=== PATIENT | female | born 1985 | race Caucasian/White ===

== ENCOUNTER 2020-11-24 23:09 | Emergency (ER) | payer OTHER, MEDICAID, SELFPAY ==
[2020-11-25 00:06] VITALS: BP 132/84; PULSE 118; RESP 17; TEMP 37.1; O2SAT 98; BMI 32.9
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
== END 2020-11-25 01:06 | disposition home or self-care (01) ==
LOC: HO.ED 11-25 00:58
PROVIDERS: Emergency Provider Internal Medicine; PCP Family Medicine
DX: Z04.1 Encounter for examination and observation following transport accident (principal)
CPT/HCPCS: 99283

== ENCOUNTER 2021-12-20 00:01 | Emergency (ER) | payer MEDICAID, SELFPAY ==
--- NOTE | 2021-12-20 | ECG_ITS ---
Test Reason : CHEST PAIN Blood Pressure : / mmHG Vent. Rate : 131 BPM Atrial Rate : 131 BPM P-R Int : 136 ms QRS Dur : 074 ms QT Int : 388 ms P-R-T Axes : 004 018 002 degrees QTc Int : 572 ms Sinus tachycardia Nonspecific ST abnormality Abnormal ECG When compared with ECG of 02-DEC-2019 19:05, No significant change was found Referred By: Generic ED Physician Electronically Signed By:DARIAN MÉNDEZ
[2021-12-20 00:06] VITALS: BP 180/109; PULSE 130; RESP 20; TEMP 37.2; O2SAT 100; BMI 49.6
[2021-12-20 00:22] VITALS: BP 166/114; PULSE 136; RESP 20; TEMP 37; O2SAT 100
[2021-12-20 00:24] LABS: Basophils Absolute Auto 0.1 X10*3/uL (0.0-0.2); Basophils Percent Auto 0.6 % (0-2); Eosinophils Absolute Auto 0.3 X10*3/uL (0.0-0.4); Eosinophils Percent Auto 3.6 % (0-4); Hematocrit 42.9 % (37.0-47.0); Hemoglobin 13.6 g/dl (12.0-16.0); Imm Gran Abs Auto 0.02 X10*3/uL (0.00-0.03); Imm Gran Pct Auto 0.2 % (0.0-0.4); Lymphocytes Absolute Auto 1.7 X10*3/uL (1.2-4.9); Lymphocytes Percent Auto 20.5 % (20-40); MANUAL DIFF FLAG NO; Mean Corpuscular HGB Conc 31.7 g/dl (31.0-35.0); Mean Corpuscular Hemoglobin 26.1 pg (27.0-33.0); Mean Corpuscular Volume 82.3 fL (80.0-98.0); Mean Platelet Volume 10.7 fL (9.4-12.3); Monocytes Absolute Auto 0.8 X10*3/uL (0.1-1.2); Monocytes Percent Auto 9.5 % (2-11); Neutrophils Absolute Auto 5.5 x10*3/uL (2.0-8.3); Neutrophils Percent Auto 65.6 % (45-73); Platelet Count 263 X10*3/uL (160-400); Red Blood Count 5.21 X10*6/uL (4.20-5.50); Red Cell Distribution Width 15.2 % (11.0-16.0); White Blood Count 8.4 X10*3/uL (4.8-10.8)
--- NOTE | 2021-12-20 00:38 | ED.CHESTPAIN ---
HPI - Chest Pain General Chief Complaint: Chest Pain Stated Complaint: Chest pain/Paliptations/?High Blood Pressure Time Seen by Provider: 12/20/21 00:38 Source: patient Mode of arrival: ambulatory Limitations: no limitations History of Present Illness HPI narrative: Chest pain, nausea, anxiety, and palpitations for 2 days. Patient has asthma, hypertension. Patient takes verapamil for her blood pressure. MD complaint: chest pain Onset (ago): day(s) Timing of current episode: constant Onset: during rest Pain location: substernal Severity: mild Quality: dull Treatment prior to arrival: none Related Data On Oral Contraceptives: No Previous Rx's Medication Instructions Recorded ondansetron 4 mg disintegrating 4 mg PO TID PRN 5 Days #10 tab 12/21/21 tablet Allergies Allergy/AdvReac Type Severity Reaction Status Date / Time No Known Allergies Allergy Verified 12/20/21 00:06 [No Known Allergies*] Anesthesia S/I-40 Allergy Unknown rash Uncoded 12/20/21 00:06 outside allergy/ unhouse Allergy Unknown rash Uncoded 12/20/21 00:06 aller Review of Systems Constitutional: Constitutional: Reports no additional constitutional complaints Eyes: Eyes: Reports no additional eye complaints ENT: Denies dizziness Cardiovascular: Cardiovascular: Reports no additional cardiovascular complaints Respiratory: Respiratory: Reports as per HPI Gastrointestinal: Gastrointestinal: Reports no additional gastrointestinal complaints Genitourinary: Genitourinary: Reports no additional female genitourinary complaints Musculoskeletal: Musculoskeletal: Reports no additional musculoskeletal complaints Integumentary/Breasts: Skin/Breast: Denies rash Neurologic: Reports system reviewed and no additional complaints, except as documented, Denies dizziness and Denies Sensory deficit (Neuro) Psychiatric: Psychiatric: Denies anxiety PMFSH Past Medical History Medical History Asthma Back pain HTN (hypertension) Tachycardia Social History Social History Alcohol intake: never Patient Tobacco Use Status: Never used Tobacco Physical Exam Vital Signs: Vital Signs: Last Vital Signs Temp 98.6 F 12/20/21 00:22 Pulse 136 H 12/20/21 00:22 Resp 20 12/20/21 00:22 BP 166/114 H 12/20/21 00:22 Pulse Ox 100 12/20/21 00:22 BMI result Body Mass Index 49.6 Const: Other: very anxious, shaking General: healthy appearing Nutritional Appearance: average body habitus Orientation/consciousness: oriented to person and patient oriented x3 Limitations: no limitations HENMT: Head: Yes normal to inspection Ears: external ears normal General nose exam: Normal external nose present Mouth: Normal oral and palatal mucosa present and oropharynx normal Throat: Yes posterior oropharynx normal Eyes: General: appearance normal, both eyes and all related structures Neck: Other: supple Neck: Yes normal visual inspection Chest: Chest palpation & inspection: normal inspection of the chest Resp: Auscultation: clear to auscultation bilaterally Cardio: Other: tachycardia Jugular venous distension: no JVD Rate: regular rate Rhythm: regular rhythm Heart sounds: S1 normal heart sound present and S2 normal heart sound present GI: Inspection: Yes normal to inspection Palpation (GI): Soft to palpation, nontender and No hepatosplenomegaly present Auscultation: normal bowel sounds : General: Yes no CVA tenderness Back/Spine/Pelvis: Back: no CVA tenderness Skin: General skin exam: no rashes or lesions noted Neuro: General: oriented to person and patient oriented x3 Cranial nerves: Yes CN's II-XII intact bilaterally Motor exam (neuro): 5/5 motor strength present throughout Sensory Exam: No Sensory deficit (Neuro) Extrem: General: Yes normal to inspection Psych: Appearance: grossly normal MDM - Chest Pain Lab Data Result diagrams: 12/20/21 00:18 12/20/21 00:18 Labs: Lab Results 12/20/21 12/20/21 12/20/21 Range/Units 00:18 00:18 00:18 WBC 8.4 (4.8-10.8) X10*3/uL RBC 5.21 (4.20-5.50) X10*6/uL Hgb 13.6 (12.0-16.0) g/dl Hct 42.9 (37.0-47.0) % MCV 82.3 (80.0-98.0) fL MCH 26.1 L (27.0-33.0) pg MCHC 31.7 (31.0-35.0) g/dl RDW 15.2 (11.0-16.0) % Plt Count 263 (160-400) X10*3/uL MPV 10.7 (9.4-12.3) fL Immature Gran % (Auto) 0.2 (0.0-0.4) % Neut % (Auto) 65.6 (45-73) % Lymph % (Auto) 20.5 (20-40) % [place] % (Auto) 9.5 (2-11) % Eos % (Auto) 3.6 (0-4) % Baso % (Auto) 0.6 (0-2) % Lymph # (Auto) 1.7 (1.2-4.9) X10*3/uL [place] # (Auto) 0.8 (0.1-1.2) X10*3/uL Eos # (Auto) 0.3 (0.0-0.4) X10*3/uL Baso # (Auto) 0.1 (0.0-0.2) X10*3/uL Abs Immat Gran (auto) 0.02 (0.00-0.03) X10*3/uL Absolute Neuts (auto) 5.5 (2.0-8.3) x10*3/uL Absolute Nucleated RBC 0.000 (0.0-0.012) X10*3/uL Nucleated RBC % (auto) 0.0 (0.0-0.2) /100WBC D-Dimer High Sensitivty NG/ML Sodium 140 (135-145) mmol/L Potassium 3.6 (3.3-5.1) mmol/L Chloride 105 (96-108) mmol/L Carbon Dioxide 24 (22-29) mmol/L Anion Gap 15 (12-20) BUN 7 L (9-16) mg/dL Creatinine 0.83 (0.5-1.4) mg/dL Estim Creat Clear Calc 123.9 Estimated GFR > 60 Random Glucose 145 H (60-115) mg/dL Calcium 9.7 (8.4-10.2) mg/dL Troponin I High Sens < 3.5 (<3.5-17.0) ng/L TSH 0.90 (0.32-4.0) uIU/mL 12/20/21 Range/Units 01:10 WBC (4.8-10.8) X10*3/uL RBC (4.20-5.50) X10*6/uL Hgb (12.0-16.0) g/dl Hct (37.0-47.0) % MCV (80.0-98.0) fL MCH (27.0-33.0) pg MCHC (31.0-35.0) g/dl RDW (11.0-16.0) % Plt Count (160-400) X10*3/uL MPV (9.4-12.3) fL Immature Gran % (Auto) (0.0-0.4) % Neut % (Auto) (45-73) % Lymph % (Auto) (20-40) % [place] % (Auto) (2-11) % Eos % (Auto) (0-4) % Baso % (Auto) (0-2) % Lymph # (Auto) (1.2-4.9) X10*3/uL [place] # (Auto) (0.1-1.2) X10*3/uL Eos # (Auto) (0.0-0.4) X10*3/uL Baso # (Auto) (0.0-0.2) X10*3/uL Abs Immat Gran (auto) (0.00-0.03) X10*3/uL Absolute Neuts (auto) (2.0-8.3) x10*3/uL Absolute Nucleated RBC (0.0-0.012) X10*3/uL Nucleated RBC % (auto) (0.0-0.2) /100WBC D-Dimer High Sensitivty 169 NG/ML Sodium (135-145) mmol/L Potassium (3.3-5.1) mmol/L Chloride (96-108) mmol/L Carbon Dioxide (22-29) mmol/L Anion Gap (12-20) BUN (9-16) mg/dL Creatinine (0.5-1.4) mg/dL Estim Creat Clear Calc Estimated GFR Random Glucose (60-115) mg/dL Calcium (8.4-10.2) mg/dL Troponin I High Sens (<3.5-17.0) ng/L TSH (0.32-4.0) uIU/mL Discharge Plan Discharge Clinical Impression: Atypical chest pain Patient Disposition: Home, Self-Care Prescriptions: No Action ondansetron 4 mg tablet,disintegrating 4 mg PO TID PRN (Reason: nausea and vomiting) 5 Days Qty: 10 0RF Interventions: ED Discharge Assessment Last Done: 12/20/21 05:44 Discharge Date/Time: 12/20/21 05:47
[2021-12-20 00:39] LABS: Anion Gap 15 (12-20); Blood Urea Nitrogen 7 mg/dL (9-16); Calcium 9.7 mg/dL (8.4-10.2); Carbon Dioxide 24 mmol/L (22-29); Chloride 105 mmol/L (96-108); Creatinine Clr Calc Pharmacy 123.9; Estimated Glomerular Filt Rate > 60; Glucose Random 145 mg/dL (60-115); Potassium 3.6 mmol/L (3.3-5.1); Sodium 140 mmol/L (135-145)
[2021-12-20 00:44] LABS: Troponin-I High Sensitivity < 3.5 ng/L (<3.5-17.0)
[2021-12-20 05:22] LABS: D Dimer High Sensitivity 169 NG/ML
--- NOTE | 2021-12-20 05:22 | PC.NURSE ---
see downtime chart for the majority of this patients ER visit - VS, meds and times.
== END 2021-12-20 05:47 | disposition home or self-care (01) ==
PROVIDERS: Emergency Provider Emergency Medicine; PCP Family Medicine
DX: R07.89 Other chest pain (principal); F41.9 Anxiety disorder, unspecified; I10 Essential (primary) hypertension; R00.0 Tachycardia, unspecified
CPT/HCPCS: 36415; 80048; 84443; 84484; 85025; 85379; 93005; 96361; 96374; 96375; 99284

== ENCOUNTER 2021-12-21 02:44 | Emergency (ER) | payer MEDICAID, SELFPAY ==
[2021-12-21 02:49] VITALS: BP 128/89; PULSE 90; RESP 20; TEMP 37; O2SAT 97; BMI 31.8
--- NOTE | 2021-12-21 05:26 | ED_ITS ---
HPI - Nausea/Vomiting/Diarrhea General Chief complaint: Nausea/Vomiting/Diarrhea Stated complaint: vomiting & chest pain Time Seen by Provider: 12/21/21 05:24 History of Present Illness HPI Narrative: Patient is a 36-year-old female presents today with having abdominal pain nausea vomiting diarrhea. Positive generalized malaise. Diarrhea is brown in color. Vomiting mostly food. No blood in the stool. No fever no chills. Minimal coughing noted. Patient not immunized for COVID. Positive abdominal pain diffuse over the entire abdomen. Related Data Allergies Allergy/AdvReac Type Severity Reaction Status Date / Time No Known Allergies Allergy Verified 12/20/21 00:06 [No Known Allergies*] Anesthesia S/I-40 Allergy Unknown rash Uncoded 12/20/21 00:06 outside allergy/ unhouse Allergy Unknown rash Uncoded 12/20/21 00:06 aller Review of Systems Review of Systems: No fever no chills minimal coughing positive abdominal pain nausea vomiting diarrhea Yes all other systems are reviewed and are negative PMFSH Past Medical History Medical History Asthma Back pain HTN (hypertension) Tachycardia Social History Social History Advance Directives: No Patient : No Physical Exam Vital Signs: Vital Signs: Last Vital Signs Temp 98.6 F 12/21/21 02:49 Pulse 90 12/21/21 02:49 Resp 20 12/21/21 02:49 BP 128/89 12/21/21 02:49 Pulse Ox 97 12/21/21 02:49 BMI result Body Mass Index 31.8 Appearance: Alert. Oriented X3. No acute distress. Eyes: Pupils equal, round and reactive to light. ENT: Pharynx normal. Neck: Normal inspection. Neck supple. No lymph nodes noted. No crepitus CVS: Normal heart rate and rhythm. Pulses normal. Normal S1 and S2 Respiratory: No respiratory distress. Breath sounds normal. No Wheezing. No rales Abdomen: Soft and nontender. No rigidity. No distention. good BS x4 Skin: Skin warm and dry. Normal skin color. Normal skin turgor. Extremities: No lower extremity edema. Neurovascular intact to all extremities. No Lacerations. No Rash Neuro: Oriented X 3. No motor deficit. No sensory deficit. Moving all extermities. No slurred speech MDM - Nausea/Vomiting/Diarrhea MDM Narrative Medical decision making narrative: Not vaccinated positive generalized malaise weakness coughing abdominal pain prashanth sea vomiting diarrhea. Patient's COVID test was positive. CT scan is negative will discharge patient home. Lab Data Result diagrams: 12/21/21 05:53 12/21/21 05:53 Labs: Lab Results 12/21/21 12/21/21 Range/Units 05:53 05:53 WBC 9.0 (4.8-10.8) X10*3/uL RBC 4.70 (4.20-5.50) X10*6/uL Hgb 12.3 (12.0-16.0) g/dl Hct 38.5 (37.0-47.0) % MCV 81.9 (80.0-98.0) fL MCH 26.2 L (27.0-33.0) pg MCHC 31.9 (31.0-35.0) g/dl RDW 15.2 (11.0-16.0) % Plt Count 232 (160-400) X10*3/uL MPV 10.6 (9.4-12.3) fL Immature Gran % (Auto) 0.2 (0.0-0.4) % Neut % (Auto) 63.3 (45-73) % Lymph % (Auto) 26.7 (20-40) % [place] % (Auto) 6.6 (2-11) % Eos % (Auto) 2.8 (0-4) % Baso % (Auto) 0.4 (0-2) % Lymph # (Auto) 2.4 (1.2-4.9) X10*3/uL [place] # (Auto) 0.6 (0.1-1.2) X10*3/uL Eos # (Auto) 0.3 (0.0-0.4) X10*3/uL Baso # (Auto) 0.0 (0.0-0.2) X10*3/uL Abs Immat Gran (auto) 0.02 (0.00-0.03) X10*3/uL Absolute Neuts (auto) 5.7 (2.0-8.3) x10*3/uL Absolute Nucleated RBC 0.000 (0.0-0.012) X10*3/uL Nucleated RBC % (auto) 0.0 (0.0-0.2) /100WBC COVID-19 ([facility]) Positive A (Negative) COVID-19 Clin Com See Note Discharge Plan Discharge Clinical Impression: Vomiting, COVID-19 Patient Disposition: Home, Self-Care Instructions: COVID-19 (Coronavirus Disease 2019) (ED), Acute Nausea and Vomiting (ED) Additional Instructions: Home isolation until all symptom has resolved. Onset of symptoms for at least 1 week. No fever for least 24 hours. Referrals: Gisele Kulkarni MD [Primary Care Provider] - 2 days
[2021-12-21 05:58] LABS: MANUAL DIFF FLAG NO
[2021-12-21 05:59] LABS: Basophils Percent Auto 0.4 % (0-2); Eosinophils Absolute Auto 0.3 X10*3/uL (0.0-0.4); Eosinophils Percent Auto 2.8 % (0-4); Hematocrit 38.5 % (37.0-47.0); Hemoglobin 12.3 g/dl (12.0-16.0); Imm Gran Abs Auto 0.02 X10*3/uL (0.00-0.03); Imm Gran Pct Auto 0.2 % (0.0-0.4); Lymphocytes Absolute Auto 2.4 X10*3/uL (1.2-4.9); Lymphocytes Percent Auto 26.7 % (20-40); Mean Corpuscular HGB Conc 31.9 g/dl (31.0-35.0); Mean Corpuscular Hemoglobin 26.2 pg (27.0-33.0); Mean Corpuscular Volume 81.9 fL (80.0-98.0); Mean Platelet Volume 10.6 fL (9.4-12.3); Monocytes Absolute Auto 0.6 X10*3/uL (0.1-1.2); Monocytes Percent Auto 6.6 % (2-11); Neutrophils Absolute Auto 5.7 x10*3/uL (2.0-8.3); Neutrophils Percent Auto 63.3 % (45-73); Platelet Count 232 X10*3/uL (160-400); Red Cell Distribution Width 15.2 % (11.0-16.0)
[2021-12-21] MEDS: ondansetron HCL 4 MG/2 ML VIAL IVPUSH (06:03)
[2021-12-21] MEDS: 0.9 % Sodium Chloride 1,000 ML 999 ML IV ×2 (06:03)
[2021-12-21] MEDS: Ketorolac Tromethamine 30 MG/ML VIAL IVPUSH (06:03)
[2021-12-21 06:05] LABS: COVID-19 Test Positive (Negative)
[2021-12-21 07:03] LABS: Alanine Aminotransferase 18 U/L (0-31); Albumin Level 3.8 g/dL (3.5-5.0); Alkaline Phosphatase 85 U/L (39-117); Anion Gap 15 (12-20); Aspartate Amino Transferase 24 U/L (5-31); Bilirubin Direct < 0.2 mg/dL (0.0-0.5); Bilirubin Total 0.3 mg/dL (0.0-1.0); Blood Urea Nitrogen 9 mg/dL (9-16); Calcium 9.1 mg/dL (8.4-10.2); Carbon Dioxide 22 mmol/L (22-29); Chloride 107 mmol/L (96-108); Creatinine Clr Calc Pharmacy 116.2; Estimated Glomerular Filt Rate > 60; Glucose Random 102 mg/dL (60-115); Lipase 62 U/L (8-78); Potassium 3.8 mmol/L (3.3-5.1); Sodium 140 mmol/L (135-145); Total Protein 7.1 g/dL (6.5-8.0)
[2021-12-21 07:08] LABS: HCG Quantitative < 2 mIU/mL
[2021-12-21 07:26] VITALS: BP 127/93; PULSE 109; RESP 16; TEMP 36.5; O2SAT 98
[2021-12-21 08:30] LABS: Appearance Urine CLEAR; Color Urine STRAW; Glucose Urine UA NEG (NEG); Leukocyte Esterase Urine NEG (NEG); Nitrite Urine NEG (NEG); Specific Gravity - Urine <= 1.005 (1.005-1.025); UACC Culture Trigger NO; Urine Blood 3+ (NEG); Urine Ketones NEG (NEG); Urine Protein NEG (NEG-TRACE)
[2021-12-21 08:43] LABS: Renal Epithelial Cells Urine TRACE /LPF; Squamous Epithelial Cell Urine 1+ /LPF; WBC Urine 0 /HPF (0-4)
== END 2021-12-21 08:55 | disposition home or self-care (01) ==
PROVIDERS: Emergency Provider Emergency Medicine Emergency Medical Services; PCP Family Medicine
DX: U07.1 COVID-19 (principal); R11.2 Nausea with vomiting, unspecified; R07.89 Other chest pain; Z79.899 Other long term (current) drug therapy
CPT/HCPCS: 36415; 80048; 80076; 81001; 83690; 84702; 85025; 87635; 96361; 96374; 96375; 99284; J1885; J2405

== ENCOUNTER 2022-05-15 01:29 | Emergency (ER) | payer MEDICAID, SELFPAY ==
--- NOTE | 2022-05-15 | ECG_ITS ---
Test Reason : high bp chest pain Blood Pressure : / mmHG Vent. Rate : 139 BPM Atrial Rate : 000 BPM P-R Int : 000 ms QRS Dur : 076 ms QT Int : 370 ms P-R-T Axes : 000 016 -04 degrees QTc Int : 563 ms Sinus tachycardia Nonspecific ST abnormality Abnormal ECG When compared with ECG of 20-DEC-2021 00:11, No significant change was found Referred By: Generic ED Physician Electronically Signed By:Zeke Bailey
--- NOTE | ~2022-05-15 | XR_ITS ---
EXAMINATION: XR CHEST CLINICAL INFORMATION: Chest pain COMPARISON: 10/24/2008 TECHNIQUE: 2 views of the chest were obtained. FINDINGS: The lungs are clear with no focal consolidation. No evidence of pneumothorax, pulmonary edema, or pleural effusions. The cardiomediastinal silhouette is unremarkable. No acute osseous findings. XR/XR chest 2V IMPRESSION: No acute cardiopulmonary findings.
[2022-05-15 01:31] VITALS: BP 156/106; PULSE 147; RESP 20; TEMP 37.3; O2SAT 100; BMI 31.3
[2022-05-15 01:53] LABS: MANUAL DIFF FLAG NO
[2022-05-15 01:55] LABS: Basophils Percent Auto 0.3 % (0-2); Eosinophils Absolute Auto 0.1 X10*3/uL (0.0-0.4); Eosinophils Percent Auto 0.9 % (0-4); Hematocrit 39.9 % (37.0-47.0); Hemoglobin 12.8 g/dl (12.0-16.0); Imm Gran Abs Auto 0.03 X10*3/uL (0.00-0.03); Imm Gran Pct Auto 0.3 % (0.0-0.4); Lymphocytes Percent Auto 26.2 % (20-40); Mean Corpuscular HGB Conc 32.1 g/dl (31.0-35.0); Mean Corpuscular Volume 77.9 fL (80.0-98.0); Mean Platelet Volume 10.2 fL (9.4-12.3); Monocytes Absolute Auto 0.7 X10*3/uL (0.1-1.2); Monocytes Percent Auto 6.5 % (2-11); Neutrophils Absolute Auto 7.6 x10*3/uL (2.0-8.3); Neutrophils Percent Auto 65.8 % (45-73); Platelet Count 338 X10*3/uL (160-400); Red Blood Count 5.12 X10*6/uL (4.20-5.50); Red Cell Distribution Width 16.4 % (11.0-16.0); White Blood Count 11.5 X10*3/uL (4.8-10.8)
[2022-05-15 02:09] LABS: COVID-19 Test Negative (Negative)
--- NOTE | 2022-05-15 02:15 | ED.CHESTPAIN ---
HPI - Chest Pain General Chief Complaint: Chest Pain Stated Complaint: high bp Time Seen by Provider: 05/15/22 02:09 Source: patient Mode of arrival: ambulatory Limitations: no limitations History of Present Illness HPI narrative: Patient comes to the emergency room of 6 hours of palpitations, chest pressure, lightheadedness. Patient states that she takes blood pressure medications, does not know the name, is compliant with her medications. Patient denies nausea vomiting, URI or UTI symptoms, no abdominal pain. Shortness of breath Related Data Previous Rx's Medication Instructions Recorded ondansetron 4 mg disintegrating 4 mg PO TID PRN nausea and 12/21/21 tablet vomiting 5 days #10 tabs diltiazem HCl 240 mg capsule,24 240 mg PO DAILY #30 caps 05/15/22 hr,extended release (Tiadylt ER) Allergies Allergy/AdvReac Type Severity Reaction Status Date / Time No Known Allergies Allergy Verified 12/20/21 00:06 [No Known Allergies*] Anesthesia S/I-40 Allergy Unknown rash Uncoded 12/20/21 00:06 outside allergy/ unhouse Allergy Unknown rash Uncoded 12/20/21 00:06 aller Review of Systems Review of Systems: Constitutional : No Weight loss, No Fever, No Chills, No Night Sweats, No Fatigue, No Malaise ENT/Mouth : No Hearing loss, No Ear Pain, No Nasal Congestion, No Sinus Pain, No Hoarseness, No sore throat, No Rhinorrhea, No Swallowing Difficulty Eyes: No Eye Pain, No Swelling, No Redness, No Foreign Body, No Discharge, No Vision Changes Cardiovascular : Complaining of chest pain, mild shortness of breath, palpitations Respiratory : No Cough, No Sputum, No Wheezing, No Smoke Exposure, complaining of Dyspnea Gastrointestinal : No Nausea, No Vomiting, No Diarrhea, No Constipation, No abdominal Pain, No Hematochezia, No Melena Genitourinary : no irregular bleeding, No Dysuria, No Urinary Frequency, No Hematuria, No Urinary Incontinence, No Urgency, No Flank Pain, No Urinary Flow Changes, No Hesitancy Musculoskeletal : No joint pain, No Myalgias, No Joint Swelling Skin : No Skin Lesions, No rash Neuro : No Weakness, No Numbness, No Paresthesias, No Loss of Consciousness, No Dizziness, No Headache Psych : No Anxiety/Panic, No Depression, No SI/HI/AH/VH, No Social Issues, Heme/Lymph: No Bruising, No Bleeding,No Lymphadenopathy Endocrine : No Polyuria, No Polydipsia, No Temperature Intolerance [facility] Past Medical History Medical History Asthma Back pain HTN (hypertension) Tachycardia Social History Social History Alcohol intake: never Patient Tobacco Use Status: Never used Tobacco Use of substances other than those prescribed or required for medical reasons: No Advance Directives: No Physical Exam Vital Signs: Vital Signs: Last Vital Signs Temp 97.4 F 05/15/22 04:35 Pulse 98 05/15/22 06:29 Resp 17 05/15/22 06:29 BP 126/90 H 05/15/22 06:29 Pulse Ox 100 05/15/22 06:29 O2 Del Method 05/15/22 06:29 BMI result Body Mass Index 31.3 Const: Other: Appearance: Alert. Oriented X3. No acute distress. Eyes: Pupils equal, round and reactive to light. ENT: Pharynx normal. Neck: Normal inspection. Neck supple. No lymph nodes noted. No crepitus CVS: Regular rhythm, tachycardic, heart rate in the 140s to 150s Pulses normal. Normal S1 and S2 Respiratory: No respiratory distress. Breath sounds normal. No Wheezing. No rales Abdomen: Soft and nontender. No rigidity. No distention. Skin: Skin warm and dry. Normal skin color. Normal skin turgor. Extremities: No lower extremity edema. No Lacerations. No Rash Neuro: Oriented X 3. No motor deficit. No sensory deficit. Moving all extremities. No slurred speech. CN 2 through 12 grossly intact Psych: calm, cooperative, seems anxious, teary Course Course Course Narrative: Hypoxia and slightly elevated 11.5, D-dimer pending, chemistry within normal limits, troponin negative, EKG shows sinus rhythm, heart rate 139, QTC 463 D-dimer pending Patient was amount of 60 mg Cardizem, patient's heart rate improved to the low 100s, high 90s. However, when patient stands up, her heart rate increased to 120. Patient received 5 additional mg of IV metoprolol, heart rate 93, sinus rhythm, normal EKG. I discussed with the patient that we will increase the home Cardizem dose from 180-240 mg MDM - Chest Pain Lab Data Result diagrams: 05/15/22 01:49 05/15/22 01:49 Labs: Lab Results 05/15/22 05/15/22 05/15/22 Range/Units 01:49 01:49 01:49 WBC 11.5 H (4.8-10.8) X10*3/uL RBC 5.12 (4.20-5.50) X10*6/uL Hgb 12.8 (12.0-16.0) g/dl Hct 39.9 (37.0-47.0) % MCV 77.9 L (80.0-98.0) fL MCH 25.0 L (27.0-33.0) pg MCHC 32.1 (31.0-35.0) g/dl RDW 16.4 H (11.0-16.0) % Plt Count 338 D (160-400) X10*3/uL MPV 10.2 (9.4-12.3) fL Immature Gran % (Auto) 0.3 (0.0-0.4) % Neut % (Auto) 65.8 (45-73) % Lymph % (Auto) 26.2 (20-40) % [place] % (Auto) 6.5 (2-11) % Eos % (Auto) 0.9 (0-4) % Baso % (Auto) 0.3 (0-2) % Lymph # (Auto) 3.0 (1.2-4.9) X10*3/uL [place] # (Auto) 0.7 (0.1-1.2) X10*3/uL Eos # (Auto) 0.1 (0.0-0.4) X10*3/uL Baso # (Auto) 0.0 (0.0-0.2) X10*3/uL Abs Immat Gran (auto) 0.03 (0.00-0.03) X10*3/uL Absolute Neuts (auto) 7.6 (2.0-8.3) x10*3/uL Absolute Nucleated RBC 0.000 (0.0-0.012) X10*3/uL Nucleated RBC % (auto) 0.0 (0.0-0.2) /100WBC D-Dimer High Sensitivty NG/ML Sodium 137 (135-145) mmol/L Potassium 3.7 (3.3-5.1) mmol/L Chloride 107 (96-108) mmol/L Carbon Dioxide 21 L (22-29) mmol/L Anion Gap 13 (12-20) BUN 9 (9-16) mg/dL Creatinine 0.80 (0.5-1.4) mg/dL Estim Creat Clear Calc 99.4 Estimated GFR > 60 Random Glucose 143 H (60-115) mg/dL Calcium 9.3 (8.4-10.2) mg/dL Total Bilirubin 0.2 (0.0-1.0) mg/dL AST 14 D (5-31) U/L ALT 11 (0-31) U/L Alkaline Phosphatase 101 (39-117) U/L Troponin I High Sens < 3.5 (<3.5-17.0) ng/L Total Protein 8.3 H (6.5-8.0) g/dL Albumin 4.4 (3.5-5.0) g/dL COVID-19 ([facility]) (Negative) COVID-19 Clin Com 05/15/22 05/15/22 Range/Units 01:49 03:53 WBC (4.8-10.8) X10*3/uL RBC (4.20-5.50) X10*6/uL Hgb (12.0-16.0) g/dl Hct (37.0-47.0) % MCV (80.0-98.0) fL MCH (27.0-33.0) pg MCHC (31.0-35.0) g/dl RDW (11.0-16.0) % Plt Count (160-400) X10*3/uL MPV (9.4-12.3) fL Immature Gran % (Auto) (0.0-0.4) % Neut % (Auto) (45-73) % Lymph % (Auto) (20-40) % [place] % (Auto) (2-11) % Eos % (Auto) (0-4) % Baso % (Auto) (0-2) % Lymph # (Auto) (1.2-4.9) X10*3/uL [place] # (Auto) (0.1-1.2) X10*3/uL Eos # (Auto) (0.0-0.4) X10*3/uL Baso # (Auto) (0.0-0.2) X10*3/uL Abs Immat Gran (auto) (0.00-0.03) X10*3/uL Absolute Neuts (auto) (2.0-8.3) x10*3/uL Absolute Nucleated RBC (0.0-0.012) X10*3/uL Nucleated RBC % (auto) (0.0-0.2) /100WBC D-Dimer High Sensitivty < 150 NG/ML Sodium (135-145) mmol/L Potassium (3.3-5.1) mmol/L Chloride (96-108) mmol/L Carbon Dioxide (22-29) mmol/L Anion Gap (12-20) BUN (9-16) mg/dL Creatinine (0.5-1.4) mg/dL Estim Creat Clear Calc Estimated GFR Random Glucose (60-115) mg/dL Calcium (8.4-10.2) mg/dL Total Bilirubin (0.0-1.0) mg/dL AST (5-31) U/L ALT (0-31) U/L Alkaline Phosphatase (39-117) U/L Troponin I High Sens (<3.5-17.0) ng/L Total Protein (6.5-8.0) g/dL Albumin (3.5-5.0) g/dL COVID-19 ([facility]) Negative (Negative) COVID-19 Clin Com See Note Discharge Plan Discharge Clinical Impression: Sinus tachycardia Patient Disposition: Home, Self-Care Instructions: Tachycardia (ED) Additional Instructions: Please follow-up with your primary care physician tomorrow. If you have any worsening or new symptoms, please return to the emergency room or call 911 Prescriptions: New diltiazem HCl [Tiadylt ER] 240 mg capsule,extended release 24 hr 240 mg PO DAILY Qty: 30 0RF No Action ondansetron 4 mg tablet,disintegrating 4 mg PO TID PRN (Reason: nausea and vomiting) 5 Days Qty: 10 0RF
[2022-05-15 02:18] LABS: Alanine Aminotransferase 11 U/L (0-31); Albumin Level 4.4 g/dL (3.5-5.0); Alkaline Phosphatase 101 U/L (39-117); Anion Gap 13 (12-20); Aspartate Amino Transferase 14 U/L (5-31); Bilirubin Total 0.2 mg/dL (0.0-1.0); Blood Urea Nitrogen 9 mg/dL (9-16); Calcium 9.3 mg/dL (8.4-10.2); Carbon Dioxide 21 mmol/L (22-29); Chloride 107 mmol/L (96-108); Creatinine Clr Calc Pharmacy 99.4; Estimated Glomerular Filt Rate > 60; Glucose Random 143 mg/dL (60-115); Potassium 3.7 mmol/L (3.3-5.1); Sodium 137 mmol/L (135-145); Total Protein 8.3 g/dL (6.5-8.0)
[2022-05-15 02:20] LABS: Troponin-I High Sensitivity < 3.5 ng/L (<3.5-17.0)
[2022-05-15] MEDS: LORazepam 1 MG TABLET 2 MG PO (03:16)
[2022-05-15] MEDS: Magnesium Sulfate/H2O 2 GM/50 ML PIGGYBACK IV (03:17)
[2022-05-15] MEDS: 0.9 % Sodium Chloride 1,000 ML 999 ML IVCONT (03:17)
[2022-05-15 04:11] LABS: D Dimer High Sensitivity < 150 NG/ML
[2022-05-15 04:35] VITALS: BP 123/71; PULSE 126; RESP 21; TEMP 36.3; O2SAT 98
[2022-05-15 05:44] VITALS: BP 153/99; PULSE 124; RESP 16; O2SAT 100
[2022-05-15] MEDS: dilTIAZem HCL 60 MG TABLET PO (05:46)
[2022-05-15 06:29] VITALS: BP 126/90; PULSE 98; RESP 17; O2SAT 100
[2022-05-15] MEDS: Metoprolol Tartrate 5 MG/5 ML VIAL IVPUSH (07:25)
--- NOTE | 2022-05-15 07:29 | ECG_ITS ---
Test Reason : chest pain Blood Pressure : / mmHG Vent. Rate : 093 BPM Atrial Rate : 093 BPM P-R Int : 188 ms QRS Dur : 086 ms QT Int : 376 ms P-R-T Axes : 032 005 010 degrees QTc Int : 467 ms Normal sinus rhythm Normal ECG When compared with ECG of 15-MAY-2022 01:30, Vent. rate has decreased BY 46 BPM Referred By: Rhiannon Squires Electronically Signed By:Zeke Bailey
== END 2022-05-15 07:59 | disposition home or self-care (01) ==
PROVIDERS: Emergency Provider Emergency Medicine; PCP Family Medicine
DX: R00.0 Tachycardia, unspecified (principal); R07.89 Other chest pain; I10 Essential (primary) hypertension; R00.2 Palpitations; Z20.822 Contact with and (suspected) exposure to COVID-19; Z79.899 Other long term (current) drug therapy
CPT/HCPCS: 36415; 71046; 80053; 84484; 85025; 85379; 87635; 93005; 96361; 96365; 96375; 99284; 99285; J3475

== ENCOUNTER 2022-08-18 11:46 | Emergency (ER) | payer MEDICAID, SELFPAY ==
--- NOTE | ~2022-08-18 | XR_ITS ---
EXAMINATION: XR CHEST CLINICAL INFORMATION: INDICATION COMPARISON: 05/15/2022 TECHNIQUE: 2 views of the chest were obtained. FINDINGS: No significant abnormality is noted involving the heart, lungs, mediastinum, bony thorax or soft tissues. XR/XR chest 2V IMPRESSION: Unremarkable examination, without interval change.
[2022-08-18 11:50] VITALS: BP 198/111; PULSE 135; RESP 20; TEMP 36.1; O2SAT 96; BMI 31.8
--- NOTE | 2022-08-18 11:52 | ECG_ITS ---
Test Reason : PALPITATIONS Blood Pressure : / mmHG Vent. Rate : 123 BPM Atrial Rate : 123 BPM P-R Int : 146 ms QRS Dur : 074 ms QT Int : 324 ms P-R-T Axes : 019 028 -16 degrees QTc Int : [address] & T wave abnormality, consider inferior ischemia Abnormal ECG When compared with ECG of 15-MAY-2022 07:29, Heart rate has increased T wave inversion more evident in Inferior leads Referred By: Generic ED Physician Electronically Signed By:LOPEZ MAN MD
[2022-08-18 12:10] LABS: MANUAL DIFF FLAG NO
[2022-08-18 12:12] LABS: Basophils Absolute Auto 0.1 X10*3/uL (0.0-0.2); Basophils Percent Auto 0.4 % (0-2); Eosinophils Absolute Auto 0.1 X10*3/uL (0.0-0.4); Eosinophils Percent Auto 0.8 % (0-4); Hematocrit 40.3 % (37.0-47.0); Hemoglobin 12.3 g/dl (12.0-16.0); Imm Gran Abs Auto 0.03 X10*3/uL (0.00-0.03); Imm Gran Pct Auto 0.3 % (0.0-0.4); Lymphocytes Absolute Auto 2.1 X10*3/uL (1.2-4.9); Lymphocytes Percent Auto 18.2 % (20-40); Mean Corpuscular HGB Conc 30.5 g/dl (31.0-35.0); Mean Corpuscular Hemoglobin 23.9 pg (27.0-33.0); Mean Corpuscular Volume 78.4 fL (80.0-98.0); Mean Platelet Volume 10.5 fL (9.4-12.3); Monocytes Absolute Auto 0.7 X10*3/uL (0.1-1.2); Monocytes Percent Auto 6.4 % (2-11); Neutrophils Absolute Auto 8.6 x10*3/uL (2.0-8.3); Neutrophils Percent Auto 73.9 % (45-73); Platelet Count 321 X10*3/uL (160-400); Red Blood Count 5.14 X10*6/uL (4.20-5.50); Red Cell Distribution Width 15.8 % (11.0-16.0); White Blood Count 11.6 X10*3/uL (4.8-10.8)
[2022-08-18 12:30] LABS: COVID-19 Test Negative (Negative); IDNOW Serial# 16C4AD1C
[2022-08-18 12:36] LABS: Anion Gap 18 (12-20); Blood Urea Nitrogen 11 mg/dL (9-16); Calcium 9.4 mg/dL (8.4-10.2); Carbon Dioxide 20 mmol/L (22-29); Chloride 104 mmol/L (96-108); Creatinine Clr Calc Pharmacy 101.8; Estimated Glomerular Filt Rate > 60; Glucose Random 165 mg/dL (60-115); Potassium 3.8 mmol/L (3.3-5.1); Sodium 138 mmol/L (135-145)
[2022-08-18 14:15] LABS: Troponin-I High Sensitivity < 3.5 ng/L (<3.5-17.0)
== END 2022-08-18 16:34 | disposition left against medical advice (07) ==
PROVIDERS: Emergency Provider Emergency Medicine; PCP Family Medicine
DX: R00.2 Palpitations (principal); R51.9 Headache, unspecified; I10 Essential (primary) hypertension; Z20.822 Contact with and (suspected) exposure to COVID-19; Z79.899 Other long term (current) drug therapy
CPT/HCPCS: 36415; 71046; 80048; 83735; 84484; 85025; 87635; 93005; 99283

== ENCOUNTER 2022-08-20 12:06 | Emergency (ER) | payer MEDICAID, SELFPAY ==
[2022-08-20 12:23] VITALS: BP 149/102; PULSE 127; RESP 20; TEMP 36.6; O2SAT 100; BMI 31.8
--- NOTE | 2022-08-20 12:26 | ECG_ITS ---
Test Reason : PALPITATIONS Blood Pressure : / mmHG Vent. Rate : 107 BPM Atrial Rate : 107 BPM P-R Int : 160 ms QRS Dur : 076 ms QT Int : 354 ms P-R-T Axes : 021 014 -12 degrees QTc Int : 472 ms Sinus tachycardia T-wave inversion in Inferior leads Abnormal ECG When compared with ECG of 18-AUG-2022 11:53, No significant change was found Referred By: Generic ED Physician Electronically Signed By:LOPEZ MAN MD
[2022-08-20 12:44] LABS: MANUAL DIFF FLAG NO
[2022-08-20 12:47] LABS: Basophils Absolute Auto 0.1 X10*3/uL (0.0-0.2); Basophils Percent Auto 0.6 % (0-2); Eosinophils Absolute Auto 0.1 X10*3/uL (0.0-0.4); Eosinophils Percent Auto 1.1 % (0-4); Hematocrit 39.3 % (37.0-47.0); Hemoglobin 12.2 g/dl (12.0-16.0); Imm Gran Abs Auto 0.02 X10*3/uL (0.00-0.03); Imm Gran Pct Auto 0.2 % (0.0-0.4); Lymphocytes Absolute Auto 2.2 X10*3/uL (1.2-4.9); Lymphocytes Percent Auto 24.9 % (20-40); Mean Corpuscular Hemoglobin 24.4 pg (27.0-33.0); Mean Corpuscular Volume 78.4 fL (80.0-98.0); Mean Platelet Volume 10.3 fL (9.4-12.3); Monocytes Absolute Auto 0.7 X10*3/uL (0.1-1.2); Monocytes Percent Auto 7.6 % (2-11); Neutrophils Absolute Auto 5.8 x10*3/uL (2.0-8.3); Neutrophils Percent Auto 65.6 % (45-73); Platelet Count 291 X10*3/uL (160-400); Red Blood Count 5.01 X10*6/uL (4.20-5.50); Red Cell Distribution Width 16.1 % (11.0-16.0); White Blood Count 8.9 X10*3/uL (4.8-10.8)
[2022-08-20 13:05] LABS: Alanine Aminotransferase 16 U/L (0-31); Albumin Level 4.1 g/dL (3.5-5.0); Alkaline Phosphatase 88 U/L (39-117); Anion Gap 16 (12-20); Aspartate Amino Transferase 23 U/L (5-31); Bilirubin Direct < 0.2 mg/dL (0.0-0.5); Bilirubin Total 0.2 mg/dL (0.0-1.0); Blood Urea Nitrogen 10 mg/dL (9-16); Calcium 9.3 mg/dL (8.4-10.2); Carbon Dioxide 23 mmol/L (22-29); Chloride 106 mmol/L (96-108); Creatinine Clr Calc Pharmacy 100.6; Estimated Glomerular Filt Rate > 60; Glucose Random 111 mg/dL (60-115); Lipase 49 U/L (8-78); Potassium 3.9 mmol/L (3.3-5.1); Sodium 141 mmol/L (135-145); Total Protein 7.7 g/dL (6.5-8.0)
[2022-08-20 13:11] LABS: Troponin-I High Sensitivity < 3.5 ng/L (<3.5-17.0)
--- NOTE | 2022-08-20 13:35 | PC.NURSE ---
this rn was called to the waiting room, pt was down on the ground by registration, security reports pt coming up to the window and easing herself on the ground, never hit head, when this rn evaluating the pt started having seizure like activity/twitching for about 10 seconds, pt was able to follow commands, not postictal, not incontinent, pt was able to stand with very mini assistance and lay down on the stretcher, hr 136, sating at 99% did not bp because still scyling , pt moved to bed 6h
--- NOTE | 2022-08-20 13:36 | ED_ITS ---
HPI - Chest Pain General Chief Complaint: Chest Pain Stated Complaint: Nausea Dizzy High Blood Pressure Time Seen by Provider: 08/20/22 13:35 Source: patient Mode of arrival: ambulatory Limitations: language barrier (Patient does speak and understand Luxembourgish, 1st language is Malaysian, network professional used) History of Present Illness HPI narrative: 37-year-old female who presents emergency department complaining of a rapid heart rate, dizziness, chest pain, nausea, vomiting and elevated blood pressures. Patient states she has been sick since Friday (08/17/2022-4 days prior to evaluation) she states that she has been having rapid heart rates with chest pain in the right side of her chest. She states that the symptoms are intermittent can sometimes last for hours. She gets multiple episodes per day. She describes the chest pain is a burning sensation and she points to her right chest. She states the pain radiates down her right arm. She states that this is usually associated with her rapid heart rate. The patient states she has had associated nausea and vomiting. She states she has been vomiting 2 to 3 times a day. She denied fever, chills, rhinorrhea, sore throat or cough. She denied diarrhea. She states she is having abdominal pain but this is because she started her menses and the pain is consistent with her menstrual pain. Patient states that she has been evaluated by convertible top installer, Dr. Mc for her tech arrhythmia and recently her blood pressure medications were changed and she was started on verapamil 240 mg daily. She states that since starting this medication she has noted elevated blood pressures and no improvement of her tachycardia/palpitations. The patient came to the emergency department on 08/18/2022 for evaluation of her symptoms but due to the long which she left the emergency department. She did see your doctor today was [facility] go to the emergency department for evaluation of her symptoms. From that visit she had a normal CBC with a slight elevation in her WBC 90423, she was not anemic but she does have a low MCV of 78, BMP was normal, high sensitive troponin I was below detectable limits, COVID-19 test was negative. Related Data Previous Rx's Medication Instructions Recorded ondansetron 4 mg disintegrating 4 mg PO TID PRN nausea and 12/21/21 tablet vomiting 5 days #10 tabs diltiazem HCl 240 mg capsule,24 240 mg PO DAILY #30 caps 05/15/22 hr,extended release (Tiadylt ER) lorazepam 1 mg tablet 1 mg PO TID PRN anxiety #10 tabs 08/20/22 ondansetron 4 mg disintegrating 4 mg PO Q6-8H PRN nausea and 08/20/22 tablet vomiting #14 tabs Allergies Allergy/AdvReac Type Severity Reaction Status Date / Time No Known Allergies Allergy Verified 12/20/21 00:06 [No Known Allergies*] Anesthesia S/I-40 Allergy Unknown rash Uncoded 12/20/21 00:06 outside allergy/ unhouse Allergy Unknown rash Uncoded 12/20/21 00:06 aller Review of Systems Review of Systems: Yes all other systems are reviewed and are negative [facility] Past Medical History [facility] Narrative: Social history: She denies tobacco, alcohol and drug use. Medical History Asthma Back pain HTN (hypertension) Tachycardia Social History Social History Alcohol intake: never Patient Tobacco Use Status: Never used Tobacco Advance Directives: No Advance Directives Information Provided: Yes Physical Exam Vital Signs: Vital Signs: Last Vital Signs Temp 97.8 F 08/20/22 12:23 Pulse 136 H 08/20/22 13:40 Resp 20 08/20/22 13:40 BP 149/102 H 08/20/22 12:23 Pulse Ox 99 08/20/22 13:40 O2 Del Method 08/20/22 13:40 BMI result Body Mass Index 31.8 Const: Other: Awake, alert, female patient, she does appear to be anxious, she answers all questions appropriately. HEENT: Head: Yes normal to inspection, Yes normocephalic and Yes atraumatic Ears: external ears normal General nose exam: Normal external nose present Face and sinus: Yes normal facial exam Mouth: Normal oral and palatal mucosa present Throat: Yes posterior oropharynx normal Eyes: General: appearance normal, both eyes and all related structures Pupils: Equal, round and reactive pupils present Neck: Neck: Yes normal visual inspection, Yes no lymphadenopathy, Yes trachea midline and Yes supple Chest: Chest palpation & inspection: normal inspection of the chest and tenderness (Right anterior chest) Resp: Effort & Inspection: normal respiratory effort and able to speak in co mplete sentences Auscultation: clear to auscultation bilaterally Cardio: Rate: tachycardic Rhythm: regular rhythm Heart sounds: S1 normal heart sound present, S2 normal heart sound present and no murmurs GI: Inspection: Yes normal to inspection Palpation (GI): Soft to palpation, nontender and no guarding Auscultation: normal bowel sounds : General: Yes no CVA tenderness Back/Spine/Pelvis: Back: no CVA tenderness Skin: General skin exam: no rashes or lesions noted Neuro: Cranial nerves: Yes CN's II-XII intact bilaterally and Yes Equal, round and reactive pupils present Cognition (Neuro): normal cognition Motor exam (neuro): 5/5 motor strength present throughout Extrem: General: Yes normal to inspection Psych: Appearance: grossly normal Speech and movement: Normal speech and movement present Affect: Anxious affect present Attitude: cooperative Thought process: Normal thought process present Thought content: Normal thought content present Course Course Course Narrative: 37-year-old female who presents emergency department for evaluation of tachycardia, dizziness, chest pain nausea, vomiting and elevated blood pressures x4 days. Patient's vital signs did reveal tachycardia with a heart rate of 127 and elevated blood pressure of 149/102. Patient did appear to be very anxious. She does have right-sided chest wall tenderness otherwise exam is unremarkable. Patient's 12 EKG revealed a sinus tachycardia with no other abnormalities. The patient's laboratory evaluation revealed a normal CBC , CMP and lipase. Patient's high sensitivity troponin I was below detectable limits. Patient had a COVID-19 test and a chest x-ray on 08/18/2022 which were negative. At this time, I believe that the patient's tachycardia is causing her symptoms do not think that she has had a myocardial infarction. The patient states she has been vomiting and not been able to hold anything down for 24 hours therefore I did order normal saline IV x1 L, Zofran 4 mg IV. She was also given Ativan 1 mg orally. The patient had a recent change in her blood pressure medications and I advised her to check your blood pressures in the mornings on Wednesdays and Fridays in the right these readings down the next 2 weeks and discuss these readings with her PCP to determine if she needs a change in her blood pressure medications. 1657: The patient is feeling better after the above treatment. The patient was discharged home with a prescription for Ativan and for Zofran. MDM - Chest Pain Lab Data Result diagrams: 08/20/22 12:33 08/20/22 12:33 Labs: Lab Results 08/20/22 08/20/22 08/20/22 Range/Units 12:33 12:33 12:33 WBC 8.9 (4.8-10.8) X10*3/uL RBC 5.01 (4.20-5.50) X10*6/uL Hgb 12.2 (12.0-16.0) g/dl Hct 39.3 (37.0-47.0) % MCV 78.4 L (80.0-98.0) fL MCH 24.4 L (27.0-33.0) pg MCHC 31.0 (31.0-35.0) g/dl RDW 16.1 H (11.0-16.0) % Plt Count 291 (160-400) X10*3/uL MPV 10.3 (9.4-12.3) fL Immature Gran % (Auto) 0.2 (0.0-0.4) % Neut % (Auto) 65.6 (45-73) % Lymph % (Auto) 24.9 (20-40) % [place] % (Auto) 7.6 (2-11) % Eos % (Auto) 1.1 (0-4) % Baso % (Auto) 0.6 (0-2) % Lymph # (Auto) 2.2 (1.2-4.9) X10*3/uL [place] # (Auto) 0.7 (0.1-1.2) X10*3/uL Eos # (Auto) 0.1 (0.0-0.4) X10*3/uL Baso # (Auto) 0.1 (0.0-0.2) X10*3/uL Abs Immat Gran (auto) 0.02 (0.00-0.03) X10*3/uL Absolute Neuts (auto) 5.8 (2.0-8.3) x10*3/uL Absolute Nucleated RBC 0.000 (0.0-0.012) X10*3/uL Nucleated RBC % (auto) 0.0 (0.0-0.2) /100WBC D-Dimer High Sensitivty NG/ML Sodium 141 (135-145) mmol/L Potassium 3.9 (3.3-5.1) mmol/L Chloride 106 (96-108) mmol/L Carbon Dioxide 23 (22-29) mmol/L Anion Gap 16 (12-20) BUN 10 (9-16) mg/dL Creatinine 0.79 (0.5-1.4) mg/dL Estim Creat Clear Calc 100.6 Estimated GFR > 60 Random Glucose 111 (60-115) mg/dL Calcium 9.3 (8.4-10.2) mg/dL Total Bilirubin 0.2 (0.0-1.0) mg/dL Direct Bilirubin < 0.2 (0.0-0.5) mg/dL AST 23 D (5-31) U/L ALT 16 (0-31) U/L Alkaline Phosphatase 88 (39-117) U/L Troponin I High Sens < 3.5 (<3.5-17.0) ng/L Total Protein 7.7 (6.5-8.0) g/dL Albumin 4.1 (3.5-5.0) g/dL Lipase 49 (8-78) U/L 08/20/ Range/Units 14:12 WBC (4.8-10.8) X10*3/uL RBC (4.20-5.50) X10*6/uL Hgb (12.0-16.0) g/dl Hct (37.0-47.0) % MCV (80.0-98.0) fL MCH (27.0-33.0) pg MCHC (31.0-35.0) g/dl RDW (11.0-16.0) % Plt Count (160-400) X10*3/uL MPV (9.4-12.3) fL Immature Gran % (Auto) (0.0-0.4) % Neut % (Auto) (45-73) % Lymph % (Auto) (20-40) % [place] % (Auto) (2-11) % Eos % (Auto) (0-4) % Baso % (Auto) (0-2) % Lymph # (Auto) (1.2-4.9) X10*3/uL [place] # (Auto) (0.1-1.2) X10*3/uL Eos # (Auto) (0.0-0.4) X10*3/uL Baso # (Auto) (0.0-0.2) X10*3/uL Abs Immat Gran (auto) (0.00-0.03) X10*3/uL Absolute Neuts (auto) (2.0-8.3) x10*3/uL Absolute Nucleated RBC (0.0-0.012) X10*3/uL Nucleated RBC % (auto) (0.0-0.2) /100WBC D-Dimer High Sensitivty 422 NG/ML Sodium (135-145) mmol/L Potassium (3.3-5.1) mmol/L Chloride (96-108) mmol/L Carbon Dioxide (22-29) mmol/L Anion Gap (12-20) BUN (9-16) mg/dL Creatinine (0.5-1.4) mg/dL Estim Creat Clear Calc Estimated GFR Random Glucose (60-115) mg/dL Calcium (8.4-10.2) mg/dL Total Bilirubin (0.0-1.0) mg/dL Direct Bilirubin (0.0-0.5) mg/dL AST (5-31) U/L ALT (0-31) U/L Alkaline Phosphatase (39-117) U/L Troponin I High Sens (<3.5-17.0) ng/L Total Protein (6.5-8.0) g/dL Albumin (3.5-5.0) g/dL Lipase (8-78) U/L Discharge Plan Discharge Clinical Impression: Tachycardia Chest pain Qualifiers: Chest pain type: unspecified Qualified Code(s): R07.9 - Chest pain, unspecified Nausea & vomiting Qualifiers: Vomiting type: unspecified Qualified Code(s): R11.2 - Nausea with vomiting, unspecified Patient Disposition: Home, Self-Care Additional Instructions: Your laboratory evaluation today was unremarkable. You had a high sensitivity troponin I (a marker of heart damage/heart attack) done today and on 08/18/2022. You had no detectable troponin in your blood which means that she have not had a heart attack, this is reassuring. I believe that your fast heart rate is causing you to release adrenaline which then triggers her symptoms of lightheadedness, dizziness, nausea, vomiting and an elevated blood pressure. Continue taking your verapamil as prescribed by your doctor. Check your blood pressures and your pulse/heart rate on Friday morning, Friday morning and Friday morning for the next 2 weeks, write these blood pressures down and discuss them with your doctor that is managing her blood pressure. Take Zofran (ondansetron) ODT 4 mg pills, 1 pill dissolved in your mouth every 8 hours as needed for nausea and vomiting. Take Ativan (lorazepam) 1 mg pills, 1 pill every 8 hours as needed for anxiety and palpitations. This medication will make you sleepy. This medication can be addicting if your concerned about addiction do not get this medication filled or you can ask the pharmacist for less pills than prescribed. Follow-up with your doctor in 2 days. Please return to the emergency department if your symptoms get worse or if you develop any symptoms that are concerning to you. Prescriptions: New lorazepam 1 mg tablet 1 mg PO TID PRN (Reason: anxiety) Qty: 10 0RF Rx Instructions: Patient may ask for partial fill ondansetron 4 mg tablet,disintegrating 4 mg PO Q6-8H PRN (Reason: nausea and vomiting) Qty: 14 0RF No Action ondansetron 4 mg tablet,disintegrating 4 mg PO TID PRN (Reason: nausea and vomiting) 5 Days Qty: 10 0RF diltiazem HCl [Tiadylt ER] 240 mg capsule,extended release 24 hr 240 mg PO DAILY Qty: 30 0RF
[2022-08-20 13:40] VITALS: PULSE 136; RESP 20; O2SAT 99
[2022-08-20 14:27] LABS: D Dimer High Sensitivity 422 NG/ML
[2022-08-20] MEDS: ondansetron HCL 4 MG/2 ML VIAL IVPUSH (15:00)
[2022-08-20] MEDS: LORazepam 1 MG TABLET PO (15:00)
[2022-08-20] MEDS: 0.9 % Sodium Chloride 1,000 ML 999 ML IV (15:01)
--- NOTE | 2022-08-20 17:03 | ED_ITS ---
HPI - Chest Pain General Chief Complaint: Chest Pain Stated Complaint: Nausea Dizzy High Blood Pressure Time Seen by Provider: 08/20/22 13:35 Source: patient Mode of arrival: ambulatory Limitations: language barrier (Patient does speak and understand Setswana, 1st language is Nigerien, rn gastroenterology used) Related Data Previous Rx's Medication Instructions Recorded ondansetron 4 mg disintegrating 4 mg PO TID PRN nausea and 12/21/21 tablet vomiting 5 days #10 tabs diltiazem HCl 240 mg capsule,24 240 mg PO DAILY #30 caps 05/15/22 hr,extended release (Tiadylt ER) lorazepam 1 mg tablet 1 mg PO TID PRN anxiety #10 tabs 08/20/22 ondansetron 4 mg disintegrating 4 mg PO Q6-8H PRN nausea and 08/20/22 tablet vomiting #14 tabs Allergies Allergy/AdvReac Type Severity Reaction Status Date / Time No Known Allergies Allergy Verified 12/20/21 00:06 [No Known Allergies*] Anesthesia S/I-40 Allergy Unknown rash Uncoded 12/20/21 00:06 outside allergy/ unhouse Allergy Unknown rash Uncoded 12/20/21 00:06 aller PMFSH Past Medical History Medical History Asthma Back pain HTN (hypertension) Tachycardia Social History Social History Alcohol intake: never Patient Tobacco Use Status: Never used Tobacco Advance Directives: No Advance Directives Information Provided: Yes Physical Exam Vital Signs: Vital Signs: Last Vital Signs Temp 97.8 F 08/20/22 12:23 Pulse 136 H 08/20/22 13:40 Resp 20 08/20/22 13:40 BP 149/102 H 08/20/22 12:23 Pulse Ox 99 08/20/22 13:40 O2 Del Method 08/20/22 13:40 BMI result Body Mass Index 31.8 MDM - Chest Pain Lab Data Result diagrams: 08/20/22 12:33 08/20/22 12:33 Labs: Lab Results 08/20/22 08/20/22 08/20/22 Range/Units 12:33 12:33 12:33 WBC 8.9 (4.8-10.8) X10*3/uL RBC 5.01 (4.20-5.50) X10*6/uL Hgb 12.2 (12.0-16.0) g/dl Hct 39.3 (37.0-47.0) % MCV 78.4 L (80.0-98.0) fL MCH 24.4 L (27.0-33.0) pg MCHC 31.0 (31.0-35.0) g/dl RDW 16.1 H (11.0-16.0) % Plt Count 291 (160-400) X10*3/uL MPV 10.3 (9.4-12.3) fL Immature Gran % (Auto) 0.2 (0.0-0.4) % Neut % (Auto) 65.6 (45-73) % Lymph % (Auto) 24.9 (20-40) % Arthur % (Auto) 7.6 (2-11) % Eos % (Auto) 1.1 (0-4) % Baso % (Auto) 0.6 (0-2) % Lymph # (Auto) 2.2 (1.2-4.9) X10*3/uL Arthur # (Auto) 0.7 (0.1-1.2) X10*3/uL Eos # (Auto) 0.1 (0.0-0.4) X10*3/uL Baso # (Auto) 0.1 (0.0-0.2) X10*3/uL Abs Immat Gran (auto) 0.02 (0.00-0.03) X10*3/uL Absolute Neuts (auto) 5.8 (2.0-8.3) x10*3/uL Absolute Nucleated RBC 0.000 (0.0-0.012) X10*3/uL Nucleated RBC % (auto) 0.0 (0.0-0.2) /100WBC D-Dimer High Sensitivty NG/ML Sodium 141 (135-145) mmol/L Potassium 3.9 (3.3-5.1) mmol/L Chloride 106 (96-108) mmol/L Carbon Dioxide 23 (22-29) mmol/L Anion Gap 16 (12-20) BUN 10 (9-16) mg/dL Creatinine 0.79 (0.5-1.4) mg/dL Estim Creat Clear Calc 100.6 Estimated GFR > 60 Random Glucose 111 (60-115) mg/dL Calcium 9.3 (8.4-10.2) mg/dL Total Bilirubin 0.2 (0.0-1.0) mg/dL Direct Bilirubin < 0.2 (0.0-0.5) mg/dL AST 23 D (5-31) U/L ALT 16 (0-31) U/L Alkaline Phosphatase 88 (39-117) U/L Troponin I High Sens < 3.5 (<3.5-17.0) ng/L Total Protein 7.7 (6.5-8.0) g/dL Albumin 4.1 (3.5-5.0) g/dL Lipase 49 (8-78) U/L 08/20/22 Range/Units 14:12 WBC (4.8-10.8) X10*3/uL RBC (4.20-5.50) X10*6/uL Hgb (12.0-16.0) g/dl Hct (37.0-47.0) % MCV (80.0-98.0) fL MCH (27.0-33.0) pg MCHC (31.0-35.0) g/dl RDW (11.0-16.0) % Plt Count (160-400) X10*3/uL MPV (9.4-12.3) fL Immature Gran % (Auto) (0.0-0.4) % Neut % (Auto) (45-73) % Lymph % (Auto) (20-40) % Arthur % (Auto) (2-11) % Eos % (Auto) (0-4) % Baso % (Auto) (0-2) % Lymph # (Auto) (1.2-4.9) X10*3/uL Arthur # (Auto) (0.1-1.2) X10*3/uL Eos # (Auto) (0.0-0.4) X10*3/uL Baso # (Auto) (0.0-0.2) X10*3/uL Abs Immat Gran (auto) (0.00-0.03) X10*3/uL Absolute Neuts (auto) (2.0-8.3) x10*3/uL Absolute Nucleated RBC (0.0-0.012) X10*3/uL Nucleated RBC % (auto) (0.0-0.2) /100WBC D-Dimer High Sensitivty 422 NG/ML Sodium (135-145) mmol/L Potassium (3.3-5.1) mmol/L Chloride (96-108) mmol/L Carbon Dioxide (22-29) mmol/L Anion Gap (12-20) BUN (9-16) mg/dL Creatinine (0.5-1.4) mg/dL Estim Creat Clear Calc Estimated GFR Random Glucose (60-115) mg/dL Calcium (8.4-10.2) mg/dL Total Bilirubin (0.0-1.0) mg/dL Direct Bilirubin (0.0-0.5) mg/dL AST (5-31) U/L ALT (0-31) U/L Alkaline Phosphatase (39-117) U/L Troponin I High Sens (<3.5-17.0) ng/L Total Protein (6.5-8.0) g/dL Albumin (3.5-5.0) g/dL Lipase (8-78) U/L Discharge Plan Discharge Clinical Impression: Tachycardia Chest pain Qualifiers: Chest pain type: unspecified Qualified Code(s): R07.9 - Chest pain, unspecified Nausea & vomiting Qualifiers: Vomiting type: unspecified Qualified Code(s): R11.2 - Nausea with vomiting, unspecified Patient Disposition: Home, Self-Care Additional Instructions: Your laboratory evaluation today was unremarkable. You had a high sensitivity troponin I (a marker of heart damage/heart attack) done today and on 08/18/2022. You had no detectable troponin in your blood which means that she have not had a heart attack, this is reassuring. I believe that your fast heart rate is causing you to release adrenaline which then triggers her symptoms of lightheadedness, dizziness, nausea, vomiting and an elevated blood pressure. Continue taking your verapamil as prescribed by your doctor. Check your blood pressures and your pulse/heart rate on Friday morning, Friday morning and Friday morning for the next 2 weeks, write these blood pressures down and discuss them with your doctor that is managing her blood pressure. Take Zofran (ondansetron) ODT 4 mg pills, 1 pill dissolved in your mouth every 8 hours as needed for nausea and vomiting. Take Ativan (lorazepam) 1 mg pills, 1 pill every 8 hours as needed for anxiety and palpitations. This medication will make you sleepy. This medication can be addicting if your concerned about addiction do not get this medication filled or you can ask the pharmacist for less pills than prescribed. Follow-up with your doctor in 2 days. Please return to the emergency department if your symptoms get worse or if you develop any symptoms that are concerning to you. Prescriptions: New lorazepam 1 mg tablet 1 mg PO TID PRN (Reason: anxiety) Qty: 10 0RF Rx Instructions: Patient may ask for partial fill ondansetron 4 mg tablet,disintegrating 4 mg PO Q6-8H PRN (Reason: nausea and vomiting) Qty: 14 0RF No Action ondansetron 4 mg tablet,disintegrating 4 mg PO TID PRN (Reason: nausea and vomiting) 5 Days Qty: 10 0RF diltiazem HCl [Tiadylt ER] 240 mg capsule,extended release 24 hr 240 mg PO DAILY Qty: 30 0RF
== END 2022-08-20 17:25 | disposition home or self-care (01) ==
PROVIDERS: Emergency Medicine; Emergency Provider Emergency Medicine Emergency Medical Services; PCP Family Medicine
DX: R00.0 Tachycardia, unspecified (principal); R00.2 Palpitations; R42 Dizziness and giddiness; R11.2 Nausea with vomiting, unspecified; Z79.899 Other long term (current) drug therapy
CPT/HCPCS: 36415; 80048; 80076; 83690; 84484; 85025; 85379; 93005; 96361; 96374; 99284; 99285; J2405

== ENCOUNTER 2023-02-11 18:09 | Emergency (ER) | payer MEDICAID, SELFPAY ==
--- NOTE | ~2023-02-11 | XR_ITS ---
EXAMINATION: XR CHEST CLINICAL INFORMATION: Chest pain COMPARISON: Previous chest x-ray most recent July 2022 TECHNIQUE: Frontal view of the chest was obtained. FINDINGS: No significant abnormality is noted involving the heart, lungs, mediastinum, bony thorax or soft tissues. XR/XR chest 1V IMPRESSION: Unremarkable examination.
--- NOTE | 2023-02-11 18:11 | ECG_ITS ---
Test Reason : DIZZY SOB Blood Pressure : / mmHG Vent. Rate : 108 BPM Atrial Rate : 108 BPM P-R Int : 152 ms QRS Dur : 074 ms QT Int : 336 ms P-R-T Axes : 034 031 -23 degrees QTc Int : 450 ms Sinus tachycardia T wave abnormality, consider inferior ischemia Abnormal ECG When compared with ECG of 20-AUG-2022 12:27, Nonspecific T wave abnormality now evident in Anterior leads Referred By: Amy Vail Electronically Signed By:DARIAN MÉNDEZ
--- NOTE | 2023-02-11 18:14 | ED_ITS ---
HPI - General Adult General Stated complaint: fast heart rate, headache, dizziness Time Seen by Provider: 02/11/23 18:41 Related Data Previous Rx's ?Medication ?Instructions ?Recorded ondansetron 4 mg disintegrating 4 mg PO TID PRN nausea and 12/21/21 tablet vomiting 5 days #10 tabs diltiazem HCl 240 mg capsule,24 240 mg PO DAILY #30 caps 05/15/22 hr,extended release (Tiadylt ER) lorazepam 1 mg tablet 1 mg PO TID PRN anxiety #10 tabs 08/20/22 ondansetron 4 mg disintegrating 4 mg PO Q6-8H PRN nausea and 08/20/22 tablet vomiting #14 tabs ibuprofen 600 mg tablet 600 mg PO TID PRN fever or pain 11/22/23 #20 tabs Allergies Allergy/AdvReac Type Severity Reaction Status Date / Time No Known Allergies Allergy Verified 11/22/23 22:05 [No Known Allergies*] Anesthesia S/I-40 Allergy Unknown rash Uncoded 03/14/23 13:07 outside allergy/ unhouse Allergy Unknown rash Uncoded 03/14/23 13:07 aller PMFSH Past Medical History Medical History HTN (hypertension) Back pain Asthma Tachycardia Surgical History Hx of removal of cyst Family History Family History (Updated 03/14/23 @ 13:11 by MARCELO Wadsworth) Mother Diabetes Arthritis Heart disease Sister Heart disease Seizure Sister Arthritis Gastritis Brother Diabetes HTN (hypertension) Social History Social History (Updated 03/14/23 @ 13:11 by MARCELO Wadsworth) Alcohol intake: never Patient Tobacco Use Status: Never used Tobacco Physical Exam ED Vital Signs: BMI result Body Mass Index 34.0 Course Course Course Narrative: This is an RME: Additional HPI, ROS, PE not included below will be deferred to primary provider. 37-year-old female presents for evaluation of chest pain, shortness of breath, dizziness and multiple near syncopal episodes x2 days. Patient walked into the department stated she was dizzy and had a near syncopal episode had to help her into the chair. She reports that she feels like her heart is racing. This has never happened to her before. No history of anxiety. Physical exam patient diaphoretic and clammy. Plan bring her straight back to the emergency department, EKG, troponin, D- dimer. Medications Administered Discontinued Medications Generic Name Dose Route Start Last Admin Trade Name Andersonq PRN Reason Stop Dose Admin Diphenhydramine HCl 25 mg 02/11/23 19:07 02/11/23 19:27 Diphenhydramine Hcl 50 Mg/Ml Vial IVPUSH 02/11/23 19:08 25 mg ONCE ONE Administration Sodium Chloride 500 mls @ 999 mls/hr 02/11/23 19:15 02/11/23 20:40 Ns IV 02/11/23 19:45 Infused .Q31M AMELIE Infusion Sodium Chloride 1,000 mls @ 999 mls/hr 02/11/23 20:45 02/11/23 22:10 Ns IV 02/11/23 21:45 Infused .Q1H1M AMELIE Infusion Ketorolac Tromethamine 15 mg 02/11/23 19:07 02/11/23 19:27 Ketorolac Tromethamine 15 Mg/Ml Vial IVPUSH 02/11/23 19:08 15 mg ONCE ONE Administration Prochlorperazine Edisylate 10 mg 02/11/23 19:07 02/11/23 19:27 Prochlorperazine Edisylate 10 Mg/2 Ml Vial IVPUSH 02/11/23 19:08 10 mg ONCE ONE Administration Medical Decision Making Lab Data 02/11/23 18:40 02/11/23 18:54 Labs: Lab Results 02/11/23 02/11/23 02/11/23 Range/Units 18:32 18:40 18:54 WBC 10.1 (4.8-10.8) X10*3/uL RBC 4.84 (4.20-5.50) X10*6/uL Hgb 12.0 (12.0-16.0) g/dl Hct 38.0 (37.0-47.0) % MCV 78.5 L (80.0-98.0) fL MCH 24.8 L (27.0-33.0) pg MCHC 31.6 (31.0-35.0) g/dl RDW 16.0 (11.0-16.0) % Plt Count 278 (160-400) X10*3/uL MPV 10.3 (9.4-12.3) fL Immature Gran % (Auto) 0.2 (0.0-0.4) % Neut % (Auto) 77.6 H (45-73) % Lymph % (Auto) 15.4 L (20-40) % [facility] % (Auto) 5.7 (2-11) % Eos % (Auto) 0.8 (0-4) % Baso % (Auto) 0.3 (0-2) % Lymph # (Auto) 1.6 (1.2-4.9) X10*3/uL [facility] # (Auto) 0.6 (0.1-1.2) X10*3/uL Eos # (Auto) 0.1 (0.0-0.4) X10*3/uL Baso # (Auto) 0.0 (0.0-0.2) X10*3/uL Abs Immat Gran (auto) 0.02 (0.00-0.03) X10*3/uL Absolute Neuts (auto) 7.9 (2.0-8.3) x10*3/uL Absolute Nucleated RBC 0.000 (0.0-0.012) X10*3/uL Nucleated RBC % (auto) 0.0 (0.0-0.2) /100WBC D-Dimer High Sensitivty 182 NG/ML Sodium 139 (135-145) mmol/L Potassium 4.1 (3.3-5.1) mmol/L Chloride 106 (96-108) mmol/L Carbon Dioxide 24 (22-29) mmol/L Anion Gap 13 (12-20) BUN 11 (9-16) mg/dL Creatinine 0.82 (0.5-1.4) mg/dL Estim Creat Clear Calc 100.1 Estimated GFR > 60 POC Glucose 175 H (60-115) mg/dL Random Glucose 148 H (60-115) mg/dL Calcium 9.0 (8.4-10.2) mg/dL Magnesium 1.9 (1.6-2.6) mg/dL Total Bilirubin 0.3 (0.0-1.0) mg/dL AST 13 (5-31) U/L ALT 11 (0-31) U/L Alkaline Phosphatase 84 (39-117) U/L Troponin I High Sens < 2.7 (<3.5-17.0) ng/L Total Protein 6.9 (6.5-8.0) g/dL Albumin 3.8 (3.5-5.0) g/dL COVID-19 ([facility]) Negative (Negative) COVID-19 Clin Com See Note 02/11/23 Range/Units 21:03 WBC (4.8-10.8) X10*3/uL RBC (4.20-5.50) X10*6/uL Hgb (12.0-16.0) g/dl Hct (37.0-47.0) % MCV (80.0-98.0) fL MCH (27.0-33.0) pg MCHC (31.0-35.0) g/dl RDW (11.0-16.0) % Plt Count (160-400) X10*3/uL MPV (9.4-12.3) fL Immature Gran % (Auto) (0.0-0.4) % Neut % (Auto) (45-73) % Lymph % (Auto) (20-40) % [facility] % (Auto) (2-11) % Eos % (Auto) (0-4) % Baso % (Auto) (0-2) % Lymph # (Auto) (1.2-4.9) X10*3/uL [facility] # (Auto) (0.1-1.2) X10*3/uL Eos # (Auto) (0.0-0.4) X10*3/uL Baso # (Auto) (0.0-0.2) X10*3/uL Abs Immat Gran (auto) (0.00-0.03) X10*3/uL Absolute Neuts (auto) (2.0-8.3) x10*3/uL Absolute Nucleated RBC (0.0-0.012) X10*3/uL Nucleated RBC % (auto) (0.0-0.2) /100WBC D-Dimer High Sensitivty NG/ML Sodium (135-145) mmol/L Potassium (3.3-5.1) mmol/L Chloride (96-108) mmol/L Carbon Dioxide (22-29) mmol/L Anion Gap (12-20) BUN (9-16) mg/dL Creatinine (0.5-1.4) mg/dL Estim Creat Clear Calc Estimated GFR POC Glucose (60-115) mg/dL Random Glucose (60-115) mg/dL Calcium (8.4-10.2) mg/dL Magnesium (1.6-2.6) mg/dL Total Bilirubin (0.0-1.0) mg/dL AST (5-31) U/L ALT (0-31) U/L Alkaline Phosphatase (39-117) U/L Troponin I High Sens < 2.7 (<3.5-17.0) ng/L Total Protein (6.5-8.0) g/dL Albumin (3.5-5.0) g/dL COVID-19 ([facility]) (Negative) COVID-19 Clin Com Discharge Plan Discharge Clinical Impression: Migraine, Near syncope Patient Disposition: Home, Self-Care Instructions: Migraine Headache (ED), Near Syncope (ED) Prescriptions: No Action lorazepam 1 mg tablet 1 mg PO TID PRN (Reason: anxiety) Qty: 10 0RF Rx Instructions: Patient may ask for partial fill ondansetron 4 mg tablet,disintegrating 4 mg PO Q6-8H PRN (Reason: nausea and vomiting) Qty: 14 0RF ondansetron 4 mg tablet,disintegrating 4 mg PO TID PRN (Reason: nausea and vomiting) 5 Days Qty: 10 0RF diltiazem HCl [Tiadylt ER] 240 mg capsule,extended release 24 hr 240 mg PO DAILY Qty: 30 0RF ibuprofen 600 mg tablet 600 mg PO TID PRN (Reason: fever or pain) Qty: 20 0RF Referrals: Gisele Kulkarni MD [Primary Care Provider] - Interventions: ED Discharge Assessment Last Done: 02/11/23 22:50 Discharge Date/Time: 02/11/23 22:50 Print Language: Lebanese
[2023-02-11 18:23] VITALS: BP 117/66; PULSE 97; RESP 18; TEMP 36.9; O2SAT 99; BMI 34.0
[2023-02-11 18:37] LABS: Glucose, Whole Blood 175 mg/dL (60-115)
[2023-02-11 18:48] LABS: MANUAL DIFF FLAG NO
[2023-02-11 18:57] LABS: Basophils Percent Auto 0.3 % (0-2); Eosinophils Absolute Auto 0.1 X10*3/uL (0.0-0.4); Eosinophils Percent Auto 0.8 % (0-4); Imm Gran Abs Auto 0.02 X10*3/uL (0.00-0.03); Imm Gran Pct Auto 0.2 % (0.0-0.4); Lymphocytes Absolute Auto 1.6 X10*3/uL (1.2-4.9); Lymphocytes Percent Auto 15.4 % (20-40); Mean Corpuscular HGB Conc 31.6 g/dl (31.0-35.0); Mean Corpuscular Hemoglobin 24.8 pg (27.0-33.0); Mean Corpuscular Volume 78.5 fL (80.0-98.0); Mean Platelet Volume 10.3 fL (9.4-12.3); Monocytes Absolute Auto 0.6 X10*3/uL (0.1-1.2); Monocytes Percent Auto 5.7 % (2-11); Neutrophils Absolute Auto 7.9 x10*3/uL (2.0-8.3); Neutrophils Percent Auto 77.6 % (45-73); Platelet Count 278 X10*3/uL (160-400); Red Blood Count 4.84 X10*6/uL (4.20-5.50); White Blood Count 10.1 X10*3/uL (4.8-10.8)
[2023-02-11 19:06] LABS: COVID-19 Test Negative (Negative); IDNOW Serial# 08D9AD1C
[2023-02-11 19:08] LABS: D Dimer High Sensitivity 182 NG/ML
--- NOTE | 2023-02-11 19:11 | ED.CHESTPAIN ---
HPI - Chest Pain General Chief Complaint: Chest Pain Stated Complaint: fast heart rate, headache, dizziness Time Seen by Provider: 02/11/23 18:41 History of Present Illness HPI narrative: Patient is a 37-year-old female with a history of diabetes, hypertension. Planing of chest pain earlier. Patient was outside in the waiting room getting an EKG patient felt very dizzy lightheaded. Patient also complaining of headache is mainly over the left side it is worse with light worse behind the eye associated with nausea. Patient felt very weak. Recovered after sitting. There is no history of leg swelling. No history of blood clots. No history of cancer. Patient from home. Positive history of hypertension and diabetes. No history of NM. No history of smoking. No high cholesterol. No history of travel. Related Data Previous Rx's Medication Instructions Recorded ondansetron 4 mg disintegrating 4 mg PO TID PRN nausea and 12/21/21 tablet vomiting 5 days #10 tabs diltiazem HCl 240 mg capsule,24 240 mg PO DAILY #30 caps 05/15/22 hr,extended release (Tiadylt ER) lorazepam 1 mg tablet 1 mg PO TID PRN anxiety #10 tabs 08/20/22 ondansetron 4 mg disintegrating 4 mg PO Q6-8H PRN nausea and 08/20/22 tablet vomiting #14 tabs Allergies Allergy/AdvReac Type Severity Reaction Status Date / Time No Known Allergies Allergy Verified 02/11/23 18:23 [No Known Allergies*] Anesthesia S/I-40 Allergy Unknown rash Uncoded 12/20/21 00:06 outside allergy/ unhouse Allergy Unknown rash Uncoded 12/20/21 00:06 aller Review of Systems Review of Systems: Positive headache Positive chest pain Positive generalized malaise Yes all other systems are reviewed and are negative [facility] Past Medical History Attestation statement: The following information was validated with the patient. Medical History Asthma Back pain HTN (hypertension) Tachycardia Social History Social History Alcohol intake: never Patient Tobacco Use Status: Never used Tobacco Advance Directives: No Advance Directives Information Provided: No Physical Exam Vital Signs: Vital Signs: Last Vital Signs Temp 97.9 F 02/11/23 19:44 Pulse 99 02/11/23 19:44 Resp 17 02/11/23 19:44 BP 126/76 02/11/23 19:44 Pulse Ox 99 02/11/23 19:44 O2 Del Method Room Air 02/11/23 19:44 BMI result Body Mass Index 34.0 Appearance: Alert. Oriented X3. No acute distress. Eyes: Pupils equal, round and reactive to light. ENT: Pharynx normal. Neck: Normal inspection. Neck supple. No lymph nodes noted. No crepitus CVS: Normal heart rate and rhythm. Pulses normal. Normal S1 and S2 Respiratory: No respiratory distress. Breath sounds normal. No Wheezing. No rales Abdomen: Soft and nontender. No rigidity. No distention. good BS x4 Skin: Skin warm and dry. Normal skin color. Normal skin turgor. Extremities: No lower extremity edema. Neurovascular intact to all extremities. No Lacerations. No Rash Neuro: Oriented X 3. No motor deficit. No sensory deficit. Moving all extermities. No slurred speech Medications Administered Generic Name Dose Route Start Last Admin Trade Name Freq PRN Reason Stop Dose Admin Sodium Chloride 1,000 mls @ 999 mls/hr 02/11/23 20:45 02/11/23 21:07 Ns IV 02/11/23 21:45 999 mls/hr .Q1H1M AMELIE Administration Discontinued Medications Generic Name Dose Route Start Last Admin Trade Name Freq PRN Reason Stop Dose Admin Diphenhydramine HCl 25 mg 02/11/23 19:07 02/11/23 19:27 Diphenhydramine Hcl 50 Mg/Ml Vial IVPUSH 02/11/23 19:08 25 mg ONCE ONE Administration Sodium Chloride 500 mls @ 999 mls/hr 02/11/23 19:15 02/11/23 20:40 Ns IV 02/11/23 19:45 Infused .Q31M AMELIE Infusion Ketorolac Tromethamine 15 mg 02/11/23 19:07 02/11/23 19:27 Ketorolac Tromethamine 15 Mg/Ml Vial IVPUSH 02/11/23 19:08 15 mg ONCE ONE Administration Prochlorperazine Edisylate 10 mg 02/11/23 19:07 02/11/23 19:27 Prochlorperazine Edisylate 10 Mg/2 Ml Vial IVPUSH 02/11/23 19:08 10 mg ONCE ONE Administration Medical Decision Making Medical Decision Making [facility] Narrative: Patient presents today with having headache over the left side behind the eyes associated with nausea dizziness weakness given migraine department with good results. Patient also had a lightheadedness episode had some tachycardia. No other risk for PE. Patient's D-dimer is negative with a history not consistent with pulmonary emboli unlikely to have a PE. Patient's EKG by my interpretation showed a sinus pattern heart rate is approximately 110. ID QRS QTC within normal limits there is no acute ST segment elevation. Second set of cardiac enzyme also negative. Patient well-appearing. Will discharge patient home. Differential Diagnosis Differential Diagnoses: The differential diagnosis associated with the presentation includes Migraine headache, near syncope, ACS, PE, dehydration, anemia Lab Data [facility] Lab Attestation statement: I reviewed the patient's lab results. 02/11/23 18:40 02/11/23 18:54 Labs: Lab Results 02/11/23 02/11/23 02/11/23 Range/Units 18:32 18:40 18:40 WBC 10.1 (4.8-10.8) X10*3/uL RBC 4.84 (4.20-5.50) X10*6/uL Hgb 12.0 (12.0-16.0) g/dl Hct 38.0 (37.0-47.0) % MCV 78.5 L (80.0-98.0) fL MCH 24.8 L (27.0-33.0) pg MCHC 31.6 (31.0-35.0) g/dl RDW 16.0 (11.0-16.0) % Plt Count 278 (160-400) X10*3/uL MPV 10.3 (9.4-12.3) fL Immature Gran % (Auto) 0.2 (0.0-0.4) % Neut % (Auto) 77.6 H (45-73) % Lymph % (Auto) 15.4 L (20-40) % Hall % (Auto) 5.7 (2-11) % Eos % (Auto) 0.8 (0-4) % Baso % (Auto) 0.3 (0-2) % Lymph # (Auto) 1.6 (1.2-4.9) X10*3/uL [facility] # (Auto) 0.6 (0.1-1.2) X10*3/uL Eos # (Auto) 0.1 (0.0-0.4) X10*3/uL Baso # (Auto) 0.0 (0.0-0.2) X10*3/uL Abs Immat Gran (auto) 0.02 (0.00-0.03) X10*3/uL Absolute Neuts (auto) 7.9 (2.0-8.3) x10*3/uL Absolute Nucleated RBC 0.000 (0.0-0.012) X10*3/uL Nucleated RBC % (auto) 0.0 (0.0-0.2) /100WBC D-Dimer High Sensitivty NG/ML Sodium (135-145) mmol/L Potassium (3.3-5.1) mmol/L Chloride (96-108) mmol/L Carbon Dioxide (22-29) mmol/L Anion Gap (12-20) BUN (9-16) mg/dL Creatinine (0.5-1.4) mg/dL Estim Creat Clear Calc Estimated GFR POC Glucose 175 H (60-115) mg/dL Random Glucose (60-115) mg/dL Calcium (8.4-10.2) mg/dL Magnesium (1.6-2.6) mg/dL Total Bilirubin (0.0-1.0) mg/dL AST (5-31) U/L ALT (0-31) U/L Alkaline Phosphatase (39-117) U/L Troponin I High Sens (<3.5-17.0) ng/L Total Protein (6.5-8.0) g/dL Albumin (3.5-5.0) g/dL COVID-19 ([facility]) Negative (Negative) COVID-19 Clin Com See Note 02/11/23 02/11/23 02/11/23 Range/Units 18:40 18:54 18:54 WBC (4.8-10.8) X10*3/uL RBC (4.20-5.50) X10*6/uL Hgb (12.0-16.0) g/dl Hct (37.0-47.0) % MCV (80.0-98.0) fL MCH (27.0-33.0) pg MCHC (31.0-35.0) g/dl RDW (11.0-16.0) % Plt Count (160-400) X10*3/uL MPV (9.4-12.3) fL Immature Gran % (Auto) (0.0-0.4) % Neut % (Auto) (45-73) % Lymph % (Auto) (20-40) % Hall % (Auto) (2-11) % Eos % (Auto) (0-4) % Baso % (Auto) (0-2) % Lymph # (Auto) (1.2-4.9) X10*3/uL Hall # (Auto) (0.1-1.2) X10*3/uL Eos # (Auto) (0.0-0.4) X10*3/uL Baso # (Auto) (0.0-0.2) X10*3/uL Abs Immat Gran (auto) (0.00-0.03) X10*3/uL Absolute Neuts (auto) (2.0-8.3) x10*3/uL Absolute Nucleated RBC (0.0-0.012) X10*3/uL Nucleated RBC % (auto) (0.0-0.2) /100WBC D-Dimer High Sensitivty 182 NG/ML Sodium 139 (135-145) mmol/L Potassium 4.1 (3.3-5.1) mmol/L Chloride 106 (96-108) mmol/L Carbon Dioxide 24 (22-29) mmol/L Anion Gap 13 (12-20) BUN 11 (9-16) mg/dL Creatinine 0.82 (0.5-1.4) mg/dL Estim Creat Clear Calc 100.1 Estimated GFR > 60 POC Glucose (60-115) mg/dL Random Glucose 148 H (60-115) mg/dL Calcium 9.0 (8.4-10.2) mg/dL Magnesium 1.9 (1.6-2.6) mg/dL Total Bilirubin 0.3 (0.0-1.0) mg/dL AST 13 (5-31) U/L ALT 11 (0-31) U/L Alkaline Phosphatase 84 (39-117) U/L Troponin I High Sens < 2.7 (<3.5-17.0) ng/L Total Protein 6.9 (6.5-8.0) g/dL Albumin 3.8 (3.5-5.0) g/dL COVID-19 ([facility]) (Negative) COVID-19 Clin Com 02/11/23 Range/Units 21:03 WBC (4.8-10.8) X10*3/uL RBC (4.20-5.50) X10*6/uL Hgb (12.0-16.0) g/dl Hct (37.0-47.0) % MCV (80.0-98.0) fL MCH (27.0-33.0) pg MCHC (31.0-35.0) g/dl RDW (11.0-16.0) % Plt Count (160-400) X10*3/uL MPV (9.4-12.3) fL Immature Gran % (Auto) (0.0-0.4) % Neut % (Auto) (45-73) % Lymph % (Auto) (20-40) % Hall % (Auto) (2-11) % Eos % (Auto) (0-4) % Baso % (Auto) (0-2) % Lymph # (Auto) (1.2-4.9) X10*3/uL Hall # (Auto) (0.1-1.2) X10*3/uL Eos # (Auto) (0.0-0.4) X10*3/uL Baso # (Auto) (0.0-0.2) X10*3/uL Abs Immat Gran (auto) (0.00-0.03) X10*3/uL Absolute Neuts (auto) (2.0-8.3) x10*3/uL Absolute Nucleated RBC (0.0-0.012) X10*3/uL Nucleated RBC % (auto) (0.0-0.2) /100WBC D-Dimer High Sensitivty NG/ML Sodium (135-145) mmol/L Potassium (3.3-5.1) mmol/L Chloride (96-108) mmol/L Carbon Dioxide (22-29) mmol/L Anion Gap (12-20) BUN (9-16) mg/dL Creatinine (0.5-1.4) mg/dL Estim Creat Clear Calc Estimated GFR POC Glucose (60-115) mg/dL Random Glucose (60-115) mg/dL Calcium (8.4-10.2) mg/dL Magnesium (1.6-2.6) mg/dL Total Bilirubin (0.0-1.0) mg/dL AST (5-31) U/L ALT (0-31) U/L Alkaline Phosphatase (39-117) U/L Troponin I High Sens < 2.7 (<3.5-17.0) ng/L Total Protein (6.5-8.0) g/dL Albumin (3.5-5.0) g/dL COVID-19 ([facility]) (Negative) COVID-19 Clin Com Independent Interpretation I performed an independent interpretation of an: EKG Interpretation: Geoff heart rate is [address] segment elevation noted. Discharge Plan Discharge Clinical Impression: Migraine, Near syncope Patient Disposition: Home, Self-Care Instructions: Near Syncope (ED), Migraine Headache (ED) Prescriptions: No Action lorazepam 1 mg tablet 1 mg PO TID PRN (Reason: anxiety) Qty: 10 0RF Rx Instructions: Patient may ask for partial fill ondansetron 4 mg tablet,disintegrating 4 mg PO Q6-8H PRN (Reason: nausea and vomiting) Qty: 14 0RF ondansetron 4 mg tablet,disintegrating 4 mg PO TID PRN (Reason: nausea and vomiting) 5 Days Qty: 10 0RF diltiazem HCl [Tiadylt ER] 240 mg capsule,extended release 24 hr 240 mg PO DAILY Qty: 30 0RF Referrals: Gisele Kulkarni MD [Primary Care Provider] -
[2023-02-11 19:16] LABS: Alanine Aminotransferase 11 U/L (0-31); Albumin Level 3.8 g/dL (3.5-5.0); Alkaline Phosphatase 84 U/L (39-117); Anion Gap 13 (12-20); Aspartate Amino Transferase 13 U/L (5-31); Bilirubin Total 0.3 mg/dL (0.0-1.0); Blood Urea Nitrogen 11 mg/dL (9-16); Carbon Dioxide 24 mmol/L (22-29); Chloride 106 mmol/L (96-108); Creatinine Clr Calc Pharmacy 100.1; Estimated Glomerular Filt Rate > 60; Glucose Random 148 mg/dL (60-115); Magnesium 1.9 mg/dL (1.6-2.6); Potassium 4.1 mmol/L (3.3-5.1); Sodium 139 mmol/L (135-145); Total Protein 6.9 g/dL (6.5-8.0)
[2023-02-11 19:23] LABS: Troponin-I High Sensitivity < 2.7 ng/L (<3.5-17.0)
[2023-02-11] MEDS: diphenhydrAMINE HCL 50 MG/ML VIAL 25 MG IVPUSH (19:27)
[2023-02-11] MEDS: Ketorolac Tromethamine 15 MG/ML VIAL IVPUSH (19:27)
[2023-02-11] MEDS: Prochlorperazine Edisylate 10 MG/2 ML VIAL IVPUSH (19:27)
[2023-02-11] MEDS: 0.9 % Sodium Chloride 500 ML 999 ML IV (19:27)
--- NOTE | 2023-02-11 19:33 | PC.NURSE ---
this rn assumed care of pt @ 1900. pt medicated according to mar. pt and daughter at bedside. lights dimmed. pt states no new needs at this time
[2023-02-11 19:44] VITALS: BP 126/76; PULSE 99; RESP 17; TEMP 36.6; O2SAT 99
[2023-02-11] MEDS: 0.9 % Sodium Chloride 1,000 ML 999 ML IV (21:07)
[2023-02-11 21:41] LABS: Troponin-I High Sensitivity < 2.7 ng/L (<3.5-17.0)
[2023-02-11 22:45] VITALS: BP 114/64; PULSE 89; RESP 19; TEMP 36.8; O2SAT 97
--- NOTE | 2023-02-11 22:50 | PC.NURSE ---
Addendum entered by Moraima Mart 02/12/23 00:51: iv removed at discharge Original Note: late entry-vss. skin pwd. pt reports decreased pain 5/10 at time of discharge. pt provided with discharge packet. pt and family verbalize understanding of discharge plan. pt discharged with . ambulatory at discharge
== END 2023-02-11 22:50 | disposition home or self-care (01) ==
PROVIDERS: Physician Assistant; Emergency Provider Emergency Medicine Emergency Medical Services; PCP Family Medicine
DX: G43.909 Migraine, unspecified, not intractable, without status migrainosus (principal); R55 Syncope and collapse; Z20.822 Contact with and (suspected) exposure to COVID-19; E11.9 Type 2 diabetes mellitus without complications; I10 Essential (primary) hypertension; Z79.899 Other long term (current) drug therapy
CPT/HCPCS: 36415; 71045; 80053; 82947; 83735; 84484; 85025; 85379; 87635; 93005; 96361; 96374; 96375; 99285; J1200; J1885

== ENCOUNTER 2023-02-14 05:47 | Emergency (ER) | payer MEDICAID, SELFPAY ==
--- NOTE | 2023-02-14 | ECG_ITS ---
Test Reason : DIZZINESS Blood Pressure : / mmHG Vent. Rate : 106 BPM Atrial Rate : 106 BPM P-R Int : 164 ms QRS Dur : 076 ms QT Int : 362 ms P-R-T Axes : 026 013 -25 degrees QTc Int : [address] & T wave abnormality, consider inferior ischemia Abnormal ECG When compared with ECG of 11-FEB-2023 18:14, No significant change was found Referred By: Generic ED Physician Electronically Signed By:DARIAN MÉNDEZ
--- NOTE | ~2023-02-14 | XR_ITS ---
EXAMINATION: XR CHEST CLINICAL INFORMATION: Question pneumonia COMPARISON: 02/11/2023 TECHNIQUE: Frontal view of the chest was obtained. FINDINGS: Cardiac leads overlie the chest. The lungs are well expanded. There is no focal consolidation, edema, or effusion. No pneumothorax. The cardiomediastinal silhouette is within normal limits. No acute osseous abnormality. XR/XR chest 1V IMPRESSION: Clear lungs.
[2023-02-14 05:53] VITALS: BP 164/101; PULSE 121; RESP 18; TEMP 36.8; O2SAT 100; BMI 34.4
[2023-02-14 06:12] LABS: MANUAL DIFF FLAG NO
[2023-02-14 06:14] LABS: Glucose, Whole Blood 160 mg/dL (60-115)
[2023-02-14] MEDS: 0.9 % Sodium Chloride 1,000 ML 999 ML IV ×2 (06:17→08:28)
[2023-02-14 06:24] LABS: Basophils Absolute Auto 0.1 X10*3/uL (0.0-0.2); Basophils Percent Auto 0.5 % (0-2); Eosinophils Absolute Auto 0.2 X10*3/uL (0.0-0.4); Eosinophils Percent Auto 1.6 % (0-4); Hematocrit 38.3 % (37.0-47.0); Hemoglobin 12.2 g/dl (12.0-16.0); Imm Gran Abs Auto 0.04 X10*3/uL (0.00-0.03); Imm Gran Pct Auto 0.3 % (0.0-0.4); Lymphocytes Absolute Auto 2.5 X10*3/uL (1.2-4.9); Lymphocytes Percent Auto 21.5 % (20-40); Mean Corpuscular HGB Conc 31.9 g/dl (31.0-35.0); Mean Corpuscular Hemoglobin 24.9 pg (27.0-33.0); Mean Corpuscular Volume 78.3 fL (80.0-98.0); Mean Platelet Volume 10.8 fL (9.4-12.3); Monocytes Absolute Auto 0.8 X10*3/uL (0.1-1.2); Neutrophils Absolute Auto 7.9 x10*3/uL (2.0-8.3); Neutrophils Percent Auto 69.1 % (45-73); Platelet Count 349 X10*3/uL (160-400); Red Blood Count 4.89 X10*6/uL (4.20-5.50); Red Cell Distribution Width 16.4 % (11.0-16.0); White Blood Count 11.5 X10*3/uL (4.8-10.8)
[2023-02-14 06:29] LABS: Anion Gap 15 (12-20); Blood Urea Nitrogen 14 mg/dL (9-16); Calcium 9.2 mg/dL (8.4-10.2); Carbon Dioxide 21 mmol/L (22-29); Chloride 107 mmol/L (96-108); Creatinine Clr Calc Pharmacy 90.4; Estimated Glomerular Filt Rate > 60; Glucose Random 177 mg/dL (60-115); Potassium 4.1 mmol/L (3.3-5.1); Sodium 139 mmol/L (135-145)
[2023-02-14 06:39] LABS: Troponin-I High Sensitivity < 2.7 ng/L (<3.5-17.0)
[2023-02-14 06:54] LABS: Appearance Urine Hazy; Color Urine Yellow; Glucose Urine UA Negative (Negative); Leukocyte Esterase Urine Negative (Negative); Nitrite Urine Negative (Negative); Specific Gravity - Urine >= 1.030 (1.005-1.025); UMIC TRIGGER UACC YES; Urine Blood Trace (Negative); Urine Ketones Negative (Negative); Urine Protein Negative (Neg-Trace)
[2023-02-14 06:59] VITALS: BP 149/98; PULSE 128; RESP 22; TEMP 37; O2SAT 99
[2023-02-14 07:02] LABS: Bacteria Urine None Seen (None Seen); Hyaline Casts Urine 0-2 /LPF (0-2); RBC Urine 0-2 /HPF (0-2); WBC Urine 0-5 /HPF (0-5)
--- NOTE | 2023-02-14 07:21 | ED_ITS ---
HPI - General Adult General Chief complaint: General Medical Stated complaint: Sugar low/ Vomiting Time Seen by Provider: 02/14/23 06:42 Source: patient Mode of arrival: ambulatory Limitations: no limitations History of Present Illness HPI narrative: 37-year-old female with history of tachycardia, diabetes, and high blood pressure presents to ED for heart palpitation, dizziness, chest pain, shakiness, nausea, vomiting, and abdominal pain 3 days. Patient was seen 2 days ago same event. Patient has be seen in the ED multiple times for this presentation. Patient is compliant with her heart exam and diabetes medication. Patient states her glucose was 60 home which she had been vomiting the past couple days and not able keep anything down. Patient states having bowel movements. Patient denies passing out. Related Data Previous Rx's Medication Instructions Recorded ondansetron 4 mg disintegrating 4 mg PO TID PRN nausea and 12/21/21 tablet vomiting 5 days #10 tabs diltiazem HCl 240 mg capsule,24 240 mg PO DAILY #30 caps 05/15/22 hr,extended release (Tiadylt ER) lorazepam 1 mg tablet 1 mg PO TID PRN anxiety #10 tabs 08/20/22 ondansetron 4 mg disintegrating 4 mg PO Q6-8H PRN nausea and 08/20/22 tablet vomiting #14 tabs Allergies Allergy/AdvReac Type Severity Reaction Status Date / Time No Known Allergies Allergy Verified 02/11/23 18:23 [No Known Allergies*] Anesthesia S/I-40 Allergy Unknown rash Uncoded 12/20/21 00:06 outside allergy/ unhouse Allergy Unknown rash Uncoded 12/20/21 00:06 aller Review of Systems Review of Systems: dizziness, heart palpitations, nausea, vomtiting, abdominal pain, chest pain Yes all other systems are reviewed and are negative PMFSH Past Medical History Medical History Asthma Back pain HTN (hypertension) Tachycardia Social History Social History Alcohol intake: never Patient Tobacco Use Status: Never used Tobacco Smoked in Last 30 Days: No Use of substances other than those prescribed or required for medical reasons: No Substance Use Type: Painkillers Advance Directives: No Advance Directives Information Provided: Yes Physical Exam ED Vital Signs: Vital Signs - 24 hr 02/14/23 05:53 02/14/23 06:59 02/14/23 12:19 Temperature 98.3 F 98.6 F 98.5 F Pulse Rate 121 H 128 H 109 H Respiratory Rate 18 22 H 16 Blood Pressure 164/101 H 149/98 H 143/92 H Pulse Oximetry 100 99 98 Oxygen Delivery Method Room Air Room Air Room Air BMI result Body Mass Index 34.4 Const General: cooperative, healthy appearing, comfortable, no acute distress, well developed, alert, awake and Physically active Orientation/consciousness: oriented to person, oriented to place, oriented to time and patient oriented x3 HENPR Head: Yes normal to inspection, Yes No palpable skull fracture present, Yes normocephalic, Yes atraumatic and No abrasion Eyes General: appearance normal, both eyes and all related structures Neck Neck: Yes normal visual inspection, Yes full ROM, Yes no lymphadenopathy, Yes no meningeal signs, Yes trachea midline, Yes supple, No anterior neck swelling and No tender Chest Chest palpation & inspection: normal inspection of the chest and normal palpation of entire chest wall Resp Effort & Inspection: normal respiratory effort and able to speak in complete sentences Auscultation: clear to auscultation bilaterally Cardio Jugular venous distension: no JVD Heart sounds: S1 normal heart sound present and S2 normal heart sound present GI Inspection: Yes normal to inspection and No abdominal wall ecchymosis Palpation (GI): Soft to palpation, not firm, nontender, no guarding and not rigid General: No CVA tenderness and Yes no CVA tenderness Back/Spine/Pelvis Back: no CVA tenderness, No CVA tenderness and No back tenderness Skin General skin exam: no rashes or lesions noted and elasticity normal Neuro Other: NEgative for any neuro deficits. negative for any facial droop, slurred speech, pronator drift, or paralysis of extremities. Finger to nose rapid hand movement intact. Equal strength in all extremities. Patient is very shaky and tearful. General: oriented to person, oriented to place, oriented to time, patient oriented x3, gait normal, tone normal, moves all extremities, Normal light touch and pain sensation, no meningeal signs, no focal motor deficits, CN's II-XI intact bilaterally and normal sensation to monofilament Extrem Other: Lower extremities negative for swelling, pain edema, or calf tenderness. General: Yes normal to inspection and Yes full ROM Psych Appearance: grossly normal, well kempt and not disheveled Course Course Course Narrative: 37-year-old female with known tachycardia with multiple visits for same issue. EKG labs ordered by nurse. Will add dimer and thyroid level. Will give patient a dose of Cardizem. Heart rate highest on monitor up to 140. Rate maintaining in the 120s. Patient shaking ( tremolous) and tearful this presentation most likely will have a anxiety component also. If no improvement heart rate will give Ativan. More fluids ordered. Glucose above 100. Patient does not have any abdominal tenderness on palpation. Reevaluation(s) Reevaluation #1: Cardizem given and heart rate improved to 107 to 108. Patient is sleeping comfortably in bed an asymptomatic.. D-dimer negative. PERC Score 1. Chest x- ray pending. Thyroid level normal Time: 08:20 Reevaluation #2: PATIENT IS SMILING AND COMFORTABLE IN BED. WAITING FOR 2ND TROPONIN. HEART RATE ON THE MONITOR 102. ABDOMEN BENIGN Time: 09:50 Reevaluation #3: No need for any imaging. Heart rate 105 on monitor. Physical exam is benign. Not suspecting PE, any abdominal etiology, myocardial infarction, or stroke. Negative for any neuro deficits. Patient informed to follow-up with her brine room laborer. Patient passed p.o. challenge. Time: 23:53 Medications Administered Discontinued Medications Generic Name Dose Route Start Last Admin Trade Name Freq PRN Reason Stop Dose Admin Diltiazem HCl 10 mg 02/14/23 07:11 02/14/23 07:35 Diltiazem Hcl 50 Mg/10 Ml Vial IVPUSH 02/14/23 07:12 10 mg STAT STA Administration Sodium Chloride 1,000 mls @ 999 mls/hr 02/14/23 06:15 02/14/23 08:28 Ns IV 02/14/23 07:15 Infused .Q1H1M AMELIE Infusion Sodium Chloride 1,000 mls @ 999 mls/hr 02/14/23 06:49 02/14/23 10:15 Ns IV 02/14/23 07:49 Infused .Q1H1M STA Infusion Medical Decision Making Medical Decision Making [facility] Narrative: 37-year-old female history of anxiety, sinus tachycardia presents to ED for similar presentation of chest tightness, dizziness, nausea, vomiting, abdominal pain, nervousness and tremulous. Differential Diagnosis Differential Diagnoses: The differential diagnosis associated with the presentation includes (Anxiety, sinus tachycardia, thyroid storm, PE, UTI,) Admission/Observation Consideration of admission/observation: Escalation of care including admission/observation considered Lab Data MDM Lab Attestation statement: I reviewed the patient's lab results. 02/14/23 06:06 02/14/23 06:06 Labs: Lab Results 02/14/23 02/14/23 02/14/23 Range/Units 06:06 06:06 06:06 WBC 11.5 H (4.8-10.8) X10*3/uL RBC 4.89 (4.20-5.50) X10*6/uL Hgb 12.2 (12.0-16.0) g/dl Hct 38.3 (37.0-47.0) % MCV 78.3 L (80.0-98.0) fL MCH 24.9 L (27.0-33.0) pg MCHC 31.9 (31.0-35.0) g/dl RDW 16.4 H (11.0-16.0) % Plt Count 349 D (160-400) X10*3/uL MPV 10.8 (9.4-12.3) fL Immature Gran % (Auto) 0.3 (0.0-0.4) % Neut % (Auto) 69.1 (45-73) % Lymph % (Auto) 21.5 (20-40) % [place] % (Auto) 7.0 (2-11) % Eos % (Auto) 1.6 (0-4) % Baso % (Auto) 0.5 (0-2) % Lymph # (Auto) 2.5 (1.2-4.9) X10*3/uL [place] # (Auto) 0.8 (0.1-1.2) X10*3/uL Eos # (Auto) 0.2 (0.0-0.4) X10*3/uL Baso # (Auto) 0.1 (0.0-0.2) X10*3/uL Abs Immat Gran (auto) 0.04 H (0.00-0.03) X10*3/uL Absolute Neuts (auto) 7.9 (2.0-8.3) x10*3/uL Absolute Nucleated RBC 0.000 (0.0-0.012) X10*3/uL Nucleated RBC % (auto) 0.0 (0.0-0.2) /100WBC PT (10.0-13.1) SEC INR (0.9-1.1) APTT (26.0-36.4) SEC D-Dimer High Sensitivty NG/ML Sodium 139 (135-145) mmol/L Potassium 4.1 (3.3-5.1) mmol/L Chloride 107 (96-108) mmol/L Carbon Dioxide 21 L (22-29) mmol/L Anion Gap 15 (12-20) BUN 14 (9-16) mg/dL Creatinine 0.88 (0.5-1.4) mg/dL Estim Creat Clear Calc 90.4 Estimated GFR > 60 POC Glucose (60-115) mg/dL Random Glucose 177 H (60-115) mg/dL Calcium 9.2 (8.4-10.2) mg/dL Magnesium 1.9 (1.6-2.6) mg/dL Total Bilirubin 0.2 (0.0-1.0) mg/dL Direct Bilirubin < 0.2 (0.0-0.5) mg/dL AST 22 (5-31) U/L ALT 15 (0-31) U/L Alkaline Phosphatase 91 (39-117) U/L Total Creatine Kinase 137 (26-140) U/L Troponin I High Sens < 2.7 (<3.5-17.0) ng/L Total Protein 7.6 (6.5-8.0) g/dL Albumin 4.1 (3.5-5.0) g/dL Lipase 35 (8-78) U/L TSH 1.88 (0.32-4.0) uIU/mL Thyroxine (T4) 8.2 (4.5-12.0) ug/dL Urine Color Urine Appearance Urine pH (5.0-9.0) Ur Specific [place] (1.005-1.025) Urine Protein (Neg-Trace) mg/dL Urine Glucose (UA) (Negative) mg/dL Urine Ketones (Negative) mg/dL Urine Blood (Negative) Urine Nitrite (Negative) Ur Leukocyte Esterase (Negative) Urine RBC (0-2) /HPF Urine WBC (0-5) /HPF Ur Squamous Epith Cells (0-2) /HPF Urine Bacteria (None Seen) Hyaline Casts (0-2) /LPF Urine Test (NEGATIVE) Urine Opiates Screen (Not Detect) Urine Fentanyl Screen (Not Detect) Ur Barbiturates Screen (Not Detect) Ur Phencyclidine Scrn (Not Detect) Ur Amphetamines Screen (Not Detect) U Benzodiazepines Scrn (Not Detect) Urine Cocaine Screen (Not Detect) U Marijuana (THC) Screen (Not Detect) 02/14/23 02/14/23 02/14/23 Range/Units 06:06 06:06 06:10 WBC (4.8-10.8) X10*3/uL RBC (4.20-5.50) X10*6/uL Hgb (12.0-16.0) g/dl Hct (37.0-47.0) % MCV (80.0-98.0) fL MCH (27.0-33.0) pg MCHC (31.0-35.0) g/dl RDW (11.0-16.0) % Plt Count (160-400) X10*3/uL MPV (9.4-12.3) fL Immature Gran % (Auto) (0.0-0.4) % Neut % (Auto) (45-73) % Lymph % (Auto) (20-40) % [place] % (Auto) (2-11) % Eos % (Auto) (0-4) % Baso % (Auto) (0-2) % Lymph # (Auto) (1.2-4.9) X10*3/uL [place] # (Auto) (0.1-1.2) X10*3/uL Eos # (Auto) (0.0-0.4) X10*3/uL Baso # (Auto) (0.0-0.2) X10*3/uL Abs Immat Gran (auto) (0.00-0.03) X10*3/uL Absolute Neuts (auto) (2.0-8.3) x10*3/uL Absolute Nucleated RBC (0.0-0.012) X10*3/uL Nucleated RBC % (auto) (0.0-0.2) /100WBC PT (10.0-13.1) SEC INR (0.9-1.1) APTT (26.0-36.4) SEC D-Dimer High Sensitivty NG/ML Sodium (135-145) mmol/L Potassium (3.3-5.1) mmol/L Chloride (96-108) mmol/L Carbon Dioxide (22-29) mmol/L Anion Gap (12-20) BUN (9-16) mg/dL Creatinine (0.5-1.4) mg/dL Estim Creat Clear Calc Estimated GFR POC Glucose 160 H (60-115) mg/dL Random Glucose (60-115) mg/dL Calcium (8.4-10.2) mg/dL Magnesium (1.6-2.6) mg/dL Total Bilirubin (0.0-1.0) mg/dL Direct Bilirubin (0.0-0.5) mg/dL AST (5-31) U/L ALT (0-31) U/L Alkaline Phosphatase (39-117) U/L Total Creatine Kinase (26-140) U/L Troponin I High Sens (<3.5-17.0) ng/L Total Protein (6.5-8.0) g/dL Albumin (3.5-5.0) g/dL Lipase (8-78) U/L TSH (0.32-4.0) uIU/mL Thyroxine (T4) (4.5-12.0) ug/dL Urine Color Urine Appearance Urine pH (5.0-9.0) Ur Specific [place] (1.005-1.025) Urine Protein (Neg-Trace) mg/dL Urine Glucose (UA) (Negative) mg/dL Urine Ketones (Negative) mg/dL Urine Blood (Negative) Urine Nitrite (Negative) Ur Leukocyte Esterase (Negative) Urine RBC (0-2) /HPF Urine WBC (0-5) /HPF Ur Squamous Epith Cells (0-2) /HPF Urine Bacteria (None Seen) Hyaline Casts (0-2) /LPF Urine Test NEGATIVE (NEGATIVE) Urine Opiates Screen Not Detected (Not Detect) Urine Fentanyl Screen Not Detected (Not Detect) Ur Barbiturates Screen Not Detected (Not Detect) Ur Phencyclidine Scrn Not Detected (Not Detect) Ur Amphetamines Screen Not Detected (Not Detect) U Benzodiazepines Scrn Not Detected (Not Detect) Urine Cocaine Screen Not Detected (Not Detect) U Marijuana (THC) Screen POSITIVE H (Not Detect) 02/14/23 02/14/23 02/14/23 Range/Units 06:49 07:32 09:45 WBC (4.8-10.8) X10*3/uL RBC (4.20-5.50) X10*6/uL Hgb (12.0-16.0) g/dl Hct (37.0-47.0) % MCV (80.0-98.0) fL MCH (27.0-33.0) pg MCHC (31.0-35.0) g/dl RDW (11.0-16.0) % Plt Count (160-400) X10*3/uL MPV (9.4-12.3) fL Immature Gran % (Auto) (0.0-0.4) % Neut % (Auto) (45-73) % Lymph % (Auto) (20-40) % [place] % (Auto) (2-11) % Eos % (Auto) (0-4) % Baso % (Auto) (0-2) % Lymph # (Auto) (1.2-4.9) X10*3/uL [place] # (Auto) (0.1-1.2) X10*3/uL Eos # (Auto) (0.0-0.4) X10*3/uL Baso # (Auto) (0.0-0.2) X10*3/uL Abs Immat Gran (auto) (0.00-0.03) X10*3/uL Absolute Neuts (auto) (2.0-8.3) x10*3/uL Absolute Nucleated RBC (0.0-0.012) X10*3/uL Nucleated RBC % (auto) (0.0-0.2) /100WBC PT 12.1 (10.0-13.1) SEC INR 1.1 (0.9-1.1) APTT 29.8 (26.0-36.4) SEC D-Dimer High Sensitivty < 150 NG/ML Sodium (135-145) mmol/L Potassium (3.3-5.1) mmol/L Chloride (96-108) mmol/L Carbon Dioxide (22-29) mmol/L Anion Gap (12-20) BUN (9-16) mg/dL Creatinine (0.5-1.4) mg/dL Estim Creat Clear Calc Estimated GFR POC Glucose (60-115) mg/dL Random Glucose (60-115) mg/dL Calcium (8.4-10.2) mg/dL Magnesium (1.6-2.6) mg/dL Total Bilirubin (0.0-1.0) mg/dL Direct Bilirubin (0.0-0.5) mg/dL AST (5-31) U/L ALT (0-31) U/L Alkaline Phosphatase (39-117) U/L Total Creatine Kinase (26-140) U/L Troponin I High Sens < 2.7 (<3.5-17.0) ng/L Total Protein (6.5-8.0) g/dL Albumin (3.5-5.0) g/dL Lipase (8-78) U/L TSH (0.32-4.0) uIU/mL Thyroxine (T4) (4.5-12.0) ug/dL Urine Color Yellow Urine Appearance Hazy Urine pH 6.0 (5.0-9.0) Ur Specific [place] >= 1.030 H (1.005-1.025) Urine Protein Negative (Neg-Trace) mg/dL Urine Glucose (UA) Negative (Negative) mg/dL Urine Ketones Negative (Negative) mg/dL Urine Blood Trace (Negative) Urine Nitrite Negative (Negative) Ur Leukocyte Esterase Negative (Negative) Urine RBC 0-2 (0-2) /HPF Urine WBC 0-5 (0-5) /HPF Ur Squamous Epith Cells 3-5 (0-2) /HPF Urine Bacteria None Seen (None Seen) Hyaline Casts 0-2 (0-2) /LPF Urine Test (NEGATIVE) Urine Opiates Screen (Not Detect) Urine Fentanyl Screen (Not Detect) Ur Barbiturates Screen (Not Detect) Ur Phencyclidine Scrn (Not Detect) Ur Amphetamines Screen (Not Detect) U Benzodiazepines Scrn (Not Detect) Urine Cocaine Screen (Not Detect) U Marijuana (THC) Screen (Not Detect) Independent Interpretation I performed an independent interpretation of an: EKG (Sinus tachycardia. Trickle rate 106. Pr interval 164. QRS 76. Due to C for 80. Negative STEMI) Radiology Impression Discussion of test interpretation with radiology: I have reviewed the radiologist's reading. External Record Review External record reviewed: Prior outpatient labs and Prior outpatient radiology Discharge Plan Discharge Clinical Impression: Sinus tachycardia, Palpitations Patient Disposition: Home, Self-Care Instructions: Heart Palpitations (ED), Hypoglycemia in a Person with Diabetes (ED), Tachycardia (ED) Additional Instructions: Presents to the ED immediately for chest pain, shortness of breath, chest pain on inspiration, leg swelling, calf pain, coughing up blood, passing out, fever, chills, chest pain on exertion, shortness of breath on exertion, abdominal pain, dysuria, hematuria, flank pain, fever, chills, diarrhea, bloody stool, slurred speech, facial droop, paralysis of extremities, dizziness, sugar below 60, loss of vision, or any other concerning symptoms. Please follow-up with the brine room laborer and crm functional analyst. Continue to take your medications as prescribed. Prescriptions: No Action lorazepam 1 mg tablet 1 mg PO TID PRN (Reason: anxiety) Qty: 10 0RF Rx Instructions: Patient may ask for partial fill ondansetron 4 mg tablet,disintegrating 4 mg PO Q6-8H PRN (Reason: nausea and vomiting) Qty: 14 0RF ondansetron 4 mg tablet,disintegrating 4 mg PO TID PRN (Reason: nausea and vomiting) 5 Days Qty: 10 0RF diltiazem HCl [Tiadylt ER] 240 mg capsule,extended release 24 hr 240 mg PO DAILY Qty: 30 0RF Stand Alone Forms: Work/School Release Interventions: ED Discharge Assessment Last Done: 02/14/23 12:26 Discharge Date/Time: 02/14/23 12:27 Print Language: Serbian
[2023-02-14] MEDS: dilTIAZem HCL 50 MG/10 ML VIAL 10 MG IVPUSH (07:35)
[2023-02-14 07:43] LABS: INTERNATIONAL NORM RATIO 1.1 (0.9-1.1); Prothrombin Time 12.1 SEC (10.0-13.1)
[2023-02-14 07:43] LABS: UPreg QC Valid YES; Urine Pregnancy NEGATIVE (NEGATIVE)
[2023-02-14 07:46] LABS: Partial Thromboplastin Time 29.8 SEC (26.0-36.4)
[2023-02-14 07:52] LABS: Amphetamine Screen Urine Not Detected (Not Detect); Barbiturates, Urine Not Detected (Not Detect); Benzodiazepines Screen Urine Not Detected (Not Detect); Cannabinoid Screen Urine POSITIVE (Not Detect); Cocaine Screen Urine Not Detected (Not Detect); Fentanyl, urine Not Detected (Not Detect); Opiate Screen Urine Not Detected (Not Detect); Phencyclidine Screen Urine Not Detected (Not Detect)
[2023-02-14 07:54] LABS: Magnesium 1.9 mg/dL (1.6-2.6)
[2023-02-14 07:54] LABS: D Dimer High Sensitivity < 150 NG/ML
[2023-02-14 08:14] LABS: T4 Thyroxine 8.2 ug/dL (4.5-12.0); Thyroid Stimulating Hormone 1.88 uIU/mL (0.32-4.0)
[2023-02-14 10:13] LABS: Alanine Aminotransferase 15 U/L (0-31); Albumin Level 4.1 g/dL (3.5-5.0); Alkaline Phosphatase 91 U/L (39-117); Aspartate Amino Transferase 22 U/L (5-31); Bilirubin Direct < 0.2 mg/dL (0.0-0.5); Bilirubin Total 0.2 mg/dL (0.0-1.0); Lipase 35 U/L (8-78); Total Protein 7.6 g/dL (6.5-8.0)
[2023-02-14 10:13] LABS: Troponin-I High Sensitivity < 2.7 ng/L (<3.5-17.0)
[2023-02-14 12:19] VITALS: BP 143/92; PULSE 109; RESP 16; TEMP 36.9; O2SAT 98
== END 2023-02-14 12:27 | disposition home or self-care (01) ==
PROVIDERS: Physician Assistant; Emergency Provider Emergency Medicine Emergency Medical Services
DX: R00.0 Tachycardia, unspecified (principal); R00.2 Palpitations; R42 Dizziness and giddiness; R07.89 Other chest pain; Z79.899 Other long term (current) drug therapy
CPT/HCPCS: 36415; 71045; 80048; 80076; 80307; 81001; 81025; 82550; 82947; 83690; 83735; 84436; 84443; 84484; 85025; 85379; 85610; 85730; 93005; 96361; 96374; 99285

== ENCOUNTER → 2023-03-14 12:52 | Outpatient (BNVA) | payer MEDICAID, SELFPAY | PROVIDERS: Visit Provider Nurse Practitioner Family | DX: G47.9 Sleep disorder, unspecified (principal); G47.00 Insomnia, unspecified; R06.83 Snoring; R40.0 Somnolence | CPT/HCPCS: 99202 ==

== ENCOUNTER → 2023-04-28 14:55 | Outpatient (REF) | payer MEDICAID, SELFPAY | LOC: HO.SL 14:55 | PROVIDERS: Visit Provider Nurse Practitioner Family | DX: G47.00 Insomnia, unspecified (principal); R40.0 Somnolence; R06.83 Snoring | CPT/HCPCS: 95806 ==

== ENCOUNTER → 2023-04-28 15:04 | Outpatient (BNV) | payer MEDICAID, SELFPAY | PROVIDERS: Visit Provider Psychiatry & Neurology Neurology | DX: R06.83 Snoring (principal) | CPT/HCPCS: 95806 ==

== ENCOUNTER 2023-05-28 17:00 | Emergency (ER) | payer MEDICAID, SELFPAY ==
--- NOTE | ~2023-05-28 | CT_ITS ---
EXAMINATION: CT ANGIOGRAM OF THE CHEST WITH AND WITHOUT CONTRAST (CT PULMONARY ANGIOGRAM FOR PE) CLINICAL INFORMATION: Reason for Exam Chest pain, shortness of breath rule out PE COMPARISON: None available. TECHNIQUE: Prior to contrast administration, noncontrast localization images were obtained. Subsequently, multidetector volumetric imaging was performed from the thoracic inlet to below the diaphragms following the administration of 80 mL Omnipaque 350 intravenous contrast. No contrast reaction reported Sagittal, coronal, and MIP oblique sagittal reformatted images were obtained on the CT workstation, uploaded to PACS, and reviewed. This CT examination was performed using dose optimization techniques as appropriate, variously including the following: *Automated exposure control *Adjustment of mA and/or kV according to patient size (this includes techniques or standardized protocols for targeted exams where dose is matched to indication/reason for exam; i.e. extremities or head) *Use of iterative reconstruction technique Total exam dose-length product 845 mGy-cm FINDINGS: QUALITY OF STUDY/CONTRAST BOLUS: Satisfactory. PULMONARY ARTERIES: No pulmonary emboli. THORACIC AORTA: No aneurysm. LUNG: No focal consolidation, nodules or masses. PLEURA: No pleural effusion or pneumothorax. MEDIASTINUM: Normal heart size. No pericardial effusion. No hilar or mediastinal lymphadenopathy. No evidence of septal bowing or right heart strain. CORONARY ARTERY CALCIFICATION: None visualized on this study. CHEST WALL/AXILLA: No axillary or internal mammary lymphadenopathy. OSSEOUS STRUCTURES: No acute or suspicious osseous abnormality. There are bridging related artifact along the sternum simulating fracture. UPPER ABDOMEN: Visualized liver, spleen, pancreas and bilateral adrenal glands are unremarkable. No reflux of contrast into the hepatic veins to suggest elevated right heart pressures. CT/CT angio chest PE protocol IMPRESSION: No evidence of PE. No evidence of aortic aneurysm or dissection. The lungs are clear. VTE: negative
--- NOTE | ~2023-05-28 | CT_ITS ---
EXAMINATION: CT ABDOMEN AND PELVIS WITH CONTRAST CLINICAL INFORMATION: Right upper quadrant pain. COMPARISON: None available. TECHNIQUE: Multidetector volumetric images were obtained from the superior aspect of the liver through the pubic symphysis following administration 85 mL of Omnipaque 350 intravenous contrast. Sagittal and coronal reformatted images were obtained on the technologist's workstation. Oral contrast: No This CT examination was performed using dose optimization techniques as appropriate, variously including the following: *Automated exposure control *Adjustment of mA and/or kV according to patient size (this includes techniques or standardized protocols for targeted exams where dose is matched to indication/reason for exam; i.e. extremities or head) *Use of iterative reconstruction technique DLP: 845 mGy-cm FINDINGS: LUNG BASES: The lung bases are clear. The heart size is normal. LIVER, GALLBLADDER, AND BILIARY TREE: The liver is normal in size, shape, and attenuation. No focal hepatic lesion or biliary ductal dilatation is present. The gallbladder is unremarkable with no evidence of radiopaque gallstones, gallbladder wall thickening, or obvious pericholecystic inflammatory changes. PANCREAS: Unremarkable. SPLEEN: Unremarkable. ADRENAL GLANDS: Unremarkable. KIDNEYS AND URETERS: The kidneys are normal in size, shape, and attenuation. No hydronephrosis, hydroureter, or calculi seen. No perinephric stranding. BLADDER: Unremarkable. GASTROINTESTINAL TRACT: The small and large bowel are unremarkable. The appendix is unremarkable. The stomach is distended with recently ingested food. There is scattered radiopaque densities throughout the colon likely related to calcium tablet ingestion or recent barium study.. ABDOMINAL WALL: No significant hernia is appreciated. LYMPH NODES: Normal. VASCULAR: Unremarkable. PELVIC VISCERA: The uterus is retroverted. No free fluid seen. OSSEOUS STRUCTURES: Unremarkable. CT/CT abdomen pelvis w IV con IMPRESSION: No acute intra-abdominal process seen. Fleischner guidelines were followed.
--- NOTE | 2023-05-28 17:08 | ECG_ITS ---
Test Reason : CHEST PAIN Blood Pressure : / mmHG Vent. Rate : 117 BPM Atrial Rate : 117 BPM P-R Int : 158 ms QRS Dur : 074 ms QT Int : 324 ms P-R-T Axes : 022 021 -13 degrees QTc Int : 451 ms Sinus tachycardia Possible Anterior infarct , age undetermined Abnormal ECG When compared with ECG of 27-MAY-2023 09:30, No significant change was found Referred By: Nicki Angulo Electronically Signed By:DARIAN MÉNDEZ
--- NOTE | 2023-05-28 17:15 | MHC.EDTECH ---
Called 3x for EKG, no response.
[2023-05-28 17:29] VITALS: BP 134/72; BP 136/103; PULSE 126; PULSE 130; RESP 19; TEMP 37; O2SAT 100; BMI 32.7
--- NOTE | 2023-05-28 17:31 | ED_ITS ---
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 She reports onset of substernal chest pain 2 days ago. Today she was using the bathroom when she felt the pain become increa singly worse and radiate to her right arm. The pain has been constant. It is made worse with deep breathing. She is unable to determine whether it is made worse with food/ eating She is also endorsing right upper quadrant pain with nausea and vomiting; 2 episodes yesterday and 3 episodes of biliary emesis today. She reports a history of tachycardia, is unable to tell me her baseline, but states ?not this fast?. Related Data Previous Rx's Medication Instructions Recorded ondansetron 4 mg disintegrating 4 mg PO TID PRN nausea and 12/21/21 tablet vomiting 5 days #10 tabs diltiazem HCl 240 mg capsule,24 240 mg PO DAILY #30 caps 05/15/22 hr,extended release (Tiadylt ER) lorazepam 1 mg tablet 1 mg PO TID PRN anxiety #10 tabs 08/20/22 ondansetron 4 mg disintegrating 4 mg PO Q6-8H PRN nausea and 08/20/22 tablet vomiting #14 tabs Allergies Allergy/AdvReac Type Severity Reaction Status Date / Time No Known Allergies Allergy Verified 03/14/23 13:07 [No Known Allergies*] Anesthesia S/I-40 Allergy Unknown rash Uncoded 03/14/23 13:07 outside allergy/ unhouse Allergy Unknown rash Uncoded 03/14/23 13:07 aller Review of Systems Review of Systems: Constitutional : No Weight loss, No Fever, No Chills ENT/Mouth :? No sore throat, No Rhinorrhea Eyes: No Eye Pain, No Swelling Cardiovascular : pos Chest Pain, pos SOB, no Dyspnea on Exertion, No Orthopnea, No Edema, No Palpitations Respiratory : No Cough, No Sputum Gastrointestinal : pos Nausea, positive Vomiting, No Diarrhea, positive abdominal Pain, No Hematochezia, No Melena Genitourinary : No Dysuria, No Urinary Frequency Musculoskeletal : No joint pain, No Myalgias, No Joint Swelling Skin : No Skin Lesions, No rash Neuro : No Weakness, No Numbness, No Dizziness, No Headache Psych : No Anxiety/Panic, No Depression Heme/Lymph: No Bruising, No Lymphadenopathy Endocrine : No Polyuria, No Polydipsia Yes all other systems are reviewed and are negative [facility] Past Medical History Attestation statement: The following information was validated with the patient. Source: old records reviewed Medical History Asthma Back pain HTN (hypertension) Tachycardia Surgical History Hx of removal of cyst Family History Family History (Updated 03/14/23 @ 13:11 by MARCELO Wadsworth) Mother Diabetes Arthritis Heart disease Sister Heart disease Seizure Sister Arthritis Gastritis Brother Diabetes HTN (hypertension) Social History Social History (Updated 03/14/23 @ 13:11 by MARCELO Wadsworth) Alcohol intake: never Patient Tobacco Use Status: Never used Tobacco Advance Directives: No Advance Directives Information Provided: No Physical Exam Vital Signs: Vital Signs: Last Vital Signs Temp 98.5 F 05/28/23 20:54 Pulse 105 H 05/28/23 20:54 Resp 17 05/28/23 20:54 BP 125/77 05/28/23 20:54 Pulse Ox 100 05/28/23 20:54 O2 Del Method Room Air 05/28/23 20:54 BMI result Body Mass Index 32.7 Appearance: Alert.?Oriented to person, place and time. No acute distress.?Normal affect. Eyes: Pupils equal, round and reactive to light.? ENT: Pharynx normal.?? Neck: Normal inspection.? Neck supple.?? CVS: Heart sounds normal. Normal heart rate and rhythm.? Pulses normal.?? Respiratory: No respiratory distress.? Lung sounds clear to auscultation bilaterally?? Abdomen: Soft with right upper quadrant and epigastric tenderness upon palpation. Negative Woodson sign. No rigidity. No guarding. Normoactive bowel sounds. No pulsatile mass.?? Skin: Skin warm and dry.? Normal skin color.? Extremities: No lower extremity edema.? No calf ttp? Neuro: Moves all extremities spontaneously. Sensation intact bilaterally. CN II- XII intact. No focal neuro deficits. Ambulates with normal steady gait. Course Reevaluation(s) Reevaluation #1: CBC reveals no leukocytosis or anemia. CMP without any significant abnormality, normal LFT, lipase within normal limits. CT of the abdomen and pelvis revealing no acute intra-abdominal process. Troponin <2.7, EKG revealing a sinus tachycardia with ventricular rate of 117, QTC 451, normal ARNALDO, no ST elevation, no ST depression, when compared to prior EKG obtained January 2023 no acute changes. Low suspicion for ACS. CT of the chest reveals no evidence of PE, no acute cardiopulmonary findings. Tachycardia has improved, pulse 105. Symptoms with significant improvement after receiving ketorolac. Reports mild discomfort to the right arm present at this time. Suspect pain to be likely musculoskeletal in nature. Advised use of acetaminophen/ibuprofen. Outpatient follow-up with primary care provider within 2 days. Reviewed worrisome signs and symptoms that would warrant re-evaluation in the emergency department. All questions answered. Stable for discharge. Time: 22:03 Medications Administered Discontinued Medications Generic Name Dose Route Start Last Admin Trade Name Freq PRN Reason Stop Dose Admin Sodium Chloride 1,000 mls @ 999 mls/hr 05/28/23 17:30 05/28/23 17:46 Ns IV 05/28/23 18:30 999 mls/hr .Q1H1M AMELIE Administration Iohexol 85 ml 05/28/23 19:26 05/28/23 19:27 Iohexol 350 Mg/Ml 100 Ml Infus..Btl IV 05/28/23 19:27 85 ml ONCE ONE Administration Ketorolac Tromethamine 30 mg 05/28/23 17:28 05/28/23 17:46 Ketorolac Tromethamine 30 Mg/Ml Vial IVPUSH 05/28/23 17:29 30 mg ONCE ONE Administration Ondansetron HCl 4 mg 05/28/23 17:28 05/28/23 17:46 Ondansetron Hcl 4 Mg/2 Ml Vial IVPUSH 05/28/23 17:29 4 mg ONCE ONE Administration Medical Decision Making Medical Decision Making MDM Narrative: Patient is a 37-year-old female with past medical history of asthma, hypertension, diabetes, arthritis, tachycardia presenting to emergency department for evaluation of chest pain radiating to the right arm, and right upper quadrant/epigastric pain with nausea and vomiting as per HPI. At the time of my examination she appears uncomfortable. She is tachycardic with heart rate ranging from 120-140s. She is able to speak clear full sentences. There is no apparent respiratory distress. She received aspirin 324 mg via EMS prior to arr ival. Will obtain CBC to evaluate for leukocytosis/ anemia, CMP and lipase to evaluate for abnormal electrolytes /abnormal renal function/ abnormal hepatic/biliary function, EKG and troponin to evaluate for ischemia/ACS. CT angio of the chest, CT of the abdomen and pelvis, and Urinalysis. Differential Diagnosis Differential Diagnoses: The differential diagnosis associated with the presentation includes (ACS, pulmonary embolism, pneumonia, pneumothorax, costochondritis, cholecystitis, cholelithiasis, obstructive biliary stone, panc reatitis, GERD, gastritis) Admission/Observation Consideration of admission/observation: Escalation of care including admission/observation considered (I considered admission for chest pain and abdominal pain, see course narrative for further detail) Lab Data MDM Lab Attestation statement: I reviewed the patient's lab results. (She course narrative for further details) 05/28/23 17:42 05/28/23 17:42 Labs: Lab Results 05/28/23 05/28/23 05/28/23 Range/Units 17:42 17:42 17:42 WBC 6.6 (4.8-10.8) X10*3/uL RBC 5.29 (4.20-5.50) X10*6/uL Hgb 12.7 (12.0-16.0) g/dl Hct 41.2 (37.0-47.0) % MCV 77.9 L (80.0-98.0) fL MCH 24.0 L (27.0-33.0) pg MCHC 30.8 L (31.0-35.0) g/dl RDW 16.7 H (11.0-16.0) % Plt Count 305 (160-400) X10*3/uL MPV 11.0 (9.4-12.3) fL Immature Gran % (Auto) 0.9 H (0.0-0.4) % Neut % (Auto) 70.3 (45-73) % Lymph % (Auto) 21.1 (20-40) % [place] % (Auto) 6.6 (2-11) % Eos % (Auto) 0.6 (0-4) % Baso % (Auto) 0.5 (0-2) % Lymph # (Auto) 1.4 (1.2-4.9) X10*3/uL [place] # (Auto) 0.4 (0.1-1.2) X10*3/uL Eos # (Auto) 0.0 (0.0-0.4) X10*3/uL Baso # (Auto) 0.0 (0.0-0.2) X10*3/uL Abs Immat Gran (auto) 0.06 H (0.00-0.03) X10*3/uL Absolute Neuts (auto) 4.6 (2.0-8.3) x10*3/uL Absolute Nucleated RBC 0.000 (0.0-0.012) X10*3/uL Nucleated RBC % (auto) 0.0 (0.0-0.2) /100WBC PT (11.1-13.3) SEC INR (0.9-1.1) Sodium 142 (135-145) mmol/L Potassium 4.0 (3.3-5.1) mmol/L Chloride 108 (96-108) mmol/L Carbon Dioxide 22 (22-29) mmol/L Anion Gap 16 (12-20) BUN 8 L (9-16) mg/dL Creatinine 0.80 (0.5-1.4) mg/dL Estim Creat Clear Calc 100.6 Estimated GFR > 60 Random Glucose 151 H (60-115) mg/dL Calcium 9.8 D (8.4-10.2) mg/dL Magnesium 2.1 (1.6-2.6) mg/dL Total Bilirubin 0.1 (0.0-1.0) mg/dL AST 19 (5-31) U/L ALT 12 (0-31) U/L Alkaline Phosphatase 102 (39-117) U/L Troponin I High Sens < 2.7 (<3.5-17.0) ng/L Total Protein 8.5 H (6.5-8.0) g/dL Albumin 4.1 (3.5-5.0) g/dL Lipase 45 (8-78) U/L Urine Color Urine Appearance Urine pH (5.0-9.0) Ur Specific [employer] (1.005-1.025) Urine Protein (Neg-Trace) mg/dL Urine Glucose (UA) (Negative) mg/dL Urine Ketones (Negative) mg/dL Urine Blood (Negative) Urine Nitrite (Negative) Ur Leukocyte Esterase (Negative) Urine Test (NEGATIVE) COVID-19 ([facility]) (Negative) COVID-19 Clin Com 05/28/23 05/28/23 05/28/23 Range/Units 17:42 17:42 18:20 WBC (4.8-10.8) X10*3/uL RBC (4.20-5.50) X10*6/uL Hgb (12.0-16.0) g/dl Hct (37.0-47.0) % MCV (80.0-98.0) fL MCH (27.0-33.0) pg MCHC (31.0-35.0) g/dl RDW (11.0-16.0) % Plt Count (160-400) X10*3/uL MPV (9.4-12.3) fL Immature Gran % (Auto) (0.0-0.4) % Neut % (Auto) (45-73) % Lymph % (Auto) (20-40) % [place] % (Auto) (2-11) % Eos % (Auto) (0-4) % Baso % (Auto) (0-2) % Lymph # (Auto) (1.2-4.9) X10*3/uL [place] # (Auto) (0.1-1.2) X10*3/uL Eos # (Auto) (0.0-0.4) X10*3/uL Baso # (Auto) (0.0-0.2) X10*3/uL Abs Immat Gran (auto) (0.00-0.03) X10*3/uL Absolute Neuts (auto) (2.0-8.3) x10*3/uL Absolute Nucleated RBC (0.0-0.012) X10*3/uL Nucleated RBC % (auto) (0.0-0.2) /100WBC PT 11.6 (11.1-13.3) SEC INR 1.0 (0.9-1.1) Sodium (135-145) mmol/L Potassium (3.3-5.1) mmol/L Chloride (96-108) mmol/L Carbon Dioxide (22-29) mmol/L Anion Gap (12-20) BUN (9-16) mg/dL Creatinine (0.5-1.4) mg/dL Estim Creat Clear Calc Estimated GFR Random Glucose (60-115) mg/dL Calcium (8.4-10.2) mg/dL Magnesium (1.6-2.6) mg/dL Total Bilirubin (0.0-1.0) mg/dL AST (5-31) U/L ALT (0-31) U/L Alkaline Phosphatase (39-117) U/L Troponin I High Sens (<3.5-17.0) ng/L Total Protein (6.5-8.0) g/dL Albumin (3.5-5.0) g/dL Lipase (8-78) U/L Urine Color Yellow Urine Appearance Clear Urine pH 7.5 (5.0-9.0) Ur Specific [employer] <= 1.005 (1.005-1.025) Urine Protein Negative (Neg-Trace) mg/dL Urine Glucose (UA) Negative (Negative) mg/dL Urine Ketones Negative (Negative) mg/dL Urine Blood Negative (Negative) Urine Nitrite Negative (Negative) Ur Leukocyte Esterase Negative (Negative) Urine Test (NEGATIVE) COVID-19 ([facility]) Negative (Negative) COVID-19 Clin Com See Note 05/28/23 Range/Units 18:20 WBC (4.8-10.8) X10*3/uL RBC (4.20-5.50) X10*6/uL Hgb (12.0-16.0) g/dl Hct (37.0-47.0) % MCV (80.0-98.0) fL MCH (27.0-33.0) pg MCHC (31.0-35.0) g/dl RDW (11.0-16.0) % Plt Count (160-400) X10*3/uL MPV (9.4-12.3) fL Immature Gran % (Auto) (0.0-0.4) % Neut % (Auto) (45-73) % Lymph % (Auto) (20-40) % [place] % (Auto) (2-11) % Eos % (Auto) (0-4) % Baso % (Auto) (0-2) % Lymph # (Auto) (1.2-4.9) X10*3/uL [place] # (Auto) (0.1-1.2) X10*3/uL Eos # (Auto) (0.0-0.4) X10*3/uL Baso # (Auto) (0.0-0.2) X10*3/uL Abs Immat Gran (auto) (0.00-0.03) X10*3/uL Absolute Neuts (auto) (2.0-8.3) x10*3/uL Absolute Nucleated RBC (0.0-0.012) X10*3/uL Nucleated RBC % (auto) (0.0-0.2) /100WBC PT (11.1-13.3) SEC INR (0.9-1.1) Sodium (135-145) mmol/L Potassium (3.3-5.1) mmol/L Chloride (96-108) mmol/L Carbon Dioxide (22-29) mmol/L Anion Gap (12-20) BUN (9-16) mg/dL Creatinine (0.5-1.4) mg/dL Estim Creat Clear Calc Estimated GFR Random Glucose (60-115) mg/dL Calcium (8.4-10.2) mg/dL Magnesium (1.6-2.6) mg/dL Total Bilirubin (0.0-1.0) mg/dL AST (5-31) U/L ALT (0-31) U/L Alkaline Phosphatase (39-117) U/L Troponin I High Sens (<3.5-17.0) ng/L Total Protein (6.5-8.0) g/dL Albumin (3.5-5.0) g/dL Lipase (8-78) U/L Urine Color Urine Appearance Urine pH (5.0-9.0) Ur Specific [employer] (1.005-1.025) Urine Protein (Neg-Trace) mg/dL Urine Glucose (UA) (Negative) mg/dL Urine Ketones (Negative) mg/dL Urine Blood (Negative) Urine Nitrite (Negative) Ur Leukocyte Esterase (Negative) Urine Test NEGATIVE (NEGATIVE) COVID-19 ([facility]) (Negative) COVID-19 Clin Com Independent Interpretation I performed an independent interpretation of an: EKG Interpretation: Rate: Rhythm:? Union:? Normal P waves.? Normal ARNALDO.?? Normal QRS complex.?? ST T wave :?? qTC: prior studies:? The study has been interpreted contemporaneously by me. Radiology Impression Discussion of test interpretation with radiology: I have reviewed the radiologist's reading. Radiologist Impression: CT/CT abdomen pelvis w IV con IMPRESSION: No acute intra-abdominal process seen CT/CT angio chest PE protocol IMPRESSION: No evidence of PE. ? No evidence of aortic aneurysm or dissection. ? The lungs are clear. Discharge Plan Discharge Clinical Impression: Chest pain Patient Disposition: Home, Self-Care Instructions: Chest Pain (ED) Additional Instructions: You can take ibuprofen 200 mg, 3 tablets (600mg) every 6-8 hours as needed for pain, in addition to Tylenol 500 mg, 2 tablets (1,000mg) every 4-6 hours as needed for pain, but not to exceed 3 doses daily (3,000mg).? Please contact your primary care provider and arrange for a follow-up visit within 2 days. Return back to emergency department any new or worsening symptoms or concerns. Prescriptions: No Action lorazepam 1 mg tablet 1 mg PO TID PRN (Reason: anxiety) Qty: 10 0RF Rx Instructions: Patient may ask for partial fill ondansetron 4 mg tablet,disintegrating 4 mg PO Q6-8H PRN (Reason: nausea and vomiting) Qty: 14 0RF ondansetron 4 mg tablet,disintegrating 4 mg PO TID PRN (Reason: nausea and vomiting) 5 Days Qty: 10 0RF diltiazem HCl [Tiadylt ER] 240 mg capsule,extended release 24 hr 240 mg PO DAILY Qty: 30 0RF Referrals: Gisele Kulkarni MD [Primary Care Provider] -
[2023-05-28] MEDS: ondansetron HCL 4 MG/2 ML VIAL IVPUSH (17:46)
[2023-05-28] MEDS: 0.9 % Sodium Chloride 1,000 ML 999 ML IV (17:46)
[2023-05-28] MEDS: Ketorolac Tromethamine 30 MG/ML VIAL IVPUSH (17:46)
[2023-05-28 17:59] LABS: MANUAL DIFF FLAG NO
[2023-05-28 18:13] LABS: COVID-19 Test Negative (Negative); IDNOW Serial# 6674DD1D
[2023-05-28 18:15] LABS: Prothrombin Time 11.6 SEC (11.1-13.3)
[2023-05-28 18:17] LABS: Alanine Aminotransferase 12 U/L (0-31); Albumin Level 4.1 g/dL (3.5-5.0); Alkaline Phosphatase 102 U/L (39-117); Anion Gap 16 (12-20); Aspartate Amino Transferase 19 U/L (5-31); Bilirubin Total 0.1 mg/dL (0.0-1.0); Blood Urea Nitrogen 8 mg/dL (9-16); Calcium 9.8 mg/dL (8.4-10.2); Carbon Dioxide 22 mmol/L (22-29); Chloride 108 mmol/L (96-108); Creatinine Clr Calc Pharmacy 100.6; Estimated Glomerular Filt Rate > 60; Glucose Random 151 mg/dL (60-115); Lipase 45 U/L (8-78); Magnesium 2.1 mg/dL (1.6-2.6); Sodium 142 mmol/L (135-145); Total Protein 8.5 g/dL (6.5-8.0)
[2023-05-28 18:19] VITALS: BP 139/85; PULSE 114; RESP 20; O2SAT 100
[2023-05-28 18:25] LABS: Basophils Percent Auto 0.5 % (0-2); Eosinophils Percent Auto 0.6 % (0-4); Hematocrit 41.2 % (37.0-47.0); Hemoglobin 12.7 g/dl (12.0-16.0); Imm Gran Abs Auto 0.06 X10*3/uL (0.00-0.03); Imm Gran Pct Auto 0.9 % (0.0-0.4); Lymphocytes Absolute Auto 1.4 X10*3/uL (1.2-4.9); Lymphocytes Percent Auto 21.1 % (20-40); Mean Corpuscular HGB Conc 30.8 g/dl (31.0-35.0); Mean Corpuscular Volume 77.9 fL (80.0-98.0); Monocytes Absolute Auto 0.4 X10*3/uL (0.1-1.2); Monocytes Percent Auto 6.6 % (2-11); Neutrophils Absolute Auto 4.6 x10*3/uL (2.0-8.3); Neutrophils Percent Auto 70.3 % (45-73); Platelet Count 305 X10*3/uL (160-400); Red Blood Count 5.29 X10*6/uL (4.20-5.50); Red Cell Distribution Width 16.7 % (11.0-16.0); White Blood Count 6.6 X10*3/uL (4.8-10.8)
[2023-05-28 18:30] LABS: Appearance Urine Clear; Color Urine Yellow; Glucose Urine UA Negative (Negative); Leukocyte Esterase Urine Negative (Negative); Nitrite Urine Negative (Negative); PH 7.5 (5.0-9.0); Specific Gravity - Urine <= 1.005 (1.005-1.025); UPreg QC Valid YES; Urine Blood Negative (Negative); Urine Ketones Negative (Negative); Urine Pregnancy NEGATIVE (NEGATIVE); Urine Protein Negative (Neg-Trace)
[2023-05-28 18:44] LABS: Troponin-I High Sensitivity < 2.7 ng/L (<3.5-17.0)
[2023-05-28] MEDS: iohexoL 350 MG/ML 100 ML INFUS..BTL 85 ML IV (19:27)
[2023-05-28 20:54] VITALS: BP 125/77; PULSE 105; RESP 17; TEMP 36.9; O2SAT 100
[2023-05-28 23:01] VITALS: BP 129/69; PULSE 83; RESP 16; TEMP 37; O2SAT 100
--- NOTE | 2023-05-28 23:06 | PC.NURSE ---
Reviewed discharge instruction with pt, pt verbalized understanding, no sob or chest pain upon discharge, Notified JHONNY Villareal.
== END 2023-05-28 23:15 | disposition home or self-care (01) ==
PROVIDERS: Nurse Practitioner Family; Emergency Provider Emergency Medicine Emergency Medical Services; PCP Family Medicine
DX: R07.89 Other chest pain (principal); R00.0 Tachycardia, unspecified; R10.11 Right upper quadrant pain; R11.2 Nausea with vomiting, unspecified; I10 Essential (primary) hypertension; Z20.822 Contact with and (suspected) exposure to COVID-19; Z20.828 Contact with and (suspected) exposure to other viral communicable diseases; Z79.899 Other long term (current) drug therapy
CPT/HCPCS: 36415; 71275; 74177; 80053; 81003; 81025; 83690; 83735; 84484; 85025; 85610; 87635; 93005; 96374; 96375; 99284; J1885; J2405; Q9967

== ENCOUNTER → 2023-05-28 17:08 | Outpatient (BNV) | payer MEDICAID, SELFPAY | PROVIDERS: Emergency Provider Emergency Medicine Emergency Medical Services; PCP Family Medicine; Visit Provider Internal Medicine | DX: R00.0 Tachycardia, unspecified (principal); R94.31 Abnormal electrocardiogram [ECG] [EKG]; R07.9 Chest pain, unspecified | CPT/HCPCS: 93010 ==

== ENCOUNTER 2023-09-22 23:59 | Emergency (ER) | payer MEDICAID, SELFPAY ==
[2023-09-23 00:01] VITALS: BP 153/97; PULSE 146; RESP 22; TEMP 36.7; O2SAT 98; BMI 30.7
[2023-09-23 00:17] VITALS: BP 150/101; PULSE 130; RESP 16; TEMP 36.4; O2SAT 99
--- NOTE | 2023-09-23 00:22 | PC.NURSE ---
Pt alert and oriented X4, reports she was wrapping presents and accidentally hit herself in the face with scissors causing laceration in L-nare with bleeding. Bleeding not saturating gauze but continuous and feels like she is swallowing blood as well. Pt reports burning pain at the site. Tachy 130's at this time, reports this is not new and she has been on medications but they have changed and she is not aware of the names.
[2023-09-23 00:32] VITALS: BP 133/83; PULSE 116; RESP 16; O2SAT 99
--- NOTE | 2023-09-23 00:33 | MHC.EDTECH ---
Hourly rounds and vitals completed.call dunlap within reach
--- NOTE | 2023-09-23 01:03 | ED_ITS ---
HPI - Wound/Laceration General Chief Complaint: Epistaxis Stated Complaint: nose bleed Time Seen by Provider: 09/23/23 01:00 Source: patient Mode of arrival: ambulatory Limitations: no limitations History of Present Illness HPI narrative: Patient While cutting tape with seizures patient somehow polar drip and seizure tip cut her inner part of left nostril and patient started bleeding Related Data Previous Rx's Medication Instructions Recorded ondansetron 4 mg disintegrating 4 mg PO TID PRN nausea and 12/21/21 tablet vomiting 5 days #10 tabs diltiazem HCl 240 mg capsule,24 240 mg PO DAILY #30 caps 05/15/22 hr,extended release (Tiadylt ER) lorazepam 1 mg tablet 1 mg PO TID PRN anxiety #10 tabs 08/20/22 ondansetron 4 mg disintegrating 4 mg PO Q6-8H PRN nausea and 08/20/22 tablet vomiting #14 tabs Allergies Allergy/AdvReac Type Severity Reaction Status Date / Time No Known Allergies Allergy Verified 03/14/23 13:07 [No Known Allergies*] Anesthesia S/I-40 Allergy Unknown rash Uncoded 03/14/23 13:07 outside allergy/ unhouse Allergy Unknown rash Uncoded 03/14/23 13:07 aller Review of Systems Review of Systems: Yes all other systems are reviewed and are negative PMFSH Past Medical History Attestation statement: The following information was validated with the patient. Medical History Asthma Back pain HTN (hypertension) Tachycardia Surgical History Hx of removal of cyst Family History Family History (Updated 03/14/23 @ 13:11 by MARCELO Wadsworth) Mother Diabetes Arthritis Heart disease Sister Heart disease Seizure Sister Arthritis Gastritis Brother Diabetes HTN (hypertension) Social History (Updated 03/14/23 @ 13:11 by MARCELO Wadsworth) Alcohol intake: never Patient Tobacco Use Status: Never used Tobacco Smoked in Last 30 Days: No Use of substances other than those prescribed or required for medical reasons: No Advance Directives: No Advance Directives Information Provided: Yes Physical Exam Vital Signs: Vital Signs: Last Vital Signs Temp 97.6 F 09/23/23 00:17 Pulse 116 H 09/23/23 00:32 Resp 16 09/23/23 00:32 BP 133/83 09/23/23 00:32 Pulse Ox 99 09/23/23 00:32 O2 Del Method Room Air 09/23/23 00:32 BMI result Body Mass Index 30.7 Appearance: Alert. Oriented X3. No acute distress. Eyes: PERRLA, No Nystagmus ENT: Pharynx normal. Oral Mucosa moist ,no active bleeding Neck: Normal inspection. Neck supple. CVS: Normal heart rate and rhythm. Pulses normal. Respiratory: No respiratory distress. Equal air entry bilateral, Medical Decision Making Medical Decision Making MDM Narrative: Patient had minor bleed from the left nose superficial laceration which is already stopped Discharge patient home advised local care Discharge Plan Discharge Clinical Impression: Laceration of nose Patient Disposition: Home, Self-Care Instructions: Facial Laceration (ED) Additional Instructions: Local care as advised Apply local pressure if bleeding starts again Atenci?n local seg?n lo recomendado Aplique presi?n local si el sangrado comienza nuevamente. Prescriptions: No Action lorazepam 1 mg tablet 1 mg PO TID PRN (Reason: anxiety) Qty: 10 0RF Rx Instructions: Patient may ask for partial fill ondansetron 4 mg tablet,disintegrating 4 mg PO Q6-8H PRN (Reason: nausea and vomiting) Qty: 14 0RF ondansetron 4 mg tablet,disintegrating 4 mg PO TID PRN (Reason: nausea and vomiting) 5 Days Qty: 10 0RF diltiazem HCl [Tiadylt ER] 240 mg capsule,extended release 24 hr 240 mg PO DAILY Qty: 30 0RF Print Language: [place]
== END 2023-09-23 01:35 | disposition home or self-care (01) ==
PROVIDERS: Emergency Provider Internal Medicine
DX: S01.21XA Laceration without foreign body of nose, initial encounter (principal); W27.2XXA Contact with scissors, initial encounter; Y93.89 Activity, other specified; Y92.9 Unspecified place or not applicable; Y99.9 Unspecified external cause status
CPT/HCPCS: 99283; 99284

== ENCOUNTER 2023-10-06 12:13 | Outpatient (REF) | payer MEDICAID, SELFPAY ==
[2023-10-06 13:25] LABS: MANUAL DIFF FLAG NO
[2023-10-06 13:40] LABS: Basophils Percent Auto 0.5 % (0-2); Eosinophils Absolute Auto 0.1 X10*3/uL (0.0-0.4); Eosinophils Percent Auto 1.6 % (0-4); Hemoglobin 8.6 g/dl (12.0-16.0); Imm Gran Abs Auto 0.04 X10*3/uL (0.00-0.03); Imm Gran Pct Auto 0.5 % (0.0-0.4); Lymphocytes Absolute Auto 2.6 X10*3/uL (1.2-4.9); Lymphocytes Percent Auto 30.1 % (20-40); Mean Corpuscular HGB Conc 29.7 g/dl (31.0-35.0); Mean Corpuscular Hemoglobin 23.3 pg (27.0-33.0); Mean Corpuscular Volume 78.6 fL (80.0-98.0); Mean Platelet Volume 10.2 fL (9.4-12.3); Monocytes Absolute Auto 0.7 X10*3/uL (0.1-1.2); NRBC Pct Auto 0.2 /100WBC (0.0-0.2); Neutrophils Absolute Auto 5.2 x10*3/uL (2.0-8.3); Neutrophils Percent Auto 59.3 % (45-73); Platelet Count 442 X10*3/uL (160-400); Red Blood Count 3.69 X10*6/uL (4.20-5.50); Red Cell Distribution Width 15.9 % (11.0-16.0); White Blood Count 8.8 X10*3/uL (4.8-10.8)
[2023-10-06 14:13] LABS: Creatinine Urine 342.99 mg/dL
[2023-10-06 14:13] LABS: Alanine Aminotransferase 11 U/L (0-31); Albumin Level 3.9 g/dL (3.5-5.0); Alkaline Phosphatase 86 U/L (39-117); Anion Gap 13 (12-20); Aspartate Amino Transferase 13 U/L (5-31); Bilirubin Direct < 0.2 mg/dL (0.0-0.5); Bilirubin Total 0.2 mg/dL (0.0-1.0); Blood Urea Nitrogen 11 mg/dL (9-16); Calcium 9.1 mg/dL (8.4-10.2); Carbon Dioxide 22 mmol/L (22-29); Chloride 108 mmol/L (96-108); Cholesterol 143 mg/dL (<200); Estimated Glomerular Filt Rate > 60; Glucose Random 134 mg/dL (60-115); HDL Cholesterol 31 mg/dL (>40); Iron 14 mcg/dL (30-160); LDL Cholesterol Calculated 93 mg/dL (<100); Percent Iron Saturation 4 % (15-50); Potassium 3.8 mmol/L (3.3-5.1); Sodium 139 mmol/L (135-145); Total Iron Binding Capacity 327 mcg/dL (228-428); Total Protein 7.5 g/dL (6.5-8.0); Triglycerides 95 mg/dL (<150); Unsaturated Iron Binding 313 ug/dL
[2023-10-06 14:26] LABS: Vitamin B12 456 pg/mL (200-900)
[2023-10-06 14:29] LABS: Ferritin 6 ng/mL (10-122); TSH reflex Free T4 1.96 uIU/mL (0.32-4.0)
[2023-10-07 08:04] LABS: HIV AB/AG Nonreactive (Nonreactive); HIV Num 1 0.05 S/CO (0.00-0.99); ~HepC Num1 0.15 S/CO (0.00-0.79); ~Hepatitis C Antibody Nonreactive (Nonreactive)
== END 2023-10-06 12:14 | disposition home or self-care (01) ==
LOC: HO.HHCL 12:13
PROVIDERS: Visit Provider Family Medicine
DX: Z11.4 Encounter for screening for human immunodeficiency virus [HIV] (principal); Z11.3 Encounter for screening for infections with a predominantly sexual mode of transmission; E11.9 Type 2 diabetes mellitus without complications; D64.9 Anemia, unspecified
CPT/HCPCS: 36415; 80048; 80061; 80076; 82043; 82570; 82607; 82728; 83540; 84443; 85025; 86803; 87389

== ENCOUNTER 2023-11-22 22:01 | Emergency (ER) | payer OTHER, MEDICAID, SELFPAY ==
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
[2023-11-22 22:06] VITALS: BP 120/82; PULSE 102; RESP 16; TEMP 37.3; O2SAT 98; BMI 30.6
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
[2023-11-22] MEDS: Ibuprofen 600 MG TABLET PO (23:27)
== END 2023-11-22 23:30 | disposition home or self-care (01) ==
LOC: HO.ED 23:22
PROVIDERS: Emergency Provider Emergency Medicine; PCP Family Medicine
DX: S50.01XA Contusion of right elbow, initial encounter (principal); V43.62XA Car passenger injured in collision with other type car in traffic accident, initial encounter; Y93.89 Activity, other specified; Y92.414 Local residential or business street as the place of occurrence of the external cause; Y99.9 Unspecified external cause status
CPT/HCPCS: 73080; 99283

== ENCOUNTER 2024-07-10 03:28 | Emergency (ER) | payer MEDICARE, MEDICAID, SELFPAY ==
[2024-07-10] VITALS (11 sets, daily range): BP systolic 114–151; BP diastolic 75–104; PULSE 89–135; RESP 17–20; TEMP 36.9–37.1; O2SAT 96–99; BMI 33.5
--- NOTE | 2024-07-10 | ECG_ITS ---
Test Reason : cp Blood Pressure : / mmHG Vent. Rate : 145 BPM Atrial Rate : 145 BPM P-R Int : 056 ms QRS Dur : 072 ms QT Int : 352 ms P-R-T Axes : 000 027 -01 degrees QTc Int : 546 ms Sinus tachycardia with short NC Possible Anterior infarct (cited on or before 28-MAY-2023) Abnormal ECG When compared with ECG of 28-MAY-2023 17:39, Nonspecific T wave abnormality no longer evident in Anterolateral leads Referred By: Generic ED Physician Electronically Signed By:OREN CHONG
--- NOTE | ~2024-07-10 | XR_ITS ---
EXAMINATION: XR CHEST CLINICAL INFORMATION: Shortness of breath, chest tightness COMPARISON: 05/28/2023 TECHNIQUE: Frontal view of the chest was obtained. FINDINGS: Lung volumes are symmetric. No focal consolidation is seen. No evidence of pneumothorax, significant pleural effusion, or overt edema. The cardiomediastinal contour is unremarkable. No acute osseous findings are seen. XR/XR chest 1V IMPRESSION: No acute cardiopulmonary findings. Electronically signed by: Jac Rico MD 07/10/2024 05:27 AM EDT
[2024-07-10 03:48] LABS: Basophils Absolute Auto 0.1 X10*3/uL (0.0-0.2); Basophils Percent Auto 0.7 % (0-2); Eosinophils Absolute Auto 0.1 X10*3/uL (0.0-0.4); Eosinophils Percent Auto 0.7 % (0-4); Hematocrit 37.1 % (37.0-47.0); Hemoglobin 11.6 g/dl (12.0-16.0); Imm Gran Abs Auto 0.04 X10*3/uL (0.00-0.03); Imm Gran Pct Auto 0.3 % (0.0-0.4); Lymphocytes Absolute Auto 2.9 X10*3/uL (1.2-4.9); Lymphocytes Percent Auto 23.9 % (20-40); MANUAL DIFF FLAG NO; Mean Corpuscular HGB Conc 31.3 g/dl (31.0-35.0); Mean Corpuscular Volume 73.5 fL (80.0-98.0); Mean Platelet Volume 9.7 fL (9.4-12.3); Monocytes Percent Auto 8.1 % (2-11); Neutrophils Absolute Auto 7.9 x10*3/uL (2.0-8.3); Neutrophils Percent Auto 66.3 % (45-73); Platelet Count 371 X10*3/uL (160-400); Red Blood Count 5.05 X10*6/uL (4.20-5.50); Red Cell Distribution Width 18.1 % (11.0-16.0)
[2024-07-10 04:13] LABS: Alanine Aminotransferase 13 U/L (0-31); Albumin Level 4.2 g/dL (3.5-5.0); Alkaline Phosphatase 96 U/L (39-117); Anion Gap 14 (12-20); Aspartate Amino Transferase 14 U/L (5-31); Bilirubin Total 0.1 mg/dL (0.0-1.0); Blood Urea Nitrogen 11 mg/dL (9-16); Calcium 9.9 mg/dL (8.4-10.2); Carbon Dioxide 25 mmol/L (22-29); Chloride 103 mmol/L (96-108); Creatinine Clr Calc Pharmacy 98.6; Estimated Glomerular Filt Rate > 60; Glucose Random 154 mg/dL (60-115); Potassium 3.4 mmol/L (3.3-5.1); Sodium 139 mmol/L (135-145); Total Protein 8.2 g/dL (6.5-8.0)
[2024-07-10 04:20] LABS: Troponin-I High Sensitivity < 2.7 ng/L (<3.5-17.0)
--- NOTE | 2024-07-10 04:30 | PC.NURSE ---
Pt a&ox4, no signs of distress Pt reports 8/10 substernal cp. Pts family at bedside Plan of care ongoing.
[2024-07-10 06:06] LABS: Influenza A PCR NEGATIVE (Negative); Influenza B PCR NEGATIVE (Negative); Resp Syncy Virus RNA Qual PCR NEGATIVE (Negative); SARS COV2 PCR INHOUSE NEGATIVE (Negative)
--- NOTE | 2024-07-10 07:21 | ED_ITS ---
HPI - Chest Pain General Chief Complaint: Chest Pain Stated Complaint: chest pain Time Seen by Provider: 07/10/24 07:20 Source: patient Mode of arrival: ambulatory Limitations: no limitations History of Present Illness ED Provider: Carolin Elizabeth PA-C HPI narrative: 39-year-old female with a history of tachycardia, DM, HTN, asthma, migraines who presents to the ER from home for evaluation of epigastric abdominal pain that started last night. She reports getting very hot sensations and had 2 episodes of vomiting overnight. She reports the pain is burning and hot in the center of her upper abdomen, does not radiate. It comes and goes. She also reports for the last couple of days she has had increased heart rates on and off, she has been compliant with her 2 heart rate medications. 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 She denies any current chest pain, she endorses nausea, headaches and dizziness. No diarrhea. No known sick contacts. MD complaint: chest pain and other (abdominal pain, N/V) Timing of current episode: episodic Onset: during rest Pain location: substernal Pain radiation: none Severity: moderate Quality: tightness Relieving factors: nothing Exacerbating factors: nothing Associated symptoms: nausea and vomiting Risk Factors Coronary artery disease risk factors: diabetes and hypertension Related Data Previous Rx's ?Medication ?Instructions ?Recorded ondansetron 4 mg disintegrating 4 mg PO TID PRN nausea and 12/21/21 tablet vomiting 5 days #10 tabs diltiazem HCl 240 mg capsule,24 240 mg PO DAILY #30 caps 05/15/22 hr,extended release (Tiadylt ER) lorazepam 1 mg tablet 1 mg PO TID PRN anxiety #10 tabs 08/20/22 ondansetron 4 mg disintegrating 4 mg PO Q6-8H PRN nausea and 08/20/22 tablet vomiting #14 tabs ibuprofen 600 mg tablet 600 mg PO TID PRN fever or pain 11/22/23 #20 tabs ondansetron 4 mg disintegrating 4 mg PO Q8H PRN nausea and 07/10/24 tablet vomiting #7 tabs Allergies Allergy/AdvReac Type Severity Reaction Status Date / Time Anesthesia S/I-40 Allergy Unknown rash Uncoded 03/14/23 13:07 outside allergy/ unhouse Allergy Unknown rash Uncoded 03/14/23 13:07 aller Review of Systems 2 Review of Systems: Yes all other systems are reviewed and are negative [facility] Past Medical History Medical History HTN (hypertension) Back pain Asthma Tachycardia Surgical History Hx of removal of cyst Family History Family History (Updated 03/14/23 @ 13:11 by MARCELO Wadsworth) Mother Diabetes Arthritis Heart disease Sister Heart disease Seizure Sister Arthritis Gastritis Brother Diabetes HTN (hypertension) Social History Social History (Updated 03/14/23 @ 13:11 by MARCELO Wadsworth) Alcohol intake: never Patient Tobacco Use Status: Never used Tobacco Smoked in Last 30 Days: No Use of substances other than those prescribed or required for medical reasons: No Advance Directives: No Advance Directives Information Provided: Yes Physical Exam 2 Vital Signs: Vital Signs: Last Vital Signs Temp 98.8 F 07/10/24 12:53 Pulse 89 07/10/24 12:53 Resp 17 07/10/24 12:53 BP 125/75 07/10/24 12:53 Pulse Ox 96 07/10/24 12:53 O2 Del Method Room Air 07/10/24 12:53 BMI result Body Mass Index 33.5 Appearance: Alert. Oriented X3. No acute distress. Head: normocephalic, atraumatic. Eyes: Pupils equal, round and reactive to light. ENT: Pharynx normal. No tonsillar swelling or exudate. Neck: Normal inspection. Neck supple. CVS: Tachycardic with heart rates in the low 100s, no appreciated murmur. Pulses normal. Respiratory: No respiratory distress. Breath sounds normal. Abdomen: Obese, Soft gastric tenderness to deep palpation, no rebound or guarding. No right upper quadrant tenderness. Normal active +BS x4 Skin: Skin warm and dry. Normal skin color. Normal skin turgor. No rashes. Extremities: No lower extremity edema. No joint swelling. Neuro/psych: Oriented X 3. No motor deficit. No sensory deficit. CN II-XII intact. Normal speech and cognition. Medications Administered Discontinued Medications Generic Name Dose Route Start Last Admin Trade Name Freq PRN Reason Stop Dose Admin Al Hydroxide/Mg Hydroxide 30 ml 07/10/24 07:41 07/10/24 08:11 Magnesium Hydrox/Alum Hydrox 30 Ml Oral.Susp PO 07/10/24 07:42 30 ml ONCE ONE Administration Belladonna Alkaloids/Phenobarbital 10 ml 07/10/24 07:41 07/10/24 08:11 Phenobarb/Hyoscy/Atropine/Scop 10 Ml Elixir PO 07/10/24 07:42 10 ml ONCE ONE Administration Carvedilol 6.25 mg 07/10/24 07:29 07/10/24 07:59 Carvedilol 6.25 Mg Tablet PO 07/10/24 07:30 6.25 mg ONCE ONE Administration Protocol Sodium Chloride 1,000 mls @ 999 mls/hr 07/10/24 07:45 07/10/24 09:07 Ns IVCONT 07/10/24 08:45 Infused .Q1H1M AMELIE Infusion Lidocaine HCl 15 ml 07/10/24 07:41 07/10/24 08:11 Lidocaine Hcl Viscous 2 % 15 Ml Solution MUCOUS MEM 07/10/24 07:42 15 ml ONCE ONE Administration Ondansetron HCl 4 mg 07/10/24 07:40 07/10/24 07:57 Ondansetron Hcl 4 Mg/2 Ml Vial IVPUSH 07/10/24 07:41 4 mg ONCE ONE Administration Verapamil HCl 40 mg 07/10/24 07:29 07/10/24 08:10 Verapamil Hcl 40 Mg Tablet PO 07/10/24 07:30 40 mg ONCE ONE Administration Protocol Medical Decision Making Medical Decision Making [facility] Narrative: 39-year-old female with history of diabetes, HTN, sinus tachycardia on verapamil who presents to the ER for evaluation of epigastric abdominal pain, chest tightness, nausea and vomiting that started last night. She endorses headache and dizziness. On arrival to ER her heart rates were in the 130s. She was afebrile. On examination her abdomen was soft but had epigastric tenderness. Her lung sounds were clear to auscultation. Lab workup today shows a mild leukocytosis of 12,000. She has normal lipase and LFTs. Her physical exam is reassuring. She was treated with IV fluids, antiemetics and a GI cocktail. Her GI symptoms improved but she was reporting some dizziness with ambulation and headache. Orthostatic vital signs were negative. She was given her oral verapamil and Coreg which are home medications with improvement in her heart rates. After several hours of observation in the ER she was able to tolerate p.o. and would like to be discharged home. Her workup was unremarkable and I am comfortable discharge home. She will follow up with her primary care doctors. Return precautions were discussed. Stable for DC Differential Diagnosis Differential Diagnoses: The differential diagnosis associated with the presentation includes Pancreatitis, gastritis, gastroparesis, GERD, SBO, pericarditis, PE or ACS less likely Admission/Observation Consideration of admission/observation: Escalation of care including admission/observation considered Lab Data MDM Lab Attestation statement: I reviewed the patient's lab results. Leukocytosis, hyperglycemia 07/10/24 03:43 07/10/24 03:43 Labs: Lab Results 07/10/24 07/10/24 Range/Units 03:43 05:19 WBC 12.0 H (4.8-10.8) X10*3/uL RBC 5.05 D (4.20-5.50) X10*6/uL Hgb 11.6 L D (12.0-16.0) g/dl Hct 37.1 D (37.0-47.0) % MCV 73.5 L (80.0-98.0) fL MCH 23.0 L (27.0-33.0) pg MCHC 31.3 (31.0-35.0) g/dl RDW 18.1 H (11.0-16.0) % Plt Count 371 (160-400) X10*3/uL MPV 9.7 (9.4-12.3) fL Immature Gran % (Auto) 0.3 (0.0-0.4) % Neut % (Auto) 66.3 (45-73) % Lymph % (Auto) 23.9 (20-40) % [place] % (Auto) 8.1 (2-11) % Eos % (Auto) 0.7 (0-4) % Baso % (Auto) 0.7 (0-2) % Lymph # (Auto) 2.9 (1.2-4.9) X10*3/uL [place] # (Auto) 1.0 (0.1-1.2) X10*3/uL Eos # (Auto) 0.1 (0.0-0.4) X10*3/uL Baso # (Auto) 0.1 (0.0-0.2) X10*3/uL Abs Immat Gran (auto) 0.04 H (0.00-0.03) X10*3/uL Absolute Neuts (auto) 7.9 (2.0-8.3) x10*3/uL Absolute Nucleated RBC 0.000 (0.0-0.012) X10*3/uL Nucleated RBC % (auto) 0.0 (0.0-0.2) /100WBC Sodium 139 (135-145) mmol/L Potassium 3.4 (3.3-5.1) mmol/L Chloride 103 (96-108) mmol/L Carbon Dioxide 25 (22-29) mmol/L Anion Gap 14 (12-20) BUN 11 (9-16) mg/dL Creatinine 0.81 (0.5-1.4) mg/dL Estim Creat Clear Calc 98.6 Estimated GFR > 60 Random Glucose 154 H (60-115) mg/dL Calcium 9.9 D (8.4-10.2) mg/dL Total Bilirubin 0.1 (0.0-1.0) mg/dL AST 14 (5-31) U/L ALT 13 (0-31) U/L Alkaline Phosphatase 96 (39-117) U/L Troponin I High Sens < 2.7 (<3.5-17.0) ng/L Total Protein 8.2 H (6.5-8.0) g/dL Albumin 4.2 (3.5-5.0) g/dL Lipase 50 (8-78) U/L Influenza Type A (PCR) NEGATIVE (Negative) Influenza Type B (PCR) NEGATIVE (Negative) RSV RNA Qual (PCR) NEGATIVE (Negative) SARS-CoV-2 RNA (RT-PCR) NEGATIVE (Negative) Independent Interpretation I performed an independent interpretation of an: EKG Interpretation: Sinus tachycardia with short [place] interval, ventricular rate 145 beats per minute, prolonged QTC Independent Historian Clinical information obtained from an independent historian. History obtained from or confirmed by: Spouse External Record Review External record reviewed: Outpatient record, Prior outpatient labs and Prior outpatient radiology Prescription Management I considered prescription management with: Pain Medication and Other (Antiemetics) Chronic Conditions Patient?s care impacted by: Diabetes Critical Care Time Critical Care Time Critical Care Time: No Discharge Plan Discharge Clinical Impression: Nausea & vomiting, Headache Patient Disposition: Home, Self-Care Instructions: Acute Headache (DC), Acute Nausea and Vomiting (ED) Additional Instructions: your lab workup today was reassuring. rest and drink plenty of fluids continue all of your prescribed medications stick to a bland diet while you are not feeling well take the prescribed nausea medication as needed follow up with your doctor next week If you develop new or worsening symptoms call 911 or come back to the ER for further evaluation. Prescriptions: New ondansetron 4 mg tablet,disintegrating 4 mg PO Q8H PRN (Reason: nausea and vomiting) Qty: 7 0RF No Action lorazepam 1 mg tablet 1 mg PO TID PRN (Reason: anxiety) Qty: 10 0RF Rx Instructions: Patient may ask for partial fill ondansetron 4 mg tablet,disintegrating 4 mg PO Q6-8H PRN (Reason: nausea and vomiting) Qty: 14 0RF ondansetron 4 mg tablet,disintegrating 4 mg PO TID PRN (Reason: nausea and vomiting) 5 Days Qty: 10 0RF diltiazem HCl [Tiadylt ER] 240 mg capsule,extended release 24 hr 240 mg PO DAILY Qty: 30 0RF ibuprofen 600 mg tablet 600 mg PO TID PRN (Reason: fever or pain) Qty: 20 0RF Referrals: Gisele Kulkarni MD [Primary Care Provider] - Interventions: ED Discharge Assessment Last Done: 07/10/24 12:53 Discharge Date/Time: 07/10/24 12:54 Print Language: [place]ayan
[2024-07-10] MEDS: ondansetron HCL 4 MG/2 ML VIAL IVPUSH (07:57)
[2024-07-10] MEDS: 0.9 % Sodium Chloride 1,000 ML 999 ML IVCONT (07:58)
[2024-07-10] MEDS: carvediloL 6.25 MG TABLET PO (07:59)
[2024-07-10] MEDS: VerapamiL HCL 40 MG TABLET PO (08:10)
[2024-07-10] MEDS: Lidocaine HCl Viscous 2 % 15 ML SOLUTION MUCOUS MEM (08:11)
[2024-07-10] MEDS: Magnesium Hydrox/Alum Hydrox 30 ML ORAL.SUSP PO (08:11)
[2024-07-10] MEDS: PHENobarb/Hyoscy/Atropine/Scop 10 ML ELIXIR PO (08:11)
--- NOTE | 2024-07-10 08:34 | PC.NURSE ---
patient reports dizziness and nausea upon returing from bathroom with tech. Pt denies CP or SOB. Vitals taken and documnted. made aware.
[2024-07-10 09:25] LABS: Lipase 50 U/L (8-78)
== END 2024-07-10 12:54 | disposition home or self-care (01) ==
PROVIDERS: Physician Assistant; Emergency Provider Emergency Medicine; PCP Family Medicine
DX: R51.9 Headache, unspecified (principal); R11.2 Nausea with vomiting, unspecified; R10.13 Epigastric pain; R06.02 Shortness of breath; R07.89 Other chest pain; Z03.818 Encounter for observation for suspected exposure to other biological agents ruled out; J45.909 Unspecified asthma, uncomplicated; E11.9 Type 2 diabetes mellitus without complications; I10 Essential (primary) hypertension; R00.0 Tachycardia, unspecified
CPT/HCPCS: 0241U; 36415; 71045; 80053; 83690; 84484; 85025; 93005; 96361; 96374; 99284; 99285; J2405

== ENCOUNTER 2024-07-22 10:54 | Emergency (ER) | payer MEDICARE, MEDICAID, SELFPAY ==
[2024-07-22 11:15] VITALS: BP 166/104; PULSE 137; RESP 20; TEMP 36.3; O2SAT 100; BMI 33.5
--- NOTE | 2024-07-22 11:18 | ECG_ITS ---
Test Reason : CP Blood Pressure : / mmHG Vent. Rate : 123 BPM Atrial Rate : 123 BPM P-R Int : 162 ms QRS Dur : 074 ms QT Int : 306 ms P-R-T Axes : 038 006 -20 degrees QTc Int : [address] & T wave abnormality, consider inferior ischemia Abnormal ECG When compared with ECG of 10-JUL-2024 03:28, [place] interval has increased Referred By: Jerzy Kelley Electronically Signed By:OREN CHONG
--- NOTE | 2024-07-22 11:22 | ED_ITS ---
HPI - General Adult General Chief complaint: Arrhythmia/Palpitations Stated complaint: Dizziness, vomiting Time Seen by Provider: 07/22/24 11:32 Source: patient and colon therapist Mode of arrival: ambulatory Limitations: language barrier History of Present Illness ED Provider: oliva HPI narrative: Patient is a 39-year-old Chinese speaking female with history of HTN, asthma, tachycardia on diltiazem presenting to the emergency department with complaint of chest pain and palpitations yesterday as well as nausea and vomiting which began last night. States pain has been constant. Took her diltiazem this morning but vomited afterwards. Emesis non-bloody, non-bilious. Denies any diarrhea. Denies abdominal pain. Denies urinary symptoms. Reports chills but denies fever. Denies any calf pain or swelling. She is not on OCPs. Denies recent travel or immobilization. MD complaint: chest pain, tachycardic Onset (ago): day(s) Location: chest Radiation: non-radiation Associated symptoms: fever/chills and nausea/vomiting Treatments prior to arrival: none Related Data Previous Rx's ?Medication ?Instructions ?Recorded ondansetron 4 mg disintegrating 4 mg PO TID PRN nausea and 12/21/21 tablet vomiting 5 days #10 tabs diltiazem HCl 240 mg capsule,24 240 mg PO DAILY #30 caps 05/15/22 hr,extended release (Tiadylt ER) lorazepam 1 mg tablet 1 mg PO TID PRN anxiety #10 tabs 08/20/22 ondansetron 4 mg disintegrating 4 mg PO Q6-8H PRN nausea and 08/20/22 tablet vomiting #14 tabs ibuprofen 600 mg tablet 600 mg PO TID PRN fever or pain 11/22/23 #20 tabs ondansetron 4 mg disintegrating 4 mg PO Q8H PRN nausea and 07/10/24 tablet vomiting #7 tabs ondansetron 4 mg disintegrating 4 mg PO Q8H PRN nausea and 07/22/24 tablet vomiting #9 tabs Allergies Allergy/AdvReac Type Severity Reaction Status Date / Time Anesthesia S/I-40 Allergy Unknown rash Uncoded 07/22/24 11:20 outside allergy/ unhouse Allergy Unknown rash Uncoded 07/22/24 11:20 aller Review of Systems 2 Review of Systems: As per HPI. Yes all other systems are reviewed and are negative Constitutional: Constitutional: Reports as per HPI [facility] Past Medical History Medical History HTN (hypertension) Back pain Asthma Tachycardia Surgical History Hx of removal of cyst Family History Family History (Updated 03/14/23 @ 13:11 by MARCELO Wadsworth) Mother Diabetes Arthritis Heart disease Sister Heart disease Seizure Sister Arthritis Gastritis Brother Diabetes HTN (hypertension) Social History Social History (Updated 03/14/23 @ 13:11 by MARCELO Wadsworth) Alcohol intake: never Patient Tobacco Use Status: Never used Tobacco Smoked in Last 30 Days: No Advance Directives: No Advance Directives Information Provided: Yes Physical Exam ED Vital Signs: Vital Signs - 24 hr 07/22/24 11:15 07/22/24 11:38 07/22/24 14:52 Temperature 97.4 F Pulse Rate 137 H 111 H 120 H Respiratory Rate 20 18 Blood Pressure 166/104 H 138/85 Pulse Oximetry 100 99 Oxygen Delivery Method Room Air Room Air 07/22/24 16:00 07/22/24 16:43 Temperature 98.1 F 98.1 F Pulse Rate 98 98 Respiratory Rate 18 18 Blood Pressure 131/70 Pulse Oximetry 98 98 Oxygen Delivery Method Room Air BMI result Body Mass Index 33.5 Vital signs have been reviewed and appear to be correct. Blood pressure initially elevated, improved without intervention. Heart rate tachycardic. Respiratory rate normal. Temperature normal. Oxygen saturation normal. Const General: cooperative, healthy appearing and no acute distress Orientation/consciousness: oriented to person, oriented to place, oriented to time and patient oriented x3 Limitations: no limitations HENMT Head: Yes normocephalic and Yes atraumatic Ears: external ears normal General nose exam: Normal external nose present Face and sinus: Yes face symmetric Mouth: oropharynx normal and moist mucous membranes Throat: Yes uvula midline Eyes Pupils: Equal, round and reactive pupils present Neck Neck: Yes normal visual inspection and Yes supple Resp Effort & Inspection: normal respiratory effort and able to speak in complete sentences Auscultation: clear to auscultation bilaterally Cardio Rate: tachycardic Rhythm: regular rhythm Heart sounds: S1 normal heart sound present and S2 normal heart sound present GI Palpation (GI): Soft to palpation and nontender Auscultation: normoactive bowel sounds General: Yes no CVA tenderness Back/Spine/Pelvis Back: no CVA tenderness Skin General skin exam: elasticity normal and turgor normal Neuro General: oriented to person, oriented to place, oriented to time, patient oriented x3, moves all extremities, no focal motor deficits and CN's II-XI intact bilaterally Cranial nerves: Yes Equal, round and reactive pupils present Cognition (Neuro): normal cognition Extrem General: Yes full ROM, Yes no pedal edema and Yes no calf tenderness Psych Mental Status: mental status grossly normal Affect: normal affect Thought process: Normal thought process present Course Course Course Narrative: RME: Done by Jarrett Kelley. 39-year-old female history of sinus tach presents to ED for chest pain and heart beating fast with headache since yesterday. Patient states heart medication but does not believe it working. Patient denies any leg swelling, calf pain, coughing up blood. Patient brought to the ED immediately for EKG labs. Reevaluation(s) Reevaluation #1: Notified by JHONNY Rodriguez that patient unresponsive to sternal rub. Patient evaluated by myself and Dr. Pettit, did not wake to sternal rub, corneal reflexes intact, patient woke after several seconds. SO reports patient has been experiencing these episodes, has seen neuro and had EEG which was normal, was told to next follow up with cardiology for tilt table test, but patient has not had this testing done yet. Case discussed with Dr. Pettit who feels patient can be discharged home once HR improves. Time: 15:02 Reevaluation #2: HR now in the 90's. Patient medicated with daily PO dose of diltiazem. Will discharge with prescription for zofran. Instructed patient to follow up with PCP and first leveler. Return precautions discussed. Patient verbalized understanding of and agreement with plan. Time: 16:06 Medications Administered Discontinued Medications Generic Name Dose Route Start Last Admin Trade Name Freq PRN Reason Stop Dose Admin Diltiazem HCl 10 mg 07/22/24 14:00 07/22/24 14:52 Diltiazem Hcl 50 Mg/10 Ml Vial IVPUSH 07/22/24 14:01 10 mg STAT STA Administration Diltiazem HCl 240 mg 07/22/24 16:04 07/22/24 16:37 Diltiazem Hcl Cd 240 Mg Cap.Er.Deg PO 07/22/24 16:05 240 mg ONCE ONE Administration Protocol Sodium Chloride 1,000 mls @ 999 mls/hr 07/22/24 12:30 07/22/24 14:52 Ns IV 07/22/24 13:30 Infused .Q1H1M AMELIE Infusion Ondansetron HCl 4 mg 07/22/24 12:19 07/22/24 12:26 Ondansetron Hcl 4 Mg/2 Ml Vial IVPUSH 07/22/24 12:20 4 mg ONCE ONE Administration Medical Decision Making Medical Decision Making [facility] Narrative: Patient is a 39-year-old Chinese speaking female with history of HTN, asthma, tachycardia on diltiazem presenting to the emergency department with complaint of chest pain and palpitations yesterday as well as nausea and vomiting which began last night. On exam patient is awake, A+Ox3, tachycardic, BP initially elevated but improved without intervention, afebrile, normal neurological exam without focal deficits, physical exam findings as above. Given reported symptoms and physical exam findings, initial differential includes cardiac arrhythmia, dehydration, electrolyte abnormality, anemia, viral illness, gastroeneritis. Labs notable for slight leukocytosis, slight anemia not at transfusable level, negative d-dimer, no significant electrolyte abnormalities, normal TSH, negative HCG, negative troponin. I suspect tachycardia is likely due to patient vomiting after taking her diltiazem this morning as well as mild dehydration. See course for remaining clinical decision making. Differential Diagnosis Differential Diagnoses: The differential diagnosis associated with the presentation includes As per [facility]. Admission/Observation Consideration of admission/observation: Escalation of care including admission/observation considered Patient would have been admitted to the hospital had their work up had any findings where hospital admission was appropriate and their clinical presentation warranted hospital admission. Lab Data [facility] Lab Attestation statement: I reviewed the patient's lab results. as per [facility] 07/22/24 11:31 07/22/24 11:32 Labs: Lab Results 07/22/24 07/22/24 Range/Units 11:31 11:32 WBC 11.6 H (4.8-10.8) X10*3/uL RBC 4.93 (4.20-5.50) X10*6/uL Hgb 11.5 L (12.0-16.0) g/dl Hct 36.4 L (37.0-47.0) % MCV 73.8 L (80.0-98.0) fL MCH 23.3 L (27.0-33.0) pg MCHC 31.6 (31.0-35.0) g/dl RDW 17.9 H (11.0-16.0) % Plt Count 357 (160-400) X10*3/uL MPV 9.7 (9.4-12.3) fL Immature Gran % (Auto) 0.2 (0.0-0.4) % Neut % (Auto) 72.9 (45-73) % Lymph % (Auto) 20.0 (20-40) % [place] % (Auto) 5.9 (2-11) % Eos % (Auto) 0.5 (0-4) % Baso % (Auto) 0.5 (0-2) % Lymph # (Auto) 2.3 (1.2-4.9) X10*3/uL [place] # (Auto) 0.7 (0.1-1.2) X10*3/uL Eos # (Auto) 0.1 (0.0-0.4) X10*3/uL Baso # (Auto) 0.1 (0.0-0.2) X10*3/uL Abs Immat Gran (auto) 0.02 (0.00-0.03) X10*3/uL Absolute Neuts (auto) 8.5 H (2.0-8.3) x10*3/uL Absolute Nucleated RBC 0.000 (0.0-0.012) X10*3/uL Nucleated RBC % (auto) 0.0 (0.0-0.2) /100WBC PT 11.1 (10.9-12.4) SEC INR 1.0 (0.9-1.1) APTT 27.2 (26.0-36.8) SEC D-Dimer High Sensitivty 162 NG/ML Sodium 138 (135-145) mmol/L Potassium 3.7 (3.3-5.1) mmol/L Chloride 107 (96-108) mmol/L Carbon Dioxide 22 (22-29) mmol/L Anion Gap 13 (12-20) BUN 11 (9-16) mg/dL Creatinine 0.86 (0.5-1.4) mg/dL Estim Creat Clear Calc 92.9 Estimated GFR > 60 Random Glucose 164 H (60-115) mg/dL Calcium 9.7 (8.4-10.2) mg/dL Total Bilirubin 0.2 (0.0-1.0) mg/dL AST 13 (5-31) U/L ALT 12 (0-31) U/L Alkaline Phosphatase 93 (39-117) U/L Troponin I High Sens < 2.7 (<3.5-17.0) ng/L Total Protein 8.2 H (6.5-8.0) g/dL Albumin 4.1 (3.5-5.0) g/dL TSH 2.15 (0.32-4.0) uIU/mL Beta HCG, Quant < 2 mIU/mL Influenza Type A (PCR) NEGATIVE (Negative) Influenza Type B (PCR) NEGATIVE (Negative) RSV RNA Qual (PCR) NEGATIVE (Negative) SARS-CoV-2 RNA (RT-PCR) NEGATIVE (Negative) Independent Interpretation I performed an independent interpretation of an: EKG (sinus tachycardia, rate 123bpm, normal pr interval and qtc) External Record Review External record reviewed: Inpatient record, Office record and Outpatient record Prescription Management I considered prescription management with: Other Discharge Plan Discharge Clinical Impression: Palpitations, Sinus tachycardia, Nausea & vomiting Patient Disposition: Home, Self-Care Instructions: Heart Palpitations (DC), Acute Nausea and Vomiting (ED), Tachycardia (ED) Additional Instructions: You were evaluated in the emergency department today for fast heart rate/palpitations, nausea and vomiting. It is likely that your nausea and vomiting or due to a viral illness which will resolve on its own. Your rapid heart rate is likely due to the fact that you were unable to take your diltiazem today. You were medicated with IV diltiazem in the emergency department and your heart rate improved. You are being prescribed ondansetron for nausea which you can take every 8 hours as needed at home. Please follow-up with your primary care provider as well as first leveler in the next 2 days. Return to the emergency department if you develop chest pain, shortness of breath, dizziness or lightheadedness, fainting, persistent vomiting or any other concerning symptoms. Prescriptions: New ondansetron 4 mg tablet,disintegrating 4 mg PO Q8H PRN (Reason: nausea and vomiting) Qty: 9 0RF No Action lorazepam 1 mg tablet 1 mg PO TID PRN (Reason: anxiety) Qty: 10 0RF Rx Instructions: Patient may ask for partial fill ondansetron 4 mg tablet,disintegrating 4 mg PO Q6-8H PRN (Reason: nausea and vomiting) Qty: 14 0RF ondansetron 4 mg tablet,disintegrating 4 mg PO TID PRN (Reason: nausea and vomiting) 5 Days Qty: 10 0RF diltiazem HCl [Tiadylt ER] 240 mg capsule,extended release 24 hr 240 mg PO DAILY Qty: 30 0RF ibuprofen 600 mg tablet 600 mg PO TID PRN (Reason: fever or pain) Qty: 20 0RF ondansetron 4 mg tablet,disintegrating 4 mg PO Q8H PRN (Reason: nausea and vomiting) Qty: 7 0RF Interventions: ED Discharge Assessment Last Done: 07/22/24 16:43 Discharge Date/Time: 07/22/24 17:05 Print Language: Chinese
[2024-07-22 11:38] VITALS: BP 138/85; PULSE 111; RESP 18; O2SAT 99
[2024-07-22 11:38] LABS: MANUAL DIFF FLAG NO
[2024-07-22 11:39] LABS: Basophils Absolute Auto 0.1 X10*3/uL (0.0-0.2); Basophils Percent Auto 0.5 % (0-2); Eosinophils Absolute Auto 0.1 X10*3/uL (0.0-0.4); Eosinophils Percent Auto 0.5 % (0-4); Hematocrit 36.4 % (37.0-47.0); Hemoglobin 11.5 g/dl (12.0-16.0); Imm Gran Abs Auto 0.02 X10*3/uL (0.00-0.03); Imm Gran Pct Auto 0.2 % (0.0-0.4); Lymphocytes Absolute Auto 2.3 X10*3/uL (1.2-4.9); Mean Corpuscular HGB Conc 31.6 g/dl (31.0-35.0); Mean Corpuscular Hemoglobin 23.3 pg (27.0-33.0); Mean Corpuscular Volume 73.8 fL (80.0-98.0); Mean Platelet Volume 9.7 fL (9.4-12.3); Monocytes Absolute Auto 0.7 X10*3/uL (0.1-1.2); Monocytes Percent Auto 5.9 % (2-11); Neutrophils Absolute Auto 8.5 x10*3/uL (2.0-8.3); Neutrophils Percent Auto 72.9 % (45-73); Platelet Count 357 X10*3/uL (160-400); Red Blood Count 4.93 X10*6/uL (4.20-5.50); Red Cell Distribution Width 17.9 % (11.0-16.0); White Blood Count 11.6 X10*3/uL (4.8-10.8)
[2024-07-22 11:44] LABS: Prothrombin Time 11.1 SEC (10.9-12.4)
[2024-07-22 11:47] LABS: Partial Thromboplastin Time 27.2 SEC (26.0-36.8)
[2024-07-22 12:01] LABS: Alanine Aminotransferase 12 U/L (0-31); Albumin Level 4.1 g/dL (3.5-5.0); Alkaline Phosphatase 93 U/L (39-117); Anion Gap 13 (12-20); Aspartate Amino Transferase 13 U/L (5-31); Bilirubin Total 0.2 mg/dL (0.0-1.0); Blood Urea Nitrogen 11 mg/dL (9-16); Calcium 9.7 mg/dL (8.4-10.2); Carbon Dioxide 22 mmol/L (22-29); Chloride 107 mmol/L (96-108); Creatinine Clr Calc Pharmacy 92.9; Estimated Glomerular Filt Rate > 60; Glucose Random 164 mg/dL (60-115); Potassium 3.7 mmol/L (3.3-5.1); Sodium 138 mmol/L (135-145); Total Protein 8.2 g/dL (6.5-8.0)
[2024-07-22 12:02] LABS: Troponin-I High Sensitivity < 2.7 ng/L (<3.5-17.0)
[2024-07-22 12:03] LABS: HCG Quantitative < 2 mIU/mL
[2024-07-22 12:15] LABS: TSH reflex Free T4 2.15 uIU/mL (0.32-4.0)
[2024-07-22 12:20] LABS: D Dimer High Sensitivity 162 NG/ML
[2024-07-22 12:21] LABS: Influenza A PCR NEGATIVE (Negative); Influenza B PCR NEGATIVE (Negative); Resp Syncy Virus RNA Qual PCR NEGATIVE (Negative); SARS COV2 PCR INHOUSE NEGATIVE (Negative)
[2024-07-22] MEDS: ondansetron HCL 4 MG/2 ML VIAL IVPUSH (12:26)
[2024-07-22] MEDS: 0.9 % Sodium Chloride 1,000 ML 999 ML IV (12:26)
[2024-07-22 14:52] VITALS: PULSE 120
[2024-07-22] MEDS: dilTIAZem HCL 50 MG/10 ML VIAL 10 MG IVPUSH (14:52)
[2024-07-22 16:00] VITALS: PULSE 98; RESP 18; TEMP 36.7; O2SAT 98
[2024-07-22] MEDS: dilTIAZem HCL CD 240 MG CAP.ER.DEG PO (16:37)
[2024-07-22 16:43] VITALS: BP 131/70; PULSE 98; RESP 18; TEMP 36.7; O2SAT 98
== END 2024-07-22 17:05 | disposition home or self-care (01) ==
PROVIDERS: Physician Assistant; Registered Nurse Emergency; Emergency Provider Student in an Organized Health Care Education/Training Program; PCP Family Medicine
DX: R00.0 Tachycardia, unspecified (principal); I49.9 Cardiac arrhythmia, unspecified; R00.2 Palpitations; R11.2 Nausea with vomiting, unspecified; R10.2 Pelvic and perineal pain; Z03.818 Encounter for observation for suspected exposure to other biological agents ruled out; Z79.899 Other long term (current) drug therapy
CPT/HCPCS: 0241U; 36415; 80053; 84443; 84484; 84702; 85025; 85379; 85610; 85730; 93005; 96361; 96374; 96375; 99284; 99285; J2405

== ENCOUNTER 2024-10-27 08:32 | Emergency (ER) | payer MEDICARE, MEDICAID, SELFPAY ==
[2024-10-27 08:37] VITALS: BP 160/94; PULSE 140; RESP 20; TEMP 36.9; O2SAT 100; BMI 34.0
--- NOTE | 2024-10-27 08:42 | ECG_ITS ---
Test Reason : TACHY Blood Pressure : / mmHG Vent. Rate : 128 BPM Atrial Rate : 000 BPM P-R Int : 000 ms QRS Dur : 096 ms QT Int : 432 ms P-R-T Axes : 000 022 014 degrees QTc Int : 630 ms Accelerated Junctional rhythm Nonspecific ST and T wave abnormality Abnormal ECG When compared with ECG of 22-JUL-2024 11:18, Junctional rhythm has replaced Sinus rhythm Nonspecific T wave abnormality now evident in Anterolateral leads Referred By: Generic ED Physician Electronically Signed By:EL ADKINS MD
[2024-10-27 09:04] LABS: MANUAL DIFF FLAG NO
[2024-10-27 09:06] LABS: Basophils Absolute Auto 0.1 X10*3/uL (0.0-0.2); Basophils Percent Auto 0.5 % (0-2); Eosinophils Absolute Auto 0.1 X10*3/uL (0.0-0.4); Eosinophils Percent Auto 0.5 % (0-4); Hematocrit 39.5 % (37.0-47.0); Hemoglobin 12.7 g/dl (12.0-16.0); Imm Gran Abs Auto 0.03 X10*3/uL (0.00-0.03); Imm Gran Pct Auto 0.3 % (0.0-0.4); Lymphocytes Absolute Auto 1.8 X10*3/uL (1.2-4.9); Lymphocytes Percent Auto 19.2 % (20-40); Mean Corpuscular HGB Conc 32.2 g/dl (31.0-35.0); Mean Corpuscular Hemoglobin 24.6 pg (27.0-33.0); Mean Corpuscular Volume 76.6 fL (80.0-98.0); Mean Platelet Volume 10.1 fL (9.4-12.3); Monocytes Absolute Auto 0.7 X10*3/uL (0.1-1.2); Monocytes Percent Auto 7.3 % (2-11); Neutrophils Absolute Auto 6.6 x10*3/uL (2.0-8.3); Neutrophils Percent Auto 72.2 % (45-73); Platelet Count 253 X10*3/uL (160-400); Red Blood Count 5.16 X10*6/uL (4.20-5.50); Red Cell Distribution Width 17.9 % (11.0-16.0); White Blood Count 9.2 X10*3/uL (4.8-10.8)
--- NOTE | 2024-10-27 09:15 | ED.GENADULT ---
HPI - General Adult General Chief complaint: General Medical Stated complaint: vomiting passing out Time Seen by Provider: 10/27/24 09:15 History of Present Illness ED Provider: Violette WILKERSON narrative: The patient is a 39-year-old female who has a history of issues related to tachycardia. She is prescribed diltiazem. She says that yesterday evening she started to feel somewhat dizzy and mildly unwell. This morning at around 4 or 05:00 her symptoms worsened and she developed nausea and vomiting. She ultimately came to the emergency department because of the dizziness. She also has some discomfort in her chest that she says is not made worse by taking a deep breath. She does not feel short of breath. The patient believes that she was able to keep her diltiazem down this morning. No femur, sweats, chills. No cough or sputum. No abdominal pain. Related Data Previous Rx's ?Medication ?Instructions ?Recorded ondansetron 4 mg disintegrating 4 mg PO TID PRN nausea and 12/21/21 tablet vomiting 5 days #10 tabs diltiazem HCl 240 mg capsule,24 240 mg PO DAILY #30 caps 05/15/22 hr,extended release (Tiadylt ER) lorazepam 1 mg tablet 1 mg PO TID PRN anxiety #10 tabs 08/20/22 ondansetron 4 mg disintegrating 4 mg PO Q6-8H PRN nausea and 08/20/22 tablet vomiting #14 tabs ibuprofen 600 mg tablet 600 mg PO TID PRN fever or pain 11/22/23 #20 tabs ondansetron 4 mg disintegrating 4 mg PO Q8H PRN nausea and 07/10/24 tablet vomiting #7 tabs ondansetron 4 mg disintegrating 4 mg PO Q8H PRN nausea and 07/22/24 tablet vomiting #9 tabs Allergies Allergy/AdvReac Type Severity Reaction Status Date / Time Anesthesia S/I-40 Allergy Unknown rash Uncoded 10/27/24 08:41 outside allergy/ unhouse Allergy Unknown rash Uncoded 10/27/24 08:41 aller Review of Systems Review of Systems: Yes all other systems are reviewed and are negative PMFSH Past Medical History Medical History HTN (hypertension) Back pain Asthma Tachycardia Surgical History Hx of removal of cyst Family History Family History (Updated 03/14/23 @ 13:11 by MARCELO Wadsworth) Mother Diabetes Arthritis Heart disease Sister Heart disease Seizure Sister Arthritis Gastritis Brother Diabetes HTN (hypertension) Social History Social History (Updated 03/14/23 @ 13:11 by MARCELO Wadsworth) Alcohol intake: never Patient Tobacco Use Status: Never used Tobacco Smoked in Last 30 Days: No Use of substances other than those prescribed or required for medical reasons: No Advance Directives: No Advance Directives Information Provided: No Do you have a plan to hurt others: No Plan Patient : No Physical Exam ED Vital Signs: Vital Signs - 24 hr 10/27/24 08:37 10/27/24 10:19 10/27/24 13:42 Temperature 98.5 F 97.9 F Pulse Rate 140 H 126 H 121 H Respiratory Rate 20 14 20 Blood Pressure 160/94 H 145/98 H Pulse Oximetry 100 98 Oxygen Delivery Method Room Air Room Air 10/27/24 14:47 Temperature 97.9 F Pulse Rate 118 H Respiratory Rate 18 Blood Pressure 150/87 H Pulse Oximetry 95 Oxygen Delivery Method Room Air BMI result Body Mass Index 34.0 Const Other: The patient is awake and alert. She seems anxious. She does not seem in any respiratory difficulty. HENMT Other: Face is symmetrical. Mucous membranes moist. Eyes Other: Pupils are round equal, extraocular movements intact General: appearance normal, both eyes and all related structures Neck Other: Moving her neck easily Resp Effort & Inspection: normal respiratory effort Auscultation: clear to auscultation bilaterally Cardio Rate: tachycardic Rhythm: regular rhythm Heart sounds: S1 normal heart sound present and S2 normal heart sound present GI Other: Abdomen is soft and nontender Skin Other: Skin is dry and unremarkable Neuro Other: The patient is awake and alert. Eye movements are intact. Face is symmetrical. Speech is clear. She moves her extremities symmetrically and appropriately. She seems neurologically intact. Extrem Other: No peripheral edema. No calf swelling or tenderness. Medications Administered Discontinued Medications Generic Name Dose Route Start Last Admin Trade Name Freq PRN Reason Stop Dose Admin Diphenhydramine HCl 25 mg 10/27/24 09:30 10/27/24 10:28 Diphenhydramine Hcl 50 Mg/Ml Vial IVPUSH 10/27/24 09:31 25 mg ONCE ONE Administration Sodium Chloride 1,000 mls @ 999 mls/hr 10/27/24 09:30 10/27/24 11:54 Ns IV 10/27/24 10:30 Infused .Q1H1M AMELIE Infusion Lactated Ringer's 1,000 mls @ 999 mls/hr 10/27/24 12:00 10/27/24 14:12 Lr IV 10/27/24 13:00 999 mls/hr .Q1H1M AMELIE Administration Lorazepam 1 mg 10/27/24 12:00 10/27/24 12:22 Lorazepam 2 Mg/Ml Vial IVPUSH 10/27/24 12:01 1 mg ONCE ONE Administration Metoclopramide HCl 10 mg 10/27/24 11:56 10/27/24 12:22 Metoclopramide Hcl 10 Mg/2 Ml Vial IVPUSH 10/27/24 11:57 10 mg ONCE ONE Administration Medical Decision Making Medical Decision Making [facility] [place] Narrative: The patient is a 39-year-old female who seems to have a history of chronic tachycardia for which he is prescribed diltiazem. She comes today with several hours of feeling nausea and dizziness. She has vomited a few times. She feels somewhat unwell. She has some chest discomfort that is not pleuritic. The patient had an EKG that showed sinus tachycardia at 122 beats per minute. I reviewed many of the patient's old EKGs. Virtually all of her EKGs show sinus tachycardia, some faster than today's EKG. Given the patient's history of sinus tachycardia I think it is unlikely that the sinus tachycardia would be suggestive of a pulmonary embolism today. She is complaining of some chest discomfort that is nonpleuritic. She is not complaining of shortness of breath. The patient was treated symptomatically with IV fluids and also with metoclopramide, diphenhydramine, and ultimately lorazepam. She felt better. Her heart rate came down to the 90s while resting. We obtained a 2nd EKG because the 1st EKGs suggested she had a significantly prolonged QTC. On her 2nd EKG her QTC was 453 although she was still tachycardic on the EKG with a rate of 122. Since the patient was feeling considerably better with the symptomatic treatment she will be discharged to continue her regular medications at home. Lab Data 10/27/24 09:00 10/27/24 09:00 Labs: Lab Results 10/27/24 10/27/24 Range/Units 09:00 10:21 WBC 9.2 (4.8-10.8) X10*3/uL RBC 5.16 (4.20-5.50) X10*6/uL Hgb 12.7 (12.0-16.0) g/dl Hct 39.5 (37.0-47.0) % MCV 76.6 L (80.0-98.0) fL MCH 24.6 L (27.0-33.0) pg MCHC 32.2 (31.0-35.0) g/dl RDW 17.9 H (11.0-16.0) % Plt Count 253 D (160-400) X10*3/uL MPV 10.1 (9.4-12.3) fL Immature Gran % (Auto) 0.3 (0.0-0.4) % Neut % (Auto) 72.2 (45-73) % Lymph % (Auto) 19.2 L (20-40) % [place] % (Auto) 7.3 (2-11) % Eos % (Auto) 0.5 (0-4) % Baso % (Auto) 0.5 (0-2) % Lymph # (Auto) 1.8 (1.2-4.9) X10*3/uL [place] # (Auto) 0.7 (0.1-1.2) X10*3/uL Eos # (Auto) 0.1 (0.0-0.4) X10*3/uL Baso # (Auto) 0.1 (0.0-0.2) X10*3/uL Abs Immat Gran (auto) 0.03 (0.00-0.03) X10*3/uL Absolute Neuts (auto) 6.6 (2.0-8.3) x10*3/uL Absolute Nucleated RBC 0.000 (0.0-0.012) X10*3/uL Nucleated RBC % (auto) 0.0 (0.0-0.2) /100WBC Sodium 138 (135-145) mmol/L Potassium 3.6 (3.3-5.1) mmol/L Chloride 107 (96-108) mmol/L Carbon Dioxide 21 L (22-29) mmol/L Anion Gap 14 (12-20) BUN 10 (9-16) mg/dL Creatinine 0.77 (0.5-1.4) mg/dL Estim Creat Clear Calc 104.6 Estimated GFR > 60 Random Glucose 213 H (60-115) mg/dL Calcium 9.4 (8.4-10.2) mg/dL Magnesium 1.8 (1.6-2.6) mg/dL Total Bilirubin 0.1 (0.0-1.0) mg/dL AST 27 (5-31) U/L ALT 21 (0-31) U/L Alkaline Phosphatase 98 (39-117) U/L Troponin I High Sens < 2.7 (<3.5-17.0) ng/L Total Protein 8.0 (6.5-8.0) g/dL Albumin 3.9 (3.5-5.0) g/dL Beta HCG, Quant < 2 mIU/mL Urine Color Yellow Urine Appearance Clear Urine pH 5.5 (5.0-9.0) Ur Specific [place] 1.010 (1.005-1.025) Urine Protein Negative (Neg-Trace) mg/dL Urine Glucose (UA) Negative (Negative) mg/dL Urine Ketones Negative (Negative) mg/dL Urine Blood Small (1+) H (Negative) Urine Nitrite Negative (Negative) Ur Leukocyte Esterase Negative (Negative) Urine RBC 0-2 (0-2) /HPF Urine WBC 0-5 (0-5) /HPF Ur Squamous Epith Cells 0-2 (0-2) /HPF Urine Bacteria None Seen (None Seen) Hyaline Casts 0-2 (0-2) /LPF Urine Test NEGATIVE (NEGATIVE) Influenza Type A (PCR) NEGATIVE (Negative) Influenza Type B (PCR) NEGATIVE (Negative) RSV RNA Qual (PCR) NEGATIVE (Negative) SARS-CoV-2 RNA (RT-PCR) NEGATIVE (Negative) Independent Interpretation I performed an independent interpretation of an: EKG Interpretation: The patient had an EKG at 08:49 that showed sinus tachycardia at 122 bpm. The machine calculated a QTC of 630. A 2nd EKG at 13:40 shows sinus tachycardia at 122 beats per minute. The QTC is 453. Discharge Plan Discharge Clinical Impression: Dizziness, Nausea & vomiting, Tachycardia Patient Disposition: Home, Self-Care Additional Instructions: Please continue your regular medications at home. Rest and take it easy today. Drink lot of fluids. Follow up with your regular doctor soon to discuss this episode further. If you feel significantly worse please return to the emergency room for additional evaluation and treatment. Prescriptions: No Action lorazepam 1 mg tablet 1 mg PO TID PRN (Reason: anxiety) Qty: 10 0RF Rx Instructions: Patient may ask for partial fill ondansetron 4 mg tablet,disintegrating 4 mg PO Q6-8H PRN (Reason: nausea and vomiting) Qty: 14 0RF ondansetron 4 mg tablet,disintegrating 4 mg PO TID PRN (Reason: nausea and vomiting) 5 Days Qty: 10 0RF diltiazem HCl [Tiadylt ER] 240 mg capsule,extended release 24 hr 240 mg PO DAILY Qty: 30 0RF ondansetron 4 mg tablet,disintegrating 4 mg PO Q8H PRN (Reason: nausea and vomiting) Qty: 9 0RF ibuprofen 600 mg tablet 600 mg PO TID PRN (Reason: fever or pain) Qty: 20 0RF ondansetron 4 mg tablet,disintegrating 4 mg PO Q8H PRN (Reason: nausea and vomiting) Qty: 7 0RF Referrals: Gisele Kulkarni MD [Primary Care Provider] - (Dizziness, nausea, vomiting, tachycardia) Interventions: ED Discharge Assessment Last Done: 10/27/24 14:47 Discharge Date/Time: 10/27/24 14:48 Print Language: [place]raltarian
[2024-10-27 09:22] LABS: Alanine Aminotransferase 21 U/L (0-31); Albumin Level 3.9 g/dL (3.5-5.0); Alkaline Phosphatase 98 U/L (39-117); Anion Gap 14 (12-20); Aspartate Amino Transferase 27 U/L (5-31); Bilirubin Total 0.1 mg/dL (0.0-1.0); Blood Urea Nitrogen 10 mg/dL (9-16); Calcium 9.4 mg/dL (8.4-10.2); Carbon Dioxide 21 mmol/L (22-29); Chloride 107 mmol/L (96-108); Creatinine Clr Calc Pharmacy 104.6; Estimated Glomerular Filt Rate > 60; Glucose Random 213 mg/dL (60-115); Magnesium 1.8 mg/dL (1.6-2.6); Potassium 3.6 mmol/L (3.3-5.1); Sodium 138 mmol/L (135-145)
[2024-10-27 10:17] LABS: HCG Quantitative < 2 mIU/mL
[2024-10-27 10:19] VITALS: PULSE 126; RESP 14
[2024-10-27 10:27] LABS: Appearance Urine Clear; Color Urine Yellow; Glucose Urine UA Negative (Negative); Leukocyte Esterase Urine Negative (Negative); Nitrite Urine Negative (Negative); PH 5.5 (5.0-9.0); UMIC TRIGGER UACC YES; Urine Blood Small (1+) (Negative); Urine Ketones Negative (Negative); Urine Protein Negative (Neg-Trace)
[2024-10-27] MEDS: diphenhydrAMINE HCL 50 MG/ML VIAL 25 MG IVPUSH (10:28)
[2024-10-27 10:29] LABS: UPreg QC Valid YES; Urine Pregnancy NEGATIVE (NEGATIVE)
[2024-10-27] MEDS: 0.9 % Sodium Chloride 1,000 ML 999 ML IV (10:29)
[2024-10-27 10:39] LABS: Influenza A PCR NEGATIVE (Negative); Influenza B PCR NEGATIVE (Negative); Resp Syncy Virus RNA Qual PCR NEGATIVE (Negative); SARS COV2 PCR INHOUSE NEGATIVE (Negative)
[2024-10-27 10:40] LABS: Bacteria Urine None Seen (None Seen); Hyaline Casts Urine 0-2 /LPF (0-2); RBC Urine 0-2 /HPF (0-2); Squamous Epithelial Cell Urine 0-2 /HPF (0-2); WBC Urine 0-5 /HPF (0-5)
[2024-10-27 12:17] LABS: Troponin-I High Sensitivity < 2.7 ng/L (<3.5-17.0)
[2024-10-27] MEDS: Metoclopramide HCl 10 MG/2 ML VIAL IVPUSH (12:22)
[2024-10-27] MEDS: LORazepam 2 MG/ML VIAL 1 MG IVPUSH (12:22)
--- NOTE | 2024-10-27 12:22 | PC.NURSE ---
ambulated to BR with assistance from partner at bedside.
--- NOTE | 2024-10-27 13:27 | ECG_ITS ---
Test Reason : TACHY Blood Pressure : / mmHG Vent. Rate : 122 BPM Atrial Rate : 122 BPM P-R Int : 156 ms QRS Dur : 078 ms QT Int : 318 ms P-R-T Axes : 031 010 -07 degrees QTc Int : 453 ms Sinus tachycardia Otherwise normal ECG When compared with ECG of 27-OCT-2024 08:49, Sinus rhythm has replaced Junctional rhythm Nonspecific T wave abnormality no longer evident in Anterolateral leads Referred By: Justin Oakes Electronically Signed By:EL ADKINS MD
[2024-10-27 13:42] VITALS: BP 145/98; PULSE 121; RESP 20; TEMP 36.6; O2SAT 98
[2024-10-27] MEDS: Lactated Ringers 1,000 ML 999 ML IV (14:12)
[2024-10-27 14:47] VITALS: BP 150/87; PULSE 118; RESP 18; TEMP 36.6; O2SAT 95
== END 2024-10-27 14:48 | disposition home or self-care (01) ==
PROVIDERS: Emergency Provider Emergency Medicine; PCP Family Medicine
DX: R42 Dizziness and giddiness (principal); R11.2 Nausea with vomiting, unspecified; R00.0 Tachycardia, unspecified; Z03.818 Encounter for observation for suspected exposure to other biological agents ruled out; I10 Essential (primary) hypertension; J45.909 Unspecified asthma, uncomplicated; Z79.899 Other long term (current) drug therapy
CPT/HCPCS: 0241U; 80053; 81001; 81025; 83735; 84484; 84702; 85025; 93005; 96361; 96374; 96375; 99284; J1200; J2060; J2765; J7120

== ENCOUNTER → 2024-10-27 08:42 | Outpatient (BNV) | payer MEDICARE, MEDICAID, SELFPAY | PROVIDERS: Emergency Provider Emergency Medicine; PCP Family Medicine; Visit Provider Internal Medicine Cardiovascular Disease | DX: R00.0 Tachycardia, unspecified (principal); R94.31 Abnormal electrocardiogram [ECG] [EKG] | CPT/HCPCS: 93010 ==

== ENCOUNTER 2025-02-25 12:46 | Outpatient (REF) | payer MEDICARE, MEDICAID, SELFPAY ==
--- NOTE | ~2025-02-25 | XR_ITS ---
EXAMINATION: XR LUMBOSACRAL SPINE CLINICAL INFORMATION: LBP COMPARISON: None available. TECHNIQUE: Three views of the lumbosacral spine. FINDINGS: Trace right convex scoliosis. Normal lordosis. Normal bone mineralization. No fracture, compression deformity, or suspicious bone lesion. No subluxations or malalignment. Normal facet alignment and appearance. Disc spaces are preserved. The sacrum is intact. SI joints have a normal appearance. No soft tissue abnormalities. XR/XR lumbar spine 4V min IMPRESSION: Essentially normal lumbar spine. Electronically signed by: Andreas Dickson MD 02/25/2025 01:34 PM EDT
--- OUTSIDE RECORDS SUMMARY | 2025-02-25 13:12 | XMS_ITS | Encounter Summary ---
Author Organization [facility] Address [address] [place] [address] 7t [place] [address] Care Team Providers Care Mechanical Development Engineer Name Role Phone Gisele Kulkarni MD Primary Care Provider [phone] Yessica Morales PharmD Unavailable Josemanuel Mc MD Unavailable [phone] Ant Wilkes MD Unavailable Encounter Details Date Type Department Care Team (Late st Contact Info) Description 11/10/2022 Abstract [facility] [address] [place] [address] Gisele Kulkarni MD [address] [place] [address] [phone] Social History Tobacco Use Types Packs/Day Years Used Date Smoking Tobacco: Never Assessed Comments Unknown Sex and Gender Information Value Date Recorded Sex Assigned at Female 08/26/2022 10:16 AM EDT Legal Sex Female 10:16 AM EDT Gender Identity Female 08/26/2022 10:16 AM EDT Sexual Orientation Straight 08/26/2022 10 :16 AM EDT documented as of this encounter Plan of Treatment Upcoming Encounters Date Type Department Care Team (Late st Contact Info) Description 05/20/2025 11:15 AM EDT Office Visit [facility] [address] [place] [address] [phone] Gisele Kulkarni MD [address] [place] [address] [phone] documented as of this encounter Procedures Procedure Name Priority Date/Time Associated Diagnosis Comments HPV HIGH RISK PCR Routine 07/11/2022 12:00 AM EDT PAP SMEAR Routine 07/11/2022 12:00 AM EDT documented in this encounter Results * HPV High Risk PCR (07/11/2022 12:00 AM EDT) Swab Cervical swab / Unknown Gisele Kulkarni MD LAB MICROBIOLOGY - GENERAL ORDERABLES Final Result Performing Organization Address [facility] Co de Phone Number [facility] [address] [place] [phone] * Pap Smear (07/11/2022 12:00 AM EDT) Swab Gisele Kulkarni MD LAB CYTOLOGY ORDERABLES Fi nal Result Performing Organization Address [facility] Co de Phone Number [facility] [address] [place] [phone] documented in this encounter Visit Diagnoses Not on filedocumented in this encounter Care Teams Mechanical Development Engineer Relationship Specialty Start Date End Date Gisele Kulkarni MD [address] [place] [address] PCP - General Family Medicine 06/15/13 Yessica Morales PharmD [address] [place] [address] Pharmacist Internal Medicine 03/18/23 08/24/23 Josemanuel Mc MD [address] [place] [address] Cardiology 12/01/24 Ant Wilkes MD [address] [place] [address] [address] [place] [address] Allergy 12/01/24 documented as of this encounter
--- OUTSIDE RECORDS SUMMARY | 2025-02-25 13:12 | XMS_ITS | Encounter Summary ---
Author Organization [employer] Address [address] [facility] 7t [place] [address] Care Team Providers Care Travel Director Name Role Phone Gisele Kulkarni MD Primary Care Provider [phone] Josemanuel Mc MD Unavailable [phone] Ant Wilkes MD Unavailable Reason for Visit * Reason Comments Med Change Request Encounter Details Date Type Department Care Team (Late st Contact Info) Description 01/24/[address] [facility] [address] [place] [address] Gisele Kulkarni MD [address] [place] [address] Social History Tobacco Use Types Packs/Day Years Used Date Smoking Tobacco: Never Smokeless Tobacco: Never Alcohol Use Standard Drinks/Week Comments Never 0 (1 standard drink = 0.6 oz pur e alcohol) Housing Stability Answer Date Recorded What is your housing situation today? I have arpita martinez 10/01/[address] you li ve. Do you have problems with any of the following? None of the above 10/01/2023 Food Insecurity Answer Date Recorded Within the past 12 months, y ou worried that your food would run out before you got money to buy more: Never True 10/01/2023 Within the past 12 months,th e food you bought just didn't last and you didn't have enough money to get more: Never True 03/2023 Transportation Answer Date Recorded In the past 12 months, has l ack of transportation kept you from medical appts, meetings, work or from getting things needed for daily living? No 10/01/2023 Utilities Answer Date Recorded In the past 12 months, has t he electric, gas, oil or water company threatened to shut off services in your home? No 10/01/2023 Comments Unknown Sex and Gender Information Value [...] Description 05/20/2025 11:15 AM EDT Office Visit [facility] [address] [place] [address] Gisele Kulkarni MD [address] [place] [address] documented as of this encounter Goals Goal Patient Goal Type Associated Problems Recent Progress Patient-Stated? Author Patient will adhere to medication regimen General Corin Melendez Hemoglobin A1c < 7 Result Component 6.1( 4 2:10 PM EST) No Yessica Morales, UmaD documented as of this encounter Visit Diagnoses Not on filedocumented in this encounter Care Teams Travel Director Relationship Specialty Start Date End Date Gisele Kulkarni MD [address] [place] [address] PCP - General Family Medicine 06/15/13 Josemanuel Mc MD [address] [place] [address] Cardiology 12/01/24 Ant Wilkes MD [address] [place] [address] [address] [place] [address] Allergy 12/01/24 documented as of this encounter
--- OUTSIDE RECORDS SUMMARY | 2025-02-25 13:12 | XMS_ITS | Encounter Summary ---
Author Organization [employer] Address [address] [place] [address] 7t [place] [address] Care Team Providers Care Assistant Associate Professor Name Role Phone Gisele Kulkarni MD Primary Care Provider [phone] Yessica Morales PharmD Unavailable Josemanuel Mc MD Unavailable [phone] Ant Wilkes MD Unavailable Reason for Visit * Reason Onset Date Comments Nurse Triage 05/28/2023 Encounter Details Date Type Department Care Team (Late st Contact Info) Description 05/28/2023 Telephone [facility] [address] [place], [place] [phone] Gisele Kulkarni MD [address] [place], [place] [phone] Nurse Triage Social History Tobacco Use Types Packs/Day Years Used Date Smoking Tobacco: Never Smokeless Tobacco: Never Comments Unknown Sex and Gender Information Value Date Recorded Sex Assigned at Female 08/26/2022 10:16 AM EDT Legal Sex Female 10:16 AM EDT Gender Identity Female 08/26/2022 10:16 AM EDT Sexual Orientation Straight 08/26/2022 10 :16 AM EDT documented as of this encounter Miscellaneous Notes * Telephone Encounter - Lucretia Kam RN - 05/28/2023 4:29 PM EDT Triage [place] [place] [id number] Pt reports headache which hurts on the front and back of head. Pt reports vomiting 5x since last night. Pt reports dizziness for last 2 days. Pt reports chest pain in the middle of the chest which radiates to right hand. Pt was just seen by masticator 05/02/23 for tachycardia with increase in dilitiazem at that time.. Pt is not drinking adequate liquids. Pt reports BP today is 139/149. Pt sounds tired, weak. Advised Pt to call 911 and Pt agrees. Protocol Used: Chest Pain (Adult) Protocol-Based Disposition: Go to ED/C Now (or to Office with PCP Approval) Positive Triage Questions: * Dizziness or lightheadedness * Patient sounds very sick or weak to the triager * All higher-acuity triage questions were negative * Telephone Encounter - Amaris Ferro - 05/28/2023 3:53 PM EDT Symptoms: Headache, Dizziness, Chest Pain - Adult, Vomiting Outcome: Talk to a nurse or provider within 15 minutes Reason: Started within the past 3 days The caller accepted this outcome Please contact pt at [phone] (Telugu) documented in this encounter Plan of Treatment Upcoming Encounters Date Type Department Care Team (Late st Contact Info) Description 05/20/2025 11:15 AM EDT Office Visit [facility] [address] [place] [address] Gisele Kulkarni MD [address] [place] [address] documented as of this encounter Goals Goal Patient Goal Type Associated Problems Recent Progress Patient-Stated? Author Hemoglobin A1c < 7 Result Component 6.1(11/24/2023 2:10 PM EST) No Yessica Morales, Tal documented as of this encounter Visit Diagnoses Not on filedocumented in this encounter Care Teams Assistant Associate Professor Relationship Specialty Start Date End Date Gisele Kulkarni MD [address] [place] [address] PCP - General Family Medicine 06/15/13 Yessica Morales, PharmD [address] [place] [address] Pharmacist Internal Medicine 03/18/23 08/24/23 Josemanuel Mc MD [address] [place] [address] Cardiology 12/01/24 Ant Wilkes MD [address] [place] [address] [address] [place] [address] Allergy 12/01/24 documented as of this encounter
--- OUTSIDE RECORDS SUMMARY | 2025-02-25 13:12 | XMS_ITS | Encounter Summary ---
Author Organization [employer] Address [address] [facility] 7t [place] [address] Care Team Providers Care Sfdc Architect Name Role Phone Gisele Kulkarni MD Primary Care Provider [phone] Josemanuel Mc MD Unavailable [phone] Ant Wilkes MD Unavailable Encounter Details Date Type Department Care Team (Late st Contact Info) Description 02/23/2025 Telephone [facility] [address] [place] [address] Gisele Kulkarni MD [address] [place] [address] Social History Tobacco Use Types Packs/Day Years Used Date Smoking Tobacco: Never Passive Smoke Exposure: Never Smokeless Tobacco: Never Alcohol Use Standard [...] encounter Miscellaneous Notes * Telephone Encounter - Gisele Kulkarni MD - 02/23/2025 4:44 PM EDT Please schedule physical next available or any 30 min, careful for sister with similar name and same birthday. documented in this encounter Plan of Treatment Upcoming Encounters Date Type Department Care Team (Late st Contact Info) Description 05/20/2025 11:15 AM EDT Office Visit [facility] [address] [place] [address] Gisele Kulkarni MD [address] [place] [address] documented as of this encounter Goals Goal Patient Goal Type Associated Problems Recent Progress Patient-Stated? Author Patient will adhere to medication regimen General No Corin Chaudhry Hemoglobin A1c < 7 Result Component 6.1( 4 2:10 PM EST) No Yessica Morales, PharmD documented as of this encounter Visit Diagnoses Not on filedocumented in this encounter Care Teams Sfdc Architect Relationship Specialty Start Date End Date Gisele Kulkarni MD [address] [place] [address] PCP - General Family Medicine 06/15/13 Josemanuel Mc MD [address] [place] [address] Cardiology 12/01/24 Ant Wilkes MD [address] [place] [address] [address] [place] [address] Allergy 12/01/24 documented as of this encounter
--- OUTSIDE RECORDS SUMMARY | 2025-02-25 13:12 | XMS_ITS | Clinical Summary ---
Author Organization [facility] it Address [address] [place] [address] Care Team Providers Care Swat Team Member Name Role Phone Unavailable Primary Care Provider Unavailabl e Surgical History Surgery Date Site/Laterality Comments OTHER SURGICAL HISTORY PROCEDURE: DENIES PREVIOUS SURGERY Medical History Medical History Date Comments Lumbago 05/04/2013 DX:Lumbago Asthma 05/04/2013 DX:Asthma Developmental delay 05/04/2013 DX:Developme ntal delay Anxiety state, unspecified 05/04/2013 DX:An xiety state, unspecified History of vitamin D deficiency 09/20/2015 DX:History of vitamin D deficiency History of anemia 02/27/2012 DX:History of anemia; COMMENT: H & H 9.9/33.7 History of depression 10/06/2013 DX:History of depression Herpes genitalia 07/30/2019 DX:Herpes genit jass; COMMENT: HSV I & II Headache, migraine 05/04/2013 DX:Headache, migraine; COMMENT: fiorcet in the past Gastritis DX:Gastritis Carpal tunnel syndrome DX:Carpal tunnel syndrome Blood type B+ 09/2019 DX:Blood type B+ Family History Medical History Relation Name Comments Diabetes Aunt IDDM ADD / ADHD Daughter Other: autism Daughter Arthritis Father Asthma Father Diabetes Maternal Grandfather IDDM Diabetes Maternal Grandmother IDDM Other: heart attack Maternal Grandmother ADD / ADHD Son Other: autism Son Relation Name Status Comments Aunt Daughter Alive Father Maternal Grandfather Maternal Grandmother Son Alive Social History Tobacco Use Types Packs/Day Years Used Date Smoking Tobacco: Never Smokeless Tobacco: Never Alcohol Use Standard Drinks/Week Comments No 0 (1 standard drink = 0.6 oz pur e alcohol) Comments Unknown Sex and Gender Information Value Date Recorded Sex Assigned at Not on file Legal Sex Female 1:00 PM EST Gender Identity Not on file Sexual Orientation Not on file Obstetrics History Plan of Treatment Health Maintenance Due Date Last Done Comments Hepatitis B Vaccines (1 of 3 - 19+ 3-dose series) 2006 Depression Screening 10/05/2022 HIV Screening 10/05/2022 Hepatitis C Screening 10/05/2022 Social Influencers of Health Screening 10/05/2022 Cervical Cancer Screening: P ap Smear 12/03/2022 12/03/2019 COVID-19 Vaccine ( - 2023-2 5 season) 2024 Influenza Vaccine (Season Ended) 2025 DTaP,Tdap,and Td Vaccines (3 - Td or Tdap) 01/16/2030 01/17/2020, 03/29/2014 HIB Vaccines Aged Out No longer eligi ble based on patient's age to complete this topic HPV Vaccines Aged Out No longer eligi ble based on patient's age to complete this topic Hepatitis A Vaccines Aged Out No long er eligible based on patient's age to complete this topic IPV Vaccines Aged Out No longer eligi ble based on patient's age to complete this topic MMR Vaccines Aged Out No longer eligi ble based on patient's age to complete this topic Meningococcal ACWY Vaccine Aged Out N o longer eligible based on patient's age to complete this topic Meningococcal B Vaccine Aged Out No l onger eligible based on patient's age to complete this topic Pneumococcal Vaccine: Pediatrics (0 to 5 Years) and At-Risk Patients (6 to 64 Years) Aged Out No longer eligible b ased on patient's age to complete this topic RSV Immunization Patients Under 20 months Aged Out No longer eligible b ased on patient's age to complete this topic Varicella Vaccines Aged Out No longer eligible based on patient's age to complete this topic Procedures Procedure Name Priority Date/Time Associated Diagnosis Comments PAP SMEAR Routine 12/03/2019 from Last 3 Months or Most Recently Relevant to Health Maintenance Results * Pap smear (12/03/2019) 12/03/2019 Narrative HISTORICAL TESTING LAB RESULTING AGENCY - 12/10/2019 12:06 PM EST [id number] THINPREP PAP AND CELL BLOCK: NEGATIVE FOR SQUAMOUS INTRAEPITHELIAL LESION AND MALIGNANCY . REACTIVE CELLULAR CHANGES. ABUNDANT PARTIALLY OBSCURING ACUTE INFLAMMATORY CELLS ARE PRESENT. CHIP SEBASTIAN DEMETRI(ASCP) (CASE SCREENED 12 08 2019) OREN GRAF M.D. , PATHOLOGIST (CASE ELECTRONICALLY SIGNED 12 09 2019) RESULT OF APTIMA HIGH RISK HPV ASSAY: HIGH RISK HPV: ??NEGATIVE (SEROTYPES 16,18,31,33,35,39,45,51,52,56,58,59,66,68) COMPLETED ON 2019-12-07 ADEQUACY: SATISFACTORY ENDOCERVICAL/TRANSFORMATION ZONE COMPONENT PRESENT. SOURCE: THINPREP PAP HPV ANY DX: ??REFLEX 16 AND 18, CERVICAL, IMAGED CLINICAL INFORMATION: HPV ANY DIAGNOSIS. , LMP 06/27/19, Z12.4 ??CB ??12/07/19 Dora Carson CNM LAB CYTOLOGY ORDERABLES Final Result HISTORICAL TESTING LAB RESULTING AGENCY from Last 3 Months or Most Recently Relevant to Health Maintenance
--- OUTSIDE RECORDS SUMMARY | 2025-02-25 13:12 | XMS_ITS | Encounter Summary ---
Author Organization [employer] Address [address] [place] [address] 7t [place] [address] Care Team Providers Care Home Care Consultant Name Role Phone Gisele Kulkarni MD Primary Care Provider [phone] Yessica Morales PharmD Unavailable [phone] Josemanuel Mc MD Unavailable [phone] Ant Wilkes MD Unavailable Reason for Visit * Reason Onset Date Comments Nurse Triage 04/02/2023 Encounter Details Date Type Department Care Team (Late st Contact Info) Description 04/02/2023 Telephone [facility] [address] [place], [place] [phone] Gisele Kulkarni MD [address] [place], [place] [phone] Nurse Triage Social History Tobacco Use Types Packs/Day Years Used Date Smoking Tobacco: Never Smokeless Tobacco: Never Comments Unknown Sex and Gender Information Value Date Recorded Sex Assigned at Female 08/26/2022 10:16 AM EDT Legal Sex Female 10:16 AM EDT Gender Identity Female 08/26/2022 10:16 AM EDT Sexual Orientation Straight 08/26/2022 10 :16 AM EDT COVID-19 Exposure Response Date Recorded In the last 10 days, have yo u been in contact with someone who was confirmed or suspected to have Coronavirus/COVID-19? No / Unsure 04/02/2023 2:31 PM EDT documented as of this encounter Miscellaneous Notes * Telephone Encounter - Dami Victor - 04/10/2023 11:17 AM EDT Pharmacy CHW attempted outreach call on 04/10/23 for CDTM - Diabetes appointment; however, unable to reach patient. LVM for patient to contact CHW Dami Victor at [phone] * Telephone Encounter - Lucretia Kam RN - 04/02/2023 1:35 PM EDT Triage call with [facility] [employer] [place] [id number] Pt reports wheezing and mild asthma attack since yesterday. Pt has vomited x5 this morning due to coughing. Pt reports difficulty breathing and I feel like I'm asphyxiated . Pt is talking without sob on this call. Pt reports using [id number] yesterday, neg for fever. Pt also reports sore throat. Advised Pt to come to [facility] today to be seen and Pt agrees with disposition. Home care reviewed. Protocol Used: Asthma Attack (Adult) Protocol-Based Disposition: See in Office or Video Visit Today or Tomorrow Video visit not offered Positive Triage Question: * Mild asthma attack (e.g., no SOB at rest, mild SOB with walking, speaks normally in sentences, mild wheezing) and lasting > 24 hours on prescribed treatment * All higher-acuity triage questions were negative Care Advice Discussed: * Reassurance and Education - Mild Asthma Attack * Asthma Attack * Asthma Attack - Symptoms * Asthma Attack - Treatment - Quick-Relief Medicine * Drink Plenty of Liquids and Use a Humidifier * Reasons To Call Back - An asthma attack is not better after 2 or 3 quick-relief treatments (such as albuterol by inhaleror nebulizer) 20 minutes apart. - Quick-relief asthma medicine (such as albuterol by inhaler or nebulizer) is needed more often than every 4 hours - Mild asthma symptoms not better after 24 hours - Mild wheezing or other asthma symptoms come and go for more than 3 days - You become worse * Telephone Encounter - Ernestina Qureshi - 04/02/2023 1:06 PM EDT Symptoms: Wheezing, Sore Throat Outcome: Schedule a same-day appointment or talk to a nurse or provider today Reason: Caller denied all higher acuity questions The caller accepted this outcome documented in this encounter Plan of Treatment Upcoming Encounters Date Type Department Care Team (Late st Contact Info) Description 05/20/2025 11:15 AM EDT Office Visit [facility] [address] [place] [address] Gisele Kulkarni MD [address] [place] [address] documented as of this encounter Goals Goal Patient Goal Type Associated Problems Recent Progress Patient-Stated? Author Hemoglobin A1c < 7 Result Component 6.1(11/24/2023 2:10 PM EST) No Yessica Morales PharmD documented as of this encounter Visit Diagnoses Not on filedocumented in this encounter Care Teams Home Care Consultant Relationship Specialty Start Date End Date Gisele Kulkarni MD [address] [place] [address] PCP - General Family Medicine 06/15/13 Yessica Morales, PharmD [address] [place] [address] Pharmacist Internal Medicine 03/18/23 08/24/23 Josemanuel Mc MD [address] [place] [address] Cardiology 12/01/24 Ant Wilkes MD [address] [place] [address] [address] [place] [address] Allergy 12/01/24 documented as of this encounter
--- OUTSIDE RECORDS SUMMARY | 2025-02-25 13:12 | XMS_ITS | Encounter Summary ---
Author Organization [employer] Address [address] [facility] 7t [place] [address] Care Team Providers Care Business Technology Analyst Name Role Phone Gisele Kulkarni MD Primary Care Provider [phone] Josemanuel Mc MD Unavailable [phone] Ant Wilkes MD Unavailable Encounter Details Date Type Department Care Team (Latest Contact Info) Description 02/23/2025 Travel Social History Tobacco Use Types Packs/Day Years [...] Description 05/20/2025 11:15 AM EDT Office Visit [facility] [address] [place] [address] Gisele Kulkarni MD [address] [place] [address] documented as of this encounter Goals Goal Patient Goal Type Associated Problems Recent Progress Patient-Stated? Author Patient will adhere to medication regimen General No Corin Chaudhry Hemoglobin A1c < 7 Result Component 6.1( 4 2:10 PM EST) No Yessica Morales, UmaD documented as of this encounter Visit Diagnoses Not on filedocumented in this encounter Care Teams Business Technology Analyst Relationship Specialty Start Date End Date Gisele Kulkarni MD [address] [place] [address] PCP - General Family Medicine 06/15/13 Josemanuel Mc MD [address] [place] [address] Cardiology 12/01/24 Ant Wilkes MD [address] [place] [address] [address] [place] [address] Allergy 12/01/24 documented as of this encounter
--- OUTSIDE RECORDS SUMMARY | 2025-02-25 13:12 | XMS_ITS | Encounter Summary ---
Author Organization [employer] Address [address] [facility] 7t [place] [address] Care Team Providers Care Procedure Writer Name Role Phone Gisele Kulkarni MD Primary Care Provider [phone] Josemanuel Mc MD Unavailable Ant Wilkes MD Unavailable Encounter Details Date Type Department Care Team (Late st Contact Info) Description 02/24/2025 Telephone [facility] [address] [place] [address] Gisele Kulkarni MD [address] [place] [address] Social History Tobacco Use Types Packs/Day Years [...] Telephone Encounter - Gisele Kulkarni MD - 02/24/2025 8:56 AM EDT Please schedule physical with me but 45 min if possible or 30 min at end of the morning. documented in this encounter Plan of Treatment Upcoming Encounters Date Type Department Care Team (Late st Contact Info) Description 05/20/2025 11:15 AM EDT Office Visit [facility] [address] [place] [address] Gisele Kulkarni MD [address] [place] [address] documented as of this encounter Goals Goal Patient Goal Type Associated Problems Recent Progress Patient-Stated? Author Patient will adhere to medication regimen General Corin Melendez Hemoglobin A1c < 7 Result Component 6.1( 4 2:10 PM EST) No Yessica Morales, PharmD documented as of this encounter Visit Diagnoses Not on filedocumented in this encounter Care Teams Procedure Writer Relationship Specialty Start Date End Date Gisele Kulkarni MD [address] [place] [address] PCP - General Family Medicine 06/15/13 Josemanuel Mc MD [address] [place] [address] Cardiology 12/01/24 Ant Wilkes MD [address] [place] [address] [address] [place] [address] Allergy 12/01/24 documented as of this encounter
--- OUTSIDE RECORDS SUMMARY | 2025-02-25 13:12 | XMS_ITS | Encounter Summary ---
Author Organization [employer] Address [address] [facility] 7t [place] [address] Care Team Providers Care Crystal Grinder Name Role Phone Gisele Kulkarni MD Primary Care Provider [phone] Josemanuel Mc MD Unavailable [phone] Ant Wilkes MD Unavailable Reason for Visit * Reason Onset Date Comments Appointment Confirmation 02/24/2025 I book the appt on 05/20/2025 at 11:15 am for Physical. Encounter Details Date Type Department Care Team ([facility] st Contact Info) Description 02/24/2025 Telephone [facility] MED[facility] [address] [place] [address] [phone] Gisele Kulkarni MD [address] [place], [place] [phone] Appointment Confirmation (I book the appt on 05/20/2025 at 11:15 am for Physical. ) Social History Tobacco Use Types Packs/Day Years Used Date Smoking Tobacco: Never Passive Smoke Exposure: Never Smokeless Tobacco: Never Alcohol Use Standard Drinks/Week Comments Never 0 (1 standard drink = 0.6 oz pur e alcohol) Housing Stability Answer Date Recorded What is your housing situation today? I have arpita michelle 10/01/[address] you li [...] encounter Miscellaneous Notes * Telephone Encounter - Cristal Miller MA - 02/24/2025 2:36 PM EDT I book the appt on 05/20/2025 at 11:15 am for Physical. documented in this encounter Plan of Treatment Upcoming Encounters Date Type Department Care Team (Late st Contact Info) Description 05/20/2025 11:15 AM EDT Office Visit [facility] [address] [place] [id number] Gisele Kulkarni MD [address] [place] [address] documented as of this encounter Goals Goal Patient Goal Type Associated Problems Recent Progress Patient-Stated? Author Patient will adhere to medication regimen General Corin Melendez Hemoglobin A1c < 7 Result Component 6.1( 4 2:10 PM EST) No Yessica Morales, UmaD documented as of this encounter Visit Diagnoses Not on filedocumented in this encounter Care Teams Crystal Grinder Relationship Specialty Start Date End Date Gisele Kulkarni MD [address] [place] [phone] PCP - General Family Medicine 06/15/13 Josemanuel Mc MD [address] [place] [address] Cardiology 12/01/24 Ant Wilkes MD [address] [place] [address] [address] [place] [address] Allergy 12/01/24 documented as of this encounter
--- OUTSIDE RECORDS SUMMARY | 2025-02-25 13:12 | XMS_ITS | Encounter Summary ---
Author Organization [employer] Address [address] [facility] [address] 7[address] [place] [address] Care Team Providers Care Car Head Liner Installer Name Role Phone Gisele Kulkarni MD Primary Care Provider [phone] Josemanuel Mc MD Unavailable [phone] Ant Wilkes MD Unavailable Encounter Details Date Type Department Care Team (Late st Contact Info) Description 02/23/2025 Orders Only [facility] [address] [place] [address] Gisele Kulkarni MD [address] [place] [address] Type 2 diabetes mellitus without complication, without long-term current use of insulin ([facility]) (Primary Dx); Preventative health care Social History Tobacco Use Types Packs/Day Years [...] Description 05/20/2025 11:15 AM EDT Office Visit [facility] [address] [place] [address] Gisele Kulkarni MD [address] [place] [address] Scheduled Orders Name Type Priority Associated Diagnoses Orde r Schedule Albumin, Random Urine W/Creatinine Lab Routine Type 2 diabetes mellitus without complication, without long-term current use of insulin ([facility]) Expected: 02/23/2025 (Approximate), Expires: 02/23/2026 Hepatic Function Panel Lab Routine Type 2 diabetes mellitus without complication, without long-term current use of insulin ([facility]) Expected: 02/23/2025 (Approximate), Expires: 02/23/2026 Lipid Panel, Standard Lab Routine Type 2 diabetes mellitus without complication, without long-term current use of insulin ([facility]) Expected: 02/23/2025 (Approximate), Expires: 02/23/2026 Hemoglobin A1c Lab Routine Type 2 diabetes mellitus without complication, without long-term current use of insulin ([facility]) Expected: 02/23/2025 (Approximate), Expires: 02/23/2026 Basic Metabolic Panel Lab Routine Type 2 diabetes mellitus without complication, without long-term current use of insulin (CMS/HCC) Expected: 02/23/2025 (Approximate), Expires: 02/23/2026 documented as of this encounter Goals Goal Patient Goal Type Associated Problems Recent Progress Patient-Stated? Author Patient will adhere to medication regimen General No [place], [place] Hemoglobin A1c < 7 Result Component 6.1( 4 2:10 PM EST) Yessica Koenig, UmaD documented as of this encounter Visit Diagnoses Diagnosis Type 2 diabetes mellitus without complication, without long-term current use of insulin ([facility])- Primary Preventative health care Routine general medical examination at a health care facility documented in this encounter Care Teams Car Head Liner Installer Relationship Specialty Start Date End Date Gisele Kulkarni MD [address] [place] [address] PCP - General Family Medicine 06/15/13 Josemanuel cM MD [address] [place] [address] Cardiology 12/01/24 Ant Wilkes MD [address] [place] [address] [address] [place] [address] Allergy 12/01/24 documented as of this encounter
--- OUTSIDE RECORDS SUMMARY | 2025-02-25 13:12 | XMS_ITS | Encounter Summary ---
Author Organization [email or web address] Address [address] [facility] 7t [place] [address] Care Team Providers Care Geriatric Nurse Practitioner Name Role Phone Gisele Kulkarni MD Primary Care Provider [phone] Josemanuel Mc MD Unavailable [phone] Ant Wilkes MD Unavailable Reason for Visit * Reason Onset Date Comments Returning call 01/05/2024 Encounter Details Date Type Department Care Team (Late st Contact Info) Description 01/05/2024 Telephone [facility] [address] [place] [address] Gisele Kulkarni MD [address] [place], [place] [phone] Returning call Social History Tobacco Use Types Packs/Day Years Used Date Smoking Tobacco: Never Smokeless Tobacco: Never Housing Stability Answer Date Recorded What is [...] encounter Miscellaneous Notes * Telephone Encounter - Joe Victor - 01/05/2024 2:50 PM EDT Tc from pt returning call regarding message below. CHW Reta Victor, placed outbound call to patient in regards to offer [facility] Program[facility] SDOH services. CHW introducing herself from [facility] CM Department with CHW's name, department and direct contact number requesting call back. Will re-attempt to contact within 5 days. and address not confirmed. documented in this encounter Plan of Treatment Upcoming Encounters Date Type Department Care Team (Late st Contact Info) Description 05/20/2025 11:15 AM EDT Office Visit [facility] MED[facility]INE [address] [place] [phone] Gisele Kulkarni MD [address] [place] [phone] documented as of this encounter Goals Goal Patient Goal Type Associated Problems Recent Progress Patient-Stated? Author Patient will adhere to medication regimen General Corin Melendez Hemoglobin A1c < 7 Result Component 6.1( 4 2:10 PM EST) No Yessica Morales, UmaD documented as of this encounter Visit Diagnoses Not on filedocumented in this encounter Care Teams Geriatric Nurse Practitioner Relationship Specialty Start Date End Date Gisele Kulkarni MD [address] [place] [address] PCP - General Family Medicine 06/15/13 Josemanuel Mc MD [address] [place] [address] Cardiology 12/01/24 Ant Wilkes MD [address] [place] [address] [address] [place] [address] Allergy 12/01/24 documented as of this encounter
--- OUTSIDE RECORDS SUMMARY | 2025-02-25 13:12 | XMS_ITS | Encounter Summary ---
Author Organization [employer] Address [address] [place] [address] 7[address] [place] [address] Care Team Providers [facility] Consultant Name Role Phone Gisele Kulkarni MD Primary Care Provider [phone] Josemanuel Mc MD Unavailable [phone] Ant Wilkes MD Unavailable Reason for Referral * Consultation (Routine) - Closed Specialty Diagnoses / Procedures Referred By Contmain t Referred To Contact Physical Therapy Diagnoses Acute exacerbation of chronic low back pain Sue Pierce MD [address] [place] [address] Phone: tel: fax: [facility] [place] Physical Therapy [address] [place] [address] Phone: tel: fax: Referral ID Status Reason Start Date Expiration Date V isits Requested Visits Authorized [id number] Closed Specialty Services Required 02/23/2025 02/23/2026 1 0 Reason for Visit * Reason Comments Walk-In Chronic pain. Sciati ca Pain. NOT MVA OR WC PER PT. Encounter Details Date Type Department Care Team (Late st Contact Info) Description 02/23/2025 6:00 PM EDT Office Visit [facility] [address] [place] [address] Sue Pierce MD [address] [place] [address] [phone] Acute exacerbation of chronic low back pain (Primary Dx) Social History Tobacco Use Types Packs/Day Years Used Date Smoking Tobacco: Never Passive Smoke Exposure: Never Smokeless Tobacco: Never Tobacco Cessation:Counseling Given: Not Answered Alcohol Use Standard Drinks/Week Comments Never 0 [...] AM EDT documented as of this encounter Last Filed Vital Signs Vital Sign Reading Time Taken Comments Blood Pressure 150/90 02/23/2025 6:18 PM EDT Pulse 98 02/23/2025 6:18 PM EDT Temperature 36.1 ??C (97 ??F) 02/23/2025 5:50 PM EDT Respiratory Rate 20 02/23/2025 5:50 PM EDT Oxygen Saturation 99% 02/23/2025 5:50 PM EDT Inhaled Oxygen Concentration - - Weight 88.5 kg (195 lb 3.2 oz) 02/23/2025 5:50 P M EDT Height 160 cm (5' 3 ) 02/23/2025 5:50 PM EDT Body Mass Index 34.58 02/23/2025 5:50 PM EDT documented in this encounter Progress Notes * Sue Pierce MD - 02/23/2025 6:00 PM EDT SUBJECTIVE: Indigo Thompson is a 39 y.o. year old female who presents for Walk In Center/Chronic pain . Denies recent illness, injury, or hospitalization. Patient here with her sister Kat. Patient's last 4 of SSN verified Acute Concerns: Patient has progressive low back pain and hip pain for the past 3 days that has not improved with Tylenol and muscle relaxers. She has chronic intermittent low back pain for many years, last time shedid PT was 1 to 2 years ago and symptoms partially improved for few months. She has not had any recent falls, accidents, denies dysuria, nausea, abdominal pain, fever, diarrhea or constipation. LMP Social History Social History Narrative Lives with partner and son Ishmael 03/04/05 and daughter Daisy 05/29/16. Patient Active Problem List Diagnosis Apnea Developmental academic disorder Moderate recurrent major depression (CMS/HCC) Supraventricular tachycardia Type 2 diabetes mellitus without complication (CMS/HCC) Well controlled intermittent asthma Migraine Preventative health care Asthma Benign ovarian cyst Chest pain Chronic back pain Class 1 obesity Syncope and collapse Heartburn Metrorrhagia Acute exacerbation of chronic low back pain No family history on file. Review of Systems Constitutional: Negative for chills, fatigue and fever. HENT: Negative for congestion, ear pain, nosebleeds, rhinorrhea, sinus pressure, sore throat and trouble swallowing. Eyes: Negative for pain and discharge. Respiratory: Negative for cough, chest tightness and shortness of breath. Cardiovascular: Negative for chest pain, palpitations and leg swelling. Gastrointestinal: Negative for abdominal pain, blood in stool, constipation, diarrhea and nausea. Endocrine: Negative for polydipsia and polyuria. Genitourinary: Negative for dysuria, frequency, genital sores, pelvic pain and vaginal discharge. Musculoskeletal: Positive for back pain and gait problem. Negative for neck pain. Skin: Negative for rash. Allergic/Immunologic: Negative for environmental allergies. Neurological: Negative for dizziness, seizures, weakness, light-headedness and headaches. Hematological: Negative for adenopathy. Psychiatric/Behavioral: Negative for agitation, behavioral problems, self-injury and suicidal ideas. OBJECTIVE: Vitals: 02/23/25 1750 02/23/25 1818 BP: (!) 153/93 (!) 150/90 BP Location: Left arm Right arm Patient Position: Sitting Sitting BP Cuff Size: Adult Adult long Pulse: (!) 117 98 Resp: 20 Temp: 97 ??F (36.1 ??C) TempSrc: Temporal SpO2: 99% Weight: 195 lb 3.2 oz (88.5 kg) Height: 5' 3 (1.6 m) Physical Exam HENT: Right Ear: Tympanic membrane and ear canal normal. Left Ear: Tympanic membrane and ear canal normal. Mouth/Throat: Mouth: Mucous membranes are moist. Pharynx: No oropharyngeal exudate or posterior oropharyngeal erythema. Eyes: Pupils: Pupils are equal, round, and reactive to light. Cardiovascular: Rate and Rhythm: Regular rhythm. Pulses: Normal pulses. Heart sounds: Normal heart sounds. No murmur heard. Pulmonary: Breath sounds: Normal breath sounds. Abdominal: General: Bowel sounds are normal. Palpations: Abdomen is soft. Tenderness: There is no abdominal tenderness. Musculoskeletal: Cervical back: Neck supple. Thoracic back: Spasms and tenderness present. Lumbar back: Spasms and tenderness present. Positive right straight leg raise test. Negative left straight leg raise test. Right hip: Tenderness and bony tenderness present. Decreased range of motion. Skin: General: Skin is warm. Neurological: General: No focal deficit present. Mental Status: She is alert and oriented to person, place, and time. Psychiatric: Mood and Affect: Mood normal. Behavior: Behavior normal. Problem List Items Addressed This Visit Acute exacerbation of chronic low back pain - Primary She will take meloxicam daily x 1 to 2 weeks + Tylenol twice daily as needed breakthrough pain Advised to apply heat to affected area and do stretching exercises for her back, information given to patient. Referred to PT Use diclofenac gel twice daily as needed Order x-rays and follow-up with PCP Relevant Orders XR Lumbar Spine Complete 4+ Views Referral to Physical Therapy Follow Up: Current Outpatient Medications on File Prior to Visit Medication Sig Dispense Refill carvedilol (Coreg) 6.25 MG tablet TAKE 1 TABLET BY MOUTH TWICE A DAY WITH FOOD FOR 30 DAYS cholecalciferol (Vitamin D-3) 25 MCG (1000 UT) capsule take 1 by Oral route every day famotidine (Pepcid) 20 MG tablet TAKE 1 TABLET BY MOUTH TWICE A DAY 180 tablet 1 Fluticasone-Salmeterol (Wixela Inhub) 500-50 MCG/ACT aerosol powder Inhale 1 puff Once per day. 1 each 11 glucose blood (FREESTYLE LITE) test strip USE TO TEST BLOOD SUGAR ONCE A DAY 100 strip 1 ketotifen (Zaditor) 0.025 % ophthalmic solution INSTILL 1 DROP INTO AFFECTED EYE OPHTHALMIC TWICE ADAY 30 DAYS loratadine (Claritin) 10 MG tablet TAKE 1 TABLET BY MOUTH TWICE A DAY LORazepam (Ativan) 1 MG tablet TAKE 1 TABLET BY MOUTH 3 TIMES A DAY NEEDED FOR ANXIETY metFORMIN XR (Glucophage-XR) 750 MG 24 hr tablet TAKE 1 TABLET BY MOUTH EVERY DAY WITH EVENING MEAL90 tablet 3 montelukast (Singulair) 10 MG tablet TAKE 1 TABLET (10 MG) BY MOUTH IN THE EVENING 90 tablet 3 norethindrone (Micronor) 0.35 MG tablet TAKE 1 TABLET BY MOUTH EVERY DAY ondansetron ODT (Zofran-ODT) 4 MG disintegrating tablet TAKE 1 TABLET BY MOUTH EVERY 6 TO 8 HOURS NEEDED FOR NAUSEA AND VOMITING 15 tablet 0 sennosides (Senokot) 8.6 MG tablet 1-2 tabs po nightly prn constipation 60 tablet 11 Spiriva Respimat 2.5 MCG/ACT inhaler INHALE 2 PUFFS INTO THE LUNGS EVERY DAY FOR 30 DAYS Symbicort 160-4.5 MCG/ACT inhaler INHALE 2 PUFFS IN THE MORNING AND AT BEDTIME 10.2 each 11 Ventolin HFA 108 (90 Base) MCG/ACT inhaler INHALE 2 PUFFS INTO THE LUNGS EVERY 4 HOURS NEEDED 18g 2 verapamil (Calan) 40 MG tablet Take 1 tablet by mouth 3 times daily. No current facility-administered medications on file prior to visit. documented in this encounter Miscellaneous Notes * Patient Education Note - Sue Pierce MD - 02/23/2025 10:27 PM EDT Images from the original note were not included. Patient Education Table of Contents Ejercicios para la espalda (Back Exercises) To view videos and all your education online visit, [email or web address] or scan this QR code with your smartphone. Access to this content will in one year. Ejercicios para la espalda Back Exercises Los siguientes ejercicios fortalecen los m?sculos que srinivas soporte al tronco (torso) y a la espalda.Adem?s, ayudan a mantener la flexibilidad de la iron lumbar. Hacer estos ejercicios puede ser de ayuda para evitar o aliviar el dolor lumbar. Si tiene dolor o molestias en la espalda, intente hacer estos ejercicios 2 o 3?veces por d?a, o efren se lo haya indicado el m?dico. A medida que el dolor desaparece, h?galos liz vez por d?a, elin aumente la cantidad de veces que repite los pasos para cada ejercicio (yu m?s repeticiones). Para prevenir la recurrencia del dolor de espalda, contin?e haciendo estos ejercicios liz vez al d?a o efren se lo haya indicado el m?dico. Yu los ejercicios exactamente efren se lo haya indicado el m?dico y grad?elos efren se lo hayan indicado. Es normal sentir un leve estiramiento, tir?n, rigidez o molestia cuando yu estos ejercicios, elin debe detenerse de inmediato si siente un dolor repentino o si el dolor empeora. Ejercicios Rodilla al pecho Repita estos pasos 3 a 5?veces con cada pierna: 1. Acu?stese boca arriba sobre liz cama dura o sobre el suelo con las piernas extendidas. Lleve liz rodilla al pecho. La otra pierna debe quedar extendida y en contacto con el suelo. Mantenga la rodilla contra el pecho al tomarse la rodilla o el muslo con ambas blanca y sostenga. Tire de la rodilla hasta sentir liz elongaci?n suave en la parte baja de la espalda o las nalgas. Mantenga la elongaci?n thania 10 a 30?segundos. Suelte y extienda la pierna lentamente. Inclinaci?n de la pelvis Repita estos pasos 5 a 10?veces: 1. Acu?stese boca arriba sobre liz cama dura o sobre el suelo con las piernas extendidas. Flexione las rodillas de modo que apunten al techo y los pies queden apoyados en el suelo. Contraiga los m?sculos de la parte baja del abdomen para empujar la iron lumbar contra el suelo. Con angeline movimiento se inclinar?? la pelvis de modo que el coxis apunte hacia el techo, en lugar de apuntar a los pies o al suelo. Contraiga suavemente y respire con normalidad mientras mantiene esta posici?n thania 5 a 10?segundos. El minna y paulo Repita estos pasos hasta que la iron lumbar se vuelva m?s flexible: 1. Apoye las dexter de las blanca y las rodillas sobre liz cama firme o el suelo. Las blanca deben estar alineadas con los hombros y las rodillas con las caderas. Puede colocarse almohadillas debajo delas rodillas para estar c?modo. Deje que la rashaun cuelgue hacia el pecho. Contraiga los m?sculos abdominales y baje el coxis en direcci?n al suelo de modo que la iron lumbar se arquee efren el lomo de un mar asustado. Mantenga esta posici?n thania 5?segundos. Lentamente, levante la rashaun, relaje los m?sculos abdominales y eleve el coxis de modo que apunte en direcci?n al techo para que la espalda forme un arco hundido efren el lomo de un minna contento. Mantenga esta posici?n thania 5?segundos. Flexiones de brazos Repita estos pasos 5 a 10?veces: 1. Acu?stese sobre el abdomen (boca abajo) en liz cama firme o en el suelo. Coloque las dexter de las blanca cerca de la rashaun, separadas aproximadamente al ancho de los hombros. Con la espalda lo m?s relajada posible y las caderas apoyadas en el suelo, extienda lentamente los brazos para levantar la mitad superior del cuerpo y elevar los hombros. No use los m?sculos de la espalda para elevar la parte superior del torso. Puede cambiar las blanca de lugar para estar m?s c?modo. Mantenga esta posici?n thania 5?segundos mientras mantiene la espalda relajada. Lentamente vuelva a la posici?n horizontal. Parker Repita estos pasos 10?veces: 1. Acu?stese boca arriba sobre liz cama firme o sobre el suelo. Flexione las rodillas de modo que apunten al techo y los pies queden apoyados en el suelo. Los brazos deben estar paralelos a los costados del cuerpo, junto al cuerpo. Contraiga los gl?teos y despegue las nalgas del suelo hasta que la cintura est?? hema a la misma altura que las rodillas. Debe sentir el trabajo muscular en las nalgas y la parte de atr?s de los muslos. Si no siente el esfuerzo de estos m?sculos, aleje los pies 1 a 2?pulgadas (2.5 a 5?cm) de las nalgas. Mantenga esta posici?n thania 3 a 5?segundos. Baje lentamente las caderas a la posici?n inicial y relaje las nalgas por completo. Si angeline ejercicio le resulta muy f?cil, intente realizarlo con los brazos cruzados sobre el pecho. Abdominales Repita estos pasos 5 a 10?veces: 1. Acu?stese boca arriba sobre liz cama dura o sobre el suelo con las piernas extendidas. Flexione las rodillas de modo que apunten al techo y los pies queden apoyados en el suelo. Cruce los brazos sobre el pecho. Baje levemente el ment?n en direcci?n al pecho sin doblar el leah. Contraiga los m?sculos abdominales y con lentitud eleve el torso lo suficiente efren para despegar levemente los om?platos del suelo. No eleve el torso m?s que eso, porque esto puede sobreexigir a la iron lumbar y no ayuda a fortalecer los m?sculos abdominales. Regrese lentamente a la posici?n inicial. Elevaciones de espalda Repita estos pasos 5 a 10?veces: 1. Acu?stese sobre el abdomen (boca abajo) con los brazos a los costados del cuerpo y apoye la frente en el suelo. Contraiga los m?sculos de las piernas y las nalgas. Lentamente despegue el pecho del suelo mientras mantiene las caderas tana apoyadas en el suelo. Mantenga la nuca alineada con la curvatura de la espalda. Los ojos deben mirar al suelo. Mantenga esta posici?n thania 3 a 5?segundos. Regrese lentamente a la posici?n inicial. Comun?quese con un m?dico si: El dolor o las molestias en la espalda se vuelven mucho m?s intensos cuando hace un ejercicio. El dolor o las molestias en la espalda que empeoran, no se alivian en el t?rmino de las 2?horas posteriores a hacer los ejercicios. Si tiene alguno de estos problemas, deje de hacer los ejercicios de inmediato. No vuelva a hacer los ejercicios a menos que el m?dico lo autorice. Solicite ayuda de inmediato si: Siente un dolor s?bito e intenso en la espalda. Si esto ocurre, deje de hacer los ejercicios de inmediato. No vuelva a hacer los ejercicios a menos que el m?dico lo autorice. Esta informaci?n no tiene efren fin reemplazar el consejo del m?dico. Aseg?rese de hacerle al m?dicocualquier pregunta que tenga. Document Released: 2006-10-13 Document Updated: 2022-05-03 Document Reviewed: 2022-05-03 [employer] Patient Education ? 2024 [employer]. * Assessment & Plan Note - Sue Pierce MD - 02/23/2025 8:17 PM EDT Associated Problem(s): Acute exacerbation of chronic low back pain She will take meloxicam daily x 1 to 2 weeks + Tylenol twice daily as needed breakthrough pain Advised to apply heat to affected area and do stretching exercises for her back, information given to patient. Referred to PT Use diclofenac gel twice daily as needed Order x-rays and follow-up with PCP documented in this encounter Plan of Treatment Upcoming Encounters Date Type Department Care Team (Late st Contact Info) Description 05/20/2025 11:15 AM EDT Office Visit [facility] [address] [place] [address] Gsiele Kulkarni MD [address] [place] [address] Scheduled Orders Name Type Priority Associated Diagnoses Orde r Schedule XR Lumbar Spine Complete 4+ Views Imaging Routine Acute exacerbation of chronic low back pain Ordered: 02/23/2025 Scheduled Referrals Name Type Priority Associated Diagnoses Orde r Schedule Referral to Physical Therapy Outpatient Referral Routine Acute exacerbation of chronic low back pain Expected: 02/23/2025 (Approximate), Expires: 02/23/2026 documented as of this encounter Goals Goal Patient Goal Type Associated Problems Recent Progress Patient-Stated? Author Patient will adhere to medication regimen General No Corin Chaudhry Hemoglobin A1c < 7 Result Component 6.1( 2:10 PM EST) No Yessica Morales, PharmD documented as of this encounter Visit Diagnoses Diagnosis Acute exacerbation of chronic low back pain- Primary documented in this encounter Care Teams Healthcare Network Consultant Relationship Specialty Start Date End Date Gisele Kulkarni MD [address] [place] [address] PCP - General Family Medicine 06/15/13 Josemanuel Mc MD [address] [place] [address] Cardiology 12/01/24 Ant Wilkes MD [address] [place] [address] [address] [place] [address] Allergy 12/01/24 documented as of this encounter
--- OUTSIDE RECORDS SUMMARY | 2025-02-25 13:12 | XMS_ITS | Encounter Summary ---
Author Organization [employer] Address [address] [facility] [address]t h Floor [place] [id number] Care Team Providers Care Last Ironer Name Role Phone Gisele Kulkarni MD Primary Care Provider [phone] Josemanuel Mc MD Unavailable Ant Wilkes MD Unavailable Reason for Visit * Reason Comments Med Change Request Encounter Details Date Type Department Care Team (Late st Contact Info) Description 01/21/2025 Refill [facility] [address] [place] [address] Gisele Kulkarni MD [address] [place], [place] [phone] Moderate persistent asthma without complication Social History Tobacco Use Types Packs/Day Years [...] Telephone Encounter - Gisele Kulkarni MD - 01/21/2025 4:37 PM EDT Medicaion changed due to insurance. Thank you documented in this encounter Plan of Treatment Upcoming Encounters Date Type Department Care Team (Late st Contact Info) Description 05/20/2025 11:15 AM EDT Office Visit [facility] [address] [place] [address] Gisele Kulkarni MD [address] [place] [address] documented as of this encounter Goals Goal Patient Goal Type Associated Problems Recent Progress Patient-Stated? Author Patient will adhere to medication regimen General Corin Melendez Hemoglobin A1c < 7 Result Component 6.1( 4 2:10 PM EST) No Yessica Morales, PharmD documented as of this encounter Visit Diagnoses Diagnosis Moderate persistent asthma without complication documented in this encounter Care Teams Last Ironer Relationship Specialty Start Date End Date Gisele Kulkarni MD [address] [place] [address] PCP - General Family Medicine 06/15/13 Josemanuel Mc MD [address] [place] [address] Cardiology 12/01/24 Ant Wilkes MD [address] [place] [address] [address] [place] [address] Allergy 12/01/24 documented as of this encounter
--- OUTSIDE RECORDS SUMMARY | 2025-02-25 13:12 | XMS_ITS | Encounter Summary ---
Author Organization [employer] Address [address] [facility] 7t [place] [address] Care Team Providers Care Grinding Operator Name Role Phone Gisele Kulkarni MD Primary Care Provider [phone] Josemanuel Mc MD Unavailable [phone] Ant Wilkes MD Unavailable Encounter Details Date Type Department Care Team (Latest Contact Info) Description 02/24/2025 Travel Social History Tobacco Use Types Packs/Day [...] Description 05/20/2025 11:15 AM EDT Office Visit [facility] [address] [place] [address] Gisele Kulkarni MD [address] [place] [address] documented as of this encounter Goals Goal Patient Goal Type Associated Problems Recent Progress Patient-Stated? Author Patient will adhere to medication regimen General No Corin Chaudhry Hemoglobin A1c < 7 Result Component 6.1( 4 2:10 PM EST) No Yessica Morales, UmaD documented as of this encounter Visit Diagnoses Not on filedocumented in this encounter Care Teams Grinding Operator Relationship Specialty Start Date End Date Gisele Kulkarni MD [address] [place] [address] PCP - General Family Medicine 06/15/13 Josemanuel Mc MD [address] [place] [address] Cardiology 12/01/24 Ant Wilkes MD [address] [place] [address] [address] [place] [address] Allergy 12/01/24 documented as of this encounter
--- OUTSIDE RECORDS SUMMARY | 2025-02-25 13:12 | XMS_ITS | Encounter Summary ---
Author Organization [employer] Address [address] [facility] 7t [place] [address] Care Team Providers Care [employer] Black Belt Name Role Phone Gisele Kulkarni MD Primary Care Provider [phone] Josemanuel Mc MD Unavailable [phone] Ant Wilkes MD Unavailable Reason for Visit * Reason Comments Med Refill Encounter Details Date Type Department Care Team (Late st Contact Info) Description 02/07/2025 Refill [facility] [address] [place] [address] Gisele Kulkarni MD [address] [place] [address] Heartburn Social History Tobacco Use Types Packs/Day Years [...] Description 05/20/2025 11:15 AM EDT Office Visit [facility] [address] [place] [address] Gisele Kulkrani MD [address] [place] [address] documented as of this encounter Goals Goal Patient Goal Type Associated Problems Recent Progress Patient-Stated? Author Patient will adhere to medication regimen General Corin Melendez Hemoglobin A1c < 7 Result Component 6.1( 4 2:10 PM EST) No Yessica Morales, UmaD documented as of this encounter Visit Diagnoses Diagnosis Heartburn documented in this encounter Care Teams [employer] Black Belt Relationship Specialty Start Date End Date Gisele Kulkarni MD [address] [place] [address] PCP - General Family Medicine 06/15/13 Josemanuel Mc MD [address] [place] [address] Cardiology 12/01/24 Ant Wilkes MD [address] [place] [address] [address] [place] [address] Allergy 12/01/24 documented as of this encounter
--- OUTSIDE RECORDS SUMMARY | 2025-02-25 13:13 | XMS_ITS | Encounter Summary ---
Author Organization [employer] Address [address] [facility] 7t [place] [address] Care Team Providers Care Working Foreman Name Role Phone Gisele Kulkarni MD Primary Care Provider [phone] Josemanuel Mc MD Unavailable [phone] Ant Wilkes MD Unavailable Reason for Visit * Reason Onset Date Comments Med Refill 11/10/2024 Encounter Details Date Type Department Care Team (Late st Contact Info) Description 11/10/2024 Refill [facility] [address] [place] [address] Gisele Kulkarni MD [address] [place], [place] [phone] Nausea Social History Tobacco Use Types Packs/Day Years [...] 05/20/2025 11:15 AM EDT Office Visit [facility] [address] [place] [address] Gisele Kulkarni MD [address] [place] [address] documented as of this encounter Goals Goal Patient Goal Type Associated Problems Recent Progress Patient-Stated? Author Patient will adhere to medication regimen General Corin Melendez Hemoglobin A1c < 7 Result Component 6.1( 4 2:10 PM EST) No Yessica Morales, Tal documented as of this encounter Visit Diagnoses Diagnosis Nausea Nausea alone documented in this encounter Care Teams Working Foreman Relationship Specialty Start Date End Date Gisele Kulkarni MD [address] [place] [address] PCP - General Family Medicine 06/15/13 Josemanuel Mc MD [address] [place] [address] Cardiology 12/01/24 Ant Wilkes MD [address] [place] [address] [address] [place] [address] Allergy 12/01/24 documented as of this encounter
--- OUTSIDE RECORDS SUMMARY | 2025-02-25 13:13 | XMS_ITS | Encounter Summary ---
Author Organization [employer] Address [address] [facility] 7t [place] [address] Care Team Providers Care Social Group Worker Name Role Phone Gisele Kulkarni MD Primary Care Provider [phone] Josemanuel Mc MD Unavailable [phone] Ant Wilkes MD Unavailable Reason for Visit * Reason Onset Date Comments Med Refill 01/04/2025 Encounter Details Date Type Department Care Team (Late st Contact Info) Description 01/04/2025 Refill [facility] [address] [place] [address] Gisele Kulkarni MD [address] [place], [place] [phone] Nausea Social History Tobacco Use Types Packs/Day [...] Description 05/20/2025 11:15 AM EDT Office Visit [facility] [address] [place] [phone] Gislee Kulkarni MD [address] [place] [address] documented as of this encounter Goals Goal Patient Goal Type Associated Problems Recent Progress Patient-Stated? Author Patient will adhere to medication regimen General Corin Melendez Hemoglobin A1c < 7 Result Component 6.1( 4 2:10 PM EST) No Yessica Morales, Tal documented as of this encounter Visit Diagnoses Diagnosis Nausea Nausea alone documented in this encounter Care Teams Social Group Worker Relationship Specialty Start Date End Date Gisele Kulkarni MD [address] [place] [address] PCP - General Family Medicine 06/15/13 Josemanuel Mc MD [address] [place] [address] Cardiology 12/01/24 Ant Wilkes MD [address] [place] [address] [address] [place] [address] Allergy 12/01/24 documented as of this encounter
--- OUTSIDE RECORDS SUMMARY | 2025-02-25 13:13 | XMS_ITS | Encounter Summary ---
Author Organization [employer] Address [address] [facility] 7t [place] [address] Care Team Providers Care Public Service Officer Name Role Phone Gisele Kulkarni MD Primary Care Provider [phone] Josemanuel Mc MD Unavailable [phone] Ant Wilkes MD Unavailable Reason for Visit * Reason Onset Date Comments Med Refill 11/06/2024 Encounter Details Date Type Department Care Team (Late st Contact Info) Description 11/06/2024 Refill [facility] [address] [place] [address] Gisele Kulkarni MD [address] [place], [place] [phone] Nausea Social History Tobacco Use Types Packs/Day [...] Telephone Encounter - Gisele Kulkarni MD - 11/08/2024 10:37 AM EST Please let pt know this medication causes heart arrhythmias and she should no longer be taking. It is a very short term med. documented in this encounter Plan of Treatment Upcoming Encounters Date Type Department Care Team (Late st Contact Info) Description 05/20/2025 11:15 AM EDT Office Visit [facility] [address] [place] [phone] Gisele Kulkarni MD [address] [place] [phone] documented as of this encounter Goals Goal Patient Goal Type Associated Problems Recent Progress Patient-Stated? Author Patient will adhere to medication regimen General No Corin Chaudhry Hemoglobin A1c < 7 Result Component 6.1( 4 2:10 PM EST) No Yessica Morales, PharmD documented as of this encounter Visit Diagnoses Diagnosis Nausea Nausea alone documented in this encounter Care Teams Public Service Officer Relationship Specialty Start Date End Date Gisele Kulkarni MD [address] [place] [phone] PCP - General Family Medicine 06/15/13 Josemanuel Mc MD [address] [place] [address] Cardiology 12/01/24 Ant Wilkes MD [address] [place] [address] [address] [place] [address] Allergy 12/01/24 documented as of this encounter
--- OUTSIDE RECORDS SUMMARY | 2025-02-25 13:13 | XMS_ITS | Encounter Summary ---
Author Organization [employer] Address [address] [facility] 7t h Floor [place] [id number] Care Team Providers Care Grease And Tallow Pumper Name Role Phone Gisele Kulkarni MD Primary Care Provider [phone] Josemanuel Mc MD Unavailable [phone] Ant Wilkes MD Unavailable Reason for Visit * Reason Comments Med Change Request Encounter Details Date Type Department Care Team (Late st Contact Info) Description 01/21/[address] [facility] [address] [place] [address] Gisele Kulkarni MD [address] [place], [place] [phone] Moderate persistent asthma without complication Social History [...] Encounter - Gisele Kulkarni MD - 01/21/2025 12:02 PM EDT I sent new rx for alternative therapy. We will let pt know. Thank you. documented in this encounter Plan of Treatment Upcoming Encounters Date Type Department Care Team (Late st Contact Info) Description 05/20/2025 11:15 AM EDT Office Visit [facility] [address] [place] [phone] Gisele Kulkarni MD [address] [place] [phone] documented as of this encounter Goals Goal Patient Goal Type Associated Problems Recent Progress Patient-Stated? Author Patient will adhere to medication regimen General Corin Melendez Hemoglobin A1c < 7 Result Component 6.1( 4 2:10 PM EST) No Yessica Morales, PharmD documented as of this encounter Visit Diagnoses Diagnosis Moderate persistent asthma without complication documented in this encounter Care Teams Grease And Tallow Pumper Relationship Specialty Start Date End Date Gisele Kulkarni MD [address] [place] [phone] PCP - General Family Medicine 06/15/13 Josemanuel Mc MD [address] [place] [address] Cardiology 12/01/24 Ant Wilkes MD [address] [place] [address] [address] [place] [address] Allergy 12/01/24 documented as of this encounter
--- OUTSIDE RECORDS SUMMARY | 2025-02-25 13:13 | XMS_ITS | Encounter Summary ---
Author Organization [employer] Address [address] [facility] 7t [place] [address] Care Team Providers Care Continuous Improvement Specialist Name Role Phone Gisele Kulkarni MD Primary Care Provider [phone] Josemanuel Mc MD Unavailable [phone] Ant Wilkes MD Unavailable Reason for Visit * Reason Onset Date Comments Med Refill 11/08/2024 Encounter Details Date Type Department Care Team (Late st Contact Info) Description 11/08/2024 Refill [facility] [address] [place] [address] Gisele Kulkarni MD [address] [place], [place] [phone] Nausea Social History Tobacco Use Types Packs/Day [...] Description 05/20/2025 11:15 AM EDT Office Visit [facility] [address] [place] [phone] Gisele Kulkarni MD [address] [place] [phone] documented as of this encounter Goals Goal Patient Goal Type Associated Problems Recent Progress Patient-Stated? Author Patient will adhere to medication regimen General Corin Melendez Hemoglobin A1c < 7 Result Component 6.1( 4 2:10 PM EST) No Yessica Morales, Tal documented as of this encounter Visit Diagnoses Diagnosis Nausea Nausea alone documented in this encounter Care Teams Continuous Improvement Specialist Relationship Specialty Start Date End Date Gsiele Kulkarni MD [address] [place] [address] PCP - General Family Medicine 06/15/13 Josemanuel Mc MD [address] [place] [address] Cardiology 12/01/24 Ant Wilkes MD [address] [place] [address] [address] [place] [address] Allergy 12/01/24 documented as of this encounter
--- OUTSIDE RECORDS SUMMARY | 2025-02-25 13:13 | XMS_ITS | Clinical Summary ---
Author Organization [employer] Address [address] [place] [address] 7[address] [place] [address] Care Team Providers Care Appraisal Specialist Name Role Phone Gisele Kulkarni MD Primary Care Provider [phone] Josemanuel Mc MD Unavailable [phone] Ant Wilkes MD Unavailable Allergies No known active allergies Medications ketotifen (Zaditor) 0.025 % ophthalmic solution INSTILL 1 DROP INTO AFFECTED EYE OPHTHALMIC TWICE A DAY 30 DAYS 12/19/19 22 Active cholecalciferol (Vitamin D-3) 25 MCG (1000 UT) capsule take 1 by Oral route every day 08/06/20 22 Active loratadine (Claritin) 10 MG tablet TAKE 1 TABLET BY MOUTH TWICE A DAY 07/02/20 22 Active LORazepam (Ativan) 1 MG tablet TAKE 1 TABLET BY MOUTH 3 TIMES A DAY NEEDED FOR ANXIETY 08/20/20 22 Active norethindrone (Micronor) 0.35 MG tablet TAKE 1 TABLET BY MOUTH EVERY DAY 09/21/20 22 Active Spiriva Respimat 2.5 MCG/ACT inhaler INHALE 2 PUFFS INTO THE LUNGS EVERY DAY FOR 30 DAYS 10/07/20 22 Active Ventolin HFA 108 (90 Base) MCG/ACT inhalerIndications :Well controlled intermittent asthma INHALE 2 PUFFS INTO THE LUNGS EVERY 4 HOURS NEEDED 18 g 2 06/24/20 23 Active sennosides (Senokot) 8.6 MG tablet 1-2 tabs po nightly prn constipation 60 tablet 11 10/08/20 23 Active verapamil (Calan) 40 MG tablet Take 1 tablet by mouth 3 times daily. Active glucose blood (FREESTYLE LITE) test stripIndications:T ype 2 diabetes mellitus without complication, without long-term current use of insulin ([facility]) USE TO TEST BLOOD SUGAR ONCE A DAY 100 strip 1 06/21/20 24 Active metFORMIN XR (Glucophage-XR) 750 MG 24 hr tabletIndications: Type 2 diabetes mellitus without complication, without long-term current use of insulin ([facility]) TAKE 1 TABLET BY MOUTH EVERY DAY WITH EVENING MEAL 90 tablet 3 06/30/20 24 Active carvedilol (Coreg) 6.25 MG tablet TAKE 1 TABLET BY MOUTH TWICE A DAY WITH FOOD FOR 30 DAYS 08/12/20 24 Active ondansetron ODT (Zofran-ODT) 4 MG disintegrating tabletIndications: Nausea TAKE 1 TABLET BY MOUTH EVERY 6 TO 8 HOURS NEEDED FOR NAUSEA AND VOMITING 15 tablet 10/29/19 25 Active famotidine (Pepcid) 20 MG tabletIndications: Heartburn TAKE 1 TABLET BY MOUTH TWICE A DAY 180 tablet 1 11/09/19 25 Active montelukast (Singulair) 10 MG tabletIndications: Well controlled intermittent asthma TAKE 1 TABLET (10 MG) BY MOUTH IN THE EVENING 90 tablet 3 01/22/20 25 Active Symbicort 160-4.5 MCG/ACT inhaler INHALE 2 PUFFS IN THE MORNING AND AT BEDTIME 10.2 each 11 01/22/20 25 Active Fluticasone-Salmet viki (Wixela Inhub) 500-50 MCG/ACT aerosol powderIndications: Moderate persistent asthma without complication Inhale 1 puff Once per day. 1 each 01/22/20 25 Active acetaminophen (Tylenol Extra Strength) 500 MG tablet Take 1 tablet (500 mg) by mouth every 6 (six) hours if needed for mild pain. 120 tablet 02/24/20 25 025 Active Diclofenac Sodium 1 % gel Apply 1 inch topically if needed in the morning and at bedtime (pain). 60 g 02/24/20 25 025 Active meloxicam (Mobic) 15 MG tablet Take 1 tablet (15 mg) by mouth Once per day. 30 tablet 02/24/20 25 026 Active Active Problems Problem Noted Date Diagnosed Date Acute exacerbation of chronic low back pain 01/27 Assessment & Plan (02/23/2025 8:17 PM EDT): She will take meloxicam daily x 1 to 2 weeks + Tylenol twice daily as needed breakthrough pain Advised to apply heat to affected area and do stretching exercises for her back, information given to patient. Referred to PT Use diclofenac gel twice daily as needed Order x-rays and follow-up with PCP Heartburn 11/24/2023 Assessment & Plan (11/24/2023 4:17 PM EST): Patient has being having heartburn, epigastric pain, nausea and vomiting I start famotidine 20mg BID I advise patient to avoid NSAIDs, spicy and acid food, I advise to eat at the same time every day, I advise to elevate the head of the bed and take medications as prescribe Metrorrhagia 11/24/2023 Assessment & Plan (11/24/2023 4:21 PM EST): I referred patient to [facility] C/w iron supplement for anemia CBC to be recheck and f/u with PCP and [facility] Preventative health care 10/06/2023 Overview (02/23/2025): -next physical exam due after 10/06/2024 -eye care facilitated by -dental home is -health care proxy filed 02/23/25 Assessment & Plan (10/06/2023 9:55 AM EST): -next physical exam due after 10/06/2024 -eye care facilitated by -dental home is Benign ovarian cyst 10/06/2023 10/06/2023 Chest pain 10/06/2023 10/06/2023 Chronic back pain 10/06/2023 10/06/2023 Class 1 obesity 10/06/2023 10/06/2023 Syncope and collapse 10/06/2023 Overview (10/06/2023): -Differentials includes orthostatic vs arrhythmia most likely non seuizure -Has appt with cardio 10/11/23 for 30 day loop moniter -PMHx and FHx of SVT including sister that had cardiac arrest. Assessment & Plan (11/24/2023 4:20 PM EST): Multiple possibilities hypoglycemia, anemia, arrhythmia, dehydration (due to vomiting after eating), I tried to address all this causes F/u with PCP Assessment & Plan (10/06/2023 12:04 PM EST): -Differentials includes orthostatic vs arrhythmia most likely non seuizure -Has appt with cardio 10/11/23 for 30 day loop moniter -PMHx and FHx of SVT including sister that had cardiac arrest. Migraine 03/18/2023 Apnea 10/30/2022 Developmental academic disorder 10/30/2022 Supraventricular tachycardia 10/30/2022 Overview (09/13/2024): -choric atrial tachycardia -Holter monitor 2019 showed numerous bouts of sinus tachycardia with heart rates in the 120s-180s. She has a twin sister with SVT and an older sister who had some type of cardiac event requiring resuscitation. -there was discussion of ablation if she is not medically controlled -continue verapamil 240 mg daily -it is unclear if she should be on diltiazem. She is not taking it. She had follow up with Dr. Rios 11/20/2023 Holter ordered -seen 09/10/[address] Rios Assessment & Plan (11/24/2023 4:16 PM EST): Holter recently done, echocardiogram is pending then she will f/u with cardiology I advise to monitor BP and glucose when she has this episodes Assessment & Plan (10/06/2023 9:54 AM EST): -choric atrial tachycardia -Holter monitor 2019 showed numerous bouts of sinus tachycardia with heart rates in the 120s-180s. She has a twin sister with SVT and an older sister who had some type of cardiac event requiring resuscitation. -there was discussion of ablation if she is not medically controlled -continue verapamil 240 mg daily -it is unclear if she should be on diltiazem. She is not taking it. She had follow up with Dr. Rios 08/26/2022 Type 2 diabetes mellitus without complication Overview (10/06/2023): Diabetes is controlled. - Lab Results Component Value Date HGBA1C 6.0 (H) 03/25/2023 HGBA1C 6.5 (H) 08/02/2022 -No results found for: POCA1C - Lab Results Component Value Date CREATININE 0.80 05/28/2023 -Lewis/Arb: -Statin therapy: -Diabetic eye exam: -Diabetic foot exam: -Continue lifestyle modifications -Continue current medications -Diagnosed on 07/2022 with an Alc 6.5%. -Started metformin ER 500mg daily 04/2022. increased to 750mg daily 08/26/22. -Referral to [facility] on 08/26/22. Assessment & Plan (11/24/2023 4:18 PM EST): - Lab Results Component Value Date HGBA1C 6.1 (A) 11/24/2023 HGBA1C 6.1 (A) 10/06/2023 HGBA1C 6.0 (H) 03/25/2023 - Lab Results Component Value Date MICROALBUR 38.0 10/06/2023 CREATININE 0.74 10/06/2023 - Continue lifestyle modifications - Continue current medications - f/u with PCP Assessment & Plan (10/06/2023 11:36 AM EST): Diabetes is controlled. - Lab Results Component Value Date HGBA1C 6.0 (H) 03/25/2023 HGBA1C 6.5 (H) 08/02/2022 -No results found for: POCA1C - Lab Results Component Value Date CREATININE 0.80 05/28/2023 -Lewis/Arb: -Statin therapy: -Diabetic eye exam: -Diabetic foot exam: -Continue lifestyle modifications -Continue current medications -Diagnosed on 07/2022 with an Alc 6.5%. -Started metformin ER 500mg daily 04/2022. increased to 750mg daily 08/26/22. -Referral to [facility] on 08/26/22. Moderate recurrent major depression 03/27/2022 Well controlled intermittent asthma 03/27/2022 Asthma 02/01/2020 10/06/2023 Resolved Problems Problem Noted Date Diagnosed Date Resolved Date Physical exam 10/06/2023 12/01/2024 Overview (10/06/2023): -Normal growth and development. -Anticipatory guidance discussed. -Preventative care / harm reduction discussed. Assessment & Plan (10/06/2023 9:57 AM EST): -Normal growth and development. -Anticipatory guidance discussed. -Preventative care / harm reduction discussed. Encounters Date Type Department Care Team Description 02/24/[address] [facility] [place] [address] Gisele Kulkarni MD Appointment Confirmation (I book the appt on 05/20/2025 at 11:15 am for Physical. ) 02/24/2025 Travel 02/24/[address] [facility] [place] [address] Gisele Kulkarni MD 02/23/2025 6:00 PM EDT Office Visit [facility] [place] [address] Sue Pierce MD Acute exacerbation of chronic low back pain (Primary Dx) 02/23/2025 Travel 02/23/[address] [facility] [place] [address] Gisele Kulkarni MD 02/23/[address] [facility] [place] [address] Gisele Kulkarni MD Type 2 diabetes mellitus without complication, without long-term current use of insulin ([facility]) (Primary Dx); Preventative health care 02/07/[address] [facility] [place] [address] Gisele Kulkarni MD Heartburn 01/24/[address] [facility] [place] [address] Gisele Kulkarni MD 01/21/[address] [facility] [place] [address] Gisele Kulkarni MD Moderate persistent asthma without complication 01/21/[address] [facility] [address] [place] [address] Gisele Kulkarni MD Moderate persistent asthma without complication 01/21/[address] [facility] [address] [place] [address] Gisele Kulkarni MD Moderate recurrent major depression ([facility]) (Primary Dx); Moderate persistent asthma without complication 01/21/[address] [facility] [address] [place] [address] Gisele Kulkarni MD 01/20/[address] [facility] [address] [place] [address] Gisele Kulkarni MD Well controlled intermittent asthma 01/04/[address] [facility] [address] [place] [address] Gisele Kulkarni MD Nausea 12/16/[address] [facility] [address] [place] [address] Gisele Kulkarni MD Nurse Triage 12/01/[address] [facility] [address] [place] [address] Gisele Kulkarni MD from Last 3 Months Immunizations Name Administration Dates Next Due DTaP 11/23/1992, 2,06/20/1992,1988,03/19/1988,1987,1987 HPV, Quadrivalent 12/09/2008,08/26/2007 Hep B, Adolescent or Pediatric 1,07/13/2001,01/27/2001,2000,09/08/2000 Hib (HbOC) 02/18/1989,12/21/1988 IPV 11/20/1992, 0,02/18/1989,1987,1987,1987 Influenza injectable quadriv alent IIV4 with preservative 08/09/2016 Influenza injectable quadriv alent preservative free 10/05/2015 Influenza, IIV3, injectable 09/02/2008, 1 Influenza, Split (incl. gildardo fied surface antigen) 09/11/2012 MMR 04/23/1993,06/20/1992,02/18/1989 Pfizer Covid-19 Vaccine 12+ dione-sucrose (Benitez Cap) 02/21/2022,01/16/2022 TD (adult), 2 Lf tetanus tox oid, preservative free, adsorbed 12/17/2000 Tdap 08/09/2016 Varicella 05/30/2016,12/17/2009,07/30/2001 Social History Tobacco Use Types Packs/Day Years Used Date Smoking Tobacco: Never Passive Smoke Exposure: Never Smokeless Tobacco: Never Tobacco Cessation:Counseling Given: Not Answered Alcohol Use Standard Drinks/Week Comments Never 0 (1 standard drink = 0.6 oz pur e alcohol) Housing Stability Answer Date Recorded What is your housing situation today? I have arpitasofiya martinez 10/01/[address] you [...] Orientation Straight 08/26/2022 10 :16 AM EDT Last Filed Vital Signs Vital Sign Reading [...] Mass Index 34.58 02/23/2025 5:50 PM EDT Plan of Treatment Upcoming Encounters Date Type Department Care Team (Late st Contact Info) Description 05/20/2025 11:15 AM EDT Office Visit [facility] [address] [place], [place] [phone] Gisele Kulkarni MD [address] [place], [place] [phone] Health Maintenance Due Date Last Done Comments Depression Screening 1987 Diabetes: Foot Exam 1997 Alcohol/Substance Use Screening 1999 Family Planning (PISQ) 2002 Pneumococcal Vaccine: Pediatrics (0 to 5 Years) and At-Risk Patients (6 to 49) Years) (1 of 2 - PCV) 2006 HPV Vaccines (3 - 3-dose series) 03/03/2009 12/09/2008, 08/26/2007 Diabetes: Hemoglobin A1C 05/24/2024 024, 10/06/2023, 03/25/2023, Additional history exists COVID-19 Vaccine ( season) 2024 02/21/2022, 01/16/2022 Influenza Vaccine (#1) 06/27/2024201 6, 10/05/2015, 09/11/2012, Additional history exists SDOH Screening 10/01/2024 10/01/2023 Diabetes: Urine Protein Screening 10/06/2024 10/06/2023 Lipid Panel 10/06/2024 10/06/2023, 02/26, 04/17/2021 Pap Smear 07/11/2025 07/11/2022, 06/27, 11/14/2015 Tobacco Screening 02/23/2026 02/23/2025 DTaP/Tdap/Td Vaccines (7 - Td or Tdap) 08/09/2026 08/09/2016, 12/17/2000, 11/23/1992, Additional history exists Eye Exam 08/19/2026 08/19/2024, 07/28, 08/19/2024, Additional history exists Cervical Cancer Screening 07/11/2027 HPV/Cotest 07/11/2027 07/11/2022, 07/11/2022 Zoster Vaccines (1 of 2) 2037 RSV Patients and Patients Aged 60 years or older (1 - 1-dose 75+ series) 2062 HIB Vaccines Completed 02/18/1989, 12/21/1988 IPV Vaccines Completed 11/20/1992, 05/28, 02/18/1989, Additional history exists Hepatitis B Vaccines Completed 10/15/2001, 07/13/2001, 01/27/2001, Additional history exists HIV Screening Completed 10/06/2023 Hepatitis C Screening Completed 10/06/2023 Hepatitis A Vaccines Aged Out No long er eligible based on patient's age to complete this topic Meningococcal Vaccine Aged Out No cheryl brad eligible based on patient's age to complete this topic RSV under 20 months Aged Out No longe r eligible based on patient's age to complete this topic Rotavirus Vaccines Aged Out No longer eligible based on patient's age to complete this topic Goals Goal Patient Goal Type Associated Problems Recent Progress Patient-Stated? Author Patient will adhere to medication regimen General Corin Melendez Hemoglobin A1c < 7 Result Component 6.1( 2:10 PM EST) No Yessica Morales, Tal Procedures Procedure Name Priority Date/Time Associated Diagnosis Comments POCT GLYCATED HEMOGLOBIN, TOTAL Routine 11/24/2023 2:10 PM EST Type 2 diabetes mellitus without complication, without long-term current use of insulin (CMS/HCC) ALBUMIN, RANDOM URINE W/CREATININE Routine 10/06/2023 12:18 PM EST Type 2 diabetes mellitus without complication, without long-term current use of insulin (CMS/HCC) HEPATITIS C AB W/REFL TO HCV RNA, QN, PCR Routine 10/06/2023 12:16 PM EST Routine screening for STI (sexually transmitted infection) HIV 1/2 ANTIGEN/ANTIBODY, FOURTH GENERATION W/RFL Routine 10/06/2023 12:16 PM EST Routine screening for STI (sexually transmitted infection) LIPID PANEL, STANDARD Routine 10/06/2023 12:16 PM EST Type 2 diabetes mellitus without complication, without long-term current use of insulin ([facility]) HPV HIGH RISK PCR Routine 07/11/2022 12: 00 AM EDT PAP SMEAR Routine 07/11/2022 12:00 AM EDT from Last 3 Months or Most Recently Relevant to Health Maintenance Results * (ABNORMAL) POCT HGB A1C (11/24/2023 2:10 PM EST) Hemoglobin A1C 6.1(A) 4.0 - 6.0 % QC Media Lot # [id number] Lot# Expiration Date Blood 11/24/2023 2:10 PM EST us Aliyah Burk MD POINT OF CARE TEST EN TER/EDIT ORDERABLES Final Result * Albumin, Random Urine W/Creatinine (10/06/2023 12:18 PM EST) Creatinine, Urine 342.99 mg/dL [facility] Microalbumin Urine 38.0 mg/L [facility] Microalbum Creatinine Ratio Ur 11.0 <30 ug/mg cr [facility] Comment:Albumin/Creatinine R atio Reference Ranges: Normal: < 30 ug/mg creatinine Microalbuminuria: 30 - 300 ug/mg creatinineClinical Albuminuria: > 300 ug/mg creatinine Urine 10/06/2023 12:1 8 PM EST 10/06/2023 1:05 PM EST us Gisele Kulkarni MD LAB URINE ORDERABLES Final Result [facility] [address] [place] [address] [phone] * Hepatitis C Antibody with Reflex to HCV, RNA, Quantitative, Real-Time PCR (10/06/2023 12:16 PM EST) Hepatitis C Antibody Nonreactive Nonreactive [facility] Comment:Antibodies to HCV no t detected; does not exclude early acuteHCV infection. Blood Venous blood specimen / Unknown 10/06/2023 12:16 PM EST 10/06/2023 1:01 PM EST Gisele Kulkarni MD LAB BLOOD ORDERABLES Final Result Performing Organization Address [facility] Co de Phone Number [facility] [address] [place] [phone] * HIV-1/2 Antigen and Antibodies, Fourth Generation, with Reflexes (10/06/2023 12:16 PM EST) Pathologist [facility] HIV AB/AG Nonreactive Nonreactive [facility] Comment:HIV-1 p24 Ag and/or HIV-1/HIV-2 Ab not detected.A test result that is nonreactive does not exclude thepossibility of exposure to or infection with HIV-1 and/orHIV-2. Nonreactive results in this assay for individualswith prior exposure to HIV-1 and/or HIV-2 may be due toantigen and antibody levels that are below the limit ofdetection of this assay.The [employer] HIV Ag/Ab Combo assay result andsupplemental assay results should be interpreted inconjunction with the patient's clinical presentation,history and other laboratory results. If the results areinconsistent with clinical evidence, additional testing issuggested to confirm the result. Blood Venous blood specimen / Unknown 10/06/2023 12:16 PM EST 10/06/2023 1:01 PM EST Gisele Kulkarni MD LAB BLOOD ORDERABLES Final Result Performing Organization Address City/[facility]/ZIP Co de Phone Number [facility] [address] [place] [address] [place] [phone] * (ABNORMAL) Lipid Panel, Standard (10/06/2023 12:16 PM EST) Triglycerides 95 <150 mg/dL [facility] Comment:Desirable Triglyceri de: less than 150 mg/dLBorderline High Triglyceride 150-199 mg/dLHigh Triglyceride: 200-499 mg/dLVery High Triglyceride: greater than or equal to 5OO mg/dL Cholesterol 143 <200 mg/dL [facility] Comment:Desirable Cholestero l: less than 200 mg/dLBorderline High Cholesterol: 200-239 mg/dLHigh Cholesterol: greater than 239 mg/dL LDL Cholesterol Calculated 93 <100 mg/dL [facility] Comment:Desirable LDL: less than 100 mg/dLNear Optimal/Above Optimal LDL: 110- 129 mg/dLBorderline High LDL: 130-159 mg/dLHigh LDL: 160-189 mg/dLVery High LDL: greater than or equal to 190 mg/dL HDL Cholesterol 31(L) >40 mg/dL [facility] Comment:Desirable HDL: great er than 40 mg/dL Note: This HDL assay may give artificially low results in patients with liver disease. Blood Venous blood specimen / Unknown 10/06/2023 12:16 PM EST 10/06/2023 1:01 PM EST Gisele Kulkarni MD LAB BLOOD ORDERABLES Final Result Performing Organization Address City/[facility]/ZIP Co de Phone Number [facility] [address] [place] [phone] [phone] * HPV High Risk PCR (07/11/2022 12:00 AM EDT) Swab Cervical swab / Unknown Gisele Kulkarni MD LAB MICROBIOLOGY - GENERAL ORDERABLES Final Result [facility] [address] [place] [phone] * Pap Smear (07/11/2022 12:00 AM EDT) Swab us Gisele Kulkarni MD LAB CYTOLOGY ORDERABLES Fi nal Result [facility] [address] [place] [address] [phone] from Last 3 Months or Most Recently Relevant to Health Maintenance Insurance MEDICARE Member Subscriber Plan / Payer ( fective 2024-Present) Name:Indigo Thompson Member ID:[id number] Relation to Subscriber:Self Name:Indigo Thompson Subscriber ID:[id number] Payer ID:STATE Group ID:Not on file Type:Medicare Address: [facility] [address] [address] [facility] STANDARD Advance Directives Documents on File Type Date Recorded 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
--- OUTSIDE RECORDS SUMMARY | 2025-02-25 13:13 | XMS_ITS | Encounter Summary ---
Author Organization [employer] Address [address] [facility] [address] [place] [address] Care Team Providers Care Paint Roller Covermaker Name Role Phone Gisele Kulkarni MD Primary Care Provider [phone] Josemanuel Mc MD Unavailable Ant Wilkes MD Unavailable Reason for Visit * Reason Onset Date Comments Reschedule 10/21/2023 Encounter Details Date Type Department Care Team (Late st Contact Info) Description 10/21/2023 Telephone [facility] [address] [place] [address] Gisele Kulkarni MD [address] [place], [place] [phone] Reschedule Social History Tobacco Use Types Packs/Day Years [...] encounter Miscellaneous Notes * Telephone Encounter - Amaris Pillo - 10/21/2023 10:06 AM EST Tc from pt requesting to r/s 10/21 HDF appointment. Please contact at [phone] documented in this encounter Plan of Treatment Upcoming Encounters Date Type Department Care Team (Late st Contact Info) Description 05/20/2025 11:15 AM EDT Office Visit [facility] [address] [place] [address] Gisele Kulkarni MD [address] [place] [address] documented as of this encounter Goals Goal Patient Goal Type Associated Problems Recent Progress Patient-Stated? Author Hemoglobin A1c < 7 Result Component 6.1(11/24/2023 2:10 PM EST) No Yessica Morales, PharmD documented as of this encounter Visit Diagnoses Not on filedocumented in this encounter Care Teams Paint Roller Covermaker Relationship Specialty Start Date End Date Gisele Kulkarni MD [address] [place] [address] PCP - General Family Medicine 06/15/13 Josemanuel Mc MD [address] [place] [address] Cardiology 12/01/24 Ant Wilkes MD [address] [place] [address] [address] [facility] [address] [place] [address] Allergy 12/01/24 documented as of this encounter
--- OUTSIDE RECORDS SUMMARY | 2025-02-25 13:13 | XMS_ITS | Encounter Summary ---
Author Organization [employer] Address [address] [place] [address] Care Team Providers Care Diet Consultant Name Role Phone Gisele Kulkarni MD Primary Care Provider [phone]- [phone] Josemanuel Mc MD Unavailable [phone] Ant Wilkes MD Unavailable Encounter Details Date Type Department Care Team (Late st Contact Info) Description 01/21/2025 Orders Only [facility] [address] [place] [address] Gisele Kulkarni MD [address] [place], [place] [phone] Moderate recurrent major depression (CMS/HCC) (Primary Dx); Moderate persistent asthma without complication Social History [...] Description 05/20/2025 11:15 AM EDT Office Visit [facility] [address] [place] [address] Gisele Kulkarni MD [address] [place] [phone] documented as of this encounter Goals Goal Patient Goal Type Associated Problems Recent Progress Patient-Stated? Author Patient will adhere to medication regimen General Corin Melendez Hemoglobin A1c < 7 Result Component 6.1( 4 2:10 PM EST) No Yessica Morales, Tal documented as of this encounter Visit Diagnoses Diagnosis Moderate recurrent major depression (CMS/HCC)- Primary Major depressive disorder, recurrent episode, moderate Moderate persistent asthma without complication documented in this encounter Care Teams Diet Consultant Relationship Specialty Start Date End Date Gisele Kulkarni MD [address] [place] [address] PCP - General Family Medicine 06/15/13 Josemanuel Mc MD [address] [place] [address] Cardiology 12/01/24 Ant Wilkes MD [address] [place] [address] [address] [place] [address] Allergy 12/01/24 documented as of this encounter
--- OUTSIDE RECORDS SUMMARY | 2025-02-25 13:13 | XMS_ITS | Encounter Summary ---
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 Name Role Phone Gisele Kulkarni MD Primary Care Provider [phone] Josemanuel Mc MD Unavailable [phone] Ant Wilkes MD Unavailable Encounter Details Date Type Department Care Team (Late st Contact Info) Description 12/01/2024 Orders Only [facility] [address] [place] [address] Gisele Kulkarni MD [address] [place] [address] Social History Tobacco Use Types Packs/Day Years [...] EDT Office Visit [facility] [address] [place] [address] Gisele Kulkarni MD [address] [place] [phone] documented as of this encounter Goals Goal Patient Goal Type Associated Problems Recent Progress Patient-Stated? Author Patient will adhere to medication regimen General No Corin Chaudhry Hemoglobin A1c < 7 Result Component 6.1( 4 2:10 PM EST) No Yessica Morales, PharmD documented as of this encounter Visit Diagnoses Not on filedocumented in this encounter Care Teams Rubber Printing Machine Operator Relationship Specialty Start Date End Date Gisele Kulkarni MD [address] [place] [address] PCP - General Family Medicine 06/15/13 Josemanuel Mc MD [address] [place] [address] Cardiology 12/01/24 Ant Wilkes MD [address] [place] [address] [address] [place] [address] Allergy 12/01/24 documented as of this encounter
[2025-02-25 16:23] LABS: Estimated Average Glucose 160 mg/dL; Hemoglobin A1C 187.1924 umol/L; Hemoglobin A1c % 7.2 % (<6.0); Total Hemoglobin (HGBA1C) 3383.6097 umol/L
[2025-02-25 16:31] LABS: Alanine Aminotransferase 15 U/L (0-31); Alkaline Phosphatase 97 U/L (39-117); Anion Gap 15 (12-20); Aspartate Amino Transferase 24 U/L (5-31); Bilirubin Direct 0.1 mg/dL (0.0-0.5); Bilirubin Total 0.3 mg/dL (0.0-1.0); Blood Urea Nitrogen 12 mg/dL (9-16); Calcium 9.5 mg/dL (8.4-10.2); Carbon Dioxide 25 mmol/L (22-29); Chloride 105 mmol/L (96-108); Cholesterol 173 mg/dL (<200); Estimated Glomerular Filt Rate > 60; Glucose Random 154 mg/dL (60-115); HDL Cholesterol 44 mg/dL (>40); LDL Cholesterol Calculated 103 mg/dL (<100); Potassium 3.6 mmol/L (3.3-5.1); Sodium 141 mmol/L (135-145); Triglycerides 134 mg/dL (<150)
[2025-02-25 16:36] LABS: Creatinine Urine 233.13 mg/dL; Microalbum/Creatinine Ratio Ur 14.1 ug/mg cr (<30)
== END 2025-02-25 12:47 | disposition home or self-care (01) ==
LOC: HO.HHCL 12:46
PROVIDERS: Visit Provider Family Medicine
DX: E11.9 Type 2 diabetes mellitus without complications (principal); M54.50 Low back pain, unspecified; G89.29 Other chronic pain
CPT/HCPCS: 36415; 72110; 80048; 80061; 80076; 82043; 82570; 83036

== ENCOUNTER → 2025-02-25 13:03 | Outpatient (BNV) | payer MEDICARE, MEDICAID, SELFPAY | PROVIDERS: Visit Provider Radiology Diagnostic Radiology | DX: M54.50 Low back pain, unspecified (principal) | CPT/HCPCS: 72110 ==

== ENCOUNTER 2025-04-11 16:49 | Emergency (ER) | payer MEDICARE, MEDICAID, SELFPAY ==
--- NOTE | ~2025-04-11 | XR_ITS ---
CLINICAL HISTORY: chest pain 2 view chest x-ray Comparison: None Findings: No consolidation or effusion. 8 mm nodular density along the left side of the heart border. Heart size is normal. No acute fracture. IMPRESSION: There is a nodular density of the left lung. Further evaluation by CT of the chest is recommended as indicated This document has been electronically signed by: Oskar Barr MD on 04/11/2025 18:32:39
--- NOTE | 2025-04-11 16:51 | ECG_ITS ---
Test Reason : CHEST PAIN Blood Pressure : */* mmHG Vent. Rate : 125 BPM Atrial Rate : 125 BPM P-R Int : 142 ms QRS Dur : 72 ms QT Int : 318 ms P-R-T Axes : 12 4 -23 degrees QTcB Int : 458 ms Sinus tachycardia Anterior infarct , age undetermined Abnormal ECG When compared with ECG of 27-Oct-2024 13:40, Nonspecific T wave abnormality now evident in Lateral leads Referred By: Generic ED Physician Electronically Signed By: Zeke Bailey
[2025-04-11 17:08] VITALS: BP 149/100; PULSE 114; RESP 18; TEMP 36.9; O2SAT 99; BMI 33.7
--- NOTE | 2025-04-11 17:09 | ED.GENADULT ---
HPI - General Adult General Chief complaint: Dizziness Stated complaint: vomiting,dizzy,chest pain Time Seen by Provider: 04/11/25 17:53 Source: patient and family Mode of arrival: ambulatory Limitations: no limitations History of Present Illness ED Provider: DR. Lerma HPI narrative: 39-year-old female came in for evaluation of nausea, vomiting, nonbloody watery diarrhea after ate [employer], no other family member sick, no recent travel, no recent use of antibiotic, symptoms started since 05:00, patient also feeling dizzy with lightheadedness, feels localized chest pain without radiation and chest palpitation. Patient also is complaining of neck pain which is described as sore throat, with no difficulty speaking or swallowing. Related Data Previous Rx's ?Medication ?Instructions ?Recorded ondansetron 4 mg disintegrating 4 mg PO TID PRN nausea and 12/21/21 tablet vomiting 5 days #10 tabs diltiazem HCl 240 mg capsule,24 240 mg PO DAILY #30 caps 05/15/22 hr,extended release (Tiadylt ER) lorazepam 1 mg tablet 1 mg PO TID PRN anxiety #10 tabs 08/20/22 ondansetron 4 mg disintegrating 4 mg PO Q6-8H PRN nausea and 08/20/22 tablet vomiting #14 tabs ibuprofen 600 mg tablet 600 mg PO TID PRN fever or pain 11/22/23 #20 tabs ondansetron 4 mg disintegrating 4 mg PO Q8H PRN nausea and 07/10/24 tablet vomiting #7 tabs ondansetron 4 mg disintegrating 4 mg PO Q8H PRN nausea and 07/22/24 tablet vomiting #9 tabs Allergies Allergy/AdvReac Type Severity Reaction Status Date / Time Anesthesia S/I-40 Allergy Unknown rash Uncoded 04/11/25 17:10 outside allergy/ unhouse Allergy Unknown rash Uncoded 04/11/25 17:10 aller Review of Systems Review of Systems: all other systems are reviewed and are negative Constitutional: Reports as per HPI and Reports no additional constitutional complaints Eyes: Reports as per HPI and Reports no additional eye complaints Reports system reviewed and no additional complaints, except as documented Cardiovascular: Reports as per HPI and Reports no additional cardiovascular complaints Respiratory: Reports as per HPI and Reports no additional respiratory complaints Gastrointestinal: Reports as per HPI and Reports no additional gastrointestinal complaints Genitourinary: Reports no additional female genitourinary complaints Musculoskeletal: Reports no additional musculoskeletal complaints Skin/Breast: Reports system reviewed and no additional complaints, except as docu Psychiatric: Reports no additional psychiatric complaints Endocrine: Reports no additional endocrine complaints Hematologic/Lymphatic: Reports no additional hematologic/lymphatic complaints Allergic/Immunologic: Reports no additional allergic/immunologic complaints Reports system reviewed and no additional complaints, except as documented and Reports Abnormal speech present [facility] Past Medical History Medical History HTN (hypertension) Back pain Asthma Tachycardia Surgical History Hx of removal of cyst Family History Family History Mother Diabetes Arthritis Heart disease Sister Heart disease Seizure Sister Arthritis Gastritis Brother Diabetes HTN (hypertension) Social History Social History Alcohol intake: never Patient Tobacco Use Status: Never used Tobacco Smoked in Last 30 Days: No Use of substances other than those prescribed or required for medical reasons: No Advance Directives: No Advance Directives Information Provided: No Patient : No Physical Exam ED Vital Signs: Vital Signs - 24 hr 04/11/25 17:08 04/11/25 17:23 04/11/25 18:48 Temperature 98.5 F 98.3 F Pulse Rate 114 H 109 H 112 H Respiratory Rate 18 11 L Blood Pressure 149/100 H 150/101 H 138/88 Pulse Oximetry 99 99 Oxygen Delivery Method Room Air Room Air 04/11/25 18:48 04/11/25 18:49 04/11/25 19:39 Temperature Pulse Rate 118 H 119 H 122 H Respiratory Rate 19 Blood Pressure 132/93 H 166/111 H 148/97 H Pulse Oximetry 97 Oxygen Delivery Method Room Air BMI result Body Mass Index 33.7 Vital signs have been reviewed and appear to be correct. Blood pressure elevated. Heart rate normal. Respiratory rate normal. Temperature normal. Oxygen saturation normal. Appearance: Alert. Oriented X3. No acute distress. Head: Normal external exam. Normocephalic. Atraumatic. No Melchor signs noted. No raccoon eyes noted Eyes: PERRLA. EOMI. Conjunctiva and sclera normal. Eyelids normal. ENT: TM's Normal. Pharynx normal. Uvula midline. Moist mucous membranes. No trismus noted. No drooling noted. No muffled voice noted. Neck: Normal inspection. Neck supple. FROM. No adenopathy. Thyroid Normal. No meningeal signs. No neck mass noted. CVS: Normal heart rate and rhythm. Heart sound normal. No murmurs noted. Pulses normal throughout. Respiratory: No respiratory distress. Painless inspiration. Breath sounds normal. No wheezes/rales/rhonchi noted. Chest nontender. No accessory muscle usage noted or decreased air movement noted. Abdomen: Soft and nontender. Bowel sounds normal in all 4 quadrants. No distention noted. No organomegaly noted. No visible injury noted. Back: No CVA tenderness. Full range of motion noted. Skin: Skin warm and dry. Normal skin color. Normal skin turgor. No rashes/lesions/lacerations noted. Extremities: No lower extremity edema. Extremities exhibit normal range of motion. Extremities nontender. Neuro: Oriented X 3. Cranial nerve exam: II-XII are grossly intact No motor deficit. No sensory deficit. Reflexes normal. Course Course Course Narrative: RME performed by Marilu Agarwal PA-C. Patient is a 39 year old assigned female at presenting to the emergency department with neck pain, nausea, and vomiting. Patient states that she has felt generally unwell since waking up with nausea, vomiting, neck pain, and chest pain. Detailed physical exam and review of systems are deferred to the dope heater. EKG, labs, imaging, and swabs ordered. Patient placed back in the waiting room pending room availability and results. Reevaluation(s) Reevaluation #1: Patient now feels much better after IV fluids and nausea, vomiting control. Able to tolerate p.o. intake. Improvement of vital signs. Improvement of chest pain. Lung nodule patient was instructed to follow-up with her PCP with the educational sign language interpreter service. Time: 20:45 Medications Administered Discontinued Medications Generic Name Dose Route Start Last Admin Trade Name Freq PRN Reason Stop Dose Admin Al Hydroxide/Mg Hydroxide 30 ml 04/11/25 18:11 04/11/25 18:27 Magnesium Hydrox/Alum Hydrox 30 Ml Oral.Susp PO 04/11/25 18:12 30 ml ONCE ONE Administration Famotidine 20 mg 04/11/25 18:11 04/11/25 18:27 Famotidine/Pf 20 Mg/2 Ml Vial IVPUSH 04/11/25 18:12 20 mg ONCE ONE Administration Sodium Chloride 1,000 mls @ 999 mls/hr 04/11/25 18:11 04/11/25 19:39 Ns IV 04/11/25 19:11 Infused .Q1H1M ONE Infusion Acetaminophen 1,000 mg in 100 mls @ 400 mls/hr 04/11/25 19:41 04/11/25 19:50 Ofirmev IV 04/11/25 19:55 400 mls/hr ONCE ONE Administration Loperamide HCl 2 mg 04/11/25 18:11 04/11/25 18:27 Loperamide Hcl 2 Mg Capsule PO 04/11/25 18:12 2 mg ONCE ONE Administration Metoclopramide HCl 10 mg 04/11/25 19:40 04/11/25 19:50 Metoclopramide Hcl 10 Mg/2 Ml Vial IVPUSH 04/11/25 19:41 10 mg ONCE ONE Administration Ondansetron HCl 4 mg 04/11/25 18:11 04/11/25 18:27 Ondansetron Hcl 4 Mg/2 Ml Vial IVPUSH 04/11/25 18:12 4 mg ONCE ONE Administration Medical Decision Making Differential Diagnosis Differential Diagnoses: The differential diagnosis associated with the presentation includes ( Gastroenteritis, severe dehydration, electrolyte derangement, severe anemia, pneumonia, pneumothorax, ACS.) Admission/Observation Consideration of admission/observation: Escalation of care including admission/observation considered Lab Data MDM Lab Attestation statement: I reviewed the patient's lab results. 04/11/25 17:44 04/11/25 17:44 Labs: Lab Results 04/11/25 04/11/25 04/11/25 Range/Units 17:37 17:44 17:45 WBC 10.8 (4.8-10.8) X10*3/uL RBC 5.29 (4.20-5.50) X10*6/uL Hgb 13.5 (12.0-16.0) g/dl Hct 41.9 (37.0-47.0) % MCV 79.2 L (80.0-98.0) fL MCH 25.5 L (27.0-33.0) pg MCHC 32.2 (31.0-35.0) g/dl RDW 15.7 (11.0-16.0) % Plt Count 335 D (160-400) X10*3/uL MPV 10.7 (9.4-12.3) fL Immature Gran % (Auto) 0.3 (0.0-0.4) % Neut % (Auto) 81.2 H (45-73) % Lymph % (Auto) 13.2 L (20-40) % O'Brien % (Auto) 4.3 (2-11) % Eos % (Auto) 0.6 (0-4) % Baso % (Auto) 0.4 (0-2) % Lymph # (Auto) 1.4 (1.2-4.9) X10*3/uL O'Brien # (Auto) 0.5 (0.1-1.2) X10*3/uL Eos # (Auto) 0.1 (0.0-0.4) X10*3/uL Baso # (Auto) 0.0 (0.0-0.2) X10*3/uL Abs Immat Gran (auto) 0.03 (0.00-0.03) X10*3/uL Absolute Neuts (auto) 8.8 H (2.0-8.3) x10*3/uL Absolute Nucleated RBC 0.000 (0.0-0.012) X10*3/uL Nucleated RBC % (auto) 0.0 (0.0-0.2) /100WBC ESR 36 H (0-20) MM/HR PT 11.3 (10.9-12.4) SEC INR 1.0 (0.9-1.1) Sodium 139 (135-145) mmol/L Potassium 4.2 (3.3-5.1) mmol/L Chloride 108 (96-108) mmol/L Carbon Dioxide 23 (22-29) mmol/L Anion Gap 12 (12-20) BUN 9 (9-16) mg/dL Creatinine 0.69 (0.5-1.4) mg/dL Estim Creat Clear Calc 116.1 Estimated GFR > 60 Random Glucose 153 H (60-115) mg/dL Calcium 9.6 (8.4-10.2) mg/dL Magnesium 2.0 (1.6-2.6) mg/dL Total Bilirubin 0.2 (0.0-1.0) mg/dL AST 28 (5-31) U/L ALT 21 (0-31) U/L Alkaline Phosphatase 103 (39-117) U/L Troponin I High Sens < 2.7 (<3.5-17.0) ng/L C-Reactive Protein 2.27 H (< or = 0.50) mg/dL Total Protein 8.4 H (6.5-8.0) g/dL Albumin 4.4 (3.5-5.0) g/dL Beta HCG, Quant < 2 mIU/mL Urine Color Yellow Urine Appearance Clear Urine pH 5.5 (5.0-9.0) Ur Specific [place] 1.020 (1.005-1.025) Urine Protein Negative (Neg-Trace) mg/dL Urine Glucose (UA) Negative (Negative) mg/dL Urine Ketones Negative (Negative) mg/dL Urine Blood Negative (Negative) Urine Nitrite Negative (Negative) Ur Leukocyte Esterase Negative (Negative) Influenza Type A (PCR) NEGATIVE (Negative) Influenza Type B (PCR) NEGATIVE (Negative) RSV RNA Qual (PCR) NEGATIVE (Negative) SARS-CoV-2 RNA (RT-PCR) NEGATIVE (Negative) Independent Interpretation I performed an independent interpretation of an: Plain X-Ray ( Chest:There is a nodular density of the left lung. Further evaluation by CT of the chest is recommended as indicated) Radiology Impression Discussion of test interpretation with radiology: I have reviewed the radiologist's reading. Discharge Plan Discharge Clinical Impression: Gastroenteritis, Incidental lung nodule, greater than or equal to 8mm Patient Disposition: Home, Self-Care Instructions: Gastroenteritis (ED), Pulmonary Nodules (ED) Additional Instructions: drink plenty of fluids to avoid dehydration. Call your primary doctor and make an appointment for follow-up on lung mass that was found on your x-ray. Prescriptions: No Action lorazepam 1 mg tablet 1 mg PO TID PRN (Reason: anxiety) Qty: 10 0RF Rx Instructions: Patient may ask for partial fill ondansetron 4 mg tablet,disintegrating 4 mg PO Q6-8H PRN (Reason: nausea and vomiting) Qty: 14 0RF ondansetron 4 mg tablet,disintegrating 4 mg PO TID PRN (Reason: nausea and vomiting) 5 Days Qty: 10 0RF diltiazem HCl [Tiadylt ER] 240 mg capsule,extended release 24 hr 240 mg PO DAILY Qty: 30 0RF ondansetron 4 mg tablet,disintegrating 4 mg PO Q8H PRN (Reason: nausea and vomiting) Qty: 9 0RF ibuprofen 600 mg tablet 600 mg PO TID PRN (Reason: fever or pain) Qty: 20 0RF ondansetron 4 mg tablet,disintegrating 4 mg PO Q8H PRN (Reason: nausea and vomiting) Qty: 7 0RF Print Language: Syriac
[2025-04-11 17:23] VITALS: BP 150/101; PULSE 109; RESP 11; TEMP 36.8; O2SAT 99
[2025-04-11 17:51] LABS: MANUAL DIFF FLAG NO
[2025-04-11 17:53] LABS: Basophils Percent Auto 0.4 % (0-2); Eosinophils Absolute Auto 0.1 X10*3/uL (0.0-0.4); Eosinophils Percent Auto 0.6 % (0-4); Hematocrit 41.9 % (37.0-47.0); Hemoglobin 13.5 g/dl (12.0-16.0); Imm Gran Abs Auto 0.03 X10*3/uL (0.00-0.03); Imm Gran Pct Auto 0.3 % (0.0-0.4); Lymphocytes Absolute Auto 1.4 X10*3/uL (1.2-4.9); Lymphocytes Percent Auto 13.2 % (20-40); Mean Corpuscular HGB Conc 32.2 g/dl (31.0-35.0); Mean Corpuscular Hemoglobin 25.5 pg (27.0-33.0); Mean Corpuscular Volume 79.2 fL (80.0-98.0); Mean Platelet Volume 10.7 fL (9.4-12.3); Monocytes Absolute Auto 0.5 X10*3/uL (0.1-1.2); Monocytes Percent Auto 4.3 % (2-11); Neutrophils Absolute Auto 8.8 x10*3/uL (2.0-8.3); Neutrophils Percent Auto 81.2 % (45-73); Platelet Count 335 X10*3/uL (160-400); Red Blood Count 5.29 X10*6/uL (4.20-5.50); Red Cell Distribution Width 15.7 % (11.0-16.0); White Blood Count 10.8 X10*3/uL (4.8-10.8)
[2025-04-11 17:54] LABS: Appearance Urine Clear; Color Urine Yellow; Glucose Urine UA Negative (Negative); Leukocyte Esterase Urine Negative (Negative); Nitrite Urine Negative (Negative); PH 5.5 (5.0-9.0); Urine Blood Negative (Negative); Urine Ketones Negative (Negative); Urine Protein Negative (Neg-Trace)
[2025-04-11 18:01] LABS: Prothrombin Time 11.3 SEC (10.9-12.4)
[2025-04-11 18:10] LABS: Alanine Aminotransferase 21 U/L (0-31); Albumin Level 4.4 g/dL (3.5-5.0); Alkaline Phosphatase 103 U/L (39-117); Anion Gap 12 (12-20); Aspartate Amino Transferase 28 U/L (5-31); Bilirubin Total 0.2 mg/dL (0.0-1.0); Blood Urea Nitrogen 9 mg/dL (9-16); C Reactive Protein 2.27 mg/dL (< or = 0.50); Calcium 9.6 mg/dL (8.4-10.2); Carbon Dioxide 23 mmol/L (22-29); Chloride 108 mmol/L (96-108); Creatinine Clr Calc Pharmacy 116.1; Estimated Glomerular Filt Rate > 60; Glucose Random 153 mg/dL (60-115); Potassium 4.2 mmol/L (3.3-5.1); Sodium 139 mmol/L (135-145); Total Protein 8.4 g/dL (6.5-8.0)
--- OUTSIDE RECORDS SUMMARY | 2025-04-11 18:13 | XMS_ITS | Encounter Summary ---
Author Organization [employer] Address [address] [place] [address] 7t [place] [address] Care Team Providers Care Financial Controller Name Role Phone Gisele Kulkarni MD Primary Care Provider [phone] Yessica Morales PharmD Unavailable Josemanuel Mc MD Unavailable [phone] Ant Wilkes MD Unavailable Reason for Visit * Reason Onset Date Comments Nurse Triage 04/02/2023 Encounter Details Date Type Department Care Team (Late st Contact Info) Description 04/02/2023 Telephone [facility] [address] [place], [place] [phone] Gisele Kulkarni MD [address] [place], [place] [phone] Nurse Triage Social History Tobacco Use Types [...] patient to contact CHW Dami Victor at [phone] * Telephone Encounter - Lucretia Kam RN - 04/02/2023 1:35 PM EDT Triage call with [employer] [place] [id number] Pt reports wheezing and mild asthma attack since yesterday. Pt has vomited x5 this morning due to coughing. Pt reports difficulty breathing and I feel like I'm asphyxiated . Pt is talking without sob on this call. Pt reports using [id number] yesterday, neg for fever. Pt also reports sore throat. Advised Pt to come to [facility] today to be seen and Pt agrees [...] Description 05/20/2025 11:15 AM EDT Office Visit [facility] [address] [place] [address] Gisele Kulkarni MD [address] [place] [phone] documented as of this encounter Goals Goal Patient Goal Type Associated Problems Recent Progress Patient-Stated? Author Hemoglobin A1c < 7 Result Component 7.2(02/25/2025 12:49 PM EDT) No Yessica Morales PharmD documented as of this encounter Visit Diagnoses Not on filedocumented in this encounter Care Teams Financial Controller Relationship Specialty Start Date End Date Gisele Kulkarni MD [address] [place] [address] PCP - General Family Medicine 06/15/13 Yessica Morales, PharmD [address] [place] [phone] Pharmacist Internal Medicine 03/18/23 08/24/23 Josemanuel Mc MD [address] [place] [address] Cardiology 12/01/24 Ant Wilkes MD [address] [place] [address] [address] [place] [address] Allergy 12/01/24 documented as of this encounter
[2025-04-11 18:15] LABS: HCG Quantitative < 2 mIU/mL; Troponin-I High Sensitivity < 2.7 ng/L (<3.5-17.0)
[2025-04-11] MEDS: 0.9 % Sodium Chloride 1,000 ML 999 ML IV (18:27)
[2025-04-11] MEDS: Famotidine/PF 20 MG/2 ML VIAL IVPUSH (18:27)
[2025-04-11] MEDS: Magnesium Hydrox/Alum Hydrox 30 ML ORAL.SUSP PO (18:27)
[2025-04-11] MEDS: ondansetron HCL 4 MG/2 ML VIAL IVPUSH (18:27)
[2025-04-11] MEDS: Loperamide HCl 2 MG CAPSULE PO (18:27)
[2025-04-11 18:36] LABS: Erythrocyte Sedimentation Rate 36 MM/HR (0-20)
[2025-04-11 18:40] LABS: Influenza A PCR NEGATIVE (Negative); Influenza B PCR NEGATIVE (Negative); Resp Syncy Virus RNA Qual PCR NEGATIVE (Negative); SARS COV2 PCR INHOUSE NEGATIVE (Negative)
[2025-04-11 18:48] VITALS: BP 132/93; BP 138/88; PULSE 112; PULSE 118
[2025-04-11 18:49] VITALS: BP 166/111; PULSE 119
--- NOTE | 2025-04-11 19:14 | PC.NURSE ---
assumed care of pt at 1900. report received from Sue BARRY.
[2025-04-11 19:39] VITALS: BP 148/97; PULSE 122; RESP 19; O2SAT 97
[2025-04-11] MEDS: Metoclopramide HCl 10 MG/2 ML VIAL IVPUSH (19:50)
[2025-04-11] MEDS: Acetaminophen 1,000 MG/100 ML PIGGYBACK 400 MG IV (19:50)
--- NOTE | 2025-04-11 20:34 | PC.NURSE ---
pt pass po trial. feels better after tylenol and reglan administration.
[2025-04-11 20:40] VITALS: BP 122/86; PULSE 96; RESP 18; TEMP 36.7; O2SAT 98
== END 2025-04-11 20:42 | disposition home or self-care (01) ==
PROVIDERS: Physician Assistant Medical; Emergency Provider Emergency Medicine
DX: K52.9 Noninfective gastroenteritis and colitis, unspecified (principal); R11.2 Nausea with vomiting, unspecified; J02.9 Acute pharyngitis, unspecified; R07.9 Chest pain, unspecified; R91.1 Solitary pulmonary nodule; Z03.818 Encounter for observation for suspected exposure to other biological agents ruled out; I10 Essential (primary) hypertension; J45.909 Unspecified asthma, uncomplicated; Z79.899 Other long term (current) drug therapy
CPT/HCPCS: 0241U; 36415; 71046; 80053; 81003; 83735; 84484; 84702; 85025; 85610; 85652; 86140; 93005; 96361; 96374; 96375; 99284; 99285; J0131; J1308; J2405; J2765

== ENCOUNTER → 2025-04-11 16:51 | Outpatient (BNV) | payer MEDICARE, MEDICAID, SELFPAY | PROVIDERS: Emergency Provider Emergency Medicine; Visit Provider Internal Medicine Cardiovascular Disease | DX: R00.0 Tachycardia, unspecified (principal) | CPT/HCPCS: 93010 ==

== ENCOUNTER → 2025-04-11 17:09 | Outpatient (BNV) | payer MEDICARE, MEDICAID, SELFPAY | PROVIDERS: Emergency Provider Emergency Medicine; Visit Provider Nuclear Medicine | DX: R06.02 Shortness of breath (principal) | CPT/HCPCS: 71046 ==

== ENCOUNTER 2025-07-26 09:35 | Emergency (ER) | payer MEDICARE, MEDICAID, SELFPAY ==
[2025-07-26] VITALS (10 sets, daily range): BP systolic 114–185; BP diastolic 73–112; PULSE 100–123; RESP 17–26; TEMP 36.6–37.2; O2SAT 99–100; BMI 34.3
--- NOTE | ~2025-07-26 | XR_ITS ---
EXAMINATION: XR CHEST CLINICAL INFORMATION: Pnuemonia? COMPARISON: April 11, 2025 and July 10, 2024 TECHNIQUE: Frontal view of the chest was obtained. FINDINGS: No significant abnormality is noted involving the heart, lungs, mediastinum, bony thorax or soft tissues. 8 mm nodular density projecting along the left cardiac apex on the prior examination is not as well demonstrated on today's examination and could be obscured or could be vascular in nature. XR/XR chest 1V IMPRESSION: No acute disease Electronically signed by: Tawanda Jolly MD 07/26/2025 10:59 AM EDT
--- NOTE | ~2025-07-26 | CT_ITS ---
EXAMINATION: CT HEAD WITHOUT CONTRAST CLINICAL INFORMATION: syncopal episode COMPARISON: None available. TECHNIQUE: Contiguous axial imaging was performed from the skull base to vertex without intravenous administration of contrast. This CT examination was performed using dose optimization techniques as appropriate, variously including the following: *Automated exposure control *Adjustment of mA and/or kV according to patient size (this includes techniques or standardized protocols for targeted exams where dose is matched to indication/reason for exam; i.e. extremities or head) *Use of iterative reconstruction technique DLP: 603.14 mGy-cm FINDINGS: No acute cortical disruption within the bony calvarium or the skull base. No acute intracranial hemorrhage, mass effect, midline shift, hydrocephalus or herniation. Benitez-white matter differentiation is normal. Sellar/suprasellar region demonstrated no gross masses. Craniocervical junction demonstrates normal position of the cerebellar tonsils. Posterior cranial fossa contents demonstrated no gross masses. Mucosal thickening in the paranasal sinuses. Effervescent secretions in the left saphenous sinus. Tympanic cavities and mastoid cells are aerated. Pneumatized left petrous apex. CT/CT head/brain wo IV con IMPRESSION: No acute fracture, bony calvarium. No acute intradural hemorrhage. Acute on chronic zuñiga paranasal sinus disease. Electronically signed by: Luis Paul MD 07/26/2025 01:53 PM EDT
--- NOTE | ~2025-07-26 | CT_ITS ---
EXAMINATION: CT ANGIOGRAM CHEST CLINICAL INFORMATION: Tachycardia, syncopized, rule out PE. COMPARISON: 05/28/2023. TECHNIQUE: Multiple axial images were obtained through the chest after the administration of 65 mL of Omnipaque 350 intravenous contrast. Extensive vascular post-processing including two-dimensional and three-dimensional reformatted images were created and reviewed on an independent workstation. This CT examination was performed using dose optimization techniques as appropriate, variously including the following: *Automated exposure control *Adjustment of mA and/or kV according to patient size (this includes techniques or standardized protocols for targeted exams where dose is matched to indication/reason for exam; i.e. extremities or head) *Use of iterative reconstruction technique FINDINGS: VASCULAR: Study quality is somewhat suboptimal secondary to extensive respiratory motion artifact throughout both lungs. This limits sensitivity for detection of small emboli. Within these confines, there is no central or segmental pulmonary embolus identified. The main pulmonary artery is normal in size. There is no right heart strain pattern. There is no reflux of contrast into the hepatic IVC. The aorta is normal in caliber and course. There is no aneurysm or acute aortic syndrome. There is a 2 vessel branching pattern. Great vessels are widely patent. There is mild cardiac enlargement. There is no pericardial effusion. LUNGS: Lungs demonstrate mosaic attenuation, most likely secondary to air trapping and/or partial expiratory state. There is respiratory motion artifact present. There is no consolidation. Small airways appear normal. There is no pneumothorax. PLEURA: There is no pleural effusion. No pleural mass or thickening. MEDIASTINUM: Normal-appearing thyroid, partially imaged. No mass or abnormal lymph nodes within the mediastinum. Central airways are patent. Expiratory appearance of the trachea. Esophagus is unremarkable. AXILLA/CHEST WALL: No mass or abnormal lymph nodes present. UPPER ABDOMEN: Diffuse fatty infiltration of the liver. No suspicious liver lesion. Imaged upper abdominal contents otherwise normal. OSSEOUS STRUCTURES: No suspicious lytic or blastic bone lesions. No acute findings. CT/CT angio chest PE protocol IMPRESSION: 1. Study is somewhat limited by respiratory motion artifact. Within these confines, there is no central or segmental pulmonary embolus. 2. There is no aortic aneurysm or acute aortic syndrome. 3. Mild cardiac enlargement. 4. Partial expiratory appearance of the lungs, with mosaic attenuation. Differential includes air trapping, constrictive (obliterative) bronchiolitis, hypersensitivity pneumonitis, as well as less commonly bronchial asthma, and vasculitis. Electronically signed by: Andreas Dickson MD 07/26/2025 01:50 PM EDT RP
--- NOTE | 2025-07-26 09:56 | ED_ITS ---
HPI - Asthma General Chief Complaint: Asthma Stated Complaint: SOB, heart palpitations Time Seen by Provider: 07/26/25 09:50 Source: patient Mode of arrival: ambulatory Limitations: no limitations History of Present Illness ED Provider: Jerzy Kelley HPI Narrative: 40 yold female with pmh of asthma, tachycardia and myocardial infarction presents to the ED shortness of breath. Patient be to change in weather falling her allergies have been acting up which caused her chest to be tight but patient was concerned due to slight pleurisy and this morning woke up with shortness of breath. Patient denied any leg swelling, calf pain, coughing up blood, recent travel, or recent surgery. Related Data Previous Rx's ?Medication ?Instructions ?Recorded ondansetron 4 mg disintegrating 4 mg PO TID PRN nausea and 12/21/21 tablet vomiting 5 days #10 tabs diltiazem HCl 240 mg capsule,24 240 mg PO DAILY #30 ca ps 05/15/22 hr,extended release (Tiadylt ER) lorazepam 1 mg tablet 1 mg PO TID PRN anxiety #10 tabs 08/20/22 ondansetron 4 mg disintegrating 4 mg PO Q6-8H PRN naus ea and 08/20/22 tablet vomiting #14 tabs ibuprofen 600 mg tablet 600 mg PO TID PRN fever or p ain 11/22/23 #20 tabs ondansetron 4 mg disintegrating 4 mg PO Q8H PRN nausea and 07/10/24 tablet vomiting #7 tabs ondansetron 4 mg disintegrating 4 mg PO Q8H PRN nausea and 07/22/24 tablet vomiting #9 tabs albuterol sulfate 90 mcg/actuation 2 puff inhalation Q 4-6H PRN 07/26/25 aerosol inhaler (Ventolin HFA) shortness of breath or wheezing #8.5 grams azithromycin 250 mg tablet See Rx Instructions PO .COM PLEX #6 07/26/25 tabs prednisone 20 mg tablet 40 mg (2 x 20 mg) PO DAILY 5 days 07/26/25 #10 tabs Allergies Allergy/AdvReac Type Severity Reaction Status Date / Time Anesthesia S/I-40 Allergy Unknown rash Uncoded 07/26/25 09:42 outside allergy/ unhouse Allergy Unknown rash Uncoded 07/26/25 09:42 aller Review of Systems 2 Review of Systems: chest tightness and SOB Yes all other systems are reviewed and are negative [facility] Past Medical History Medical History HTN (hypertension) Back pain Asthma Tachycardia Surgical History Hx of removal of cyst Family History Family History Mother Diabetes Arthritis Heart disease Sister Heart disease Seizure Sister Arthritis Gastritis Brother Diabetes HTN (hypertension) Social History Social History Alcohol intake: never Patient Tobacco Use Status: Never used Tobacco Physical Exam 2 Vital Signs: Vital Signs: Last Vital Signs Temp 98 F 07/26/25 18:19 Pulse 105 H 07/26/25 18:19 Resp 17 07/26/25 18:19 BP 121/73 07/26/25 18:19 Pulse Ox 100 07/26/25 18:19 O2 Del Method Room Air 07/26/25 18:19 BMI result Body Mass Index 34.3 Const: General: cooperative, healthy appearing, comfortable, no acute distress, well developed, alert, awake and Physically active O rientation/consciousness: patient oriented x3 HEENT: Head: Yes normal to inspection, Yes No palpable skull fracture present, Yes normocephalic and Yes atraumatic Eyes: General: appearance normal, both eyes and all related structures Neck: Neck: Yes normal visual inspection, Yes full ROM, Yes no lymphadenopathy, Yes no meningeal signs, Yes trachea midline, Yes supple, No anterior neck swelling and No tender Chest: Chest palpation & inspection: normal inspection of the chest and normal palpation of entire chest wall Resp: Effort & Inspection: normal respiratory effort and able to speak in complete sentences Auscultation: clear to auscultation bilaterally Cardio: Jugular venous distension: no JVD Heart sounds: S1 normal heart sound present and S2 normal heart sound present GI: Inspection: Yes normal to inspection Palpation (GI): Soft to palpation, not firm, nontender, no guarding and not rigid : General: Yes no CVA tenderness Back/Spine/Pelvis: Back: no CVA tenderness and No back tenderness Skin: General skin exam: no rashes or lesions noted, elasticity normal and turgor normal Neuro: Other: My lower extremity negative for swelling, pitting edema, calf tenderness General: patient oriented x3, gait normal, tone normal, moves all extremities, Normal light touch and pain sensation, no meningeal signs, no focal motor deficits, CN's II-XI intact bilaterally and normal sensation to monofilament Extrem: Other: Chronic right lower extremity weakness versus left lower extremity due to chronic back issues. Patient states this was informed to her by her primary care provider General: Yes normal to inspection, Yes full ROM and Yes capillary refill normal Psych: Appearance: grossly normal, well kempt and not disheveled NIH Stroke Scale Internal: Initial- Upon Arrival Level of Consciousness: Alert Level of Consciousness Questions: Answers both questions correctly Level of Consciousness Commands: Performs both tasks correctly Best Gaze: Normal Visual: No visual loss Facial Palsy: Normal Motor Arm (Right): No drift Motor Arm (Left): No drift Motor Leg (Right): No drift Motor Leg (Left): No drift Limb Ataxia: Absent Sensory: Normal Best Language: No aphasia Dysarthia: Normal Extinction and Inattention: No abnormality Score: 0 Course Reevaluation(s) Reevaluation #1: Patient received in sign-out at change of shift pending labs. The patient's lactate did increase to 2.9, this is likely related to albuterol use. She has no fever, no white count, CT scan did not show any sign of pneumonia. This is less likely infective process. The patient will be discharged Time: 18:13 Medications Administered Discontinued Medications Generic Name Dose Route Start Last Admin Trade Name Freq PRN Reason Stop Dose Admin Albuterol Sulfate 2.5 mg/ 0 mg 07/26/25 09:56 07/26/25 10:02 Albuterol/Ipratropium 3 ml INHALE 07/26/25 09:57 1 dose ONCE ONE Administration Sodium Chloride 1,000 mls @ 999 mls/hr 07/26/25 11:33 07/26/25 12:43 Ns IV 07/26/25 12:33 Infused .Q1H1M STA Infusion Sodium Chloride 1,000 mls @ 999 mls/hr 07/26/25 11:33 07/26/25 12:43 Ns IV 07/26/25 12:33 Infused .Q1H1M STA Infusion Sodium Chloride 1,000 mls @ 999 mls/hr 07/26/25 15:26 07/26/25 17:40 Ns IV 07/26/25 16:26 Infused .Q1H1M STA Infusion Iohexol 100 ml 07/26/25 13:11 07/26/25 13:11 Iohexol 350 Mg/Ml 100 Ml Infus..Btl IV 07/26/25 13:12 65 ml ONCE ONE Administration Ondansetron HCl 4 mg 07/26/25 12:38 07/26/25 12:43 Ondansetron Hcl 4 Mg/2 Ml Vial IVPUSH 07/26/25 12:39 4 mg ONCE ONE Administration Prednisone 30 mg 07/26/25 10:30 07/26/25 11:01 Prednisone 10 Mg Tablet PO 07/26/25 10:31 30 mg ONCE ONE Administration Medical Decision Making Medical Decision Making MDM Narrative: [age] year female presents to ED for chest tightness and shortness of breath. Patient's lungs are clear. Due to history of CO patient will have cardiac evaluation. ED bronchodilator ordered. We will also add D-dimer to do/tachycardia and slight pleurisy. 11:30am: Patient has a syncopal episode more vital signs were being evaluated. As high as the 140s. No neuro deficits. Patient has chronic right lower leg weakness versus left leg due to history of back issues. 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 Once again patient states this is not new. No need to call a code stroke. We will cardia and syncopal episode. Orthostatics negative. 4:21pm: Chest CT negative for PE shows bronchial asthma versus hypersensitivity pneumonitis. Head CT negative. Lactic acid negative. Mother bag of fluids given. Signed out Rory AKBAR Differential Diagnosis Differential Diagnoses: The differential diagnosis associated with the presentation includes (ASthma, PE, Pneumonia, CHF) Admission/Observation Consideration of admission/observation: Escalation of care including admission/observation considered Lab Data 07/26/25 11:28 07/26/25 11:36 Labs: Lab Results 07/26/25 07/26/25 07/26/25 Range/Units 09:52 11:28 11:36 WBC 10.3 (4.8-10.8) X10*3/uL RBC 5.36 (4.20-5.50) X10*6/uL Hgb 13.4 (12.0-16.0) g/dl Hct 42.2 (37.0-47.0) % MCV 78.7 L (80.0-98.0) fL MCH 25.0 L (27.0-33.0) pg MCHC 31.8 (31.0-35.0) g/dl RDW 17.1 H (11.0-16.0) % Plt Count 293 (160-400) X10*3/uL MPV 10.6 (9.4-12.3) fL Immature Gran % (Auto) 0.3 (0.0-0.4) % Neut % (Auto) 69.3 (45-73) % Lymph % (Auto) 19.2 L (20-40) % Bee % (Auto) 7.1 (2-11) % Eos % (Auto) 3.5 (0-4) % Baso % (Auto) 0.6 (0-2) % Lymph # (Auto) 2.0 (1.2-4.9) X10*3/uL Bee # (Auto) 0.7 (0.1-1.2) X10*3/uL Eos # (Auto) 0.4 (0.0-0.4) X10*3/uL Baso # (Auto) 0.1 (0.0-0.2) X10*3/uL Abs Immat Gran (auto) 0.03 (0.00-0.03) X10*3/uL Absolute Neuts (auto) 7.2 (2.0-8.3) x10*3/uL Absolute Nucleated RBC 0.000 (0.0-0.012) X10*3/uL Nucleated RBC % (auto) 0.0 (0.0-0.2) /100WBC D-Dimer High Sensitivty < 150 NG/ML Sodium 138 (135-145) mmol/L Potassium 4.5 (3.3-5.1) mmol/L Chloride 109 H (96-108) mmol/L Carbon Dioxide 22 (22-29) mmol/L Anion Gap 12 (12-20) BUN 9 (9-16) mg/dL Creatinine 0.66 (0.5-1.4) mg/dL Estim Creat Clear Calc 121.4 Estimated GFR > 60 Random Glucose 190 H (60-115) mg/dL Lactic Acid (0.5-2.0) mmol/L Lactic Acid F/U @ 2Hr (0.5-2.0) mmol/L Lactic Acid F/U @ 4Hr (0.5-2.0) mmol/L Calcium 8.8 D (8.4-10.2) mg/dL Total Bilirubin 0.2 (0.0-1.0) mg/dL AST 37 H (5-31) U/L ALT 15 (0-31) U/L Alkaline Phosphatase 94 (39-117) U/L Troponin I High Sens (<3.5-17.0) ng/L NT-Pro-B Natriuret Pep (<300) pg/mL Total Protein 7.9 (6.5-8.0) g/dL Albumin 3.8 (3.5-5.0) g/dL Beta HCG, Quant < 2 mIU/mL COVID-19 ([facility]) Negative (Negative) COVID-19 Clin Com See Note Influenza Type A ([facility]) Negative (Negative) Influenza Type B ([facility]UAN) Negative (Negative) Influenza A & B Note See Note 07/26/25 07/26/25 07/26/25 Range/Units 11:41 11:46 14:58 WBC (4.8-10.8) X10*3/uL RBC (4.20-5.50) X10*6/uL Hgb (12.0-16.0) g/dl Hct (37.0-47.0) % MCV (80.0-98.0) fL MCH (27.0-33.0) pg MCHC (31.0-35.0) g/dl RDW (11.0-16.0) % Plt Count (160-400) X10*3/uL MPV (9.4-12.3) fL Immature Gran % (Auto) (0.0-0.4) % Neut % (Auto) (45-73) % Lymph % (Auto) (20-40) % Bee % (Auto) (2-11) % Eos % (Auto) (0-4) % Baso % (Auto) (0-2) % Lymph # (Auto) (1.2-4.9) X10*3/uL Bee # (Auto) (0.1-1.2) X10*3/uL Eos # (Auto) (0.0-0.4) X10*3/uL Baso # (Auto) (0.0-0.2) X10*3/uL Abs Immat Gran (auto) (0.00-0.03) X10*3/uL Absolute Neuts (auto) (2.0-8.3) x10*3/uL Absolute Nucleated RBC (0.0-0.012) X10*3/uL Nucleated RBC % (auto) (0.0-0.2) /100WBC D-Dimer High Sensitivty NG/ML Sodium Cancelled (135-145) mmol/L Potassium Cancelled (3.3-5.1) mmol/L Chloride Cancelled (96-108) mmol/L Carbon Dioxide Cancelled (22-29) mmol/L Anion Gap Cancelled (12-20) BUN Cancelled (9-16) mg/dL Creatinine Cancelled (0.5-1.4) mg/dL Estim Creat Clear Calc Cancelled Estimated GFR Cancelled Random Glucose Cancelled (60-115) mg/dL Lactic Acid 2.2 H* (0.5-2.0) mmol/L Lactic Acid F/U @ 2Hr 2.3 H* (0.5-2.0) mmol/L Lactic Acid F/U @ 4Hr (0.5-2.0) mmol/L Calcium Cancelled (8.4-10.2) mg/dL Total Bilirubin Cancelled (0.0-1.0) mg/dL AST Cancelled (5-31) U/L ALT Cancelled (0-31) U/L Alkaline Phosphatase Cancelled (39-117) U/L Troponin I High Sens < 2.7 < 2.7 (<3.5-17.0) ng/L NT-Pro-B Natriuret Pep 18.9 (<300) pg/mL Total Protein Cancelled (6.5-8.0) g/dL Albumin Cancelled (3.5-5.0) g/dL Beta HCG, Quant mIU/mL COVID-19 ([facility]) (Negative) COVID-19 Clin Com Influenza Type A ([facility]UAN) (Negative) Influenza Type B ([facility]UAN) (Negative) Influenza A & B Note 07/26/25 Range/Units 17:33 WBC (4.8-10.8) X10*3/uL RBC (4.20-5.50) X10*6/uL Hgb (12.0-16.0) g/dl Hct (37.0-47.0) % MCV (80.0-98.0) fL MCH (27.0-33.0) pg MCHC (31.0-35.0) g/dl RDW (11.0-16.0) % Plt Count (160-400) X10*3/uL MPV (9.4-12.3) fL Immature Gran % (Auto) (0.0-0.4) % Neut % (Auto) (45-73) % Lymph % (Auto) (20-40) % Bee % (Auto) (2-11) % Eos % (Auto) (0-4) % Baso % (Auto) (0-2) % Lymph # (Auto) (1.2-4.9) X10*3/uL Bee # (Auto) (0.1-1.2) X10*3/uL Eos # (Auto) (0.0-0.4) X10*3/uL Baso # (Auto) (0.0-0.2) X10*3/uL Abs Immat Gran (auto) (0.00-0.03) X10*3/uL Absolute Neuts (auto) (2.0-8.3) x10*3/uL Absolute Nucleated RBC (0.0-0.012) X10*3/uL Nucleated RBC % (auto) (0.0-0.2) /100WBC D-Dimer High Sensitivty NG/ML Sodium (135-145) mmol/L Potassium (3.3-5.1) mmol/L Chloride (96-108) mmol/L Carbon Dioxide (22-29) mmol/L Anion Gap (12-20) BUN (9-16) mg/dL Creatinine (0.5-1.4) mg/dL Estim Creat Clear Calc Estimated GFR Random Glucose (60-115) mg/dL Lactic Acid (0.5-2.0) mmol/L Lactic Acid F/U @ 2Hr (0.5-2.0) mmol/L Lactic Acid F/U @ 4Hr 2.9 H* (0.5-2.0) mmol/L Calcium (8.4-10.2) mg/dL Total Bilirubin (0.0-1.0) mg/dL AST (5-31) U/L ALT (0-31) U/L Alkaline Phosphatase (39-117) U/L Troponin I High Sens (<3.5-17.0) ng/L NT-Pro-B Natriuret Pep (<300) pg/mL Total Protein (6.5-8.0) g/dL Albumin (3.5-5.0) g/dL Beta HCG, Quant mIU/mL COVID-19 ([facility]) (Negative) COVID-19 Clin Com Influenza Type A ([facility]UAN) (Negative) Influenza Type B ([facility]UAN) (Negative) Influenza A & B Note Independent Interpretation I performed an independent interpretation of an: EKG (Sinus Tachy) and CT Scan Radiology Impression Discussion of test interpretation with radiology: I have reviewed the radiologist's reading. Critical Care Time Critical Care Time Critical Care Time: Yes Total Critical Care Time: 60 Attestation: Patient tachycardic with chest tightness. Ed bronchodilator ordered. prednisone. Patient syncopzied. CHest CT ordered. IV fluids ordered. Discharge Plan Discharge Clinical Impression: Asthma exacerbation, Syncope Patient Disposition: Home, Self-Care Instructions: Asthma (ED), Syncope (ED) Additional Instructions: . EKG labs and images came back reassuring. You will be discharged with antibiotics, steroids, and albuterol inhaler. Also antibiotics. Return to the ED immediately for any chest pain, shortness of breath, weakness, dizziness, or any other concerning symptoms. Prescriptions: New prednisone 20 mg tablet 40 mg PO DAILY 5 Days Qty: 10 0RF azithromycin 250 mg tablet See Rx Instructions .ROUTE .COMPLEX Qty: 6 0RF Rx Instructions: For 250 mg dose pack: take 500 mg today (day 1), then 250 mg for 4 days (days 2-5) albuterol sulfate [Ventolin HFA] 90 mcg/actuation HFA aerosol inhaler 2 puff inhalation Q4-6H PRN (Reason: shortness of breath or wheezing) Qty: 8.5 0RF No Action lorazepam 1 mg tablet 1 mg PO TID PRN (Reason: anxiety) Qty: 10 0RF Rx Instructions: Patient may ask for partial fill ondansetron 4 mg tablet,disintegrating 4 mg PO Q6-8H PRN (Reason: nausea and vomiting) Qty: 14 0RF ondansetron 4 mg tablet,disintegrating 4 mg PO TID PRN (Reason: nausea and vomiting) 5 Days Qty: 10 0RF diltiazem HCl [Tiadylt ER] 240 mg capsule,extended release 24 hr 240 mg PO DAILY Qty: 30 0RF ondansetron 4 mg tablet,disintegrating 4 mg PO Q8H PRN (Reason: nausea and vomiting) Qty: 9 0RF ibuprofen 600 mg tablet 600 mg PO TID PRN (Reason: fever or pain) Qty: 20 0RF ondansetron 4 mg tablet,disintegrating 4 mg PO Q8H PRN (Reason: nausea and vomiting) Qty: 7 0RF Referrals: Gisele Kulkarni MD [Primary Care Provider, Family Practice] - 2 days Referral Note: Asthma exacerbation bronchitis Clinical Impression: Asthma exacerbation; Syncope Interventions: ED Discharge Assessment Last Done: 07/26/25 18:19 Discharge Date/Time: 07/26/25 18:22 Print Language: Khmer
[2025-07-26] MEDS: Albuterol Sulfate 2.5 MG, Albuterol/Iprat 2.5/0.5MG 3 ML 3 ML INHALE (10:02)
--- NOTE | 2025-07-26 10:08 | ECG_ITS ---
Test Reason : DIZZY Blood Pressure : */* mmHG Vent. Rate : 126 BPM Atrial Rate : 126 BPM P-R Int : 148 ms QRS Dur : 72 ms QT Int : 310 ms P-R-T Axes : 33 2 -18 degrees QTcB Int : 448 ms Sinus tachycardia Cannot rule out Anterior infarct (cited on or before 11-Apr-2025) Nonspecific ST and T wave abnormality Abnormal ECG When compared with ECG of 11-Apr-2025 16:51, No significant change was found Referred By: Jerzy Kelley Electronically Signed By: DARIAN MÉNDEZ
[2025-07-26 10:27] LABS: COVID-19 Test Negative (Negative); IDNOW Serial# 152EDE1D; IDNOW Serial# 16C4AD1C; Influenza B2 Negative (Negative)
--- OUTSIDE RECORDS SUMMARY | 2025-07-26 11:28 | XMS_ITS | Encounter Summary ---
Author Organization [employer] Address [address] [place] [address] 7[address] [place] [address] Care Team Providers Care Hospitality Coordinator Name Role Phone Gisele Kulkarni MD Primary Care Provider [phone]- [phone] Josemanuel Mc MD Unavailable [phone] Ant Wilkes MD Unavailable Encounter Details Date Type Department Care Team (Late st Contact Info) Description 12/01/2024 Orders Only [facility] [address] [place] [address] Gisele Kulkarni MD [address] [place] [address] Social History Tobacco Use Types Packs/Day Years [...] Care Team (Late st Contact Info) Description 08/26/2025 9:00 AM EDT Office Visit [facility] [address] [place] [address] Natasha Ham, OD [address] [place] [address] 09/14/2025 2:15 PM EST Office Visit [facility] [address] [place] [address] Gisele Kulkarni MD [address] [place] [address] documented as of this encounter Goals Goal Patient Goal Type Associated Problems Recent Progress Patient-Stated? Author Patient will adhere to medication regimen General Corin Melendez Hemoglobin A1c < 7 Result Component 7.2( 12:49 PM EDT) No Yessica Morales, PharmD documented as of this encounter Visit Diagnoses Not on filedocumented in this encounter Care Teams Hospitality Coordinator Relationship Specialty Start Date End Date Gisele Kulkarni MD [address] [place] [id number] PCP - General Family Medicine 06/15/13 Josemanuel Mc MD [address] [place] [address] Cardiology 12/01/24 Ant Wilkes MD [address] [place] [address] [address] [place] [address] Allergy 12/01/24 documented as of this encounter
--- OUTSIDE RECORDS SUMMARY | 2025-07-26 11:28 | XMS_ITS | Encounter Summary ---
Author Organization [employer] Address [address] [facility] 7t [place] [address] Care Team Providers Care Organ Tuner Name Role Phone Gisele Kulkarni MD Primary Care Provider [phone] Josemanuel Mc MD Unavailable [phone] Ant Wilkes MD Unavailable Encounter Details Date Type Department Care Team (Late st Contact Info) Description 01/21/2025 Orders Only [facility] [address] [place] [address] Gisele Kulkarni MD [address] [place], [place] [phone] Moderate recurrent major depression (CMS/HCC) (Primary Dx); [...] Description 08/26/2025 9:00 AM EDT Office Visit [facility] [address] [place] [address] Jitendra, Natasha, OD [address] [place] [address] 09/14/2025 2:15 PM EST Office Visit [facility] [address] [place] [address] Gisele Kulkarni MD [address] [place] [id number] documented as of this encounter Goals Goal Patient Goal Type Associated Problems Recent Progress Patient-Stated? Author Patient will adhere to medication regimen General Corin Melendez Hemoglobin A1c < 7 Result Component 7.2( 12:49 PM EDT) No Yessica Morales, PharmD documented as of this encounter Visit Diagnoses Diagnosis Moderate recurrent major depression (CMS/HCC) (HCC)- Primary Major depressive disorder, recurrent episode, moderate Moderate persistent asthma without complication documented in this encounter Care Teams Organ Tuner Relationship Specialty Start Date End Date Gisele Kulkarni MD [address] [place] [address] PCP - General Family Medicine 06/15/13 Josemanuel Mc MD [address] [place] [address] Cardiology 12/01/24 Ant Wilkes MD [address] [place] [address] [address] [place] [address] Allergy 12/01/24 documented as of this encounter
--- OUTSIDE RECORDS SUMMARY | 2025-07-26 11:28 | XMS_ITS | Encounter Summary ---
Author Organization [employer] Address [address] [place] [address] 7[address] [place] [address] Care Team Providers Care Peer Specialist Name Role Phone Gisele Kulkarni MD Primary Care Provider [phone]- [phone] Yessica Morales PharmD Unavailable Josemanuel Mc MD Unavailable Ant Wilkes MD Unavailable Reason for Visit * Reason Onset Date Comments Nurse Triage 04/02/2023 Encounter Details Date Type Department Care Team (Late st Contact Info) Description 04/02/2023 Telephone [facility] [address] [place], [place] [phone] Gisele Kulkarni MD [address] [place], [place] [phone] Nurse Triage Social History Tobacco Use Types [...] patient to contact [facility] Dami Victor at [phone] * Telephone Encounter - Lucretia Kam RN - 04/02/2023 1:35 PM EDT Triage call with [facility] Project Manager ID [id number] Pt reports wheezing and mild asthma attack since yesterday. Pt has vomited x5 this morning due to coughing. Pt reports difficulty breathing and I feel like I'm asphyxiated . Pt is talking without sob on this call. Pt reports using [id number] yesterday, neg for fever. Pt also reports sore throat. Advised Pt to come to [facility] today to be seen and Pt [...] Description 08/26/2025 9:00 AM EDT Office Visit [facility] OPT[facility] [address] [place] [address] Natasha Ham, OD [address] [place] [address] 09/14/2025 2:15 PM EST Office Visit [facility] [address] [place] [address] Gisele Kulkarni MD [address] [place] [address] documented as of this encounter Goals Goal Patient Goal Type Associated Problems Recent Progress Patient-Stated? Author Hemoglobin A1c < 7 Result Component 7.2(02/25/2025 12:49 PM EDT) No Yessica Morales, PharmD documented as of this encounter Visit Diagnoses Not on filedocumented in this encounter Care Teams Peer Specialist Relationship Specialty Start Date End Date Gisele Kulkarni MD [address] [place] [address] PCP - General Family Medicine 06/15/13 Yessica Morales, PharmD [address] [place] [address] Pharmacist Internal Medicine 03/18/23 08/24/23 Josemanuel Mc MD [address] [place] [address] Cardiology 12/01/24 Ant Wilkes MD [address] [place] [address] [address] [place] [address] Allergy 12/01/24 documented as of this encounter
--- OUTSIDE RECORDS SUMMARY | 2025-07-26 11:28 | XMS_ITS | Encounter Summary ---
Author Organization [employer] Address [address] [place] [address] Care Team Providers Care Trial Attorney Name Role Phone Gisele Kulkarni MD Primary Care Provider [phone]- [phone] Josemanuel Mc MD Unavailable [phone] Ant Wilkes MD Unavailable Reason for Visit * Reason Comments Med Refill Encounter Details Date Type Department Care Team (Late st Contact Info) Description 02/07/2025 Refill [facility] [address] [place] [address] Gisele Kulkarni MD [address] [place], [place] [phone] Heartburn Social History Tobacco Use Types Packs/Day [...] Visit [facility] [address] [place] [address] Natasha Ham, OD [address] [place] [address] 09/14/2025 2:15 PM EST Office Visit [facility] [address] [place] [address] Gisele Kulkarni MD [address] [place] [address] documented as of this encounter Goals Goal Patient Goal Type Associated Problems Recent Progress Patient-Stated? Author Patient will adhere to medication regimen General Corin Melendez Hemoglobin A1c < 7 Result Component 7.2( 12:49 PM EDT) No Yessica Morales, PharmD documented as of this encounter Visit Diagnoses Diagnosis Heartburn documented in this encounter Care Teams Trial Attorney Relationship Specialty Start Date End Date Gisele Kulkarni MD [address] [place] [address] PCP - General Family Medicine 06/15/13 Josemanuel Mc MD [address] [place] [address] Cardiology 12/01/24 Ant Wilkes MD [address] [place] [address] [address] [place] [address] Allergy 12/01/24 documented as of this encounter
--- OUTSIDE RECORDS SUMMARY | 2025-07-26 11:28 | XMS_ITS | Encounter Summary ---
Author Organization [employer] Address [address] [place] [address] 7t [place] [address] Care Team Providers Care Forensic Specialist Name Role Phone Gisele Kulkarni MD Primary Care Provider +1- [phone] Josemanuel Mc MD Unavailable [phone] nAt Wilkes MD Unavailable Reason for Visit * Reason Onset Date Comments Med Refill 11/06/2024 Encounter Details Date Type Department Care Team (Late st Contact Info) Description 11/06/2024 Refill [facility] 230 [place] [address] Gisele Kulkarni MD 230 [place], [place] [phone] Nausea Social History Tobacco Use Types Packs/Day [...] Description 08/26/2025 9:00 AM EDT Office Visit [facility] [address] [place] [address] Jitendra, Natasha, OD 230 [place] [address] 09/14/2025 2:15 PM EST Office Visit [facility] 230 [place] [address] Gisele Kulkarni MD 230 [place] [address] documented as of this encounter Goals Goal Patient Goal Type Associated Problems Recent Progress Patient-Stated? Author Patient will adhere to medication regimen General No Corin Chaudhry Hemoglobin A1c < 7 Result Component 7.2( 12:49 PM EDT) No Yessica Morales, PharmD documented as of this encounter Visit Diagnoses Diagnosis Nausea Nausea alone documented in this encounter Care Teams Forensic Specialist Relationship Specialty Start Date End Date Gisele Kulkarni MD 230 [place] [address] PCP - General Family Medicine 06/15/13 Josemanuel Mc MD [address] [place] [address] Cardiology 12/01/24 Ant Wilkes MD [address] [place] [address] [address] [place] [address] Allergy 12/01/24 documented as of this encounter
--- OUTSIDE RECORDS SUMMARY | 2025-07-26 11:28 | XMS_ITS | Encounter Summary ---
Author Organization [employer] Address [address] [facility] 7t [place] [address] Care Team Providers Care Director Of Medical Review Name Role Phone Gisele Kulkarni MD Primary Care Provider +1- [phone] Josemanuel Mc MD Unavailable [phone] Ant Wilkes MD Unavailable Reason for Visit * Reason Comments Med Change Request Encounter Details Date Type Department Care Team (Late st Contact Info) Description 01/21/2025 Refill [facility] [address] [place] [address] Gisele Kulkarni MD 230 [place], [place] [phone] Moderate persistent asthma without complication Social History [...] 9:00 AM EDT Office Visit [facility] OPTOMETRY [address] [place] [address] Jitendra, Natasha, OD 230 [place] [address] 09/14/2025 2:15 PM EST Office Visit [facility] [address] [place] [address] Gisele Kulkarni MD [address] [place] [address] documented as of this encounter Goals Goal Patient Goal Type Associated Problems Recent Progress Patient-Stated? Author Patient will adhere to medication regimen General No Corin Chaudhry Hemoglobin A1c < 7 Result Component 7.2( 12:49 PM EDT) No Yessica Morales, UmaD documented as of this encounter Visit Diagnoses Diagnosis Moderate persistent asthma without complication documented in this encounter Care Teams Director Of Medical Review Relationship Specialty Start Date End Date Gisele Kulkarni MD [address] [place] [address] PCP - General Family Medicine 06/15/13 Josemanuel Mc MD [address] [place] [address] Cardiology 12/01/24 Ant Wilkes MD [address] [place] [address] [address] [place] [address] Allergy 12/01/24 documented as of this encounter
--- OUTSIDE RECORDS SUMMARY | 2025-07-26 11:28 | XMS_ITS | Encounter Summary ---
Author Organization [employer] Address [address] [facility] 7t [place] [address] Care Team Providers Care Laboratory Development Technician Name Role Phone Gisele Kulkarni MD Primary Care Provider +1- [phone] Josemanuel Mc MD Unavailable [phone] Ant Wilkes MD Unavailable Reason for Visit * Reason Comments Med Change Request Encounter Details Date Type Department Care Team (Late st Contact Info) Description 01/21/2025 Refill [facility] 230 [place] [address] Gisele Kulkarni MD 230 [place], [place] [phone] Moderate persistent asthma without complication Social History [...] Description 08/26/2025 9:00 AM EDT Office Visit [facility] OPTOMETRY [address] [place] [address] Jitendra, Natasha, OD 230 [place] [address] 09/14/2025 2:15 PM EST Office Visit [facility] 230 [place] [address] Gisele Kulkarni MD 230 [place] [address] documented as of this encounter Goals Goal Patient Goal Type Associated Problems Recent Progress Patient-Stated? Author Patient will adhere to medication regimen General No Corin Chaudhry Hemoglobin A1c < 7 Result Component 7.2( 12:49 PM EDT) No Yessica Morales, PharmD documented as of this encounter Visit Diagnoses Diagnosis Moderate persistent asthma without complication documented in this encounter Care Teams Laboratory Development Technician Relationship Specialty Start Date End Date Gisele Kulkarni MD [address] [place] [address] PCP - General Family Medicine 06/15/13 Josemanuel Mc MD [address] [place] [address] Cardiology 12/01/24 Ant Wilkes MD [address] [place] [address] [address] [place] [address] Allergy 12/01/24 documented as of this encounter
--- OUTSIDE RECORDS SUMMARY | 2025-07-26 11:28 | XMS_ITS | Encounter Summary ---
Author Organization [employer] Address [address] [place] [address] 7t [place] [address] Care Team Providers Care Display Artist Name Role Phone Gisele Kulkarni MD Primary Care Provider +1- [phone] Josemanuel Mc MD Unavailable [phone] Ant Wilkes MD Unavailable Reason for Visit * Reason Onset Date Comments Med Refill 11/08/2024 Encounter Details Date Type Department Care Team (Late st Contact Info) Description 11/08/2024 Refill [facility] 230 [place] [address] Gisele Kulkarni MD 230 [place], [place] [phone] Nausea Social History Tobacco Use Types Packs/Day [...] Description 08/26/2025 9:00 AM EDT Office Visit [facility] [address] [place] [address] JitendraDanilo snown, OD 230 [place] [address] 09/14/2025 2:15 PM EST Office Visit [facility] 230 [place] [address] Gisele Kulkarni MD 230 [place] [address] documented as of this encounter Goals Goal Patient Goal Type Associated Problems Recent Progress Patient-Stated? Author Patient will adhere to medication regimen General Corin Melendez Hemoglobin A1c < 7 Result Component 7.2( 12:49 PM EDT) No Yessica Morales, PharmD documented as of this encounter Visit Diagnoses Diagnosis Nausea Nausea alone documented in this encounter Care Teams Display Artist Relationship Specialty Start Date End Date Gisele Kulkarni MD 230 [place] [address] PCP - General Family Medicine 06/15/13 Josemanuel Mc MD [address] [place] [address] Cardiology 12/01/24 Ant Wilkes MD [address] [place] [address] [address] [place] [address] Allergy 12/01/24 documented as of this encounter
--- OUTSIDE RECORDS SUMMARY | 2025-07-26 11:28 | XMS_ITS | Encounter Summary ---
Author Organization [employer] Address [address] [place] [address] 7 [place] [address] Care Team Providers Care Field Rep Name Role Phone Gisele Kulkarni MD Primary Care Provider +1- [phone] Josemanuel Mc MD Unavailable [phone] Ant Wilkes MD Unavailable Reason for Visit * Reason Onset Date Comments Returning call 01/05/2024 Encounter Details Date Type Department Care Team (Late st Contact Info) Description 01/05/2024 Telephone [facility] [address] [place] [address] Gisele Kulkarni MD 230 [place], [place] [phone] Returning call Social History Tobacco Use Types [...] Programand SDOH services. CHW introducing herself from [facility] CM Department with CHW's name, department and direct contact number requesting call back. Will re-attempt to contact within 5 days. and address not confirmed. documented in this encounter Plan of Treatment Upcoming Encounters Date Type Department Care Team (Late st Contact Info) Description 08/26/2025 9:00 AM EDT Office Visit [facility] OPTOMETRY [address] [place] [address] Jitendra, Natasha, OD 230 [place] [address] 09/14/2025 2:15 PM EST Office Visit [facility] [address] [place] [address] Gisele Kulkarni MD 230 [place] [address] documented as of this encounter Goals Goal Patient Goal Type Associated Problems Recent Progress Patient-Stated? Author Patient will adhere to medication regimen General Corin Melendez Hemoglobin A1c < 7 Result Component 7.2( 12:49 PM EDT) No Yessica Morales, PharmD documented as of this encounter Visit Diagnoses Not on filedocumented in this encounter Care Teams Field Rep Relationship Specialty Start Date End Date Gisele Kulkarni MD 230 [place] [address] PCP - General Family Medicine 06/15/13 Josemanuel Mc MD [address] [place] [address] Cardiology 12/01/24 Ant Wilkes MD [address] [place] [address] [address] [place] [address] Allergy 12/01/24 documented as of this encounter
--- OUTSIDE RECORDS SUMMARY | 2025-07-26 11:28 | XMS_ITS | Encounter Summary ---
Author Organization [employer] Address [address] [place] [address] 7 [place] [address] Care Team Providers Care Route Rider Name Role Phone Gisele Kulkarni MD Primary Care Provider +1- [phone] Josemanuel Mc MD Unavailable [phone] Ant Wilkes MD Unavailable Reason for Visit * Reason Onset Date Comments Reschedule 10/21/2023 Encounter Details Date Type Department Care Team (Late st Contact Info) Description 10/21/2023 Telephone [facility] 230 [place] [address] Gisele Kulkarni MD [address] [place], [place] [phone] Reschedule Social History Tobacco Use Types Packs/Day [...] Miscellaneous Notes * Telephone Encounter - Amaris Ferro - 10/21/2023 10:06 AM EST Tc from pt requesting to r/s 10/21 F appointment. Please contact at [phone] documented in this encounter Plan of Treatment Upcoming Encounters Date Type Department Care Team (Late st Contact Info) Description 08/26/2025 9:00 AM EDT Office Visit [facility] [address] [place] [address] Jitendra, Natasha, OD 230 [place] [address] 09/14/2025 2:15 PM EST Office Visit [facility] 230 [place] [address] Gisele Kulkarni MD [address] [place] [address] documented as of this encounter Goals Goal Patient Goal Type Associated Problems Recent Progress Patient-Stated? Author Hemoglobin A1c < 7 Result Component 7.2(02/25/2025 12:49 PM EDT) No Yessica Morales, PharmD documented as of this encounter Visit Diagnoses Not on filedocumented in this encounter Care Teams Route Rider Relationship Specialty Start Date End Date Gisele Kulkarni MD 230 [place] [address] PCP - General Family Medicine 06/15/13 Josemanuel Mc MD [address] [place] [address] Cardiology 12/01/24 Ant Wilkes MD [address] [place] [address] [address] [place] [address] Allergy 12/01/24 documented as of this encounter
--- OUTSIDE RECORDS SUMMARY | 2025-07-26 11:28 | XMS_ITS | Encounter Summary ---
Author Organization [employer] Address [address] [place] [address] 7t [place] [address] Care Team Providers Care Proof Coins Inspector Name Role Phone Gisele Kulkarni MD Primary Care Provider +1- [phone] Josemanuel Mc MD Unavailable [phone] Ant Wilkes MD Unavailable Reason for Visit * Reason Onset Date Comments Med Refill 11/10/2024 Encounter Details Date Type Department Care Team (Late st Contact Info) Description 11/10/2024 Refill [facility] [address] [place] [address] Gisele Kulkarni MD 230 [place], [place] [phone] Nausea Social History Tobacco Use Types Packs/Day [...] Description 08/26/2025 9:00 AM EDT Office Visit [facility] OPTOMETRY [address] [place] [address] JitendraDanilo snown, OD 230 [place] [address] 09/14/2025 2:15 PM EST Office Visit [facility] MED[facility] 230 [place] [address] Gisele Kulkarni MD [address] [place] [address] documented as of this encounter Goals Goal Patient Goal Type Associated Problems Recent Progress Patient-Stated? Author Patient will adhere to medication regimen General Corin Melendez Hemoglobin A1c < 7 Result Component 7.2( 12:49 PM EDT) No Yessica Morales, PharmD documented as of this encounter Visit Diagnoses Diagnosis Nausea Nausea alone documented in this encounter Care Teams Proof Coins Inspector Relationship Specialty Start Date End Date Gisele Kulkarni MD 230 [place] [address] PCP - General Family Medicine 06/15/13 Josemanuel Mc MD [address] [place] [address] Cardiology 12/01/24 Ant Wilkes MD [address] [place] [address] [address] [place] [address] Allergy 12/01/24 documented as of this encounter
--- OUTSIDE RECORDS SUMMARY | 2025-07-26 11:28 | XMS_ITS | Encounter Summary ---
Author Organization [employer] Address [address] [place] [address] [place] [address] Care Team Providers Care Watershed Manager Name Role Phone Gisele Kulkarni MD Primary Care Provider +1- [phone] Yessica Morales PharmD Unavailable Josemanuel Mc MD Unavailable [phone] Ant Wilkes MD Unavailable Encounter Details Date Type Department Care Team (Late st Contact Info) Description 11/10/2022 Abstract [facility] 230 [place] [address] Gisele Kulkarni MD [address] [place], [place] [phone] Social History Tobacco Use Types Packs/Day Years [...] Encounters Date Type Department Care Team (Late Contact Info) Description 08/26/2025 9:00 AM EDT Office Visit [facility] OPTOMETRY [address] [place], [place] [phone] Natasha Ham, OD 230 [place] [address] 09/14/2025 2:15 PM EST Office Visit [facility] [address] [place] [address] Gisele Kulkarni MD 230 [place] [address] documented as of this encounter Procedures Procedure Name Priority Date/Time Associated Diagnosis Comments HPV HIGH RISK PCR Routine 07/11/2022 12:00 AM EDT PAP SMEAR Routine 07/11/2022 12:00 AM EDT documented in this encounter Results * HPV High Risk PCR (07/11/2022 12:00 AM EDT) Swab Cervical swab / Unknown Gisele Kulkarni MD LAB MICROBIOLOGY - GENERAL ORDERABLES Final Result Performing Organization Address [facility] Co de Phone Number [facility] [address] [place] [phone] * Pap Smear (07/11/2022 12:00 AM EDT) Swab Gisele Kulkarni MD LAB CYTOLOGY ORDERABLES Fi nal Result Performing Organization Address [facility]/ZIP Co de Phone Number [facility] [address] [place] [phone] documented in this encounter Visit Diagnoses Not on filedocumented in this encounter Care Teams Watershed Manager Relationship Specialty Start Date End Date Gisele Kulkarni MD [address] [place] [address] PCP - General Family Medicine 06/15/13 Yessica Morales, UmaD [address] [place] [address] Pharmacist Internal Medicine 03/18/23 08/24/23 Josemanuel cM MD [address] [place] [address] Cardiology 12/01/24 Ant Wilkes MD [address] [place] [address] [address] [place] [address] Allergy 12/01/24 documented as of this encounter
--- OUTSIDE RECORDS SUMMARY | 2025-07-26 11:28 | XMS_ITS | Encounter Summary ---
Author Organization [employer] Address [address] [place] [address] 7t [place] [address] Care Team Providers Care Floor Sander Name Role Phone Gisele Kulkarni MD Primary Care Provider +1- [phone] Josemanuel Mc MD Unavailable [phone] Ant Wilkes MD Unavailable Reason for Visit * Reason Onset Date Comments Med Refill 01/04/2025 Encounter Details Date Type Department Care Team (Late st Contact Info) Description 01/04/2025 Refill [facility] 230 [place] [address] Gisele Kulkarni MD 230 [place] [address] Nausea Social History Tobacco Use Types Packs/Day [...] Description 08/26/2025 9:00 AM EDT Office Visit [facility] OPTOMETRY [address] [place] [address] JitendraDanilo snown, OD 230 [place] [address] 09/14/2025 2:15 PM EST Office Visit [facility] 230 [place] [address] Gisele Kulkarni MD [address] [place] [address] documented as of this encounter Goals Goal Patient Goal Type Associated Problems Recent Progress Patient-Stated? Author Patient will adhere to medication regimen General Corin Melendez Hemoglobin A1c < 7 Result Component 7.2( 12:49 PM EDT) No Yessica Morales, PharmD documented as of this encounter Visit Diagnoses Diagnosis Nausea Nausea alone documented in this encounter Care Teams Floor Sander Relationship Specialty Start Date End Date Gisele Kulkarni MD 230 [place] [address] PCP - General Family Medicine 06/15/13 Josemanuel Mc MD [address] [place] [address] Cardiology 12/01/24 Ant Wilkes MD [address] [place] [address] [address] [place] [address] Allergy 12/01/24 documented as of this encounter
--- OUTSIDE RECORDS SUMMARY | 2025-07-26 11:28 | XMS_ITS | Encounter Summary ---
Author Organization [employer] Address [address] [place] [address] 7 [place] [address] Care Team Providers Care Blood Splatter Analyst Name Role Phone Gisele Kulkarni MD Primary Care Provider +1- [phone] Yessica Morales PharmD Unavailable Josemanuel Mc MD Unavailable [phone] Ant Wilkes MD Unavailable Reason for Visit * Reason Onset Date Comments Nurse Triage 05/28/2023 Encounter Details Date Type Department Care Team (Late st Contact Info) Description 05/28/2023 Telephone [facility] MED[facility]INE 230 [place], [place] [phone] Gisele Kulkarni MD 230 [place], [place] [phone] Nurse Triage Social History Tobacco Use Types [...] - 05/28/2023 4:29 PM EDT Triage call [facility] [place] [id number] Pt reports headache which hurts on the front and back of head. Pt reports vomiting 5x since last night. Pt reports dizziness for last 2 days. Pt reports chest pain in the middle of the chest which radiates to right hand. Pt was just seen by deposition reporter 05/02/23 for tachycardia with increase in dilitiazem at that time.. Pt is not drinking adequate liquids. Pt reports BP today is 139/149. Pt sounds tired, weak. Advised Pt to call 911 and Pt agrees. Protocol Used: Chest Pain (Adult) Protocol-Based Disposition: Go to ED/UCC Now (or to Office with PCP Approval) [...] accepted this outcome Please contact pt at [phone] (Iraqi) documented in this encounter Plan of Treatment Upcoming Encounters Date Type Department Care Team (Late st Contact Info) Description 08/26/2025 9:00 AM EDT Office Visit [facility] OPTOMETRY [address] [place] [address] Natasha Ham, OD 230 [place] [address] 09/14/2025 2:15 PM EST Office Visit [facility] 230 [place] [address] Gisele Kulkarni MD 230 [place] [address] documented as of this encounter Goals Goal Patient Goal Type Associated Problems Recent Progress Patient-Stated? Author Hemoglobin A1c < 7 Result Component 7.2(02/25/2025 12:49 PM EDT) No Yessica Morales, PharmD documented as of this encounter Visit Diagnoses Not on filedocumented in this encounter Care Teams Blood Splatter Analyst Relationship Specialty Start Date End Date Gisele Kulkarni MD 230 [place] [address] PCP - General Family Medicine 06/15/13 Yessica Morales PharmD 230 [place] [address] Pharmacist Internal Medicine 03/18/23 08/24/23 Josemanuel Mc MD [address] [place] [address] Cardiology 12/01/24 Ant Wilkes MD [address] [place] [address] [address] [place] [address] Allergy 12/01/24 documented as of this encounter
--- OUTSIDE RECORDS SUMMARY | 2025-07-26 11:28 | XMS_ITS | Encounter Summary ---
Author Organization [employer] Address [address] [place] [address] 7t [place] [address] Care Team Providers Care Automobile Detailer Name Role Phone Gisele Kulkarni MD Primary Care Provider +1- [phone] Josemanuel Mc MD Unavailable [phone] Ant Wilkes MD Unavailable Reason for Visit * Reason Comments Med Change Request Encounter Details Date Type Department Care Team ([facility] st Contact Info) Description 01/24/2025 Refill [facility] [address] [place] [address] Gisele Kulkarni MD 230 [place], [place] [phone] Social History Tobacco Use Types Packs/Day Years [...] Description 08/26/2025 9:00 AM EDT Office Visit [facility] OPTOMETRY [address] [place] [address] Natasha Ham, OD 230 [place] [address] 09/14/2025 2:15 PM EST Office Visit [facility] MED[facility]INE [address] [place] [address] Gisele Kulkarni MD [address] [place] [address] documented as of this encounter Goals Goal Patient Goal Type Associated Problems Recent Progress Patient-Stated? Author Patient will adhere to medication regimen General Corin Melendez Hemoglobin A1c < 7 Result Component 7.2( 12:49 PM EDT) No Yessica Morales, PharmD documented as of this encounter Visit Diagnoses Not on filedocumented in this encounter Care Teams Automobile Detailer Relationship Specialty Start Date End Date Gisele Kulkarni MD [address] [place] [address] PCP - General Family Medicine 06/15/13 Josemanuel Mc MD [address] [place] [address] Cardiology 12/01/24 Ant Wilkes MD [address] [place] [address] [address] [place] [address] Allergy 12/01/24 documented as of this encounter
--- OUTSIDE RECORDS SUMMARY | 2025-07-26 11:28 | XMS_ITS | Clinical Summary ---
Author Organization [employer] Address [address] [place] [address] 7[address] [place] [address] Care Team Providers Care Backup Administrative Coordinator Name Role Phone Gisele Kulkarni MD Primary Care Provider [phone] Josemanuel Mc MD Unavailable [phone] Ant Wilkes MD Unavailable Allergies No known [...] complication, without long-term current use of insulin (HCC) USE TO TEST BLOOD SUGAR ONCE A DAY 100 strip 1 06/21/20 24 Active metFORMIN XR (Glucophage-XR) 750 MG 24 hr tabletIndications: Type 2 diabetes mellitus without complication, without long-term current use of insulin (HCC) TAKE 1 TABLET BY MOUTH EVERY DAY [...] per day. 1 each 01/22/20 25 Active meloxicam (Mobic) 15 MG tablet TAKE 1 TABLET BY MOUTH EVERY DAY 30 tablet 06/20/20 25 Active Diclofenac Sodium 1 % gel APPLY 1 INCH TOPICALLY IF NEEDED IN THE MORNING AND AT BEDTIME FOR PAIN. 100 g 06/20/20 25 Active Acetaminophen Extra Strength 500 MG tablet TAKE 1 TABLET BY MOUTH EVERY 6 HOURS NEEDED FOR MILD PAIN 120 tablet 06/20/20 25 Active Active Problems Problem Noted Date Diagnosed [...] 4:21 PM EST): I [facility] C/w iron supplement for anemia CBC to be recheck and f/u with PCP and [facility] Other specified health status 10/06/2023 Overview (05/20/2025): -next comprehensive annual evaluation due after 10/06/2024 -eye care facilitated by [...] academic disorder 10/30/2022 Supraventricular tachycardia 10/30/2022 Overview (05/04/2025): -choric atrial tachycardia -Holter monitor 2019 showed [...] with Dr. Rios 11/20/2023 Holter ordered -seen 05/03/[address] Rios, cardiology note states on verapamil 40mg tid, follow up 3 months Assessment & Plan (11/24/2023 4:16 PM EST): [...] CDTM on 08/26/22. Moderate recurrent major depression (CMS/HCC) Well controlled intermittent asthma 03/27/2022 Asthma 02/01/2020 10/06/2023 Resolved Problems Problem Noted Date Diagnosed Date Resolved Date Physical exam 10/06/2023 12/01/2024 Overview (10/06/2023): -Normal growth and development. -Anticipatory guidance discussed. -Preventative care / harm reduction discussed. Assessment & Plan (10/06/2023 9:57 AM EST): -Normal growth and development. -Anticipatory guidance discussed. -Preventative care / harm reduction discussed. Encounters Date Type Department Care Team Description 07/26/2025 Orders Only GENERIC EXTERNAL DATA DEPARTMENT Provider, Generic External Data 07/19/2025 Travel 07/19/[address] [address] Gisele Kulkarni MD Nurse Triage 06/19/2025 Refill [facility] [address] [place] [phone] Gisele Kulkarni MD 05/19/[address] [address] Gisele Kulkarni MD chatprep 05/18/2025 Refill [facility] [address] [place] [address] Gisele Kulkarni MD 05/12/2025 Patient Outreach [address] [address] Gisele Kulkarni MD Pre-visit Planning ((Unable to reach for PVP screening, LVM) to be completed in office ) from Last 3 Months Immunizations Immunization Administration Dates Next Due DTaP 11/23/1992, 2,06/20/1992,1988,03/19/1988,1987,1987 [...] 98 02/23/2025 6:18 PM EDT Temperature 36.1 C (97 F) 02/23/2025 5:50 PM EDT Respiratory Rate 20 [...] 08/26/2025 9:00 AM EDT Office Visit [facility] [address] [place] [address] JitendraNatasha snow, OD [address] [place] [address] 09/14/2025 2:15 PM EST Office Visit [facility] [address] [place] [address] Gisele Kulkarni MD [address] [place] [address] Health Maintenance Due Date Last Done Comments Depression Screening 1987 Disability Screening 1987 Diabetes: Foot Exam 1997 Alcohol/Substance Use Screening 1999 Family Planning (PISQ) 2002 Pneumococcal Vaccine: Pediatrics (0 to 5 Years) and At-Risk Patients (6 to 49) Years (1 of 2 - PCV) 2006 HPV Vaccines (3 - 3-dose series) 03/03/2009 12/09/2008, 08/26/2007 SDOH Screening 10/01/2024 10/01/2023 Diabetes: Hemoglobin A1C 05/28/2025 025, 11/24/2023, 10/06/2023, Additional history exists COVID-19 Vaccine ( season) 2025 02/21/2022, 01/16/2022 Influenza Vaccine (#1) 2025 6, 10/05/2015, 09/11/2012, Additional history exists Pap Smear 07/11/2025 07/11/2022, 06/27, 11/14/2015 Tobacco Screening 02/23/2026 02/23/2025 Diabetes: Urine Protein Screening 02/25/2026 02/25/2025, 10/06/2023 Lipid Panel 02/25/2026 02/25/2025, 09/26, 03/25/2023, Additional history exists DTaP/Tdap/Td Vaccines (7 - Td or Tdap) [...] Component 7.2( 12:49 PM EDT) No Yessica Morales PharmD Procedures Procedure Name Priority Date/Time Associated Diagnosis Comments XR CHEST 1 VIEW Routine 07/26/2025 10:50 AM EDT COVID-19 ID NOW (BOTELLO) Routine 07/26/2025 9:52 AM EDT INFLUENZA A B2 ID NOW (BOTELLO) Routine 07/26/2025 9:52 AM EDT ALBUMIN, RANDOM URINE W/CREATININE Routine 02/25/2025 12:49 PM EDT Type 2 diabetes mellitus without complication, without long-term current use of insulin (CMS/HCC) HEMOGLOBIN A1C Routine 02/25/2025 12:49 PM EDT Type 2 diabetes mellitus without complication, without long-term current use of insulin (CMS/HCC) LIPID PANEL, STANDARD Routine 02/25/2025 12:49 PM EDT Type 2 diabetes mellitus without complication, without long-term current use of insulin (CMS/HCC) HEPATITIS C AB W/REFL TO HCV RNA, QN, PCR Routine 10/06/2023 12:16 PM EST Routine screening for STI (sexually transmitted infection) HIV 1/2 ANTIGEN/ANTIBODY, FOURTH GENERATION W/RFL Routine 10/06/2023 12:16 PM EST Routine screening for STI (sexually transmitted infection) HPV HIGH RISK PCR Routine 07/11/2022 12: 00 AM EDT PAP SMEAR Routine 07/11/2022 12:00 AM EDT from Last 3 Months or Most Recently Relevant to Health Maintenance Results * XR Chest 1 View (07/26/2025 10:50 AM EDT) Anatomical Region Laterality Modality Chest Radiographic Nurys ging 07/26/2025 10:5 0 AM EDT Narrative 07/26/2025 11:02 AM EDT [address] [address] XRay Report Signed Patient: Indigo Thompson MR#: [id number] : 1985 Acct:[id number] Age/Sex: 40 / F ADM Date: 07/26/25 Loc: .ED Attending Dr: Ordering Physician: Jerzy Kelley Date of Service: 07/26/25 Procedure(s): XR chest 1V Accession Number(s): [id number] cc: Jerzy Kelley; Gisele Kulkarni MD Reason for Exam: Pnuemonia? EXAMINATION: XR CHEST CLINICAL INFORMATION: Pnuemonia? COMPARISON: April 11, 2025 and July 10, 2024 TECHNIQUE: Frontal view of the chest was obtained. FINDINGS: No significant abnormality is noted involving the heart, lungs, mediastinum, bony thorax or soft tissues. 8 mm nodular density projecting along the left cardiac apex on the prior examination is not as well demonstrated on today's examination and could be obscured or could be vascular in nature. XR/XR chest 1V IMPRESSION: No acute disease Electronically signed by: Tawanda Jolly MD 07/26/2025 10:59 AM EDT Dictated By: Tawanda Jolly MD Signed By: <Electronically signed by Tawanda Jolly MD in OV> 07/26/25 1059 DD/ 1050 TD/TT: 07/26/25 1054 Human Services Manager: Procedure Note Donotuseinterpreter, Image - 07/26/[address] [address] XRay Report Signed Patient: Indigo ThompsonMR#: [id number] : 1985Acct:[id number] Age/Sex: 40 / FADM Date: 07/26/25 Loc: .ED Attending Dr: Ordering Physician: Jerzy Kelley Date of Service: 07/26/25 Procedure(s): XR chest 1V Accession Number(s): [id number] cc: Jerzy Kelley; Gisele Kulkarni MD Reason for Exam: Pnuemonia? EXAMINATION: XR CHEST CLINICAL INFORMATION: Pnuemonia? COMPARISON: April 11, 2025 and July 10, 2024 TECHNIQUE: Frontal view of the chest was obtained. FINDINGS: No significant abnormality is noted involving the heart, lungs, mediastinum, bony thorax or soft tissues. 8 mm nodular density projecting along the left cardiac apex on the prior examination is not as well demonstrated on today's examination and could be obscured or could be vascular in nature. XR/XR chest 1V IMPRESSION: No acute disease Electronically signed by: Tawanda Jolly MD 07/26/2025 10:59 AM EDT Dictated By: Tawanda Jolly MD Signed By: <Electronically signed by Tawanda Jolly MD in OV> 07/26/25 1059 DD/ 1050 TD/TT: 07/26/25 1054 Human Services Manager: [facility] External Provider IMG XR PROCEDURES Edited Result - Final * Influenza A B2 ID NOW (Bot[place]) (07/26/2025 9:52 AM EDT) IDNOW SERIAL# [id number] [facility] Influenza A Negative Negative [facility] Influenza B2 Negative Negative [facility] Influenza A B2 Note See Note [facility] Comment:The Botello ID NOW In fluenza A B2 test is used for thequalitative detection of influenza A and B from patientswith signs and symptoms of respiratory infection.Negative results do not preclude influenza virus infectionand should not be used as the sole basis for diagnosis,treatment or other patient management decisions.There is a risk of false negative results due to thepresence of variants in the viral targets of the assay, lowlevels of virus in the specimen and co- infection withRespiratory Syncytial Virus. 07/26/2025 9:52 AM EDT 07/26/2025 10:04 AM EDT us Generic External Data Provider LAB MICROBIOLOGY - GENERAL ORDERABLES Final Result Performing Organization Address City/[facility]/ZIP Co de Phone Number [facility] [address] [place] [address] [phone] * COVID-19 ID NOW ([facility]O) (07/26/2025 9:52 AM EDT) IDNOW SERIAL# [id number] [facility] COVID-19 TEST Negative Negative [facility] COVID-19 NOTE See Note [facility] Comment: Results are for the identification of SARS-CoV2 RNA. TheSARS-CoV2 RNA is generally detectable in respiratory samplesduring the acute phase of infection. Positive results areindicative of the presence of SARS-CoV-2 RNA; clinicalcorrelation with patient history and other diagnosticinformation is necessary to determine patient infectionstatus. Positive results do not rule out bacterial infectionor co- infection with other viruses.Testing facilities within the [facility] and itsterritories are required to report all positive results tothe appropriate public health authorities.Negative results should be treated as presumptive and, ifinconsistent with clinical signs and symptoms or necessaryfor patient management, should be tested with differentauthorized or cleared molecular tests. Negative results donot preclude SARS-CoV2 RNA infection and should not be usedas the sole basis for patient management decisions. Negativeresults should be considered in the context of a patient'srecent exposures, history and the presence of clinical signsand symptoms consistent with COVID-19.This test has been authorized by the FDA under an EmergencyUse Authorization (EUA) for use by authorized laboratories.Testing performed on the Botello ID NOW utilizing NAAT. 07/26/2025 9:52 AM EDT 07/26/2025 10:04 AM EDT us Generic External Data Provider LAB MOLECULAR BRAYAN GNOSTICS ORDERABLES Final Result Performing Organization Address City/[facility]/ZIP Co de Phone Number [facility] [address] [place] [address] [phone] * Albumin, Random Urine W/Creatinine (02/25/2025 12:49 PM EDT) Creatinine, Urine 233.13 mg/dL [facility] Microalbumin Urine 33.0 mg/L [facility] Microalbum Creatinine Ratio Ur 14.1 <30 ug/mg cr [facility] Comment:Albumin/Creatinine R atio Reference Ranges: Normal: < 30 ug/mg creatinine Microalbuminuria: 30 - 300 ug/mg creatinineClinical Albuminuria: > 300 ug/mg creatinine Urine 02/25/2025 12:4 9 PM EDT 02/25/2025 3:58 PM EDT Gisele Kulkarni MD LAB URINE ORDERABLES Final Result Performing Organization Address [facility]/ZIP Co de Phone Number [facility] [address] [place] [phone] * (ABNORMAL) Hemoglobin A1c (02/25/2025 12:49 PM EDT) Hemoglobin A1c 7.2(H) <6.0 % [facility] Comment:Hemoglobin A1C Refer ence Range Adults: 4.8 - 6.0 % Non diabetic: < 6.0 % Goal: < 7.0 %Additional Action Suggested: > 8.0 %Note: Hemoglobin A1c results are invalid for patients with abnormal amounts of HbF. Blood transfusions may impact the HbA1c concentration in the patient sample. Estimated Average Glucose 160 mg/dL [facility] Comment:eAG = Estimated ave rage glucose which is %A1C expressed asaverage glucose, using the formula of the P6G-ByvymtkPfslisc Glucose study (ADAG), Diabetes Care, Vol.31,#8,May. 2007 Blood Venous blood specimen / Unknown 02/25/2025 12:49 PM EDT 02/25/2025 4:04 PM EDT Gisele Kulkarni MD LAB BLOOD ORDERABLES Final Result Performing Organization Address City/[facility]/ZIP Co de Phone Number [facility] [address] [place] [phone] * (ABNORMAL) Lipid Panel, Standard (02/25/2025 12:49 PM EDT) Triglycerides 134 <150 mg/dL [facility] Comment:Desirable Triglyceri de: less than 150 mg/dLBorderline High Triglyceride 150-199 mg/dLHigh Triglyceride: 200-499 mg/dLVery High Triglyceride: greater than or equal to 5OO mg/dL Cholesterol 173 <200 mg/dL [facility] Comment:Desirable Cholestero l: less than 200 mg/dLBorderline High Cholesterol: 200-239 mg/dLHigh Cholesterol: greater than 239 mg/dL LDL Cholesterol Calculated 103(H) <100 mg/dL [facility] Comment:Desirable LDL: less than 100 mg/dLNear Optimal/Above Optimal LDL: 110- 129 mg/dLBorderline High LDL: 130-159 mg/dLHigh LDL: 160-189 mg/dLVery High LDL: greater than or equal to 190 mg/dL HDL Cholesterol 44 >40 mg/dL [facility] Comment:Desirable HDL: great er than 40 mg/dL Note: This HDL assay may give artificially low results in patients with liver disease. Blood Venous blood specimen / Unknown 02/25/2025 12:49 PM EDT 02/25/2025 4:04 PM EDT Gisele Kulkarni MD LAB BLOOD ORDERABLES Final Result Performing Organization Address City/[facility] Co de Phone Number [facility] [address] [place] [phone] * Hepatitis C Antibody with Reflex to HCV, RNA, Quantitative, Real-Time PCR (10/06/2023 12:16 PM EST) Hepatitis C Antibody Nonreactive Nonreactive [facility] Comment:Antibodies to HCV no t detected; does not exclude early acuteHCV infection. Blood Venous blood specimen / Unknown 10/06/2023 12:16 PM EST 10/06/2023 1:01 PM EST Gisele Kulkarni MD LAB BLOOD ORDERABLES Final Result Performing Organization Address City/State/[facility] Co de Phone Number [facility] [address] [place] [phone] * HIV-1/2 Antigen and Antibodies, Fourth Generation, with Reflexes (10/06/2023 12:16 PM EST) HIV AB/AG Nonreactive Nonreactive [facility] Comment:HIV-1 p24 Ag and/or HIV-1/HIV-2 Ab not detected.A test result that is nonreactive does not exclude thepossibility of exposure to or infection with HIV-1 and/orHIV-2. Nonreactive results in this assay for individualswith prior exposure to HIV-1 and/or HIV-2 may be due toantigen and antibody levels that are below the limit ofdetection of this assay.The [facility] HIV Ag/Ab Combo assay result andsupplemental assay results should be interpreted inconjunction with the patient's clinical presentation,history and other laboratory results. If the results areinconsistent with clinical evidence, additional testing issuggested to confirm the result. Blood Venous blood specimen / Unknown 10/06/2023 12:16 PM EST 10/06/2023 1:01 PM EST Gisele Kulkarni MD LAB BLOOD ORDERABLES Final Result Performing Organization Address [facility] de Phone Number [facility] [address] [place] [phone] * HPV High Risk PCR (07/11/2022 12:00 AM EDT) Swab Cervical swab / Unknown Gisele Kulkarni MD LAB MICROBIOLOGY - GENERAL ORDERABLES Final Result Performing Organization Address [facility] Co de Phone Number [facility] [address] [place] [address] [phone] * Pap Smear (07/11/2022 12:00 AM EDT) Swab Gisele Kulkarni MD LAB CYTOLOGY ORDERABLES nal Result [facility] [address] [place] [address] [phone] from Last 3 Months or Most Recently Relevant to Health Maintenance Insurance MEDICARE Member Subscriber Plan / Payer (Ef fective 2024-Present) Name:Indigo Thompson Member ID:[id number] Relation to Subscriber:Self Name:Indigo Thompson Subscriber ID:[id number] Payer ID:STATE Group ID:Not on file Type:Medicare Address: [facility] [address] [phone] [facility] ST[facility] Advance Directives Documents on File Type Date Recorded Patient Electrician Helper Expl anation Advance Directives and Living Will 02/24/2025 11:52 AM Health Care Proxy Care Teams Backup Administrative Coordinator Relationship Specialty Start Date End Date [place], Gisele, MD [address] [place] [address] PCP - General Family Medicine 06/15/13 Josemanuel Mc MD [address] [place] [address] Cardiology 12/01/24 Ant Wilkes MD [address] [place] [address] [phone] [place] [address] Allergy 12/01/24
--- OUTSIDE RECORDS SUMMARY | 2025-07-26 11:28 | XMS_ITS | Encounter Summary ---
Author Organization [employer] Address [address] [facility] 7t [place] [address] Care Team Providers Care Reduction Furnace Operator Helper Name Role Phone Gisele Kulkarni MD Primary Care Provider [phone] Josemanuel Mc MD Unavailable [phone] Ant Wilkes MD Unavailable Encounter Details Date Type Department Care Team ([facility] st Contact Info) Description 07/26/2025 Orders Only GENERIC EXTERNAL DATA DEPARTMENT Provider, Generic External Data Social History Tobacco Use Types Packs/Day Years [...] Office Visit [facility] [address] [place] [address] JitendraNatasha snow, OD [address] [place] [address] 09/14/2025 2:15 PM EST Office Visit [facility] MEDIC[facility] [address] [place] [address] Gisele Kulkarni MD [address] [place] [address] documented as of this encounter Goals Goal Patient Goal Type Associated Problems Recent Progress Patient-Stated? Author Patient will adhere to medication regimen General Corin Melendez Hemoglobin A1c < 7 Result Component 7.2( 12:49 PM EDT) No Yessica Morales, Tal documented as of this encounter Procedures Procedure Name Priority Date/Time Associated Diagnosis Comments XR CHEST 1 VIEW Routine 07/26/2025 10:50 AM EDT INFLUENZA A B2 ID NOW (BOTELLO) Routine 07/26/2025 9:52 AM EDT COVID-19 ID NOW (BOTELLO) Routine 07/26/2025 9:52 AM EDT documented in this encounter Results * XR Chest 1 View (07/26/2025 10:50 AM EDT) Anatomical Region Laterality Modality Chest Radiographic Nurys ging 07/26/2025 10:5 0 AM EDT Narrative 07/26/2025 11:02 AM EDT [facility] [address] [place] [address] XRay Report Signed Patient: Indigo Thompson MR#: [id number] : 1985 Acct:[id number] Age/Sex: 40 / F ADM Date: 07/26/25 Loc: .ED Attending Dr: Ordering Physician: Jerzy Kelley Date of Service: 07/26/25 Procedure(s): XR chest 1V Accession Number(s): [id number] cc: Jerzy Kelley; Gisele Kulkarni MD Reason [...] Tawanda Jolly MD 07/26/2025 10:59 AM EDT RP Dictated By: Tawanda Jolly MD Signed By: <Electronically signed by Tawanda Jolly MD in OV> 07/26/25 1059 DD/ 1050 TD/TT: 07/26/25 1054 Marketing Technologist: Procedure Note Donotuseinterpreter, Image - 07/26/[address] [address] XRay Report Signed Patient: Indigo ThompsonMR#: [id number] : 1985Acct:[id number] Age/Sex: 40 / FADM Date: 07/26/25 Loc: .ED Attending Dr: Ordering Physician: Jerzy Kelley Date of Service: 07/26/25 Procedure(s): XR chest 1V Accession Number(s): [id number] cc: Jerzy Kelley; Gisele Kulkarni MD Reason [...] Tawanda Jolly MD 07/26/2025 10:59 AM EDT RP Dictated By: Tawanda Jolly MD Signed By: <Electronically signed by Tawanda Jolly MD in OV> 07/26/25 1059 DD/ 1050 TD/TT: 07/26/25 1054 Marketing Technologist: [facility] External Provider IMG XR PROCEDURES Edited Result - Final * COVID-19 ID NOW ([employer]) (07/26/2025 9:52 AM EDT) IDNOW SERIAL# [id number] [facility] COVID-19 TEST Negative Negative [facility] COVID-19 NOTE See Note [facility] Comment: Results are for the identification of SARS-CoV2 RNA. TheSARS-CoV2 RNA is generally detectable in respiratory samplesduring the acute phase of infection. Positive results areindicative of the presence of SARS-CoV-2 RNA; clinicalcorrelation with patient history and other diagnosticinformation is necessary to determine patient infectionstatus. Positive results do not rule out bacterial infectionor co- infection with other viruses.Testing facilities within the [facility] and itsterritories are required to report all [...] 9:52 AM EDT 07/26/2025 10:04 AM EDT Generic External Data Provider LAB MOLECULAR BRAYAN GNOSTICS ORDERABLES Final Result Performing Organization Address [facility] Co de Phone Number [facility] [address] [place] [phone] * Influenza A B2 ID NOW ([place]) (07/26/2025 9:52 AM EDT) IDNOW SERIAL# [id number] [facility] Influenza A Negative Negative [facility] Influenza B2 Negative Negative [facility] Influenza A B2 Note See Note [facility] Comment:The Botello ID NOW In [...] 9:52 AM EDT 07/26/2025 10:04 AM EDT Generic External Data Provider LAB MICROBIOLOGY - GENERAL ORDERABLES Final Result Performing Organization Address [facility]/ZIP Co de Phone Number [facility] [address] [place] [phone] documented in this encounter Visit Diagnoses Not on filedocumented in this encounter Care Teams Reduction Furnace Operator Helper Relationship Specialty Start Date End Date Gisele Kulkarni MD [address] [place] [address] PCP - General Family Medicine 06/15/13 Josemanuel Mc MD [address] [place] [address] Cardiology 12/01/24 Ant Wilkes MD [address] [place] [address] [phone] [place] [address] Allergy 12/01/24 documented as of this encounter
[2025-07-26 11:34] LABS: MANUAL DIFF FLAG NO
[2025-07-26 11:36] LABS: Hematocrit 42.2 % (37.0-47.0); Hemoglobin 13.4 g/dl (12.0-16.0); Imm Gran Abs Auto 0.03 X10*3/uL (0.00-0.03); Imm Gran Pct Auto 0.3 % (0.0-0.4); Lymphocytes Absolute Auto 2.0 X10*3/uL (1.2-4.9); Mean Corpuscular HGB Conc 31.8 g/dl (31.0-35.0); Mean Corpuscular Hemoglobin 25.0 pg (27.0-33.0); Mean Corpuscular Volume 78.7 fL (80.0-98.0); NRBC Abs Auto 0.000 X10*3/uL (0.0-0.012); NRBC Pct Auto 0.0 /100WBC (0.0-0.2); Platelet Count 293 X10*3/uL (160-400); Red Blood Count 5.36 X10*6/uL (4.20-5.50); White Blood Count 10.3 X10*3/uL (4.8-10.8)
[2025-07-26 11:43] LABS: D Dimer High Sensitivity < 150 NG/ML
--- NOTE | 2025-07-26 12:08 | PC.NURSE ---
Back documentation Patient had syncope episode when rounding on PT, No head strike no LOC, This Nurse and new car inspector were with Patient. Provider Aware, 20G IV in right AC access & Labs obtained. PT placed on bedside Monitor. EKG obtained. PT medicated per dec. PT Axo3. Still complaining of SOB and chest pain provider Alexis aware.
[2025-07-26 12:14] LABS: NT Pro B Type Natriuretic Pept 18.9 pg/mL (<300)
[2025-07-26 12:18] LABS: Troponin-I High Sensitivity < 2.7 ng/L (<3.5-17.0)
[2025-07-26 12:20] LABS: Alanine Aminotransferase 15 U/L (0-31); Albumin Level 3.8 g/dL (3.5-5.0); Alkaline Phosphatase 94 U/L (39-117); Anion Gap 12 (12-20); Aspartate Amino Transferase 37 U/L (5-31); Blood Urea Nitrogen 9 mg/dL (9-16); Calcium 8.8 mg/dL (8.4-10.2); Carbon Dioxide 22 mmol/L (22-29); Chloride 109 mmol/L (96-108); Creatinine Clr Calc Pharmacy 121.4; Estimated Glomerular Filt Rate > 60; Potassium 4.5 mmol/L (3.3-5.1); Sodium 138 mmol/L (135-145); Total Protein 7.9 g/dL (6.5-8.0)
--- NOTE | 2025-07-26 12:45 | PC.NURSE ---
PT medicated per MAR, VS updated.
[2025-07-26] MEDS: iohexoL 350 MG/ML 100 ML INFUS..BTL IV (13:11)
[2025-07-26 13:45] LABS: Reflex Lactate? Lactic Acid Added
[2025-07-26 15:24] LABS: ~Lactic Acid-LAB USE ONLY 2.3 mmol/L (0.5-2.0)
[2025-07-26 15:29] LABS: Troponin-I High Sensitivity < 2.7 ng/L (<3.5-17.0)
[2025-07-26 17:04] LABS: Reflex Lactate? 2 Y
[2025-07-26 18:10] LABS: ~Lactic Acid-LAB USE ONLY 2.9 mmol/L (0.5-2.0)
== END 2025-07-26 18:22 | disposition home or self-care (01) ==
PROVIDERS: Physician Assistant; Emergency Provider Emergency Medicine; PCP Family Medicine
DX: J45.901 Unspecified asthma with (acute) exacerbation (principal); R55 Syncope and collapse; R06.02 Shortness of breath; R00.2 Palpitations; R00.0 Tachycardia, unspecified; Z03.818 Encounter for observation for suspected exposure to other biological agents ruled out
CPT/HCPCS: 36415; 70450; 71045; 71275; 80053; 83605; 83880; 84484; 84702; 85025; 85379; 87502; 87635; 93005; 94640; 96361; 96374; 99285; J2405; Q9967

== ENCOUNTER → 2025-07-26 10:08 | Outpatient (BNV) | payer MEDICARE, MEDICAID, SELFPAY | PROVIDERS: Emergency Provider Emergency Medicine; PCP Family Medicine; Visit Provider Internal Medicine | DX: R00.0 Tachycardia, unspecified (principal) | CPT/HCPCS: 93010 ==

== ENCOUNTER → 2025-07-26 10:30 | Outpatient (BNV) | payer MEDICARE, MEDICAID, SELFPAY | PROVIDERS: Emergency Provider Emergency Medicine; PCP Family Medicine; Visit Provider Radiology Diagnostic Radiology | DX: R42 Dizziness and giddiness (principal) | CPT/HCPCS: 70450; 71275 ==

== ENCOUNTER 2025-08-09 15:00 | Emergency (ER) | payer MEDICARE, MEDICAID, SELFPAY ==
--- NOTE | ~2025-08-09 | XR_ITS ---
EXAMINATION: XR CHEST CLINICAL INFORMATION: chest pain COMPARISON: 07/26/2025 TECHNIQUE: 2 views of the chest were obtained. FINDINGS: Lungs appear similar to the prior examination. There are no new opacities. There are coarse markings in the lung bases and left suprahilar lung. There is no pleural effusion.. XR/XR chest 2V IMPRESSION: Stable chest x-ray with coarse markings in the lung bases and left perihilar lung. Electronically signed by: Tawanda Jolly MD 08/09/2025 04:01 PM EDT
[2025-08-09 15:16] VITALS: BP 165/112; PULSE 122; RESP 18; TEMP 36.6; O2SAT 98; BMI 34.2
--- NOTE | 2025-08-09 15:18 | ECG_ITS ---
Test Reason : chest pain Blood Pressure : */* mmHG Vent. Rate : 109 BPM Atrial Rate : 109 BPM P-R Int : 164 ms QRS Dur : 74 ms QT Int : 362 ms P-R-T Axes : 33 5 -18 degrees QTcB Int : 487 ms Sinus tachycardia T wave abnormality, consider inferior ischemia Abnormal ECG When compared with ECG of 26-Jul-2025 11:19, No significant change was found Referred By: Gabriela Verdugo Electronically Signed By: Zeke Bailey
--- NOTE | 2025-08-09 15:18 | ED_ITS ---
HPI - General Adult General Chief complaint: General Medical Stated complaint: High BP, vomiting Related Data Previous Rx's ?Medication ?Instructions ?Recorded ondansetron 4 mg disintegrating 4 mg PO TID PRN nausea and 12/21/21 tablet vomiting 5 days #10 tabs diltiazem HCl 240 mg capsule,24 240 mg PO DAILY #30 ca ps 05/15/22 hr,extended release (Tiadylt ER) lorazepam 1 mg tablet 1 mg PO TID PRN anxiety #10 tabs 08/20/22 ondansetron 4 mg disintegrating 4 mg PO Q6-8H PRN naus ea and 08/20/22 tablet vomiting #14 tabs ibuprofen 600 mg tablet 600 mg PO TID PRN fever or p ain 11/22/23 #20 tabs ondansetron 4 mg disintegrating 4 mg PO Q8H PRN nausea and 07/10/24 tablet vomiting #7 tabs ondansetron 4 mg disintegrating 4 mg PO Q8H PRN nausea and 07/22/24 tablet vomiting #9 tabs albuterol sulfate 90 mcg/actuation 2 puff inhalation Q 4-6H PRN 07/26/25 aerosol inhaler (Ventolin HFA) shortness of breath or wheezing #8.5 grams azithromycin 250 mg tablet See Rx Instructions PO .COM PLEX #6 07/26/25 tabs prednisone 20 mg tablet 40 mg (2 x 20 mg) PO DAILY 5 days 07/26/25 #10 tabs Allergies Allergy/AdvReac Type Severity Reaction Status Date / Time Anesthesia S/I-40 Allergy Unknown rash Uncoded 08/09/25 15:18 outside allergy/ unhouse Allergy Unknown rash Uncoded 08/09/25 15:18 aller PMFSH Past Medical History Medical History HTN (hypertension) Back pain Asthma Tachycardia Surgical History Hx of removal of cyst Family History Family History Mother Diabetes Arthritis Heart disease Sister Heart disease Seizure Sister Arthritis Gastritis Brother Diabetes HTN (hypertension) Social History Social History Alcohol intake: never Patient Tobacco Use Status: Never used Tobacco Advance Directives: No Advance Directives Information Provided: No Do you have a plan to hurt others: No Plan Physical Exam ED Vital Signs: BMI result Body Mass Index 34.2 Course Course Course Narrative: This is a rapid medical exam performed by Byron Verdugo NP: Additional HPI, ROS, PE not included below will be deferred to primary provider. Patient is a 40y/o Welsh speaking female presenting with complaint of nausea, vomiting, chest pain and syncope since this am. Plan: EKG, labs, CXR, viral swabs Patient left the emergency department before myself or any of the other clinicians could review or explain physical exam findings, test results, need or lack there of for additional testing, treatment options, or a treatment plan. Medical Decision Making Lab Data 08/09/25 15:35 08/09/25 15:36 Labs: Lab Results 08/09/25 08/09/25 Range/Units 15:35 15:36 WBC 9.0 (4.8-10.8) X10*3/uL RBC 5.08 (4.20-5.50) X10*6/uL Hgb 12.6 (12.0-16.0) g/dl Hct 40.3 (37.0-47.0) % MCV 79.3 L (80.0-98.0) fL MCH 24.8 L (27.0-33.0) pg MCHC 31.3 (31.0-35.0) g/dl RDW 15.9 (11.0-16.0) % Plt Count 293 (160-400) X10*3/uL MPV 11.0 (9.4-12.3) fL Immature Gran % (Auto) 0.2 (0.0-0.4) % Neut % (Auto) 73.5 H (45-73) % Lymph % (Auto) 16.0 L (20-40) % [place] % (Auto) 5.9 (2-11) % Eos % (Auto) 3.8 (0-4) % Baso % (Auto) 0.6 (0-2) % Lymph # (Auto) 1.4 (1.2-4.9) X10*3/uL [place] # (Auto) 0.5 (0.1-1.2) X10*3/uL Eos # (Auto) 0.3 (0.0-0.4) X10*3/uL Baso # (Auto) 0.1 (0.0-0.2) X10*3/uL Abs Immat Gran (auto) 0.02 (0.00-0.03) X10*3/uL Absolute Neuts (auto) 6.6 (2.0-8.3) x10*3/uL Absolute Nucleated RBC 0.000 (0.0-0.012) X10*3/uL Nucleated RBC % (auto) 0.0 (0.0-0.2) /100WBC PT 11.1 (10.9-12.4) SEC INR 1.0 (0.9-1.1) Sodium 138 (135-145) mmol/L Potassium 4.1 (3.3-5.1) mmol/L Chloride 105 (96-108) mmol/L Carbon Dioxide 25 (22-29) mmol/L Anion Gap 12 (12-20) BUN 8 L (9-16) mg/dL Creatinine 0.66 (0.5-1.4) mg/dL Estim Creat Clear Calc 121.2 Estimated GFR > 60 Random Glucose 252 H (60-115) mg/dL Calcium 9.6 D (8.4-10.2) mg/dL Magnesium 1.9 (1.6-2.6) mg/dL Total Bilirubin 0.2 (0.0-1.0) mg/dL AST 23 (5-31) U/L ALT 15 (0-31) U/L Alkaline Phosphatase 102 (39-117) U/L Troponin I High Sens < 2.7 (<3.5-17.0) ng/L Total Protein 7.9 (6.5-8.0) g/dL Albumin 4.1 (3.5-5.0) g/dL Lipase 46 (8-78) U/L Beta HCG, Quant < 2 mIU/mL COVID-19 ([facility]) Negative (Negative) COVID-19 Clin Com See Note Influenza Type A ([facility]) Negative (Negative) Influenza Type B ([facility]) Negative (Negative) Influenza A & B Note See Note Discharge Plan Discharge Clinical Impression: Chest pain Patient Disposition: Left W/O Completing Treatment Prescriptions: No Action lorazepam 1 mg tablet 1 mg PO TID PRN (Reason: anxiety) Qty: 10 0RF Rx Instructions: Patient may ask for partial fill ondansetron 4 mg tablet,disintegrating 4 mg PO Q6-8H PRN (Reason: nausea and vomiting) Qty: 14 0RF ondansetron 4 mg tablet,disintegrating 4 mg PO TID PRN (Reason: nausea and vomiting) 5 Days Qty: 10 0RF diltiazem HCl [Tiadylt ER] 240 mg capsule,extended release 24 hr 240 mg PO DAILY Qty: 30 0RF ondansetron 4 mg tablet,disintegrating 4 mg PO Q8H PRN (Reason: nausea and vomiting) Qty: 9 0RF prednisone 20 mg tablet 40 mg PO DAILY 5 Days Qty: 10 0RF azithromycin 250 mg tablet See Rx Instructions .ROUTE .COMPLEX Qty: 6 0RF Rx Instructions: For 250 mg dose pack: take 500 mg today (day 1), then 250 mg for 4 days (days 2-5) albuterol sulfate [Ventolin HFA] 90 mcg/actuation HFA aerosol inhaler 2 puff inhalation Q4-6H PRN (Reason: shortness of breath or wheezing) Qty: 8.5 0RF ibuprofen 600 mg tablet 600 mg PO TID PRN (Reason: fever or pain) Qty: 20 0RF ondansetron 4 mg tablet,disintegrating 4 mg PO Q8H PRN (Reason: nausea and vomiting) Qty: 7 0RF Discharge Date/Time: 08/09/25 19:03
[2025-08-09 16:01] LABS: MANUAL DIFF FLAG NO
[2025-08-09 16:05] LABS: Hematocrit 40.3 % (37.0-47.0); Hemoglobin 12.6 g/dl (12.0-16.0); Imm Gran Abs Auto 0.02 X10*3/uL (0.00-0.03); Imm Gran Pct Auto 0.2 % (0.0-0.4); Lymphocytes Absolute Auto 1.4 X10*3/uL (1.2-4.9); Mean Corpuscular HGB Conc 31.3 g/dl (31.0-35.0); Mean Corpuscular Hemoglobin 24.8 pg (27.0-33.0); Mean Corpuscular Volume 79.3 fL (80.0-98.0); NRBC Abs Auto 0.000 X10*3/uL (0.0-0.012); NRBC Pct Auto 0.0 /100WBC (0.0-0.2); Platelet Count 293 X10*3/uL (160-400); Red Blood Count 5.08 X10*6/uL (4.20-5.50); White Blood Count 9.0 X10*3/uL (4.8-10.8)
[2025-08-09 16:11] LABS: INTERNATIONAL NORM RATIO 1.0 (0.9-1.1); Prothrombin Time 11.1 SEC (10.9-12.4)
[2025-08-09 16:19] LABS: COVID-19 Test Negative (Negative); IDNOW Serial# 55D5AD1C
[2025-08-09 16:20] LABS: IDNOW Serial# 58CA691E
[2025-08-09 16:21] LABS: Influenza B2 Negative (Negative)
[2025-08-09 16:35] LABS: Alanine Aminotransferase 15 U/L (0-31); Albumin Level 4.1 g/dL (3.5-5.0); Anion Gap 12 (12-20); Aspartate Amino Transferase 23 U/L (5-31); Blood Urea Nitrogen 8 mg/dL (9-16); Calcium 9.6 mg/dL (8.4-10.2); Carbon Dioxide 25 mmol/L (22-29); Chloride 105 mmol/L (96-108); Creatinine Clr Calc Pharmacy 121.2; Estimated Glomerular Filt Rate > 60; Lipase 46 U/L (8-78); Magnesium 1.9 mg/dL (1.6-2.6); Potassium 4.1 mmol/L (3.3-5.1); Sodium 138 mmol/L (135-145); Total Protein 7.9 g/dL (6.5-8.0)
[2025-08-09 16:36] LABS: Troponin-I High Sensitivity < 2.7 ng/L (<3.5-17.0)
[2025-08-09 17:24] LABS: Alkaline Phosphatase 102 U/L (39-117)
--- OUTSIDE RECORDS SUMMARY | 2025-08-09 19:07 | XMS_ITS | Encounter Summary ---
Author Organization [employer] Address [address] [place] [address] [address] [address] Care Team Providers Care Kiln Labourer Name Role Phone Gisele Kulkarni MD Primary Care Provider [phone]- [phone] Yessica Morales PharmD Unavailable Josemanuel Mc MD Unavailable Ant Wilkes MD Unavailable Reason for Visit * Reason Onset Date Comments Nurse Triage 04/02/2023 Encounter Details Date Type Department Care Team (Late st Contact Info) Description 04/02/2023 Telephone [facility] [address] [place], [place] [phone] Gisele Kulkarni MD [address] [place], [place] [phone] Nurse Triage Social History Tobacco Use Types [...] patient to contact CHW Dami Victor at [phone] * Telephone Encounter - Lucretia Kam RN - 04/02/2023 1:35 PM EDT Triage call with [employer] [place] [id number] Pt reports wheezing and mild asthma attack since yesterday. Pt has vomited x5 this morning due to coughing. Pt reports difficulty breathing and I feel like I'm asphyxiated . Pt is talking without sob on this call. Pt reports using [id number] yesterday, neg for fever. Pt also reports sore throat. Advised Pt to come to [facility] today to be seen and Pt agrees [...] Description 08/26/2025 9:00 AM EDT Office Visit [facility] [address] [place] [address] Naatsha Ham, OD [address] [place] [address] 09/14/2025 2:15 PM EST Office Visit [facility] [address] [place] [address] Gisele Kulkarni MD [address] [place] [address] documented as of this encounter Goals Goal Patient Goal Type Associated Problems Recent Progress Patient-Stated? Author Hemoglobin A1c < 7 Result Component 7.2(02/25/2025 12:49 PM EDT) No Yessica Morales, PharmD documented as of this encounter Visit Diagnoses Not on filedocumented in this encounter Care Teams Kiln Labourer Relationship Specialty Start Date End Date Gisele Kulkarni MD [address] [place] [address] PCP - General Family Medicine 06/15/13 Yessica Morales, PharmD [address] [place] [phone] Pharmacist Internal Medicine 03/18/23 08/24/23 Josemanuel Mc MD [address] [place] [address] Cardiology 12/01/24 Ant Wilkes MD [address] [place] [address] [address] [place] [address] Allergy 12/01/24 documented as of this encounter
--- OUTSIDE RECORDS SUMMARY | 2025-08-09 19:07 | XMS_ITS | Encounter Summary ---
Author Organization [employer] Address [address] [facility] 7 [place] [address] Care Team Providers Care Lathe Sander Name Role Phone Gisele Kulkarni MD Primary Care Provider [phone] Josemanuel Mc MD Unavailable [phone] Ant Wilkes MD Unavailable Encounter Details Date Type Department Care Team (Late st Contact Info) Description 12/01/2024 Orders Only [facility] [address] [place] [address] Gisele Kulkarni MD [address] [place] [address] Social History Tobacco Use Types Packs/Day Years [...] 9:00 AM EDT Office Visit [facility] [address] [place] [address] Danilo Hamn, OD [address] [place] [address] 09/14/2025 2:15 PM EST Office Visit [facility] [address] [place] [address] Gisele Kulkarni MD [address] [place] [address] documented as of this encounter Goals Goal Patient Goal Type Associated Problems Recent Progress Patient-Stated? Author Patient will adhere to medication regimen General Corin Melendez Hemoglobin A1c < 7 Result Component 7.2( 12:49 PM EDT) No Yessica Morales, PharmD documented as of this encounter Visit Diagnoses Not on filedocumented in this encounter Care Teams Lathe Sander Relationship Specialty Start Date End Date Gisele Kulkarni MD [address] [place] [address] PCP - General Family Medicine 06/15/13 Josemanuel Mc MD [address] [place] [address] Cardiology 12/01/24 Ant Wilkes MD [address] [place] [address] [address] [place] [address] Allergy 12/01/24 documented as of this encounter
--- OUTSIDE RECORDS SUMMARY | 2025-08-09 19:07 | XMS_ITS | Encounter Summary ---
Author Organization [employer] Address [address] [place] [address] Care Team Providers Care [facility] Television Rental Clerk Name Role Phone Gisele Kulkarni MD Primary Care Provider [phone]- [phone] Yessica Morales PharmD Unavailable [phone] Josemanuel Mc MD Unavailable [phone] Ant Wilkes MD Unavailable Encounter Details Date Type Department Care Team (Late st Contact Info) Description 11/10/2022 Abstract [facility] [address] [place] [address] Gisele Kulkarni MD [address] [place] [address] Social History Tobacco Use Types Packs/Day Years [...] 9:00 AM EDT Office Visit [facility] [address] [place] [address] Natasha Ham, OD [address] [place] [address] 09/14/2025 2:15 PM EST Office Visit [facility] [address] [place] [address] Gisele Kulkarni MD [address] [place] [address] documented as of this encounter Procedures Procedure Name Priority Date/Time Associated Diagnosis Comments HPV HIGH RISK PCR Routine 07/11/2022 12:00 AM EDT PAP SMEAR Routine 07/11/2022 12:00 AM EDT documented in this encounter Results * HPV High Risk PCR (07/11/2022 12:00 AM EDT) Swab Cervical swab / Unknown Gisele Kulkarni MD LAB MICROBIOLOGY - GENERAL ORDERABLES Final Result Performing Organization Address [facility] Co de Phone Number [facility] [address] [place] [phone] * Pap Smear (07/11/2022 12:00 AM EDT) Swab Gisele Kulkarni MD LAB CYTOLOGY ORDERABLES Fi nal Result Performing Organization Address [facility] Co de Phone Number [facility] [address] [place] [phone] documented in this encounter Visit Diagnoses Not on filedocumented in this encounter Care Teams Hospital Television Rental Clerk Relationship Specialty Start Date End Date Gisele Kulkarni MD [address] [place] [address] PCP - General Family Medicine 06/15/13 Yessica Morales, UmaD [address] [place] [address] Pharmacist Internal Medicine 03/18/23 08/24/23 Josemanuel Mc MD [address] [place] [address] Cardiology 12/01/24 Ant Wilkes MD [address] [place] [address] [address] [place] [address] Allergy 12/01/24 documented as of this encounter
--- OUTSIDE RECORDS SUMMARY | 2025-08-09 19:07 | XMS_ITS | Encounter Summary ---
Author Organization [employer] Address [address] [facility] 7 [place] [address] Care Team Providers Care Team Assistant Name Role Phone Gisele Kulkarni MD Primary Care Provider [phone]- [phone] Josemanuel Mc MD Unavailable [phone] Ant Wilkes MD Unavailable Encounter Details Date Type Department Care Team (Late st Contact Info) Description 01/21/2025 Orders Only [facility] [address] [place] [address] Gisele Kulkarni MD [address] [place], [place] [phone] Moderate recurrent major depression (CMS/HCC) (Primary Dx); [...] Description 08/26/2025 9:00 AM EDT Office Visit [facility] [address] [place] [address] Jitendra, Natasha, OD [address] [place] [address] 09/14/2025 2:15 PM EST Office Visit [facility] [address] [place] [address] Gisele Kulkarni MD [address] [place] [address] documented as of this encounter Goals Goal [...] complication documented in this encounter Care Teams Team Assistant Relationship Specialty Start Date End Date Gisele Kulkarni MD [address] [place] [address] [phone] PCP - General Family Medicine 06/15/13 Josemanuel Mc MD [address] [place] [address] Cardiology 12/01/24 Ant Wilkes MD [address] [place] [address] [address] [place] [address] Allergy 12/01/24 documented as of this encounter
--- OUTSIDE RECORDS SUMMARY | 2025-08-09 19:07 | XMS_ITS | Encounter Summary ---
Author Organization [employer] Address [address] [place] [address] [address] [place] [address] Care Team Providers Care Stave Jointer Name Role Phone Gisele Kulkarni MD Primary Care Provider [phone]- [phone] Josemanuel Mc MD Unavailable [phone] Ant Wilkes MD Unavailable Reason for Visit * Reason Onset Date Comments Reschedule 10/21/2023 Encounter Details Date Type Department Care Team ([facility] st Contact Info) Description 10/21/2023 Telephone [facility] [address] [place], [place] [phone] Gisele Kulkarni MD [address] [place], [place] [phone] Reschedule Social History Tobacco Use Types Packs/Day [...] Tc from pt requesting to r/s 10/[facility] appointment. Please contact at [phone] documented in this encounter Plan of Treatment Upcoming Encounters Date Type Department Care Team (Late st Contact Info) Description 08/26/2025 9:00 AM EDT Office Visit [facility] [address] [place] [address] Jitendra, Natasha, OD [address] [place] [address] 09/14/2025 2:15 PM EST Office Visit [facility] [address] [place] [address] Gisele Kulkarni MD [address] [place] [address] documented as of this encounter Goals Goal Patient Goal Type Associated Problems Recent Progress Patient-Stated? Author Hemoglobin A1c < 7 Result Component 7.2(02/25/2025 12:49 PM EDT) No Yessica Morales, PharmD documented as of this encounter Visit Diagnoses Not on filedocumented in this encounter Care Teams Stave Jointer Relationship Specialty Start Date End Date Gisele Kulkarni MD [address] [place] [address] PCP - General Family Medicine 06/15/13 Josemanuel Mc MD [address] [place] [address] Cardiology 12/01/24 Ant Wilkes MD [address] [place] [address] [address] [place] [address] Allergy 12/01/24 documented as of this encounter
--- OUTSIDE RECORDS SUMMARY | 2025-08-09 19:07 | XMS_ITS | Encounter Summary ---
Author Organization [employer] Address [address] [facility] 7 [place] [address] Care Team Providers Care Home Theatre Technician Name Role Phone Gisele Kulkarni MD Primary Care Provider [phone]- [phone] Josemanuel Mc MD Unavailable [phone] Ant Wilkes MD Unavailable Reason for Visit * Reason Comments Med Change Request Encounter Details Date Type Department Care Team (Late st Contact Info) Description 01/21/2025 Refill [facility] [address] [place] [address] Gisele Kulkarni MD [address] [place], [place] [phone] Moderate persistent asthma without complication Social History [...] Description 08/26/2025 9:00 AM EDT Office Visit [facility] [address] [place] [address] Jitendra, Natasha, OD [address] [place] [address] 09/14/2025 2:15 PM EST Office Visit [facility] [address] [place] [address] Gisele Kulkarni MD [address] [place] [address] documented as of this encounter Goals Goal Patient Goal Type Associated Problems Recent Progress Patient-Stated? Author Patient will adhere to medication regimen General No Corin Chaudhry Hemoglobin A1c < 7 Result Component 7.2( 12:49 PM EDT) No Yessica Morales, PharmD documented as of this encounter Visit Diagnoses Diagnosis Moderate persistent asthma without complication documented in this encounter Care Teams Home Theatre Technician Relationship Specialty Start Date End Date Gisele Kulkarni MD [address] [place] [address] PCP - General Family Medicine 06/15/13 Josemanuel Mc MD [address] [place] [address] Cardiology 12/01/24 Ant Wilkes MD [address] [place] [address] [address] [place] [address] Allergy 12/01/24 documented as of this encounter
--- OUTSIDE RECORDS SUMMARY | 2025-08-09 19:07 | XMS_ITS | Encounter Summary ---
Author Organization [employer] Address [address] [facility] 7t [place] [address] Care Team Providers Care Passenger Solicitor Name Role Phone Gisele Kulkarni MD Primary Care Provider [phone] Josemanuel Mc MD Unavailable [phone] Ant Wilkes MD Unavailable Encounter Details Date Type Department Care Team ([facility] Contact Info) Description 08/09/2025 Orders Only GENERIC EXTERNAL DATA DEPARTMENT Provider, [...] Description 08/26/2025 9:00 AM EDT Office Visit [facility] OPTOMETRY [address] [place] [address] Jitendra, Natasha, OD [address] [place] [address] 09/14/2025 2:15 PM EST Office Visit [facility] MEDICINE [address] [place] [address] Gisele Kulkarni MD [address] [place] [address] documented as of this encounter Goals Goal Patient Goal Type Associated Problems Recent Progress Patient-Stated? Author Patient will adhere to medication regimen General No Corin Chaudhry Hemoglobin A1c < 7 Result Component 7.2( 12:49 PM EDT) No Yessica Morales, UmaD documented as of this encounter Procedures Procedure Name Priority Date/Time Associated Diagnosis Comments HCG, TOTAL, QN Routine 08/09/2025 3:36 PM EDT MAGNESIUM Routine 08/09/2025 3:36 PM EDT LIPASE Routine 08/09/2025 3:36 PM EDT COMPREHENSIVE METABOLIC PANEL Routine 08/09/2025 3:36 PM EDT INFLUENZA A B2 ID NOW (BOTELLO) Routine 08/09/2025 3:35 PM EDT COVID-19 ID NOW (BOTELLO) Routine 08/09/2025 3:35 PM EDT HIGH SENSITIVITY TROPONIN I Routine 08/09/2025 3:35 PM EDT CBC WITH AUTO DIFFERENTIAL Routine 08/09/2025 3:35 PM EDT PROTHROMBIN TIME-INR Routine 08/09/2025 3:35 PM EDT documented in this encounter Results * hCG, Total, Quantitative (08/09/2025 3:36 PM EDT) HCG Quantitative <2 mIU/mL [facility] Comment:Weeks post LMP Appro ximate hCG(Last Menstrual Period) Range (mIU/ml)3 - 4 weeks 9 - 1304 - 5 weeks 75 - 2,6005 - 6 weeks 850 - 20,8006 - 7 weeks 4000 - 100,2007 - 12 weeks 11,500 - 289,51881 - 16 weeks 18,300 - 137,60041 - 29 weeks (2nd trimester) 1,400 - 53,21351 - 41 weeks (3rd trimester) 940 - 60,000The Botello B- hCG assay is used for the early detection ofpregnancy; it cannot be used to diagnose any conditionunrelated to . If a B-hCG level is not supportedby the clinical evidence, results should be confirmed by analternative method (qualitative urine hCG, for example). 08/09/2025 3:36 PM EDT 08/09/2025 3:58 PM EDT Generic External Data Provider LAB BLOOD ORDERAB LES Final Result [facility] [address] [place] [address] [phone] * Lipase (08/09/2025 3:36 PM EDT) Lipase 46 8 - 78 U/L [facility] 08/09/2025 3:36 PM EDT 08/09/2025 3:58 PM EDT us Generic External Data Provider LAB BLOOD ORDERAB LES Final Result Performing Organization Address City/[facility]/ZIP Co de Phone Number [facility] [address] [place] [phone] * Magnesium (08/09/2025 3:36 PM EDT) Pathologist [facility] Magnesium 1.9 1.6 - 2.6 mg/dL [facility] 08/09/2025 3:36 PM EDT 08/09/2025 3:58 PM EDT Generic External Data Provider LAB BLOOD ORDERAB LES Final Result Performing Organization Address [facility] Co de Phone Number [facility] [address] [place] [phone] * (ABNORMAL) Comprehensive Metabolic Panel (08/09/2025 3:36 PM EDT) Pathologist [facility] Sodium 138 135 - 145 mmol/L [facility] Potassium 4.1 3.3 - 5.1 mmol/L [facility] Chloride 105 96 - 108 mmol/L [facility] Carbon Dioxide 25 22 - 29 mmol/L [facility] Anion Gap 12 12 - 20 [facility] Urea Nitrogen (BUN) 8(L) 9 - 16 mg/dL [facility] Creatinine, Serum 0.66 0.5 - 1.4 mg/dL [facility] Creatinine Clr Calc Pharmacy 121.2 [facility] Comment:Provided height and weight: 160.02 cm,87.543 kg.eGFR (calculated from the MDRD study equation) and eCrCl(calculated from the Cockcroft-Gault equation) are based ondifferent parameters and may not yield comparable results.If eCrCl result is absurd, please check patient'sheight/weight. Estimated Glomerular Filt Rate >60 [facility] Comment:Chronic Kidney Disea se: Estimated GFR < 60 mL/min/1.79z5Olsjae Kidney Disease: Estimated GFR < 15 mL/min/1.73m2 Glucose 252(H) 60 - 115 mg/dL [facility] Calcium 9.6 8.4 - 10.2 mg/dL [facility] Bilirubin, Total 0.2 0.0 - 1.0 mg/dL [facility] Aspartate Amino Transferase 23 5 - 31 U/L [facility] Alanine Aminotransferase 15 0 - 31 U/L [facility] Total Protein 7.9 6.5 - 8.0 g/dL [facility] Albumin Level 4.1 3.5 - 5.0 g/dL [facility] Alkaline Phosphatase 102 39 - 117 U/L [facility] 08/09/2025 3:36 PM EDT 08/09/2025 3:58 PM EDT Generic External Data Provider LAB BLOOD ORDERAB LES Final Result Performing Organization Address [facility] Co de Phone Number [facility] [address] [place] [phone] * High Sensitivity Troponin I (08/09/2025 3:35 PM EDT) [facility] TROPONIN I HIGH SENSITIVITY <2.7 <3.5 - 17.0 ng/L [facility] Comment:The Botello high sens itivity Troponin-I results should beused in conjunction with other diagnostic information suchas ECG, clinical observations and information, and patientsymptoms to aid in the diagnosis of ID. 08/09/2025 3:35 PM EDT 08/09/2025 3:58 PM EDT us Generic External Data Provider LAB BLOOD ORDERAB LES Final Result Performing Organization Address [facility] Co de Phone Number [facility] [address] [place] [address] [phone] * Influenza A B2 ID NOW (Botello) (08/09/2025 3:35 PM EDT) Pathologist [facility] IDNOW SERIAL# [id number] [facility] Influenza A Negative Negative [facility] [...] specimen and co- infection withRespiratory Syncytial Virus. 08/09/2025 3:35 PM EDT 08/09/2025 3:58 PM EDT us Generic External Data Provider LAB MICROBIOLOGY - GENERAL ORDERABLES Final Result [facility] [address] [place] [phone] * COVID-19 ID NOW (BOTELLO) (08/09/2025 3:35 PM EDT) IDNOW SERIAL# [id number] [facility] COVID-19 TEST Negative Negative [facility] COVID-19 NOTE See Note [facility] Comment: Results are for the identification of SARS-CoV2 RNA. TheSARS-CoV2 RNA is generally detectable in respiratory samplesduring the acute phase of infection. Positive results areindicative of the presence of SARS-CoV-2 RNA; clinicalcorrelation with patient history and other diagnosticinformation is necessary to determine patient infectionstatus. Positive results do not rule out bacterial infectionor co- infection with other viruses.Testing facilities within the [facility] and itsterritories are required to report [...] use by authorized laboratories.Testing performed on the [employer] ID NOW utilizing NAAT. 08/09/2025 3:35 PM EDT 08/09/2025 3:58 PM EDT Generic External Data Provider LAB MOLECULAR BRAYAN GNOSTICS ORDERABLES Final Result Performing Organization Address [facility] Co de Phone Number [facility] [address] [place] [phone] * Prothrombin Time-INR (08/09/2025 3:35 PM EDT) [facility] Prothrombin Time 11.1 10.9 - 12.4 SEC [facility] INTERNATIONAL NORM RATIO 1.0 0.9 - 1.1 [facility] Comment:INTERNATIONAL NORMAL IZED RATIO (INR) REFERENCE RANGES Reference RangeFor patients not on anticoagulant therapy: 0.9 - 1.1INR ranges for oral anticoagulanttherapy:For prevention and treatment of venous thrombosis and pulmonary embolism: 2.0 - 3.0For acute myocardial infarction with aspirin therapy: 2.0 - 3.0For acute myocardial infarction without aspirin therapy: 3.0 - 4.0For patients with mechanical prosthetic heart valves: 2.5 - 3.5 08/09/2025 3:35 PM EDT 08/09/2025 3:58 PM EDT Generic External Data Provider LAB BLOOD ORDERAB LES Final Result Performing Organization Address [facility] Co de Phone Number [facility] [address] [place] [phone] * (ABNORMAL) CBC auto differential (08/09/2025 3:35 PM EDT) Pathologist [facility] White Blood Count 9.0 4.8 - 10.8 X10*3/uL [facility] Red Blood Count 5.08 4.20 - 5.50 X10*6/uL [facility] Hemoglobin 12.6 12.0 - 16.0 g/dl [facility] Hematocrit 40.3 37.0 - 47.0 % [facility] Mean Corpuscular Volume 79.3(L) 80.0 - 98.0 fL [facility] Mean Corpuscular Hemoglobin 24.8(L) 27.0 - 33.0 pg [facility] Mean Corpuscular HGB Conc 31.3 31.0 - 35.0 g/dl [facility] Red Cell Distribution Width 15.9 11.0 - 16.0 % [facility] Platelet Count 293 160 - 400 X10*3/uL [facility] Mean Platelet Volume 11.0 9.4 - 12.3 fL [facility] Neutrophils Percent Auto 73.5(H) 45 - 73 % [facility] Imm Gran Pct Auto 0.2 0.0 - 0.4 % [facility] Lymphocytes Percent Auto 16.0(L) 20 - 40 % [facility] Monocytes Percent Auto 5.9 2 - 11 % [facility] Eosinophils Percent Auto 3.8 0 - 4 % [facility] Basophils Percent Auto 0.6 0 - 2 % [facility] NRBC Pct Auto 0.0 0.0 - 0.2 /100WBC [facility] Neutrophils Absolute Auto 6.6 2.0 - 8.3 x10*3/uL [facility] Imm Gran Abs Auto 0.02 0.00 - 0.03 X10*3/uL [facility] Lymphocytes Absolute Auto 1.4 1.2 - 4.9 X10*3/uL [facility] Monocytes Absolute Auto 0.5 0.1 - 1.2 X10*3/uL [facility] Eosinophils Absolute Auto 0.3 0.0 - 0.4 X10*3/uL [facility] Basophils Absolute Auto 0.1 0.0 - 0.2 X10*3/uL [facility] NRBC Abs Auto 0.000 0.0 - 0.012 X10*3/uL [facility] 08/09/2025 3:35 PM EDT 08/09/2025 3:58 PM EDT us Generic External Data Provider LAB BLOOD ORDERAB LES Final Result [facility] [address] [place] [phone] documented in this encounter Visit Diagnoses Not on filedocumented in this encounter Care Teams Passenger Solicitor Relationship Specialty Start Date End Date Gisele Kulkarni MD [address] [place] [phone] PCP - General Family Medicine 06/15/13 Josemanuel Mc MD [address] [place] [phone] Cardiology 12/01/24 Ant Wilkes MD [address] [place] [address] [address] [place] [address] Allergy 12/01/24 documented as of this encounter
--- OUTSIDE RECORDS SUMMARY | 2025-08-09 19:07 | XMS_ITS | Encounter Summary ---
Author Organization [employer] Address [address] [facility] 7 [place] [address] Care Team Providers Care Staker Surveying Name Role Phone Gisele Kulkarni MD Primary Care Provider [phone] Josemanuel Mc MD Unavailable [phone] Ant Wilkes MD Unavailable Reason for Visit * Reason Onset Date Comments Med Refill 11/10/2024 Encounter Details Date Type Department Care Team (Late st Contact Info) Description 11/10/2024 Refill [facility] MEDICINE [address] [place], [place] [phone] Gisele Kulkarni MD [address] [place], [place] [phone] Nausea Social History Tobacco Use Types Packs/Day [...] Description 08/26/2025 9:00 AM EDT Office Visit [facility] OPTOMETRY [address] [place] [address] Jitendra, Natasha, OD [address] [place] [address] 09/14/2025 2:15 PM EST Office Visit [facility] MEDICINE [address] [place] [address] Gisele Kulkarni MD [address] [place] [address] documented as of this encounter Goals Goal Patient Goal Type Associated Problems Recent Progress Patient-Stated? Author Patient will adhere to medication regimen General Corin Melendez Hemoglobin A1c < 7 Result Component 7.2( 12:49 PM EDT) No Yessica Morales, PharmD documented as of this encounter Visit Diagnoses Diagnosis Nausea Nausea alone documented in this encounter Care Teams Staker Surveying Relationship Specialty Start Date End Date Gisele Kulkarni MD [address] [place] [phone] PCP - General Family Medicine 06/15/13 Josemanuel Mc MD [address] [place] [address] Cardiology 12/01/24 Ant Wilkes MD [address] [place] [address] [address] [place] [address] Allergy 12/01/24 documented as of this encounter
--- OUTSIDE RECORDS SUMMARY | 2025-08-09 19:07 | XMS_ITS | Encounter Summary ---
Author Organization [employer] Address [address] [place] [address] [facility] [place] [address] Care Team Providers Care Slat Basket Maker Helper Name Role Phone Gisele Kulkarni MD Primary Care Provider [phone]- [phone] Josemanuel Mc MD Unavailable Ant Wilkes MD Unavailable Reason for Visit * Reason Onset Date Comments Returning call 01/05/2024 Encounter Details Date Type Department Care Team ([facility] st Contact Info) Description 01/05/2024 Telephone [facility] MEDICINE [address] [place], [place] [phone] Gisele Kulkarni MD [address] [place], [place] [phone] Returning call Social History Tobacco Use Types [...] Programand SDOH services. CHW introducing herself from [facility] CM Department with CHW's name, department and direct contact number requesting call back. Will re-attempt to contact within 5 days. and address not confirmed. documented in this encounter Plan of Treatment Upcoming Encounters Date Type Department Care Team (Late st Contact Info) Description 08/26/2025 9:00 AM EDT Office Visit [facility] OPTOMETRY [address] [place] [address] Jitendra, Natasha, OD [address] [place] [address] 09/14/2025 2:15 PM EST Office Visit [facility] MEDICINE [address] [place] [address] Gisele Kulkarni MD [address] [place] [address] documented as of this encounter Goals Goal Patient Goal Type Associated Problems Recent Progress Patient-Stated? Author Patient will adhere to medication regimen General Corin Melendez Hemoglobin A1c < 7 Result Component 7.2( 12:49 PM EDT) No Yessica Morales, PharmD documented as of this encounter Visit Diagnoses Not on filedocumented in this encounter Care Teams Slat Basket Maker Helper Relationship Specialty Start Date End Date Gisele Kulkarni MD [address] [place] [address] PCP - General Family Medicine 06/15/13 Josemanuel Mc MD [address] [place] [address] Cardiology 12/01/24 Ant Wilkes MD [address] [place] [address] [address] [place] [address] Allergy 12/01/24 documented as of this encounter
--- OUTSIDE RECORDS SUMMARY | 2025-08-09 19:07 | XMS_ITS | Encounter Summary ---
Author Organization [employer] Address [address] [facility] 7 [place] [address] Care Team Providers Care Roundhouse Supervisor Name Role Phone Gisele Kulkarni MD Primary Care Provider [phone]- [phone] Josemanuel Mc MD Unavailable [phone] Ant Wilkes MD Unavailable Reason for Visit * Reason Comments Med Change Request Encounter Details Date Type Department Care Team (Late st Contact Info) Description 01/21/2025 Refill [facility] MEDICINE [address] [place] [address] Gisele Kulkarni MD [address] [place], [place] [phone] Moderate persistent asthma without complication Social History [...] 9:00 AM EDT Office Visit [facility] OPTOMETRY [address] [place] [address] Jitendra, Natasha, OD [address] [place] [address] 09/14/2025 2:15 PM EST Office Visit [facility] MEDICINE [address] [place] [address] Gisele Kulkarni MD [address] [place] [address] documented as of this encounter Goals Goal Patient Goal Type Associated Problems Recent Progress Patient-Stated? Author Patient will adhere to medication regimen General No Corin Chaudhry Hemoglobin A1c < 7 Result Component 7.2( 12:49 PM EDT) No Yessica Morales, PharmD documented as of this encounter Visit Diagnoses Diagnosis Moderate persistent asthma without complication documented in this encounter Care Teams Roundhouse Supervisor Relationship Specialty Start Date End Date Gisele Kulkarni MD [address] [place] [address] PCP - General Family Medicine 06/15/13 Josemanuel Mc MD [address] [place] [address] Cardiology 12/01/24 Ant Wilkes MD [address] [place] [address] [address] [place] [address] Allergy 12/01/24 documented as of this encounter
--- OUTSIDE RECORDS SUMMARY | 2025-08-09 19:07 | XMS_ITS | Encounter Summary ---
Author Organization [employer] Address [address] [facility] 7 [place] [address] Care Team Providers Care Computer Project Manager Name Role Phone Gisele Kulkarni MD Primary Care Provider [phone] Josemanuel Mc MD Unavailable [phone] Ant Wilkes MD Unavailable Reason for Visit * Reason Onset Date Comments Med Refill 11/08/2024 Encounter Details Date Type Department Care Team (Late st Contact Info) Description 11/08/2024 Refill [facility] MEDICINE [address] [place], [place] [phone] Gisele Kulkarni MD [address] [place], [place] [phone] Nausea Social History Tobacco Use Types Packs/Day [...] Description 08/26/2025 9:00 AM EDT Office Visit [facility] OPTOMETRY [address] [place] [address] Jitendra, Natasha, OD [address] [place] [address] 09/14/2025 2:15 PM EST Office Visit [facility] MEDICINE [address] [place] [address] Gisele Kulkarni MD [address] [place] [address] documented as of this encounter Goals Goal Patient Goal Type Associated Problems Recent Progress Patient-Stated? Author Patient will adhere to medication regimen General Corin Melendez Hemoglobin A1c < 7 Result Component 7.2( 12:49 PM EDT) No Yessica Morales, PharmD documented as of this encounter Visit Diagnoses Diagnosis Nausea Nausea alone documented in this encounter Care Teams Computer Project Manager Relationship Specialty Start Date End Date Gisele Kulkarni MD [address] [place] [address] PCP - General Family Medicine 06/15/13 Josemanuel Mc MD [address] [place] [address] Cardiology 12/01/24 Ant Wilkes MD [address] [place] [address] [address] [place] [address] Allergy 12/01/24 documented as of this encounter
--- OUTSIDE RECORDS SUMMARY | 2025-08-09 19:07 | XMS_ITS | Clinical Summary ---
Author Organization [employer] Address [address] [place] [address] [facility] [place] [address] Care Team Providers Care Instrument Adjuster Name Role Phone Gisele Kulkarni MD Primary Care Provider [phone] Josemanuel Mc MD Unavailable [phone] Ant Wilkes MD Unavailable Allergies No [...] puff Once per day. 1 each 11 01/22/20 25 Active meloxicam (Mobic) 15 MG [...] 4:21 PM EST): I referred patient to [facility] C/w iron supplement for anemia CBC to be recheck and f/u with PCP and [facility] Other specified health status 10/06/2023 Overview (08/03/2025): -next comprehensive annual evaluation due after 10/06/2024 -eye care facilitated by [facility] -dental home is -health care proxy filed [...] Dr. Rios 08/26/2022 Type 2 diabetes mellitus wit hout complication, without long-term current use of insulin 10/30/2022 Overview (08/03/2025): Diabetes is controlled. Lab Results Component Value Date HGBA1C 6.0 (H) 03/25/2023 HGBA1C 6.5 (H) 08/02/2022 Lab Results Component Value Date CREATININE 0.80 [...] Encounters Date Type Department Care Team Description 08/09/2025 Orders Only GENERIC EXTERNAL DATA DEPARTMENT Provider, Generic External Data 07/26/2025 Orders Only GENERIC EXTERNAL DATA DEPARTMENT Provider, Generic External Data 07/19/2025 Travel 07/19/[address] [address] Gisele Kulkarni MD Nurse Triage 06/19/2025 Refill [facility] [address] [place] [phone] Gisele Kulkarni MD 05/19/[address] [address] Gisele Kulkarni MD chatprep 05/18/2025 Refill [facility] [address] [place] [phone] Gisele Kulkarni MD 05/12/2025 Patient Outreach [address] [address] Gisele Kulkarni MD Pre-visit Planning ((Unable to [...] EDT Office Visit [facility] [address] [place] [address] Jitendra, Natasha, OD [address] [place] [address] 09/14/2025 2:15 PM EST Office Visit [facility] [address] [place] [address] Gisele Kulkarni MD [address] [place] [address] Health Maintenance Due Date Last Done Comments [...] Patient will adhere to medication regimen General Rosemary ChaudhryCorin Hemoglobin A1c < 7 Result Component 7.2( 12:49 PM EDT) No Yessica Morales PharmD Procedures Procedure Name Priority Date/Time Associated Diagnosis Comments XR CHEST 2 VIEWS Routine 08/09/2025 3:40 PM EDT HCG, TOTAL, QN Routine 08/09/2025 3:36 PM EDT LIPASE Routine 08/09/2025 3:36 PM EDT MAGNESIUM Routine 08/09/2025 3:36 PM EDT COMPREHENSIVE METABOLIC PANEL Routine 08/09/2025 3:36 PM EDT HIGH SENSITIVITY TROPONIN I Routine 08/09/2025 3:35 PM EDT COVID-19 ID NOW ([place]) Routine 08/09/2025 3:35 PM EDT PROTHROMBIN TIME-INR Routine 08/09/2025 3:35 PM EDT CBC WITH AUTO DIFFERENTIAL Routine 08/09/2025 3:35 PM EDT INFLUENZA A B2 ID NOW ([place]) Routine 08/09/2025 3:35 PM EDT LACTIC ACID LAB USE ONLY Routine 07/26/2025 5:33 PM EDT LACTIC ACID LAB USE ONLY Routine 07/26/2025 2:58 PM EDT HIGH SENSITIVITY TROPONIN I Routine 07/26/2025 2:[address] HEAD WO CONTRAST Routine 07/26/2025 1 2:55 PM EDT CTA CHEST PE PROTOCAL Routine 07/26/2025 12:55 PM EDT HIGH SENSITIVITY TROPONIN I Routine 07/26/2025 11:46 AM EDT NT-PROBNP Routine 07/26/2025 11:46 AM EDT LACTIC ACID Routine 07/26/2025 11:41 AM EDT HCG, TOTAL, QN Routine 07/26/2025 11:36 AM EDT COMPREHENSIVE METABOLIC PANEL Routine 07/26/2025 11:36 AM EDT D DIMER HIGH SENSITIVITY Routine 07/26/2025 11:28 AM EDT CBC WITH AUTO DIFFERENTIAL Routine 07/26/2025 11:28 AM EDT XR CHEST 1 VIEW Routine 07/26/2025 10:50 [...] to Health Maintenance Results * XR Chest 2 Views (08/09/2025 3:40 PM EDT) Anatomical Region Laterality Modality Chest Radiographic Nurys ging 08/09/2025 3:40 PM EDT Narrative 08/09/2025 4:04 PM EDT [address] [address] XRay Report Signed Patient: Indigo Thompson MR#: [id number] : 1985 Acct:[id number] Age/Sex: 40 / F ADM Date: 08/09/25 Loc: .ED Attending Dr: Ordering Physician: Gabriela Verdugo NP Date of Service: 08/09/25 Procedure(s): XR chest 2V Accession Number(s): [id number] cc: Gisele Kulkarni MD; Gabriela Verdugo NP Reason for Exam: chest pain EXAMINATION: XR CHEST CLINICAL INFORMATION: chest pain COMPARISON: 07/26/2025 TECHNIQUE: 2 views of the chest were obtained. FINDINGS: Lungs appear similar to the prior examination. There are no new opacities. There are coarse markings in the lung bases and left suprahilar lung. There is no pleural effusion.. XR/XR chest 2V IMPRESSION: Stable chest x-ray with coarse markings in the lung bases and left perihilar lung. Electronically signed by: Tawanda Jolly MD 08/09/2025 04:01 PM EDT Dictated By: Tawanda Jolly MD Signed By: <Electronically signed by Tawanda Jolly MD in OV> 08/09/25 1601 DD/ 1540 TD/TT: 08/09/25 1542 Quantitative Manager: Procedure Note Donotuseinterpreter, Image - 08/09/[address] [address] XRay Report Signed Patient: Indigo ThompsonMR#: [id number] : 1985Acct:[id number] Age/Sex: 40 / FADM Date: 08/09/25 Loc: HO.ED Attending Dr: Ordering Physician: Gabriela Verdugo NP Date of Service: 08/09/25 Procedure(s): XR chest 2V Accession Number(s): [id number] cc: Gisele Kulkarni MD; Gabriela Verdugo NP Reason for Exam: chest pain EXAMINATION: XR CHEST CLINICAL INFORMATION: chest pain COMPARISON: 07/26/2025 TECHNIQUE: 2 views of the chest were obtained. FINDINGS: Lungs appear similar to the prior examination. There are no new opacities. There are coarse markings in the lung bases and left suprahilar lung. There is no pleural effusion.. XR/XR chest 2V IMPRESSION: Stable chest x-ray with coarse markings in the lung bases and left perihilar lung. Electronically signed by: Tawanda Jolly MD 08/09/2025 04:01 PM EDT Dictated By: Tawanda Jolly MD Signed By: <Electronically signed by Tawanda Jolly MD in OV> 08/09/25 1601 DD/ 1540 TD/TT: 08/09/25 1542 Quantitative Manager: [facility] External Provider IMG XR PROCEDURES Final Result * hCG, Total, Quantitative (08/09/2025 3:36 PM EDT) Only the most recent of2 resultswithin the time period is included. HCG Quantitative <2 mIU/mL [facility] Comment:Weeks post LMP Appro ximate hCG(Last Menstrual Period) Range (mIU/ml)3 - 4 weeks 9 - 1304 - 5 weeks 75 - 2,6005 - 6 weeks 850 - 20,8006 - 7 weeks 4000 - 100,2007 - 12 weeks 11,500 - 289,65762 - 16 weeks 18,300 - 137,08735 - 29 weeks (2nd trimester) 1,400 - 53,55875 - 41 weeks (3rd trimester) 940 - [...] ORDERAB LES Final Result Performing Organization Address [facility]/ZIP Co de Phone Number [facility] [address] [place] [phone] * Magnesium (08/09/2025 3:36 PM EDT) Magnesium 1.9 1.6 - 2.6 mg/dL [facility] 08/09/2025 3:36 PM EDT 08/09/2025 3:58 PM EDT Generic External Data Provider LAB BLOOD ORDERAB LES Final Result Performing Organization Address [facility]/ZIP Co de Phone Number [facility] [address] [place] [phone] * Lipase (08/09/2025 3:36 PM EDT) Lipase 46 8 - 78 U/L [facility] 08/09/2025 3:36 PM EDT 08/09/2025 3:58 PM EDT us Generic External Data Provider LAB BLOOD ORDERAB LES Final Result [facility] [address] [place] [address] [phone] * (ABNORMAL) Comprehensive Metabolic Panel (08/09/2025 3:36 PM EDT) Only the most recent of2 resultswithin the time period is included. Sodium 138 135 - 145 mmol/L [facility] Potassium 4.1 3.3 - 5.1 mmol/L [facility] Chloride 105 96 - 108 mmol/L [facility] Carbon Dioxide 25 22 - 29 mmol/L [facility] Anion Gap 12 12 - 20 [facility] Urea Nitrogen (BUN) 8(L) 9 - 16 mg/dL [facility] Creatinine, Serum 0.66 0.5 - 1.4 mg/dL [facility] Creatinine Clr Calc Pharmacy 121.2 [facility] Comment:Provided height and weight: 160.02 cm,87.543 kg.eGFR (calculated from the MDRD study equation) and eCrCl(calculated from the Cockcroft-Gault equation) are based ondifferent parameters and may not yield comparable results.If eCrCl result is absurd, please check patient'sheight/weight. Estimated Glomerular Filt Rate >60 [facility] Comment:Chronic Kidney Disea se: Estimated GFR < 60 mL/min/1.31p0Zleqfp Kidney Disease: Estimated GFR < 15 mL/min/1.73m2 Glucose 252(H) 60 - 115 mg/dL [facility] Calcium 9.6 8.4 - 10.2 mg/dL [facility] Bilirubin, Total 0.2 0.0 - 1.0 mg/dL [facility] Aspartate Amino Transferase 23 5 - 31 U/L [facility] Alanine Aminotransferase 15 0 - 31 U/L [facility] Total Protein 7.9 6.5 - 8.0 g/dL [facility] Albumin Level 4.1 3.5 - 5.0 g/dL [facility] Alkaline Phosphatase 102 39 - 117 U/L [facility] 08/09/2025 3:36 PM EDT 08/09/2025 3:58 PM EDT Generic External Data Provider LAB BLOOD ORDERAB LES Final Result Performing Organization Address [facility] Co de Phone Number [facility] [address] [place] [address] [phone] * Influenza A B2 ID NOW ([place]) (08/09/2025 3:35 PM EDT) Only the most recent of2 resultswithin the time period is included. IDNOW SERIAL# [id number] [facility] Influenza A Negative Negative [facility] Influenza B2 Negative Negative [facility] Influenza A B2 Note See Note [facility] Comment:The [place] ID NOW In fluenza [...] PM EDT Generic External Data Provider LAB MICROBIOLOGY - GENERAL ORDERABLES Final Result Performing Organization Address [facility] Co de Phone Number [facility] [address] [place] [address] [phone] * COVID-19 ID NOW ([place]) (08/09/2025 3:35 PM EDT) Only the most recent of2 resultswithin the time period is included. IDNOW SERIAL# [id number] [facility] COVID-19 TEST Negative Negative [facility] COVID-19 NOTE See Note [facility] Comment: Results are for the identification of SARS-CoV2 RNA. TheSARS-CoV2 RNA is generally detectable in respiratory samplesduring the acute phase of infection. Positive results areindicative of the presence of SARS-CoV-2 RNA; clinicalcorrelation with patient history and other diagnosticinformation is necessary to determine patient infectionstatus. Positive results do not rule out bacterial infectionor co- infection with other viruses.Testing facilities within the [place] and itsterritories are required to report all [...] use by authorized laboratories.Testing performed on the [place] ID NOW utilizing NAAT. 08/09/2025 3:35 PM EDT 08/09/2025 3:58 PM EDT us Generic External Data Provider LAB MOLECULAR BRAYAN GNOSTICS ORDERABLES Final Result [facility] [address] [place] [phone] * High Sensitivity Troponin I (08/09/2025 3:35 PM EDT) Only the most recent of3 resultswithin the time period is included. TROPONIN I HIGH SENSITIVITY <2.7 <3.5 - 17.0 ng/L [facility] Comment:The [place] high sens itivity Troponin-I results should beused in conjunction with other diagnostic information suchas ECG, clinical observations and information, and patientsymptoms to aid in the diagnosis of IL. 08/09/2025 3:35 PM EDT 08/09/2025 3:58 PM EDT us Generic External Data Provider LAB BLOOD ORDERAB LES Final Result [facility] [address] [place], [place] [phone] * (ABNORMAL) CBC auto differential (08/09/2025 3:35 PM EDT) Only the most recent of2 resultswithin the time period is included. White Blood Count 9.0 4.8 - 10.8 X10*3/uL [facility] Red Blood Count 5.08 4.20 - 5.50 X10*6/uL [facility] Hemoglobin 12.6 12.0 - 16.0 g/dl [facility] Hematocrit 40.3 37.0 - 47.0 % [facility] Mean Corpuscular Volume 79.3(L) 80.0 - 98.0 fL [facility] Mean Corpuscular Hemoglobin 24.8(L) 27.0 - 33.0 pg [facility] Mean Corpuscular HGB Conc 31.3 31.0 - 35.0 g/dl [facility] Red Cell Distribution Width 15.9 11.0 - 16.0 % [facility] Platelet Count 293 160 - 400 X10*3/uL [facility] Mean Platelet Volume 11.0 9.4 - 12.3 fL [facility] Neutrophils Percent Auto 73.5(H) 45 - 73 % [facility] Imm Gran Pct Auto 0.2 0.0 - 0.4 % [facility] Lymphocytes Percent Auto 16.0(L) 20 - 40 % [facility] Monocytes Percent Auto 5.9 2 - 11 % [facility] Eosinophils Percent Auto 3.8 0 - 4 % [facility] Basophils Percent Auto 0.6 0 - 2 % [facility] NRBC Pct Auto 0.0 0.0 - 0.2 /100WBC [facility] Neutrophils Absolute Auto 6.6 2.0 - 8.3 x10*3/uL [facility] Imm Gran Abs Auto 0.02 0.00 - 0.03 X10*3/uL [facility] Lymphocytes Absolute Auto 1.4 1.2 - 4.9 X10*3/uL [facility] Monocytes Absolute Auto 0.5 0.1 - 1.2 X10*3/uL [facility] Eosinophils Absolute Auto 0.3 0.0 - 0.4 X10*3/uL [facility] Basophils Absolute Auto 0.1 0.0 - 0.2 X10*3/uL [facility] NRBC Abs Auto 0.000 0.0 - 0.012 X10*3/uL [facility] 08/09/2025 3:35 PM EDT 08/09/2025 3:58 PM EDT us Generic External Data Provider LAB BLOOD ORDERAB LES Final Result Performing Organization Address [facility] Co de Phone Number [facility] [address] [place] [phone] * Prothrombin Time-INR (08/09/2025 3:35 PM EDT) Prothrombin Time 11.1 10.9 - 12.4 SEC [facility] INTERNATIONAL NORM RATIO 1.0 0.9 - 1.1 [facility] Comment:INTERNATIONAL NORMAL IZED RATIO (INR) REFERENCE [...] ORDERAB LES Final Result Performing Organization Address [facility] Co de Phone Number [facility] [address] [place] [phone] * (ABNORMAL) Lactic Acid (07/26/2025 5:33 PM EDT) Only the most recent of2 resultswithin the time period is included. Lactic Acid 2.9(HH) 0.5 - 2.0 mmol/L [facility] Comment:Critical value for t est(s):LACTA Results called to and readback by: JOSE Person calling:KUSF Date: [id number] 07/26/2025 5:33 PM EDT 07/26/2025 5:35 PM EDT us Generic External Data Provider LAB BLOOD ORDERAB LES Final Result Performing Organization Address City/State/[facility] Co de Phone Number [facility] [address] [place] [phone] * CTA Chest PE Protocal (07/26/2025 12:55 PM EDT) Anatomical Region Laterality Modality Body, Chest Computed Tomogra phy 07/26/2025 12:5 5 PM EDT Narrative 07/26/2025 1:53 PM EDT [address] [address] [address] Scan Report Signed Patient: Indigo Thompson MR#: [id number] : 1985 Acct:[id number] Age/Sex: 40 / F ADM Date: 07/26/25 Loc: HO.ED Attending Dr: Ordering Physician: Jerzy Kelley Date of Service: 07/26/25 Procedure(s): CT angio chest PE protocol Accession Number(s): [id number] cc: Jerzy Kelley; Gisele Kulkarni MD Report Number: [id number]: Total DLP = 0.00 mGy-cm Reason for Exam: Tachycardia, syncopized, PE? EXAMINATION: CT ANGIOGRAM CHEST CLINICAL INFORMATION: Tachycardia, syncopized, rule out PE. COMPARISON: 05/28/2023. TECHNIQUE: Multiple axial images were obtained through the chest after the administration of 65 mL of Omnipaque 350 intravenous contrast. Extensive vascular post-processing including two-dimensional and three-dimensional reformatted images were created and reviewed on an independent workstation. This CT examination was performed using dose optimization techniques as appropriate, variously including the following: *Automated exposure control *Adjustment of mA and/or kV according to patient size (this includes techniques or standardized protocols for targeted exams where dose is matched to indication/reason for exam; i.e. extremities or head) *Use of iterative reconstruction technique FINDINGS: VASCULAR: Study quality is somewhat suboptimal secondary to extensive respiratory motion artifact throughout both lungs. This limits sensitivity for detection of small emboli. Within these confines, there is no central or segmental pulmonary embolus identified. The main pulmonary artery is normal in size. There is no right heart strain pattern. There is no reflux of contrast into the hepatic IVC. The aorta is normal in caliber and course. There is no aneurysm or acute aortic syndrome. There is a 2 vessel branching pattern. Great vessels are widely patent. There is mild cardiac enlargement. There is no pericardial effusion. LUNGS: Lungs demonstrate mosaic attenuation, most likely secondary to air trapping and/or partial expiratory state. There is respiratory motion artifact present. There is no consolidation. Small airways appear normal. There is no pneumothorax. PLEURA: There is no pleural effusion. No pleural mass or thickening. MEDIASTINUM: Normal-appearing thyroid, partially imaged. No mass or abnormal lymph nodes within the mediastinum. Central airways are patent. Expiratory appearance of the trachea. Esophagus is unremarkable. AXILLA/CHEST WALL: No mass or abnormal lymph nodes present. UPPER ABDOMEN: Diffuse fatty infiltration of the liver. No suspicious liver lesion. Imaged upper abdominal contents otherwise normal. OSSEOUS STRUCTURES: No suspicious lytic or blastic bone lesions. No acute findings. CT/CT angio chest PE protocol IMPRESSION: 1. Study is somewhat limited by respiratory motion artifact. Within these confines, there is no central or segmental pulmonary embolus. 2. There is no aortic aneurysm or acute aortic syndrome. 3. Mild cardiac enlargement. 4. Partial expiratory appearance of the lungs, with mosaic attenuation. Differential includes air trapping, constrictive (obliterative) bronchiolitis, hypersensitivity pneumonitis, as well as less commonly bronchial asthma, and vasculitis. Electronically signed by: Andreas Dickson MD 07/26/2025 01:50 PM EDT Dictated By: Andreas Dickson MD Signed By: <Electronically signed by Andreas Dickson MD in OV> 07/26/25 1350 DD/ 1255 TD/TT: 07/26/25 1335 Quantitative Manager: Procedure Note Donotuseinterpreter, Image - 07/26/[address] [place] [address] [address] Scan Report Signed Patient: Frederick Thompson#: MM [id number] : 1985Acct:[id number] Age/Sex: 40 / FADM Date: 07/26/25 Loc: .ED Attending Dr: Ordering Physician: Jerzy Kelley Date of Service: 07/26/25 Procedure(s): CT angio chest PE protocol Accession Number(s): [id number] cc: Jerzy Kelley; Gisele Kulkarni MD Report Number: [id number]: Total DLP = 0.00 mGy-cm Reason for Exam: Tachycardia, syncopized, PE? EXAMINATION: CT ANGIOGRAM CHEST CLINICAL INFORMATION: Tachycardia, syncopized, rule out PE. COMPARISON: 05/28/2023. TECHNIQUE: Multiple axial images were obtained through the chest after the administration of 65 mL of Omnipaque 350 intravenous contrast. Extensive vascular post-processing including two-dimensional and three-dimensional reformatted images were created and reviewed on an independent workstation. This CT examination was performed using dose optimization techniques as appropriate, variously including the following: *Automated exposure control *Adjustment of mA and/or kV according to patient size (this includes techniques or standardized protocols for targeted exams where dose is matched to indication/reason for exam; i.e. extremities or head) *Use of iterative reconstruction technique FINDINGS: VASCULAR: Study quality is somewhat suboptimal secondary to extensive respiratory motion artifact throughout both lungs. This limits sensitivity for detection of small emboli. Within these confines, there is no central or segmental pulmonary embolus identified. The main pulmonary artery is normal in size. There is no right heart strain pattern. There is no reflux of contrast into the hepatic IVC. The aorta is normal in caliber and course. There is no aneurysm or acute aortic syndrome. There is a 2 vessel branching pattern. Great vessels are widely patent. There is mild cardiac enlargement. There is no pericardial effusion. LUNGS: Lungs demonstrate mosaic attenuation, most likely secondary to air trapping and/or partial expiratory state. There is respiratory motion artifact present. There is no consolidation. Small airways appear normal. There is no pneumothorax. PLEURA: There is no pleural effusion. No pleural mass or thickening. MEDIASTINUM: Normal-appearing thyroid, partially imaged. No mass or abnormal lymph nodes within the mediastinum. Central airways are patent. Expiratory appearance of the trachea. Esophagus is unremarkable. AXILLA/CHEST WALL: No mass or abnormal lymph nodes present. UPPER ABDOMEN: Diffuse fatty infiltration of the liver. No suspicious liver lesion. Imaged upper abdominal contents otherwise normal. OSSEOUS STRUCTURES: No suspicious lytic or blastic bone lesions. No acute findings. CT/CT angio chest PE protocol IMPRESSION: 1. Study is somewhat limited by respiratory motion artifact. Within these confines, there is no central or segmental pulmonary embolus. 2. There is no aortic aneurysm or acute aortic syndrome. 3. Mild cardiac enlargement. 4. Partial expiratory appearance of the lungs, with mosaic attenuation. Differential includes air trapping, constrictive (obliterative) bronchiolitis, hypersensitivity pneumonitis, as well as less commonly bronchial asthma, and vasculitis. Electronically signed by: Andreas Dickson MD 07/26/2025 01:50 PM EDT Dictated By: Andreas Dickson MD Signed By: <Electronically signed by Andreas Dickson MD in OV> 07/26/25 1350 DD/ 1255 TD/TT: 07/26/25 1335 Quantitative Manager: us [facility] External Provider IMG CT PROCEDURES Final Result * CT Head w/o Contrast (07/26/2025 12:55 PM EDT) Anatomical Region Laterality Modality Head, Neck Computed Tomogra phy 07/26/2025 12:5 5 PM EDT Narrative 07/26/2025 1:56 PM EDT [address] [address] [address] Scan Report Signed Patient: Indigo Thompson MR#: MM [id number] : 1985 Acct:[id number] Age/Sex: 40 / F ADM Date: 07/26/25 Loc: HO.ED Attending Dr: Ordering Physician: Jerzy Kelley Date of Service: 07/26/25 Procedure(s): CT head/brain wo IV con Accession Number(s): [id number] cc: Jerzy Kelley; Gisele Kulkarni MD Report Number: [id number]: Total DLP = 948.00 mGy-cm Reason for Exam: syncopal episode EXAMINATION: CT HEAD WITHOUT CONTRAST CLINICAL INFORMATION: syncopal episode COMPARISON: None available. TECHNIQUE: Contiguous axial imaging was performed from the skull base to vertex without intravenous administration of contrast. This CT examination was performed using dose optimization techniques as appropriate, variously including the following: *Automated exposure control *Adjustment of mA and/or kV according to patient size (this includes techniques or standardized protocols for targeted exams where dose is matched to indication/reason for exam; i.e. extremities or head) *Use of iterative reconstruction technique DLP: 603.14 mGy-cm FINDINGS: No acute cortical disruption within the bony calvarium or the skull base. No acute intracranial hemorrhage, mass effect, midline shift, hydrocephalus or herniation. Benitez-white matter differentiation is normal. Sellar/suprasellar region demonstrated no gross masses. Craniocervical junction demonstrates normal position of the cerebellar tonsils. Posterior cranial fossa contents demonstrated no gross masses. Mucosal thickening in the paranasal sinuses. Effervescent secretions in the left saphenous sinus. Tympanic cavities and mastoid cells are aerated. Pneumatized left petrous apex. CT/CT head/brain wo IV con IMPRESSION: No acute fracture, bony calvarium. No acute intradural hemorrhage. Acute on chronic zuñiga paranasal sinus disease. Electronically signed by: Luis Paul MD 07/26/2025 01:53 PM EDT Dictated By: Luis Oropeza MD Signed By: <Electronically signed by Luis Maxwell MD in OV> 07/26/25 1353 DD/ 1255 TD/TT: 07/26/25 1335 Quantitative Manager: Procedure Note Donotmitrainterpreter, Image - 07/26/[address] [place] [address] [address] Scan Report Signed Patient: Frederick Thompson#: MM [id number] : 1985Acct:[id number] Age/Sex: 40 / FADM Date: 07/26/25 Loc: HO.ED Attending Dr: Ordering Physician: Jerzy Kelley Date of Service: 07/26/25 Procedure(s): CT head/brain wo IV con Accession Number(s): [id number] cc: Jerzy Kelley; Gisele Kulkarni MD Report Number: [id number]: Total DLP = 948.00 mGy-cm Reason for Exam: syncopal episode EXAMINATION: CT HEAD WITHOUT CONTRAST CLINICAL INFORMATION: syncopal episode COMPARISON: None available. TECHNIQUE: Contiguous axial imaging was performed from the skull base to vertex without intravenous administration of contrast. This CT examination was performed using dose optimization techniques as appropriate, variously including the following: *Automated exposure control *Adjustment of mA and/or kV according to patient size (this includes techniques or standardized protocols for targeted exams where dose is matched to indication/reason for exam; i.e. extremities or head) *Use of iterative reconstruction technique DLP: 603.14 mGy-cm FINDINGS: No acute cortical disruption within the bony calvarium or the skull base. No acute intracranial hemorrhage, mass effect, midline shift, hydrocephalus or herniation. Benitez-white matter differentiation is normal. Sellar/suprasellar region demonstrated no gross masses. Craniocervical junction demonstrates normal position of the cerebellar tonsils. Posterior cranial fossa contents demonstrated no gross masses. Mucosal thickening in the paranasal sinuses. Effervescent secretions in the left saphenous sinus. Tympanic cavities and mastoid cells are aerated. Pneumatized left petrous apex. CT/CT head/brain wo IV con IMPRESSION: No acute fracture, bony calvarium. No acute intradural hemorrhage. Acute on chronic zuñiga paranasal sinus disease. Electronically signed by: Luis Paul MD 07/26/2025 01:53 PM EDT Dictated By: Luis Oropeza MD Signed By: <Electronically signed by Luis Maxwell MDin OV> 07/26/25 1353 DD/ 1255 TD/TT: 07/26/25 1335 Quantitative Manager: [facility] External Provider IMG CT PROCEDURES Final Result * NT-proBNP (07/26/2025 11:46 AM EDT) NT-proBNP 18.9 <300 pg/mL [facility] Comment:Reference Range:Age Group (years) NT-proBNP (pg/ml) InterpretationAll <300 Negative: HF unlikelyFor patients presenting to the ED with clinical suspicion ofnew onset or worsening HF, see below:18 to <50 >299.9 to <450.0 Grayzone: Eguaknit82 to 75 >299.9 to <900.0 other causes of>75 >299.9 to <1800.0 NT-proBNP to <50 >449.9 Positive: HF -74 >899.9>75 >1799.9Note: Elevated NT-proBNP levels should be interpreted inthe context of other clinical information. 07/26/2025 11:4 6 AM EDT 07/26/2025 11:49 AM EDT Generic External Data Provider LAB BLOOD ORDERAB LES Final Result Performing Organization Address City/State/[facility] Co de Phone Number [facility] [address] [place] [phone] * (ABNORMAL) Lactic Acid (07/26/2025 11:41 AM EDT) Lactic Acid 2.2(HH) 0.5 - 2.0 mmol/L [facility] Comment:Critical value for t est(s): LA Results called to and readback by: FRANCESCA Person calling: IDRISH Date: 07/26/25 Time:12:08 07/26/2025 11:4 1 AM EDT 07/26/2025 11:45 AM EDT Generic External Data Provider LAB BLOOD ORDERAB LES Final Result Performing Organization Address [facility] de Phone Number [facility] [address] [place] [phone] * D Dimer High Sensitivity (07/26/2025 11:28 AM EDT) D Dimer High Sensitivity <150 NG/ML [facility] Comment:D-DIMER HS REFERENCE RANGENote: Our assay reports D-Dimer Units (D- DU).The cut-off value for venous thromboembolic (VTE) disease is230 ng/mL. This value has a very high negative predictivevalue when the patient has a low to moderate clinicalprobability of VTE.The upper limit of normal is 243 ng/mL. 07/26/2025 11:2 8 AM EDT 07/26/2025 11:33 AM EDT Generic External Data Provider LAB BLOOD ORDERAB LES Final Result Performing Organization Address [facility] de Phone Number [facility] [address] [place] [phone] * XR Chest 1 View (07/26/2025 10:50 AM EDT) Anatomical Region Laterality Modality Chest Radiographic Nurys ging 07/26/2025 10:5 0 AM EDT Narrative 07/26/2025 11:02 AM EDT [address] [address] XRay Report Signed Patient: Indigo Thompson MR#: [id number] : 1985 Acct:[id number] Age/Sex: 40 / F ADM Date: 07/26/25 Loc: .ED Attending Dr: Ordering Physician: Jerzy Kelley Date of Service: 07/26/25 Procedure(s): XR chest 1V Accession Number(s): [id number] cc: Jerzy Kelley; Gisele Kulkarni MD Reason [...] 07/26/25 1059 DD/ 1050 TD/TT: 07/26/25 1054 Quantitative Manager: Procedure Note Donotuseinterpreter, Image - 07/26/[address] [address] XRay Report Signed Patient: Frederick Thompson#: MM [id number] : 1985Acct:[id number] Age/Sex: 40 / FADM Date: 07/26/25 Loc: .ED Attending Dr: Ordering Physician: Jerzy Kelley Date of Service: 07/26/25 Procedure(s): XR chest 1V Accession Number(s): [id number] cc: Jerzy Kelley; Gisele Kulkarni MD Reason [...] 07/26/25 1059 DD/ 1050 TD/TT: 07/26/25 1054 Quantitative Manager: [facility] External Provider IMG XR PROCEDURES Edited Result - Final * Albumin, Random Urine W/Creatinine (02/25/2025 12:49 PM EDT) Creatinine, Urine 233.13 mg/dL [facility] Microalbumin Urine 33.0 mg/L [facility] Microalbum Creatinine Ratio Ur 14.1 <30 ug/mg cr [facility] Comment:Albumin/Creatinine R atio Reference Ranges: Normal: < 30 ug/mg creatinine Microalbuminuria: 30 - 300 ug/mg creatinineClinical Albuminuria: > 300 ug/mg creatinine Urine 02/25/2025 12:4 9 PM EDT 02/25/2025 3:58 PM EDT Gisele Kulkarni MD LAB URINE ORDERABLES Final Result [facility] [address] [place] [phone] * (ABNORMAL) Hemoglobin A1c (02/25/2025 12:49 PM EDT) Hemoglobin A1c 7.2(H) <6.0 % [facility] Comment:Hemoglobin A1C Refer ence Range Adults: 4.8 - 6.0 % Non diabetic: < 6.0 % Goal: < 7.0 %Additional Action Suggested: > 8.0 %Note: Hemoglobin A1c results are invalid for patients with abnormal amounts of HbF. Blood transfusions may impact the HbA1c concentration in the patient sample. Estimated Average Glucose 160 mg/dL [facility] Comment:eAG = Estimated ave rage glucose which is %A1C expressed asaverage glucose, using the formula of the A3Z-RsrlluwEwehgmc Glucose study (ADAG), Diabetes Care, Vol.31,#8,May. 2007 Blood Venous blood specimen / Unknown 02/25/2025 12:49 PM EDT 02/25/2025 4:04 PM EDT Gisele Kulkarni MD LAB BLOOD ORDERABLES Final Result Performing Organization Address [facility] Co de Phone Number [facility] [address] [place] [phone] * (ABNORMAL) Lipid Panel, Standard (02/25/2025 12:49 PM EDT) Triglycerides 134 <150 mg/dL [facility] Comment:Desirable Triglyceri de: less than 150 mg/dLBorderline High Triglyceride 150-199 mg/dLHigh Triglyceride: 200-499 mg/dLVery High Triglyceride: greater than or equal to 5OO mg/dL Cholesterol 173 <200 mg/dL [facility] Comment:Desirable Cholestero l: less than 200 mg/dLBorderline High Cholesterol: 200-239 mg/dLHigh Cholesterol: greater than 239 mg/dL LDL Cholesterol Calculated 103(H) <100 mg/dL [facility] Comment:Desirable LDL: less than 100 mg/dLNear Optimal/Above Optimal LDL: 110- 129 mg/dLBorderline High LDL: 130-159 mg/dLHigh LDL: 160-189 mg/dLVery High LDL: greater than or equal to 190 mg/dL HDL Cholesterol 44 >40 mg/dL [facility] Comment:Desirable HDL: great er than 40 mg/dL Note: This HDL assay may give artificially low results in patients with liver disease. Blood Venous blood specimen / Unknown 02/25/2025 12:49 PM EDT 02/25/2025 4:04 PM EDT Gisele Kulkarni MD LAB BLOOD ORDERABLES Final Result Performing Organization Address [facility] Co de Phone Number [facility] [address] [place] [phone] * Hepatitis C Antibody with Reflex to HCV, RNA, Quantitative, Real-Time PCR (10/06/2023 12:16 PM EST) [facility] Hepatitis C Antibody Nonreactive Nonreactive [facility] Comment:Antibodies to HCV no t detected; does not exclude early acuteHCV infection. Blood Venous blood specimen / Unknown 10/06/2023 12:16 PM EST 10/06/2023 1:01 PM EST Gisele Kulkarni MD LAB BLOOD ORDERABLES Final Result Performing Organization Address [facility]/ZIP Co de Phone Number [facility] [address] [place] [phone] * HIV-1/2 Antigen and Antibodies, Fourth Generation, with Reflexes (10/06/2023 12:16 PM EST) [facility] HIV AB/AG Nonreactive Nonreactive [facility] Comment:HIV-1 p24 Ag and/or HIV-1/HIV-2 Ab not detected.A test result that is nonreactive does not exclude thepossibility of exposure to or infection with HIV-1 and/orHIV-2. Nonreactive results in this assay for individualswith prior exposure to HIV-1 and/or HIV-2 may be due toantigen and antibody levels that are below the limit ofdetection of this assay.The [employer]ap[employer] HIV Ag/Ab Combo assay result andsupplemental assay results should be interpreted inconjunction with the patient's clinical presentation,history and other laboratory results. If the results areinconsistent with clinical evidence, additional testing issuggested to confirm the result. Blood Venous blood specimen / Unknown 10/06/2023 12:16 PM EST 10/06/2023 1:01 PM EST Gisele Kulkarni MD LAB BLOOD ORDERABLES Final Result Performing Organization Address [facility]/ZIP Co de Phone Number [facility] [address] [place] [phone] * HPV High Risk PCR (07/11/2022 12:00 AM EDT) Swab Cervical swab / Unknown Gisele Kulkarni MD LAB MICROBIOLOGY - GENERAL ORDERABLES Final Result Performing Organization Address [facility]/ZIP Co de Phone Number [facility] [address] [place] [phone] * Pap Smear (07/11/2022 12:00 AM EDT) Swab Gisele Kulkarni MD LAB CYTOLOGY ORDERABLES Fi nal Result Performing Organization Address [facility]/ZIP Co de Phone Number [facility] [address] [place] [phone] from Last 3 Months or Most Recently Relevant to Health Maintenance [place] [address] [place] [id number] [facility] Advance Directives Documents on File Type Date Recorded Patient Thermodynamics Engineer Expl anation Advance Directives and Living Will 02/24/2025 11:52 AM Health Care Proxy Care Teams Instrument Adjuster Relationship Specialty Start Date End Date [place], [place] Gisele [address] [place] [phone] PCP - General Family Medicine 06/15/13 Josemanuel Mc MD [address] [place] [phone] Cardiology 12/01/24 Ant Wilkes MD [address] [place] [address] [address] [place] [address] Allergy 12/01/24
--- OUTSIDE RECORDS SUMMARY | 2025-08-09 19:07 | XMS_ITS | Encounter Summary ---
Author Organization [employer] Address [address] [place] [address] Care Team Providers Care Pianos And Organs Salesperson Name Role Phone Gisele Kulkarni MD Primary Care Provider [phone] Yessica Morales PharmD Unavailable [phone] Josemanuel Mc MD Unavailable Ant Wilkes MD Unavailable Reason for Visit * Reason Onset Date Comments Nurse Triage 05/28/2023 Encounter Details Date Type Department Care Team (Late st Contact Info) Description 05/28/2023 Telephone [facility] [address] [place], [place] [phone] Gisele Kulkarni MD [address] [place], [place] [phone] Nurse Triage Social History Tobacco Use Types [...] - 05/28/2023 4:29 PM EDT Triage call [place] [employer] [place] [id number] Pt reports headache which hurts on the front and back of head. Pt reports vomiting 5x since last night. Pt reports dizziness for last 2 days. Pt reports chest pain in the middle of the chest which radiates to right hand. Pt was just seen by wool scourer 05/02/23 for tachycardia with increase in dilitiazem [...] accepted this outcome Please contact pt at [phone] (Croatian) documented in this encounter Plan of Treatment Upcoming Encounters Date Type Department Care Team (Late st Contact Info) Description 08/26/2025 9:00 AM EDT Office Visit [facility] [address] [place] [address] Natasha Ham, OD [address] [place] [address] 09/14/2025 2:15 PM EST Office Visit [facility] [address] [place] [address] Gisele Kulkarni MD [address] [place] [address] documented as of this encounter Goals Goal Patient Goal Type Associated Problems Recent Progress Patient-Stated? Author Hemoglobin A1c < 7 Result Component 7.2(02/25/2025 12:49 PM EDT) No Yessica Morales, PharmD documented as of this encounter Visit Diagnoses Not on filedocumented in this encounter Care Teams Pianos And Organs Salesperson Relationship Specialty Start Date End Date Gisele Kulkarni MD [address] [place] [address] PCP - General Family Medicine 06/15/13 Yessica Morales PharmD [address] [place] [phone] Pharmacist Internal Medicine 03/18/23 08/24/23 Josemanuel Mc MD [address] [place] [address] Cardiology 12/01/24 Ant Wilkes MD [address] [place] [address] [address] [place] [address] Allergy 12/01/24 documented as of this encounter
--- OUTSIDE RECORDS SUMMARY | 2025-08-09 19:07 | XMS_ITS | Encounter Summary ---
Author Organization [employer] Address [address] [facility] 7 [place] [address] Care Team Providers Care Infantry Weapons Crewmember Name Role Phone Gisele Kulkarni MD Primary Care Provider [phone] Josemanuel Mc MD Unavailable [phone] Ant Wilkes MD Unavailable Reason for Visit * Reason Comments Med Refill Encounter Details Date Type Department Care Team (Late st Contact Info) Description 02/07/2025 Refill [facility] [address] [place] [address] Gisele Kulkarni MD [address] [place] [address] Heartburn Social History Tobacco Use Types Packs/Day [...] 9:00 AM EDT Office Visit [facility] OPTOMETRY [address] [place] [address] Jitendra, Natasha, OD [address] [place] [address] 09/14/2025 2:15 PM EST Office Visit [facility] [address] [place] [address] Gisele Kulkarni MD [address] [place] [address] documented as of this encounter Goals Goal Patient Goal Type Associated Problems Recent Progress Patient-Stated? Author Patient will adhere to medication regimen General Corin Melendez Hemoglobin A1c < 7 Result Component 7.2( 12:49 PM EDT) No Yessica Morales, PharmD documented as of this encounter Visit Diagnoses Diagnosis Heartburn documented in this encounter Care Teams Infantry Weapons Crewmember Relationship Specialty Start Date End Date Gisele Kulkarni MD [address] [place] [address] PCP - General Family Medicine 06/15/13 Josemanuel Mc MD [address] [place] [address] Cardiology 12/01/24 Ant Wilkes MD [address] [place] [address] [address] [place] [address] Allergy 12/01/24 documented as of this encounter
--- OUTSIDE RECORDS SUMMARY | 2025-08-09 19:07 | XMS_ITS | Encounter Summary ---
Author Organization [employer] Address [address] [facility] 7 [place] [address] Care Team Providers Care Head Rigger Name Role Phone Gisele Kulkarni MD Primary Care Provider [phone]- [phone] Josemanuel Mc MD Unavailable [phone] Ant Wilkes MD Unavailable Reason for Visit * Reason Onset Date Comments Med Refill 01/04/2025 Encounter Details Date Type Department Care Team (Late st Contact Info) Description 01/04/2025 Refill [facility] [address] [place], [place] [phone] Gisele Kulkarni MD [address] [place], [place] [phone] Nausea Social History Tobacco Use Types Packs/Day [...] Description 08/26/2025 9:00 AM EDT Office Visit [facility] [address] [place] [address] Jitendra, Natasha, OD [address] [place] [address] 09/14/2025 2:15 PM EST Office Visit [facility] [address] [place] [address] Gisele Kulkarni MD [address] [place] [address] documented as of this encounter Goals Goal Patient Goal Type Associated Problems Recent Progress Patient-Stated? Author Patient will adhere to medication regimen General Croin Melendez Hemoglobin A1c < 7 Result Component 7.2( 12:49 PM EDT) No Yessica Morales, PharmD documented as of this encounter Visit Diagnoses Diagnosis Nausea Nausea alone documented in this encounter Care Teams Head Rigger Relationship Specialty Start Date End Date Gisele Kulkarni MD [address] [place] [phone] PCP - General Family Medicine 06/15/13 Josemanuel Mc MD [address] [place] [address] Cardiology 12/01/24 Ant Wilkes MD [address] [place] [address] [address] [place] [address] Allergy 12/01/24 documented as of this encounter
--- OUTSIDE RECORDS SUMMARY | 2025-08-09 19:07 | XMS_ITS | Encounter Summary ---
Author Organization [employer] Address [address] [facility] 7 [place] [address] Care Team Providers Care Pattern Ruler Name Role Phone Gisele Kulkarni MD Primary Care Provider [phone]- [phone] Josemanuel Mc MD Unavailable [phone] Ant Wilkes MD Unavailable Reason for Visit * Reason Comments Med Change Request Encounter Details Date Type Department Care Team (Late st Contact Info) Description 01/24/[address] [facility] [address] [place] [address] Gisele Kulkarni MD [address] [place] [address] Social History Tobacco Use Types Packs/Day Years [...] Description 08/26/2025 9:00 AM EDT Office Visit [facility] OPTOMETRY [address] [place] [address] JitendraDanilo snown, OD [address] [place] [address] 09/14/2025 2:15 PM EST Office Visit [facility] [address] [place] [address] Gisele Kulkarni MD [address] [place] [address] documented as of this encounter Goals Goal Patient Goal Type Associated Problems Recent Progress Patient-Stated? Author Patient will adhere to medication regimen General Corin Melendez Hemoglobin A1c < 7 Result Component 7.2( 12:49 PM EDT) No Yessica Morales, PharmD documented as of this encounter Visit Diagnoses Not on filedocumented in this encounter Care Teams Pattern Ruler Relationship Specialty Start Date End Date Gisele Kulkarni MD [address] [place] [phone] PCP - General Family Medicine 06/15/13 Josemanuel Mc MD [address] [place] [address] Cardiology 12/01/24 Ant Wilkes MD [address] [place] [address] [address] [place] [address] Allergy 12/01/24 documented as of this encounter
--- OUTSIDE RECORDS SUMMARY | 2025-08-09 19:07 | XMS_ITS | Encounter Summary ---
Author Organization [employer] Address [address] [facility] 7 [place] [address] Care Team Providers Care Outside Rigger Name Role Phone Gisele Kulkarni MD Primary Care Provider [phone] Josemanuel Mc MD Unavailable [phone] Ant Wilkes MD Unavailable Reason for Visit * Reason Onset Date Comments Med Refill 11/06/2024 Encounter Details Date Type Department Care Team (Late st Contact Info) Description 11/06/2024 Refill [facility] [address] [place], [place] [phone] Gisele Kulkarni MD [address] [place], [place] [phone] Nausea Social History Tobacco Use Types Packs/Day [...] Description 08/26/2025 9:00 AM EDT Office Visit [facility] [address] [place] [address] Jitendra, Natasha, OD [address] [place] [address] 09/14/2025 2:15 PM EST Office Visit [facility] [address] [place] [address] Gisele Kulkarni MD [address] [place] [address] documented as of this encounter Goals Goal Patient Goal Type Associated Problems Recent Progress Patient-Stated? Author Patient will adhere to medication regimen General No Corin Chaudhry Hemoglobin A1c < 7 Result Component 7.2( 12:49 PM EDT) No Yessica Morales, PharmD documented as of this encounter Visit Diagnoses Diagnosis Nausea Nausea alone documented in this encounter Care Teams Outside Rigger Relationship Specialty Start Date End Date Gisele Kulkarni MD [address] [place] [address] PCP - General Family Medicine 06/15/13 Josemanuel Mc MD [address] [place] [address] Cardiology 12/01/24 Ant Wilkes MD [address] [place] [address] [address] [place] [address] Allergy 12/01/24 documented as of this encounter
== END 2025-08-09 19:03 | disposition left against medical advice (07) ==
PROVIDERS: Registered Nurse Emergency; Emergency Provider Emergency Medicine; PCP Family Medicine
DX: R07.89 Other chest pain (principal); R00.0 Tachycardia, unspecified; Z79.899 Other long term (current) drug therapy; Z11.52 Encounter for screening for COVID-19
CPT/HCPCS: 36415; 71046; 80053; 83690; 83735; 84484; 84702; 85025; 85610; 87502; 87635; 93005; 99283

== ENCOUNTER → 2025-08-09 15:18 | Outpatient (BNV) | payer MEDICARE, MEDICAID, SELFPAY | PROVIDERS: PCP Family Medicine; Visit Provider Radiology Diagnostic Radiology | DX: R07.9 Chest pain, unspecified (principal) | CPT/HCPCS: 71046 ==

== ENCOUNTER → 2025-08-09 15:18 | Outpatient (BNV) | payer MEDICARE, MEDICAID, SELFPAY | PROVIDERS: Emergency Provider Emergency Medicine; PCP Family Medicine; Visit Provider Internal Medicine Cardiovascular Disease | DX: R00.0 Tachycardia, unspecified (principal) | CPT/HCPCS: 93010 ==

== ENCOUNTER 2025-09-04 08:04 | Emergency (ER) | payer MEDICARE, MEDICAID, SELFPAY ==
--- NOTE | ~2025-09-04 | XR_ITS ---
CLINICAL HISTORY: chest pain 2 view chest x-ray. Comparison: CR/SR - XR CHEST 2 VIEWS - 08/09/25 15:47 EDT Findings: Normal lung volumes. Stable interstitial and bronchial wall thickening No pneumothorax or pleural effusion. Heart size normal. No passive venous congestion. No midline shift or tracheal deviation. No acute fracture. Impression: 1. Stable interstitial and bronchial wall thickening. No airspace disease. This document has been electronically signed by: Ricardo Sevilla MD on 09/04/2025 10:24:24
--- NOTE | 2025-09-04 08:07 | ECG_ITS ---
Test Reason : TACHY Blood Pressure : */* mmHG Vent. Rate : 132 BPM Atrial Rate : 132 BPM P-R Int : 148 ms QRS Dur : 70 ms QT Int : 296 ms P-R-T Axes : 17 15 -23 degrees QTcB Int : [address] & T wave abnormality, consider inferior ischemia Abnormal ECG When compared with ECG of 09-Aug-2025 15:28, T wave inversion no longer evident in Anterior leads Referred By: Generic ED Physician Electronically Signed By: Zeke Bailey
[2025-09-04 08:15] VITALS: BP 176/88; PULSE 140; RESP 18; TEMP 36.6; O2SAT 98; BMI 33.6
--- OUTSIDE RECORDS SUMMARY | 2025-09-04 08:38 | XMS_ITS | Encounter Summary ---
Author Organization [employer] Address [address] [facility] 7t [place] [address] Care Team Providers Care Air Conditioning Installer Supervisor Name Role Phone Gisele Kulkarni MD Primary Care Provider [phone] Destiney Beaulieu MD Unavailable Natasha Ham OD Unavailable Sandi English Unavailable Josemanuel Mc MD Unavailable Cora Starr Unavailable Encounter Details Date Type Department Care Team (Late st Contact Info) Description 08/31/2025 Patient Outreach [facility] [address] [place], [place] [id number] Gisele Kulkarni MD [address] [place] [address] Social History Tobacco Use Types Packs/Day Years Used Date Smoking Tobacco: Never Passive Smoke Exposure: Never Smokeless Tobacco: Never Alcohol Use Standard Drinks/Week Comments Never 0 (1 standard drink = 0.6 oz pur e alcohol) Depression Answer Date Recorded Patient Health Questionnaire-9 Score 7 02/23/2025 Patient Health Questionnaire-9 Score 7 02/23/2025 Last PHQ-9: Questionnaire Data Not on file 0 02/23/2025 Housing Stability Answer Date Recorded What is your housing situation today? I have arpita martinez 10/08/[address] you li ve. Do you have problems with any of the following? None of the above 10/08/2024 Food Insecurity Answer Date Recorded Within the past 12 months, y ou worried that your food would run out before you got money to buy more: Sometimes True 2023 Within the past 12 months,th e food you bought just didn't last and you didn't have enough money to get more: Sometimes True 10/08/2024 Transportation Answer Date Recorded In the past 12 months, has l ack of transportation kept you from medical appts, meetings, work or from getting things needed for daily living? Yes, it has kept me from medical appointments or getting medications. 10/08/2024 Utilities Answer Date Recorded In the past 12 months, has t he electric, gas, oil or water company threatened to shut off services in your home? No 10/08/2024 Depression Answer Date Recorded Patient Health Questionnaire-2 Score 1 02/23/2025 Internet Access Answer Date Recorded Internet Access Q1 Yes 10/08/2024 Internet Access Q2 Not on file 10/08/2024 Comments Unknown Sex and Gender Information Value Date Recorded Sex Assigned at Female 08/26/2022 10:16 AM EDT Legal Sex Female 10:16 AM EDT Gender Identity Female 08/26/2022 10:16 AM EDT Sexual Orientation Straight 08/26/2022 10 :16 AM EDT documented as of this encounter Plan of Treatment Upcoming Encounters Date Type Department Care Team (Late st Contact Info) Description 09/19/2025 10:30 AM EST Office Visit [facility] MEDICINE [address] [place] [address] Gisele Kulkarni MD [address] [place] [phone] documented as of this encounter Visit Diagnoses Not on filedocumented in this encounter Additional Health Concerns Assessment Noted Time PHQ-9 Depression Total Score: 7 02/24/20 25 5:01 PM EDT documented as of this encounter Care Teams Air Conditioning Installer Supervisor Relationship Specialty Start Date End Date Gisele Kulkarni MD [address] [place] [address] PCP - General Family Medicine 10/27/18 Destiney Beaulieu MD [address] [place] [address] Rheumatology 12/01/24 Natasha Ham OD [address] [place] [address] Optometry 12/01/24 Sandi English PA [address] [place] [address] Orthopaedic Surgery 12/01/24 Josemanuel Mc MD [address] [place] [address] Cardiology 12/01/24 Cora Starr 08/10/25 08/31/25 Steve Menendez Inflated Ball MolderEngraver Pantograph 10/12/24 documented as of this encounter
--- OUTSIDE RECORDS SUMMARY | 2025-09-04 08:38 | XMS_ITS | Encounter Summary ---
Author Organization [employer] Address [address] [facility] 7t [place] [address] Care Team Providers Care Enterprise Resource Analyst Name Role Phone Gisele Kulkarni MD Primary Care Provider + [phone] Destiney Beaulieu MD Unavailable Natasha Ham OD Unavailable Sandi English Unavailable Josemanuel Mc MD Unavailable [phone] Cora Starr Unavailable Cora Starr Unavailable Encounter Details Date Type Department Care Team (Late st Contact Info) Description 07/16/2024 Telephone [facility] MEDICINE [address] [place], [place] [phone] Gisele Kulkarni MD [address] [place], [place] [phone] Social History Tobacco Use Types Packs/Day Years Used Date Smoking Tobacco: Never Passive Smoke Exposure: Never Smokeless Tobacco: Never Alcohol Use Standard Drinks/Week Comments Never 0 (1 standard drink = 0.6 oz pur e alcohol) Depression Answer Date Recorded Patient Health Questionnaire-9 Score 0 05/23/2023 Housing Stability Answer Date Recorded What is your housing situation today? I have arpita martinez 08/11/[address] you li ve. Do you have problems with any of the following? None of the above 08/11/2023 Food Insecurity Answer Date Recorded Within the past 12 months, y ou worried that your food would run out before you got money to buy more: Never True 08/11/2023 Within the past 12 months,th e food you bought just didn't last and you didn't have enough money to get more: Never True Transportation Answer Date Recorded In the past 12 months, has l ack of transportation kept you from medical appts, meetings, work or from getting things needed for daily living? No 08/11/2023 Utilities Answer Date Recorded In the past 12 months, has t he electric, gas, oil or water company threatened to shut off services in your home? No 08/11/2023 Depression Answer Date Recorded Patient Health Questionnaire-2 Score 0 05/23/2023 Comments Unknown Sex and Gender Information Value [...] Description 09/19/2025 10:30 AM EST Office Visit [facility] MEDICINE [address] [place] [address] Gisele Kulkarni MD [address] [place] [address] documented as of this encounter Visit Diagnoses Not on filedocumented in this encounter Additional Health Concerns Assessment Noted Time PHQ-9 Depression Total Score: 0 05/23/20 23 9:59 AM EDT documented as of this encounter Care Teams Enterprise Resource Analyst Relationship Specialty Start Date End Date Gisele Kulkarni MD [address] [place] [address] PCP - General Family Medicine 10/27/18 Destiney Beaulieu MD [address] [place] [address] Rheumatology 12/01/24 Natasha Ham OD [address] [place] [address] Optometry 12/01/24 Sandi English PA [address] [place] [address] Orthopaedic Surgery 12/01/24 Josemanuel Mc MD [address] [place] [address] Cardiology 12/01/24 Cora Starr 07/27/25 08/05/25 Cora Starr 08/10/25 08/31/25 Steve Menendez Clay WorkerComputer Systems Engineer 10/12/24 documented as of this encounter
--- OUTSIDE RECORDS SUMMARY | 2025-09-04 08:38 | XMS_ITS | Encounter Summary ---
Author Organization [employer] [facility] Address [address] [facility] 7t [place] [address] Care Team Providers Care Secretary Office Clerk Name Role Phone Gisele Kulkarni MD Primary Care Provider [phone] Destiney Beaulieu MD Unavailable Natasha Ham OD Unavailable [phone] Sandi English Unavailable Josemanuel Mc MD Unavailable [phone] Cora Starr Unavailable Cora Starr Unavailable Encounter Details Date Type Department Care Team (Late st Contact Info) Description 10/15/2022 Telephone [facility] MEDICINE [address] [place] [address] [phone] Gisele Kulkarni MD [address] [place] [phone] Social History Tobacco Use Types Packs/Day Years [...] Description 09/19/2025 10:30 AM EST Office Visit [facility] MEDICINE [address] [place] [phone] Gisele Kulkarni MD [address] [place] [address] documented as of this encounter Visit Diagnoses Not on filedocumented in this encounter Care Teams Secretary Office Clerk Relationship Specialty Start Date End Date Gisele Kulkarni MD [address] [place] [address] PCP - General Family Medicine 10/27/18 Destiney Beaulieu MD [address] [place] [address] Rheumatology 12/01/24 Natasha Ham OD [address] [place] [address] Optometry 12/01/24 Sandi English PA [address] [place] [address] Orthopaedic Surgery 12/01/24 Josemanuel Mc MD [address] [place] [address] Cardiology 12/01/24 Cora Starr 07/27/25 08/05/25 Cora Starr 08/10/25 08/31/25 Steve Menendez Slab InstallerHealth Consultant 10/12/24 documented as of this encounter
--- OUTSIDE RECORDS SUMMARY | 2025-09-04 08:38 | XMS_ITS | Encounter Summary ---
Author Organization [facility] Address [address] [address] Phone Care Team Providers Care Chemotherapist Name Role Phone Pcp, Not Required Primary Care Provider Unavaila ble Encounter Details Date Type Department Care Team (Late st Contact Info) Description 09/27/2020 Ancillary Orders [facility] [address] [place] [address] [place] [address] Josemanuel Mc, DO [address] [place] [address] Palpitations Social History Tobacco Use Types Packs/Day Years Used Date Smoking Tobacco: Never Alcohol Use Standard Drinks/Week Comments Never 0 (1 standard drink = 0.6 oz pur e alcohol) Comments Unknown Sex and Gender Information Value Date Recorded Sex Assigned at Not on file Legal Sex Female 2:20 AM EDT Gender Identity Not on file Sexual Orientation Not on file documented as of this encounter Plan of Treatment Not on file documented as of this encounter Results * Holter Monitor 48 Hours (09/27/2020 9:51 AM EST) Anatomical Region Laterality Modality Heart Other Narrative 09/27/2020 12:42 PM EST 48-hour monitor: The baseline rhythm is sinus with a minimum heart rate of 45, maximum 164, average 83 bpm. There are no long pauses. There are 29 PACs. There are no patient event markers. There is no diary submitted. Impression: Normal 48-hour monitor. No diary submitted. No patient event markers. Procedure Note Tanner Georges MD - 09/27/2020 48-hour monitor: The baseline rhythm is sinus with a minimum heart rate of45, maximum 164, average 83 bpm. There are no long pauses. There are 29PACs. There are no patient event markers. There is no diary submitted. Impression: Normal 48-hour monitor. No diary submitted. No patient eventmarkers. Josemanuel Mc DO [facility] ORDERABLE S Final Result documented in this encounter Visit Diagnoses Diagnosis Palpitations Palpitations documented in this encounter Care Teams Chemotherapist Relationship Specialty Start Date End Date Pcp, Not Required [address] [place] [phone] PCP - General 07/08/20 documented as of this encounter Additional Source Comments The information contained in this document represents components of the legal health record. It is not the complete legal health record.[facility]
--- OUTSIDE RECORDS SUMMARY | 2025-09-04 08:38 | XMS_ITS | Encounter Summary ---
Author Organization [employer] Address [address] [facility] 7t [place] [address] Care Team Providers Care Harness Repairer Name Role Phone Gisele Kulkarni MD Primary Care Provider [phone] Destiney Beaulieu MD Unavailable Natasha Ham OD Unavailable [phone] Sandi English Unavailable Josemanuel Mc MD Unavailable [phone] Cora Starr Unavailable Cora Starr Unavailable Encounter Details Date Type Department Care Team (Late st Contact Info) Description 07/24/2023 Abstract [facility] MEDIC[facility] [address] [place], [place] [phone] Gisele Kulkarni MD [address] [place], [place] [phone] Social History Tobacco Use Types Packs/Day Years Used Date Smoking Tobacco: Never Passive Smoke Exposure: Never Smokeless Tobacco: Never Alcohol Use Standard Drinks/Week Comments Never 0 (1 standard drink = 0.6 oz pur e alcohol) Depression Answer Date Recorded Patient Health Questionnaire-9 Score 0 05/23/2023 Depression Answer Date Recorded Patient Health Questionnaire-2 [...] Description 09/19/2025 10:30 AM EST Office Visit [facility] MEDICINE [address] [place] [address] Gisele Kulkarni MD [address] [place] [address] documented as of this encounter Visit Diagnoses Not on filedocumented in this encounter Additional Health Concerns Assessment Noted Time PHQ-9 Depression Total Score: 0 05/23/20 9:59 AM EDT documented as of this encounter Care Teams Harness Repairer Relationship Specialty Start Date End Date Gisele Kulkarni MD [address] [place] [address] PCP - General Family Medicine 10/27/18 Destiney Beaulieu MD [address] [place] [address] Rheumatology 12/01/24 Natasha Ham OD [address] [place] [address] Optometry 12/01/24 Sandi English PA [address] [place] [address] Orthopaedic Surgery 12/01/24 Josemanuel Mc MD [address] [place] [address] Cardiology 12/01/24 Cora Starr 07/27/25 08/05/25 Cora Starr 08/10/25 08/31/25 Steve Menendez Senior PlannerRefinery Operator Helper Crude Unit 10/12/24 documented as of this encounter
--- OUTSIDE RECORDS SUMMARY | 2025-09-04 08:38 | XMS_ITS | Clinical Summary ---
Author Organization [employer] Address [address] [facility] [address] [place] [address] Care Team Providers Care Design Inserter Name Role Phone Gisele Kulkarni MD Primary Care Provider Destiney Beaulieu MD Unavailable Natasha Ham OD Unavailable [phone] Sandi English Unavailable Josemanuel Mc MD Unavailable [phone] Allergies No known active allergies Medications verapamil ER (Verelan) 360 MG 24 hr capsuleIndicatio ns:Intermittent palpitations Take 1 capsule by mouth Once per day. 5 Active etonogestrel-eth inyl estradiol (Nuvaring) 0.12-0.015 MG/24HR vaginal ringIndications: Family planning Insert vaginally and leave in place for 3 consecutive weeks, then remove for 1 week. 3 Ring. 3 5 Active albuterol (Ventolin HFA) 108 (90 Base) MCG/ACT inhalerIndicatio ns:Mild intermittent asthma, unspecified whether complicated Inhale 2 puffs every 4 (four) hours if needed for wheezing. 18 g 5 Active Mometasone Furoate (Asmanex HFA) 100 MCG/ACT aerosolIndicatio ns:Mild intermittent asthma, unspecified whether complicated INHALE 2 PUFFS BY MOUTH EVERY 12 HOURS. 13 g 2 5 Active celecoxib (CeleBREX) 100 MG capsuleIndicatio ns:Fibromyalgia Take 100 mg by mouth 2 times daily. Active loratadine (Claritin) 10 MG tabletIndication s:Seasonal allergies Take 1 tablet (10 mg) by mouth Once per day. 30 tablet 11 5 026 Active famotidine (Pepcid) 20 MG tabletIndication s:Abdominal pain, unspecified abdominal location Take 1 tablet by mouth every day 90 tablet 5 Active senna (Senokot) 8.6 MG tabletIndication s:Constipation, unspecified constipation type Take 1 tablet (8.6 mg) by mouth at bedtime. 60 tablet 2 5 Active polyethylene glycol, PEG, 3350 (MiraLax) 17 GM/SCOOP powderIndication s:Constipation, unspecified constipation type 17 grams in 8-12 oz fluid like water at bedtime prn constipation 527 g 2 5 Active Active Problems Problem Noted Date Diagnosed Date Class 1 obesity due to exces s calories with body mass index (BMI) of 30.0 to 30.9 in adult 02/23/2025 Overview (02/23/2025): Discussed weight, diet, exercise with patient in relation to health conditions. Used motivational interviewing to illicit change talk and established initial goals with patient. Assessment & Plan (02/23/2025 4:24 PM EDT): Discussed weight, diet, exercise with patient in relation to health conditions. Used motivational interviewing to illicit change talk and established initial goals with patient. Family planning 02/23/2025 Overview (02/23/2025): -pt does not desire within the next 12 months -discussed efficacies, benefits and risks of available contraceptive means available including IUD, subdermal implantable device, injection, combination oral contraceptives, patch, vaginal ring and condoms. -patient wishes to proceed with the vaginal ring. 02/23/25 -indications for Prep disused, -condoms offered -Plan B offered Assessment & Plan (02/23/2025 4:41 PM EDT): -pt does not desire within the next 12 months -discussed efficacies, benefits and risks of available contraceptive means available including IUD, subdermal implantable device, injection, combination oral contraceptives, patch, vaginal ring and condoms. -patient wishes to proceed with the vaginal ring. 02/23/25 -indications for Prep disused, -condoms offered -Plan B offered Lipid screening 02/23/2025 Overview (05/26/2025): Lab Results Component Value Date CHOL 155 02/25/2025 TRIG 207 (H) 02/25/2025 HDL 34 (L) 02/25/2025 LDLCHOLCAL 80 02/25/2025 -continue lifestyle modification -ordered LFP and HFP 02/23/25 Assessment & Plan (02/23/2025 4:34 PM EDT): -ordered LFP and HFP 02/23/25 Vitamin D deficiency 02/23/2025 Overview (05/26/2025): Lab Results Component Value Date [id number] 27.2 (L) 02/25/2025 -ordered vitamin D level 02/23/25 Assessment & Plan (02/23/2025 4:32 PM EDT): -ordered vitamin D level 02/23/25 Prediabetes 02/23/2025 Overview (05/26/2025): Lab Results Component Value Date HGBA1C 5.5 02/25/2025 HGBA1C 5.5 02/23/2025 GLUCOSE 103 02/25/2025 - ordered routine labs 02/23/25 Assessment & Plan (02/23/2025 4:32 PM EDT): - ordered routine labs 02/23/25 Elevated random blood glucose level 02/23/2025 Abdominal pain 02/23/2025 Overview (02/23/2025): - continue famotidine (Pepcid) 20 MG PRN Assessment & Plan (02/23/2025 4:41 PM EDT): - continue famotidine (Pepcid) 20 MG PRN Environmental allergies 02/23/2025 Overview (02/23/2025): Pt reports worsened allergies with environmental changes, requesting allergy referral. - referred to apprentice jockey 02/23/25 Assessment & Plan (02/23/2025 4:38 PM EDT): Pt reports worsened allergies with environmental changes, requesting allergy referral. - referred to apprentice jockey 02/23/25 Other hemorrhoids 02/23/2025 Constipation 02/23/2025 Overview (02/23/2025): Reports constipation from hemorrhoids, due to pain. -prescribed senna (Senokot) 8.6 MG and polyethylene glycol, PEG, 3350 (MiraLax) 17 GM/SCOOP powder 02/23/25 Assessment & Plan (02/23/2025 4:49 PM EDT): Reports constipation from hemorrhoids, due to pain. -prescribed senna (Senokot) 8.6 MG and polyethylene glycol, PEG, 3350 (MiraLax) 17 GM/SCOOP powder 02/23/25 Fibromyalgia 12/01/2024 Overview (02/23/2025): Seen by deputy court, Dr. Beaulieu 07/20/24 and diagnosed with fibromyalgia. Discussed management of fibromyalgia with patient. Is a noninflammatory, non-autoimmune central afferent processing disorder leading to a diffuse pain syndrome. Patient follows up regularly with a psychotherapist. I suggested evaluation by a psychiatrist as well. Try to follow sleep hygiene practices. Consider a referral for a sleep study by PCP to rule out JUSTIN. Patient walks on her treadmill daily about 1 hour. I suggested doing some light exercises such as light weights, swimming, aqua therapy. Can continue with duloxetine. Assessment & Plan (02/23/2025 4:33 PM EDT): Seen by deputy court, Dr. Beaulieu 07/20/24 and diagnosed with fibromyalgia. Discussed management of fibromyalgia with patient. Is a noninflammatory, non-autoimmune central afferent processing disorder leading to a diffuse pain syndrome. Patient follows up regularly with a psychotherapist. I suggested evaluation by a psychiatrist as well. Try to follow sleep hygiene practices. Consider a referral for a sleep study by PCP to rule out JUSTIN. Patient walks on her treadmill daily about 1 hour. I suggested doing some light exercises such as light weights, swimming, aqua therapy. Can continue with duloxetine. Biceps tendinitis of left upper extremity 2023 Overview (02/18/2024): Seen by ortho Alina English PA-C, 02/18/24: options include PT, NSAIDs and injections. The patient will defer on the injection today and proceed with PT and NSAIDs. If symptoms persist, contact ortho for an injection, otherwise, PRN. -She was also referred to rheumatology to further evaluate her polymyalgia by ortho 02/18/24 Atypical chest pain 07/14/2023 Other specified health status 05/12/2023 Overview (02/23/2025): -next comprehensive annual evaluation due after 02/23/26 -eye care facilitated by [facility]. -dental home is encouraged. -health care proxy 02/23/25 Assessment & Plan (02/23/2025 4:23 PM EDT): -next comprehensive annual evaluation due after 02/23/26 -eye care facilitated by [facility]. -dental home is encouraged. -health care proxy 02/23/25 Assessment & Plan (05/23/2023 10:16 AM EDT): -next physical exam due after 05/23/2024. -eye care facilitated by -dental home is Bilateral headache 10/14/2022 Tonic clonic convulsion (CMS/HCC) 10/14/2022 Overview (02/23/2025): -CT/CT head/brain wo IV con 06/08/24 No acute intracranial abnormality. No cervical spine fracture or traumatic malalignment. -neurology referral sent 01/09/24 and 01/28/[address] Potter -unclear if pt had an actual convulsion vs a pseudoseizure verses poor historian. Pt has never f/u with neurology and has not had EEG. [place] encouraged her to f/u. Will place referral. It is very unclear whether she has had seizure verse syncope she has a long history of describing medical events and using the wrong terminology. Neurology. Clinical information/comments: Please see note from 07/16/2022 it is unclear if pt has hx of seizures vs syncope. -still having seizure-like episodes, referred to Neurology again and ordered EEG 02/23/25 Assessment & Plan (02/23/2025 4:40 PM EDT): -CT/CT head/brain wo IV con 06/08/24 No acute intracranial abnormality. No cervical spine fracture or traumatic malalignment. -neurology referral sent 01/09/24 and 01/28/[address] Potter -unclear if pt had an actual convulsion vs a pseudoseizure verses poor historian. Pt has never f/u with neurology and has not had EEG. [place] encouraged her to f/u. Will place referral. It is very unclear whether she has had seizure verse syncope she has a long history of describing medical events and using the wrong terminology. Neurology. Clinical information/comments: Please see note from 07/16/2022 it is unclear if pt has hx of seizures vs syncope. -still having seizure-like episodes, referred to Neurology again and ordered EEG 02/23/25 Assessment & Plan (07/16/2023 9:43 AM EDT): CT scan is negative. -will check with cardiology regarding neurology referral and send a referral if needed -unclear if pt had an actual convulsion vs a pseudoseizure verses poor historian. Pt has never f/u with neurology and has not had EEG. [place] encouraged her to f/u. Will place referral. It is very unclear whether she has had seizure verse syncope she has a long history of describing medical events and using the wrong terminology. Neurology. Clinical information/comments: Please see note from 07/16/2022 it is unclear if pt has hx of seizures vs syncope. Intermittent palpitations 03/27/2022 Overview (02/09/2025): Pt with long history of complaints of chest discomfort and palpitations. Family history sig for 30 year old sister with hx torsades with dual chamber AICD placed circa 05/2020 and identical twin sister with atrial tachycardia. EKG on 06/2019 had a rate of 88 bpm and qtc of 435. Elevated HR on Holter monitor in past, started on verapamil 100mg daily by cardiology 03/2021. Scheduled for stress test and Echo. Last Echo was 10/2020 and was unremarkable. Pt had stopped verapamil and metoprolol was started by cardiology. It seems to be episodic, no clear cause identified yet but given strong family history of arrhythmias, I advised to start taking Metoprolol prescribed by cardiology. -obtain recent Holter from [facility] - cardiology for 7-day Holter monitoring -go to ED if she has recurrent symptoms -Followed by Dr. Mc, seen 02/08/2025 Echo ordered 01/2025 by cardiology -stress test ordered 02/08/25 by cardiology -doing well on beta quinn Assessment & Plan (02/23/2025 4:33 PM EDT): Pt with long history of complaints of chest discomfort and palpitations. Family history sig for 30 year old sister with hx torsades with dual chamber AICD placed circa 05/2020 and identical twin sister with atrial tachycardia. EKG on 06/2019 had a rate of 88 bpm and qtc of 435. Elevated HR on Holter monitor in past, started on verapamil 100mg daily by cardiology 03/2021. Scheduled for stress test and Echo. Last Echo was 10/2020 and was unremarkable. Pt had stopped verapamil and metoprolol was started by cardiology. It seems to be episodic, no clear cause identified yet but given strong family history of arrhythmias, I advised to start taking Metoprolol prescribed by cardiology. -obtain recent Holter from [facility] - cardiology for 7-day Holter monitoring -go to ED if she has recurrent symptoms -Followed by Dr. Mc, seen 02/08/2025 Echo ordered 01/2025 by cardiology -stress test ordered 02/08/25 by cardiology -doing well on beta quinn Assessment & Plan (07/16/2023 9:42 AM EDT): Pt with long history of complaints of chest discomfort and palpitations. Family history sig for 30 year old sister with hx torsades with dual chamber AICD placed circa 05/2020 and identical twin sister with atrial tachycardia. EKG on 06/2019 had a rate of 88 bpm and qtc of 435. Elevated HR on Holter monitor in past, started on verapamil 100mg daily by cardiology 03/2021. Scheduled for stress test and Echo. Last Echo was 10/2020 and was unremarkable. Pt had stopped verapamil and metoprolol was started by cardiology. It seems to be episodic, no clear cause identified yet but given strong family history of arrhythmias, I advised to start taking Metoprolol prescribed by cardiology. -obtain recent Holter from [facility] ED - cardiology for 7-day Holter monitoring -go to ED if she has recurrent symptoms -Followed by Dr. Mc, seen 10/09/2022. Did not show for stress echo -doing well on beta quinn Assessment & Plan (05/23/2023 10:16 AM EDT): -Followed by Dr. Mc, seen 10/09/2022. Did not show for stress echo -doing well on beta quinn Learning difficulty 03/27/2022 Overview (07/16/2023): Will request old records. Pt may benefit form neruopsych testing but this is fvery difficulty to get with long waiting list and pt very high risk for not showing to appointment. Will discuss at follow up visit. Assessment & Plan (07/16/2023 9:43 AM EDT): Will request old records. Pt may benefit form neruopsych testing but this is fvery difficulty to get with long waiting list and pt very high risk for not showing to appointment. Will discuss at follow up visit. Seasonal allergies 03/27/2022 Overview (02/23/2025): - continue loratadine (Claritin) 10 MG -referral to apprentice jockey placed 02/23/25 Assessment & Plan (02/23/2025 4:39 PM EDT): - continue loratadine (Claritin) 10 MG -referral to apprentice jockey placed 02/23/25 Mild intermittent asthma 01/07/2019 Overview (02/23/2025): - continue Mometasone Furoate (Asmanex HFA) 100 MCG/ACT aerosol Assessment & Plan (02/23/2025 4:18 PM EDT): - continue Mometasone Furoate (Asmanex HFA) 100 MCG/ACT aerosol Assessment & Plan (07/16/2023 9:43 AM EDT): Flovent started 110 mcg 2 puffs bid 04/05/2021 Backache 08/24/2012 Resolved Problems Problem Noted Date Diagnosed Date Resolved Date Dietary counseling 02/23/2025 Assessment & Plan (02/23/2025 4:20 PM EDT): Dietary Recommendations: Fruits, vegetables, whole grains, protein foods, and fat-free or low-fat dairy products are healthy choices. Eat different types of protein foods in your diet. This can include seafood, lean meats, poultry, beans, peas, lentils, nuts, seeds, soy products, and eggs. Limit foods and beverages higher in added sugars, saturated fat, and sodium. Exercise counseling 02/23/2025 05/26/20 Assessment & Plan (02/23/2025 4:20 PM EDT): Exercise Recommendations: At least 150 minutes of moderate-intensity physical activity per week, or an equivalent combination of moderate- and vigorous-intensity activity. Physical exam 06/03/2024 12/01/2024 Screening mammogram for breast cancer 06/03/2024 12/01/2024 Routine screening for STI (s exually transmitted infection) 06/03/2024 12/01/2024 Seizure disorder (CMS/HCC) 02/18/2024 0 12/01/2024 Viral gastroenteritis 04/15/20232022 Assessment & Plan (04/15/2023 4:50 PM EDT): Counseled re increased fluid intake, Gatorade, Pedialyte, chicken broth and advanced diet in 4h as tolerated (BRAT then soft). Imodium prn if diarrhea doesn't stop with diet. Reassurance Sore throat 04/15/2023 05/12/2023 Assessment & Plan (04/15/2023 4:51 PM EDT): Most likely viral pharyngitis/GERD? Use tylenol prn Increased PO fluids Anxiety 10/14/2022 12/01/2024 Encounters Date Type Department Care Team Description 09/01/2025 Orders Only [facility] External Provider, [facility] 08/31/2025 Telephone [facility] [address] [place] [address] Natasha Ham OD 08/31/2025 Patient Outreach [facility] [address] [place] [address] Gisele Kulkarni MD 08/10/2025 Patient Outreach [facility] [address] [place] [address] Gisele Kulkarni MD Care Coordination ([facility] ED follow up) 08/10/2025 Patient Outreach [facility] MED[facility] [address] [place] [id number] Gisele Kulkarni MD 08/05/2025 Patient Outreach [facility] [address] [place] [address] Gisele Kulkarni MD 07/27/2025 Patient Outreach [facility] [address] [place] [address] Gisele Kulkarni MD Care Coordination ([facility] ED Follow Up) 07/27/2025 Patient Outreach [facility] [address] [place] [address] Gisele Kulkarni MD Care Coordination ( Care Coordination Chart Review) 07/27/2025 Patient Outreach [facility] [address] [place] [address] Gisele Kulkarni MD 07/20/2025 Telephone [facility] [address] [place] [address] Lexie Cramer MA from Last 3 Months Immunizations Immunization Administration Dates Next Due DTaP 06/20/1992, 9,03/19/1988,1987,1987 HPV, Quadrivalent 08/26/2007 Hep B, Adolescent or Pediatric 10/15/2001,2000,12/17/2000 Hib (HbOC) 02/18/1989 IPV 02/18/1989, 8,1987,1986 Influenza injectable quadriv alent preservative free 09/10/2019 Influenza, IIV3, injectable 09/02/2008, 1 Influenza, Split (incl. gildardo fied surface antigen) 09/11/2012 MMR 06/20/1992,02/18/1989 Moderna Covid-19 Vaccine 12+ 03/06/2022,01/30/20 22 Pneumococcal Conjugate PCV 20 02/23/2025 TD (adult), 2 Lf tetanus tox oid, preservative free, adsorbed 12/17/2000 Tdap 01/17/2020,09/10/2019,03/29/2014 Family History Medical History Relation Name Comments Alzheimer's disease Maternal Grandmother Diabetes Mother Diabetes Mother's Sister Alzheimer's disease Paternal Grandmother Arrhythmia Sister Diabetes Sister Diabetes type II Sister Relation Name Status Comments Maternal Grandmother Mother Mother's Sister Paternal Grandmother Sister Social History Tobacco Use Types Packs/Day Years [...] Q2 Not on file 10/08/2024 Comments Unknown Intention Date Recorded No desire to become (finding) 0 02/23/2025 Sex and Gender Information Value Date Recorded Sex Assigned at Female 08/26/2022 10:16 AM EDT Legal Sex Female 10:16 AM EDT Gender Identity Female 08/26/2022 10:16 AM EDT Sexual Orientation Straight 08/26/2022 10 :16 AM EDT Last Filed Vital Signs Vital Sign Reading Time Taken Comments Blood Pressure 133/95 02/23/2025 4:13 PM EDT Pulse 107 02/23/2025 4:13 PM EDT Temperature 36.2 C (97.2 F) 02/23/2025 4:13 PM EDT Respiratory Rate 20 02/23/2025 4:13 PM EDT Oxygen Saturation 98% 02/23/2025 4:13 PM EDT Inhaled Oxygen Concentration - - Weight 72.8 kg (160 lb 6.4 oz) 02/23/2025 4:13 P M EDT Height 155.6 cm (5' 1.25 ) 02/23/2025 4:13 PM ED T Body Mass Index 30.06 02/23/2025 4:13 PM EDT Plan of Treatment Upcoming Encounters Date Type Department Care Team (Late st Contact Info) Description 09/19/2025 10:30 AM EST Office Visit [facility] [address] [place] [address] Gisele Kulkarni MD [address] [place] [address] Health Maintenance Due Date Last Done Comments Disability Screening 1985 HPV Vaccines (3 - 3-dose series) 03/03/2009 12/09/2008, 08/26/2007 COVID-19 Vaccine ( season) 2025 03/06/2022, 02/21/2022, 01/29/2022, Additional history exists Influenza Vaccine (#1) 2025 9, 08/09/2016, 10/05/2015, Additional history exists Diabetes: Hemoglobin A1C 08/28/2025 02/25/2025, 01/27 SDOH Screening 10/08/2025 10/08/2024 Alcohol/Substance Use Screening 02/23/2026 02/23/2025 Depression Screening 02/23/2026 02/23/2025, 02/24/20 Family Planning (PISQ) 02/23/2026 02/23/2025 Tobacco Screening 02/23/2026 02/23/2025 Diabetes: Urine Protein Screening 02/25/2026 02/25/2025 Lipid Panel 02/25/2026 02/25/2025 Eye Exam 03/29/2026 03/29/2024, 12/2023, 03/29/2024, Additional history exists Pap Smear 05/23/2026 05/23/2023, 10/09/2017 Cervical Cancer Screening 05/23/2028 HPV/Cotest 05/23/2028 05/23/2023, 09/26, 10/09/2017 DTaP/Tdap/Td Vaccines (10 - Td or Tdap) 01/16/2030 01/17/2020, 09/10/2019, 08/09/2016, Additional history exists Zoster Vaccines (1 of 2) 2037 RSV Patients and Patients Aged 60 years or older (1 - 1-dose 75+ series) 2062 HIB Vaccines Completed 02/18/1989, 12/21/1988 IPV Vaccines Completed 11/20/1992, 05/28, 02/18/1989, Additional history exists Hepatitis B Vaccines Completed 10/15/2001, 07/13/2001, 01/27/2001, Additional history exists Pneumococcal Vaccine: Pediatrics (0 to 5 Years) and At-Risk Patients (6 to 49) Years Completed 02/23/2025 HIV Screening Completed 02/25/2025 Hepatitis C Screening Completed 02/25/2025 Diabetes: Foot Exam Discontinued Hepatitis A Vaccines Aged Out No long [...] Diagnosis Comments XR CHEST 2 VIEWS Routine 09/01/2025 11:5 0 PM EST HIGH SENSITIVITY TROPONIN I Routine 09/01/2025 10:55 PM EST Diabetes due to undrl condition w oth diabetic neuro comp (HCC) COVID-19 ID NOW (BOTELLO) Routine 09/01/2025 10:55 PM EST Diabetes due to undrl condition w oth diabetic neuro comp (HCC) COMPREHENSIVE METABOLIC PANEL Routine 09/01/2025 10:55 PM EST Diabetes due to undrl condition w oth diabetic neuro comp (HCC) CBC WITH AUTO DIFFERENTIAL Routine 09/01/2025 10:55 PM EST Diabetes due to undrl condition w oth diabetic neuro comp (HCC) INFLUENZA A B2 ID NOW (BOTELLO) Routine 09/01/2025 10:55 PM EST Diabetes due to undrl condition w oth diabetic neuro comp (HCC) HEPATITIS C AB W/REFL TO HCV RNA, QN, PCR Routine 02/25/2025 12:49 PM EDT Routine screening for STI (sexually transmitted infection) HIV 1/2 ANTIGEN/ANTIBODY, FOURTH GENERATION W/RFL Routine 02/25/2025 12:49 PM EDT Routine screening for STI (sexually transmitted infection) ALBUMIN, RANDOM URINE W/CREATININE Routine 02/25/2025 12:49 PM EDT Diabetes due to undrl condition w oth diabetic neuro comp (CMS/HCC) HEMOGLOBIN A1C Routine 02/25/2025 12:49 PM EDT Diabetes due to undrl condition w oth diabetic neuro comp (CMS/HCC) LIPID PANEL, STANDARD Routine 02/25/2025 12:49 PM EDT Lipid screening HPV MRNA E6/E7 REFLEX TO HPV 16, 18/45 Routine 05/23/2023 12:00 AM EDT PAP SMEAR Routine 05/23/2023 12:00 AM EDT from Last 3 Months or Most Recently Relevant to Health Maintenance Results * XR Chest 2 Views (09/01/2025 11:50 PM EST) Anatomical Region Laterality Modality Chest Radiographic Nurys ging 09/01/2025 11:5 0 PM EST Narrative 09/01/2025 11:52 PM EST [place] [address] XRay Report Signed Patient: Tenzin Thompson MR#: [id number] : 1985 Acct:[id number] Age/Sex: 40 / F ADM Date: 09/01/25 Loc: HO.ED Attending Dr: Ordering Physician: Generic ED Physician Date of Service: 09/01/25 Procedure(s): XR chest 2V Accession Number(s): [id number] cc: Generic ED Physician; [facility] Reason for Exam: chest pain CLINICAL HISTORY: chest pain Exam: PA and lateral views of the chest. Comparison: June 17, 2024. Findings: Mediastinal contours, cardiac silhouette, and pulmonary vasculature are within normal limits. No focal areas of consolidation. No rib fracture, pneumothorax, or pleural effusion Impression: No acute findings. This document has been electronically signed by: Juan Holcomb MD on 09/01/2025 23:50:09 Dictated By: Juan Holcomb MD Signed By: <Electronically signed by Juan Holcomb MD in [place]> 09/01/252350 DD/ 49 TD/TT: 09/01/252349 Entry Level Programmer: Procedure Note Donn[place], Image - 09/01/[address] [address] XRay Report Signed Patient: Tenzin ThompsonMR#: [id number] : 1985Acct:[id number] Age/Sex: 40 / FADM Date: 09/01/25 Loc: .ED Attending Dr: Ordering Physician: Generic ED Physician Date of Service: 09/01/25 Procedure(s): XR chest 2V Accession Number(s): [id number] cc: Generic ED Physician; [facility] Reason for Exam: chest pain CLINICAL HISTORY: chest pain Exam: PA and lateral views of the chest. Comparison: June 17, 2024. Findings: Mediastinal contours, cardiac silhouette, and pulmonary vasculature are within normal limits. No focal areas of consolidation. No rib fracture, pneumothorax, or pleural effusion Impression: No acute findings. This document has been electronically signed by: Juan Holcomb MD on 09/01/2025 23:50:09 Dictated By: Juan Holcomb MD Signed By: <Electronically signed by Juan Holcomb MD in [place]> 09/01/252350 DD/ 49 TD/TT: 09/01/252349 Entry Level Programmer: [facility] External Provider IMG XR PROCEDURES Edited Result - Final * Influenza A B2 ID NOW (Botello) (09/01/2025 10:55 PM EST) IDNOW SERIAL# [id number] [facility] Influenza A Negative Negative [facility] Influenza B2 Negative Negative [facility] Influenza A B2 Note See Note [facility] Comment:The Botello ID NOW In [...] specimen and co- infection withRespiratory Syncytial Virus. 09/01/2025 10:5 5 PM EST 09/01/2025 10:59 PM EST us Generic External Data Provider LAB MICROBIOLOGY - GENERAL ORDERABLES Final Result [facility] [address] [place] [phone] * COVID-19 ID NOW (BOTELLO) (09/01/2025 10:55 PM EST) IDNOW SERIAL# [id number] [facility] COVID-19 TEST Negative Negative [facility] COVID-19 NOTE See Note [facility] Comment: Results are for the identification of SARS-CoV2 RNA. TheSARS-CoV2 RNA is generally detectable in respiratory samplesduring the acute phase of infection. Positive results areindicative of the presence of SARS-CoV-2 RNA; clinicalcorrelation with patient history and other diagnosticinformation is necessary to determine patient infectionstatus. Positive results do not rule out bacterial infectionor co- infection with other viruses.Testing facilities within the [facility] and [facility] hospitalies are required to report all positive results [...] on the Botello ID NOW utilizing NAAT. 09/01/2025 10:5 5 PM EST 09/01/2025 10:59 PM EST Generic External Data Provider LAB MOLECULAR BRAYAN GNOSTICS ORDERABLES Final Result Performing Organization Address [facility] Co de Phone Number [facility] [address] [place] [phone] * High Sensitivity Troponin I (09/01/2025 10:55 PM EST) [facility] TROPONIN I HIGH SENSITIVITY <2.7 <3.5 - 17.0 ng/L [facility] Comment:The Botello high sens itivity Troponin-I results should beused in conjunction with other diagnostic information suchas ECG, clinical observations and information, and patientsymptoms to aid in the diagnosis of [place]. 09/01/2025 10:5 5 PM EST 09/01/2025 10:59 PM EST Generic External Data Provider LAB BLOOD ORDERAB LES Final Result Performing Organization Address [facility] Number [facility] [address] [place] [phone] * (ABNORMAL) CBC auto differential (09/01/2025 10:55 PM EST) Pathologist [facility] White Blood Count 7.5 4.8 - 10.8 X10*3/uL [facility] Red Blood Count 5.14 4.20 - 5.50 X10*6/uL [facility] Hemoglobin 13.8 12.0 - 16.0 g/dl [facility] Hematocrit 42.6 37.0 - 47.0 % [facility] Mean Corpuscular Volume 82.9 80.0 - 98.0 fL [facility] Mean Corpuscular Hemoglobin 26.8(L) 27.0 - 33.0 pg [facility] Mean Corpuscular HGB Conc 32.4 31.0 - 35.0 g/dl [facility] Red Cell Distribution Width 14.4 11.0 - 16.0 % [facility] Platelet Count 231 160 - 400 X10*3/uL [facility] Mean Platelet Volume 11.9 9.4 - 12.3 fL [facility] Neutrophils Percent Auto 58.3 45 - 73 % [facility] Imm Gran Pct Auto 0.1 0.0 - 0.4 % [facility] Lymphocytes Percent Auto 31.6 20 - 40 % [facility] Monocytes Percent Auto 7.7 2 - 11 % [facility] Eosinophils Percent Auto 1.9 0 - 4 % [facility] Basophils Percent Auto 0.4 0 - 2 % [facility] NRBC Pct Auto 0.0 0.0 - 0.2 /100WBC [facility] Neutrophils Absolute Auto 4.4 2.0 - 8.3 x10*3/uL [facility] Imm Gran Abs Auto 0.01 0.00 - 0.03 X10*3/uL [facility] Lymphocytes Absolute Auto 2.4 1.2 - 4.9 X10*3/uL [facility] Monocytes Absolute Auto 0.6 0.1 - 1.2 X10*3/uL [facility] Eosinophils Absolute Auto 0.1 0.0 - 0.4 X10*3/uL [facility] Basophils Absolute Auto 0.0 0.0 - 0.2 X10*3/uL [facility] NRBC Abs Auto 0.000 0.0 - 0.012 X10*3/uL [facility] 09/01/2025 10:5 5 PM EST 09/01/2025 10:59 PM EST us Generic External Data Provider LAB BLOOD ORDERAB LES Final Result [facility] [address] [place] [phone] * (ABNORMAL) Comprehensive Metabolic Panel (09/01/2025 10:55 PM EST) Sodium 143 135 - 145 mmol/L [facility] Potassium 3.8 3.3 - 5.1 mmol/L [facility] Chloride 112(H) 96 - 108 mmol/L [facility] Carbon Dioxide 21(L) 22 - 29 mmol/L [facility] Anion Gap 14 12 - 20 [facility] Urea Nitrogen (BUN) 10 9 - 16 mg/dL [facility] Creatinine, Serum 0.74 0.5 - 1.4 mg/dL [facility] Creatinine Clr Calc Pharmacy 99.9 [facility] Comment:Provided height and weight: 160.02 cm,74.843 kg.eGFR (calculated from the MDRD study equation) and eCrCl(calculated from the Cockcroft-Gault equation) are based ondifferent parameters and may not yield comparable results.If eCrCl result is absurd, please check patient'sheight/weight. Estimated Glomerular Filt Rate >60 [facility] Comment:Chronic Kidney Disea se: Estimated GFR < 60 mL/min/1.04d4Utrjvn Kidney Disease: Estimated GFR < 15 mL/min/1.73m2 Glucose 122(H) 60 - 115 mg/dL [facility] Calcium 9.5 8.4 - 10.2 mg/dL [facility] Bilirubin, Total 0.2 0.0 - 1.0 mg/dL [facility] Aspartate Amino Transferase 26 5 - 31 U/L [facility] Alanine Aminotransferase 16 0 - 31 U/L [facility] Total Protein 7.8 6.5 - 8.0 g/dL [facility] Albumin Level 4.4 3.5 - 5.0 g/dL [facility] Alkaline Phosphatase 93 39 - 117 U/L [facility] 09/01/2025 10:5 5 PM EST 09/01/2025 10:59 PM EST us Generic External Data Provider LAB BLOOD ORDERAB LES Final Result [facility] [address] [place] [phone] * Albumin, Random Urine W/Creatinine (02/25/2025 12:49 PM EDT) Creatinine, Urine 356.48 mg/dL [facility] Microalbumin Urine 43.0 mg/L [facility] Microalbum Creatinine Ratio Ur 12.0 <30 ug/mg cr [facility] Comment:Albumin/Creatinine R atio Reference Ranges: Normal: < 30 ug/mg creatinine Microalbuminuria: 30 - 300 ug/mg creatinineClinical Albuminuria: > 300 ug/mg creatinine Urine 02/25/2025 12:4 9 PM EDT 02/25/2025 3:58 PM EDT Gisele Kulkarni MD LAB URINE ORDERABLES Final Result Performing Organization Address [facility]/ZIP Co de Phone Number [facility] [address] [place] [address] [phone] * Hepatitis C Antibody with Reflex to HCV, RNA, Quantitative, Real-Time PCR (02/25/2025 12:49 PM EDT) Hepatitis C Antibody Nonreactive Nonreactive [facility] Comment:Antibodies to HCV no t detected; does not exclude early acuteHCV infection. Blood Venous blood specimen / Unknown 02/25/2025 12:49 PM EDT 02/25/2025 4:06 PM EDT Gisele Kulkarni MD LAB BLOOD ORDERABLES Final Result Performing Organization Address [facility]/ZIP Co de Phone Number [facility] [address] [place] [address] [phone] * HIV-1/2 Antigen and Antibodies, Fourth Generation, with Reflexes (02/25/2025 12:49 PM EDT) HIV AB/AG Nonreactive Nonreactive [facility] Comment:HIV-1 p24 Ag and/or HIV-1/HIV-2 Ab not detected.A test result that is nonreactive does not exclude thepossibility of exposure to or infection with HIV-1 and/orHIV-2. Nonreactive results in this assay for individualswith prior exposure to HIV-1 and/or HIV-2 may be due toantigen and antibody levels that are below the limit ofdetection of this assay.The [employer] HIV Ag/Ab Combo assay result andsupplemental assay results should be interpreted inconjunction with the patient's clinical presentation,history and other laboratory results. If the results areinconsistent with clinical evidence, additional testing issuggested to confirm the result. Blood Venous blood specimen / Unknown 02/25/2025 12:49 PM EDT 02/25/2025 4:06 PM EDT Gisele Kulkarni MD LAB BLOOD ORDERABLES Final Result Performing Organization Address [facility] Co de Phone Number [facility] [address] [place] [phone] * Hemoglobin A1c (02/25/2025 12:49 PM EDT) Hemoglobin A1c 5.5 <6.0 % [facility] Comment:Hemoglobin A1C Refer ence Range Adults: 4.8 - 6.0 % Non diabetic: < 6.0 % Goal: < 7.0 %Additional Action Suggested: > 8.0 %Note: Hemoglobin A1c results are invalid for patients with abnormal amounts of HbF. Blood transfusions may impact the HbA1c concentration in the patient sample. Estimated Average Glucose 111 mg/dL [facility] Comment:eAG = Estimated ave rage glucose which is %A1C expressed asaverage glucose, using the formula of the J3C-LxtzxifZcvviqa Glucose study (ADAG), Diabetes Care, Vol.31,#8,2007 Blood Venous blood specimen / Unknown 02/25/2025 12:49 PM EDT 02/25/2025 4:06 PM EDT Gisele Kulkarni MD LAB BLOOD ORDERABLES Final Result Performing Organization Address [facility] Co de Phone Number [facility] [address] [place] [address] [phone] * (ABNORMAL) Lipid Panel, Standard (02/25/2025 12:49 PM EDT) Triglycerides 207(H) <150 mg/dL [facility] Comment:Desirable Triglyceri de: less than 150 mg/dLBorderline High Triglyceride 150-199 mg/dLHigh Triglyceride: 200-499 mg/dLVery High Triglyceride: greater than or equal to 5OO mg/dL Cholesterol 155 <200 mg/dL [facility] Comment:Desirable Cholestero l: less than 200 mg/dLBorderline High Cholesterol: 200-239 mg/dLHigh Cholesterol: greater than 239 mg/dL LDL Cholesterol Calculated 80 <100 mg/dL [facility] Comment:Desirable LDL: less than 100 mg/dLNear Optimal/Above Optimal LDL: 110- 129 mg/dLBorderline High LDL: 130-159 mg/dLHigh LDL: 160-189 mg/dLVery High LDL: greater than or equal to 190 mg/dL HDL Cholesterol 34(L) >40 mg/dL [facility] Comment:Desirable HDL: great er than 40 mg/dL Note: This HDL assay may give artificially low results in patients with liver disease. Blood Venous blood specimen / Unknown 02/25/2025 12:49 PM EDT 02/25/2025 4:06 PM EDT Gisele Kulkarni MD LAB BLOOD ORDERABLES Final Result [facility] [address] [place] [phone] * HPV mRNA E6/E7 w/Reflex to HPV Genotypes 16, 18/45 (05/23/2023 12:00 AM EDT) HPV nRNA E6/E7 Not Detected Not Detected [facility] Comment:Methodology: Transcr iption-Mediated AmplificationThis assay detects E6/E7 viral messenger RNA (mRNA) from 14high-risk HPV types (16,18,31,33,35,39,45,51,52,56,58,59,66,68).Cervical sources are required for HPV testing.If a vaginal source from a patient who has had atotal hysterectomy with removal of cervix wassubmitted, please contact the testing laboratoryfor alternative testing options.For additional information, please refer tohttp://education.[employer]/faq/YRN005d6(This link if provided for information/educational purposes only.)THIS TEST WAS PERFORMED AT:[employer] [place] [phone] PEDERSEN MD HPV mRNA E6/E7 TNP [facility] HPV 16 RNA TNP [facility] HPV 18/45 RNA [facility] 05/23/2023 05/27/2023 9:1 5 AM EDT Gisele Kulkarni MD LAB CYTOLOGY ORDERABLES Fi nal Result [facility] [address] [place] [phone] * Pap Smear (05/23/2023 12:00 AM EDT) 05/23/2023 05/27/2023 9:1 5 AM EDT Narrative [facility] - 06/04/2023 1:41 PM EDT ----- ------- Name: Tenzin Thompson Age/Sex: 37/F : 1985 Unit#: [id number] Attend Dr: Gisele Kulkarni MD Re05/23/23 Status: DEP REF Location: [facility] Disch: ----- ------- SPEC : [id number] RECD: 05/27/23 STATUS: HARITHA BONNER NUM: [id number] ARCELIA: 05/23/23-[address]: Gisele Kulkarni MD ENTERED: 05/28/23 SP TYPE: Pap Smr OTHR DR: ORDERED: Pap Smear Interpretation Satisfactory for evaluation. Negative for intraepithelial lesion or malignancy. HPV mRNA E6/E7: NOT DETECTED This assay detects E6/E7 viral messenger RNA (mRNA) from 14 high-risk HPV types (16, 18, 31, 33, 35, 39, 45, 51, 52, 56, 58, 59, 66, 68) HPV testing performed by [employer], [place], [place]. See reference laboratory pion of the EMR for entire report. Clinical Information LMP: Unknown date Previous PAP test: Unknown date, WNL Material Received ThinPrep-Cervical ----- ------- Signed (signature on file) DEMETRI Metcalf ([facility]) 06/04/23 1341 ----- ------- END OF REPORT Gisele Kulkarni MD LAB CYTOLOGY ORDERABLES Fi nal Result [facility] [address] [place] [phone] [phone] from Last 3 Months or Most Recently Relevant to Health Maintenance Insurance [employer] Care Teams Design Inserter Relationship Specialty Start Date End Date Gisele Kulkarni MD [address] [place] [phone] PCP - General Family Medicine 10/27/18 Destiney Beaulieu MD [address] [place] [address] Rheumatology 12/01/24 Natasha Ham OD [address] [place] [address] Optometry 12/01/24 Sandi English PA [address] [place] [address] Orthopaedic Surgery 12/01/24 Josemanuel Mc MD [address] [place] [address] Cardiology 12/01/24 Steve Menendez Assistant Casino Shift ManagerSenior Escrow Officer 10/12/24
--- OUTSIDE RECORDS SUMMARY | 2025-09-04 08:38 | XMS_ITS | Encounter Summary ---
Author Organization [employer] Address [address] 7t [place] [address] Care Team Providers Care [facility] Products Assembler Name Role Phone Gisele Kulkarni MD Primary Care Provider [phone] Destiney Beaulieu MD Unavailable Natasha Ham OD Unavailable Sandi English Unavailable Josemanuel Mc MD Unavailable [phone] Cora Starr Unavailable Cora Starr Unavailable Encounter Details Date Type Department Care Team (Late st Contact Info) Description 05/16/2023 Abstract [facility] [address] [place], [place] [phone] Gisele Kulkarni MD [address] [place], [place] [phone] Social History Tobacco Use Types Packs/Day Years [...] Description 09/19/2025 10:30 AM EST Office Visit [facility] [address] [place] [address] Gisele Kulkarni MD [address] [place] [address] documented as of this encounter Visit Diagnoses Not on filedocumented in this encounter Care Teams [facility] Products Assembler Relationship Specialty Start Date End Date Gisele Kulkarni MD [address] [place] [address] PCP - General Family Medicine 10/27/18 Destiney Beaulieu MD [address] [place] [address] Rheumatology 12/01/24 Natasha Ham OD [address] [place] [address] Optometry 12/01/24 Sandi English PA [address] [place] [address] Orthopaedic Surgery 12/01/24 Josemanuel Mc MD [address] [place] [address] Cardiology 12/01/24 Cora Starr 07/27/25 08/05/25 Cora Starr 08/10/25 08/31/25 Steve Menendez Dump Truck Driver Off HighwayOwner Operator Tanker Truck Driver 10/12/24 documented as of this encounter
--- OUTSIDE RECORDS SUMMARY | 2025-09-04 08:38 | XMS_ITS | Encounter Summary ---
Author Organization [facility] Address [address] [place] [address] Phone Care Team Providers Care Fish Egg Packer Name Role Phone Pcp, Not Required Primary Care Provider Unavaila ble Encounter Details Date Type Department Care Team ([facility] st Contact Info) Description 09/27/[address] [facility] [address] [place] [address] [place] [address] Social History Tobacco Use Types Packs/Day Years [...] on file documented as of this encounter Visit Diagnoses Not on filedocumented in this encounter Care Teams Fish Egg Packer Relationship Specialty Start Date End Date Pcp, Not Required [address] [place] [phone] PCP - General 07/08/20 documented as of this encounter Additional Source Comments The information contained in this document represents components of the legal health record. It is not the complete legal health record.[facility]
--- OUTSIDE RECORDS SUMMARY | 2025-09-04 08:38 | XMS_ITS ---
Author Organization [employer] Address [address] [facility] [address]t [place] [address] Care Team Providers Care Biblical Languages Professor Name Role Phone Gisele Kulkarni MD Primary Care Provider Destiney Beaulieu MD Unavailable Natasha Ham OD Unavailable [phone] Sandi English Unavailable Josemanuel Mc MD Unavailable [phone] [phone] Status:Closed (Closed) Start date:08/10/2025 Enrollment reason:ADT Feed End date:08/31/2025 Close reason:Transferred to Community Partner Overview ADT-CP assigned [facility] ED 08/09/25 Continued Care and Services Coordination
--- OUTSIDE RECORDS SUMMARY | 2025-09-04 08:38 | XMS_ITS | Encounter Summary ---
Author Organization [employer] Address [address] [place] [address] Care Team Providers Care Clinical Technologist Name Role Phone Gisele Kulkarni MD Primary Care Provider + [phone] Destiney Beaulieu MD Unavailable Natasha Ham OD Unavailable [phone] Sandi English Unavailable Josemanuel Mc MD Unavailable [phone] Encounter Details Date Type Department Care Team (Late st Contact Info) Description 09/01/2025 Orders Only [facility] External Provider, [facility] Social History Tobacco Use Types Packs/Day Years [...] Description 09/19/2025 10:30 AM EST Office Visit [facility] [address] [place], [place] [phone] Gisele Kulkarni MD [address] [place] [address] documented as of this encounter Procedures Procedure Name Priority Date/Time Associated Diagnosis Comments XR CHEST 2 VIEWS Routine 09/01/2025 11:5 0 PM EST documented in this encounter Results * XR Chest 2 Views (09/01/2025 11:50 PM EST) Anatomical Region Laterality Modality Chest Radiographic Nurys ging 09/01/2025 11:5 0 PM EST Narrative 09/01/2025 11:52 PM EST [facility] [address] [place] [phone] XRay Report Signed Patient: Tenzin Thompson MR#: [id number] : 1985 Acct:[id number] Age/Sex: 40 / F ADM Date: 09/01/25 Loc: .ED Attending Dr: Ordering Physician: Generic ED Physician Date of Service: 09/01/25 Procedure(s): XR chest 2V Accession Number(s): [id number] cc: Generic ED Physician; [facility] Reason for Exam: chest pain CLINICAL [...] in OV> 09/01/252350 DD/ 49 TD/TT: 09/01/252349 Petrologist: Procedure Note Donotuseinterpreter, Image - 09/01/[address] [address] XRay Report Signed Patient: Tenzin ThompsonMR#: [id number] : 1985Acct:[id number] Age/Sex: 40 / FADM Date: 09/01/25 Loc: .ED Attending Dr: Ordering Physician: Generic ED Physician Date of Service: 09/01/25 Procedure(s): XR chest 2V Accession Number(s): [id number] cc: Generic ED Physician; [facility] Reason for Exam: chest pain CLINICAL [...] in OV> 09/01/252350 DD/ 49 TD/TT: 09/01/252349 Petrologist: [facility] External Provider IMG XR PROCEDURES Edited Result - Final documented in this encounter Visit Diagnoses Not on filedocumented in this encounter Additional Health Concerns Assessment Noted Time PHQ-9 Depression Total Score: 7 02/24/20 25 5:01 PM EDT documented as of this encounter Care Teams Clinical Technologist Relationship Specialty Start Date End Date Gisele Kulkarni MD [address] [place] [address] PCP - General Family Medicine 10/27/18 Destiney Beaulieu MD [address] [place] [address] Rheumatology 12/01/24 Natasha Ham OD [address] [place] [address] Optometry 12/01/24 Sandi English PA [address] [place] [address] Orthopaedic Surgery 12/01/24 Josemanuel Mc MD [address] [place] [address] Cardiology 12/01/24 Steve Menendez Study ManagerAccounts Payable Assistant 10/12/24 documented as of this encounter
--- OUTSIDE RECORDS SUMMARY | 2025-09-04 08:38 | XMS_ITS | Clinical Summary ---
Author Organization [facility] it Address [address] [place] [address] Care Team Providers Care Almond Blancher Name Role Phone Unavailable Primary Care Provider [...] of 3 - 19+ 3-dose series) 2006 HPV Vaccines (1 - 3-dose SCD M series) 2014 Cervical Cancer Screening: P ap Smear 12/03/2022 12/03/2019 Depression Screening 10/27/2024 COVID-19 Vaccine ( - 2023-2 5 season) 2025 Influenza Vaccine (#1) 2025 DTaP,Tdap,and Td Vaccines (3 - Td or Tdap) 01/16/2030 01/17/2020, 03/29/2014 RSV Immunization Adult Patients (1 - 1-dose 75+ series) 2062 HIB Vaccines Aged Out No longer eligi [...] 5 Years) and At-Risk Patients (6 to 49 Years) Aged Out No longer eligible b [...] RESULTING AGENCY - 12/10/2019 12:06 PM EST [id number] THINPREP PAP AND CELL BLOCK: NEGATIVE FOR SQUAMOUS INTRAEPITHELIAL LESION AND MALIGNANCY . REACTIVE CELLULAR CHANGES. ABUNDANT PARTIALLY OBSCURING ACUTE INFLAMMATORY CELLS ARE PRESENT. CHIP SEBASTIAN , CT(ASCP) (CASE SCREENED 12 08 2019) OREN GARF M.D. , PATHOLOGIST (CASE ELECTRONICALLY SIGNED 12 09 2019) RESULT OF APTIMA HIGH RISK HPV ASSAY: HIGH RISK HPV: NEGATIVE (SEROTYPES 16,18,31,33,35,39,45,51,52,56,58,59,66,68) COMPLETED ON 2019-12-07 ADEQUACY: SATISFACTORY ENDOCERVICAL/TRANSFORMATION ZONE COMPONENT PRESENT. SOURCE: THINPREP PAP HPV ANY DX: REFLEX 16 AND 18, CERVICAL, IMAGED CLINICAL INFORMATION: HPV ANY DIAGNOSIS. , LMP 06/27/19, Z12.4 CB 12/07/19 Dora CORNELL LAB CYTOLOGY ORDERABLES Final Result HISTORICAL TESTING LAB RESULTING AGENCY from Last 3 Months or Most Recently Relevant to Health Maintenance
--- OUTSIDE RECORDS SUMMARY | 2025-09-04 08:38 | XMS_ITS | Encounter Summary ---
Author Organization [employer] Address [address] [facility] 7t [place] [address] Care Team Providers Care Project Manager Name Role Phone Gisele Kulkarni MD Primary Care Provider Destiney Beaulieu MD Unavailable Natasha Ham OD Unavailable [phone] Sandi English Unavailable Josemanuel Mc MD Unavailable Cora Starr Unavailable Cora Starr Unavailable Encounter Details Date Type Department Care Team (Late st Contact Info) Description 12/01/2024 Orders Only [facility] MEDICINE [address] [place], [place] [phone] Gisele Kulkarni MD [address] [place], [place] [phone] Diabetes due to undrl condition w oth diabetic neuro comp (CMS/[facility]) (Primary Dx) Social History Tobacco Use Types [...] Recorded Patient Health Questionnaire-2 Score 0 05/23/2023 Internet Access Answer Date Recorded Internet Access [...] 10:30 AM EST Office Visit [facility] MED[facility]INE [address] [place] [address] Gisele Kulkarni MD [address] [place] [address] documented as of this encounter Procedures Procedure Name Priority Date/Time Associated Diagnosis Comments INFLUENZA A B2 ID NOW (BOTELLO) Routine 09/01/2025 10:55 PM EST Diabetes due to undrl condition w oth diabetic neuro comp (HCC) COVID-19 ID NOW (B[place]O) Routine 09/01/2025 10:55 PM EST Diabetes due to undrl condition w oth diabetic neuro comp (HCC) HIGH SENSITIVITY TROPONIN I Routine 09/01/2025 10:55 PM EST Diabetes due to undrl condition w oth diabetic neuro comp (HCC) CBC WITH AUTO DIFFERENTIAL Routine 09/01/2025 10:55 PM EST Diabetes due to undrl condition w oth diabetic neuro comp (HCC) COMPREHENSIVE METABOLIC PANEL Routine 09/01/2025 10:55 PM EST Diabetes due to undrl condition w oth diabetic neuro comp (HCC) documented in this encounter Results * High Sensitivity Troponin I (09/01/2025 10:55 PM EST) [facility] TROPONIN I HIGH SENSITIVITY <2.7 <3.5 - 17.0 ng/L [facility] Comment:The [place] high sens itivity Troponin-I results should beused in conjunction with other diagnostic information suchas ECG, clinical observations and information, and patientsymptoms to aid in the diagnosis of [place]. 09/01/2025 10:5 5 PM EST 09/01/2025 10:59 PM EST us Generic External Data Provider LAB BLOOD ORDERAB LES Final Result [facility] [address] [place] [phone] * Influenza A B2 ID NOW ([place]) (09/01/2025 10:55 PM EST) [facility] IDNOW SERIAL# [id number] [facility] Influenza A Negative Negative [facility] Influenza B2 Negative Negative [facility] Influenza A B2 Note See Note [facility] Comment:The [place] ID NOW In fluenza [...] LAB MICROBIOLOGY - GENERAL ORDERABLES Final Result [facility] [address] [place] [phone] [phone] * COVID-19 ID NOW (B[place]O) (09/01/2025 10:55 PM EST) IDNOW SERIAL# [id number] [facility] COVID-19 TEST Negative Negative [facility] COVID-19 NOTE See Note [facility] Comment: Results are for the identification of SARS-CoV2 RNA. TheSARS-CoV2 RNA is generally detectable in respiratory samplesduring the acute phase of infection. Positive results areindicative of the presence of SARS-CoV-2 RNA; clinicalcorrelation with patient history and other diagnosticinformation is necessary to determine patient infectionstatus. Positive results do not rule out bacterial infectionor co- infection with other viruses.Testing facilities [facility] the [facility] and itsterritories are required to report [...] EST us Generic External Data Provider LAB MOLECULAR BRAYAN GNOSTICS ORDERABLES Final Result [facility] [address] [place], [place] [phone] * (ABNORMAL) Comprehensive Metabolic Panel (09/01/2025 10:55 PM EST) Sodium 143 135 - 145 mmol/L [facility] Potassium 3.8 3.3 - 5.1 mmol/L [facility] Chloride 112(H) 96 - 108 mmol/L [facility] Carbon Dioxide 21(L) 22 - 29 mmol/L [facility] Anion Gap 14 12 - 20 [facility] Urea Nitrogen (BUN) 10 9 - 16 mg/dL [facility] Creatinine, Serum 0.74 0.5 - 1.4 mg/dL [facility] Creatinine Clr Calc Pharmacy 99.9 [facility] Comment:Provided height and weight: 160.02 cm,74.843 kg.eGFR (calculated from the MDRD study equation) and eCrCl(calculated from the Cockcroft-Gault equation) are based ondifferent parameters and may not yield comparable results.If eCrCl result is absurd, please check patient'sheight/weight. Estimated Glomerular Filt Rate >60 [facility] Comment:Chronic Kidney Disea se: Estimated GFR < 60 mL/min/1.06u7Oluwhh Kidney Disease: Estimated GFR < 15 mL/min/1.73m2 Glucose 122(H) 60 - 115 mg/dL [facility] Calcium 9.5 8.4 - 10.2 mg/dL [facility] Bilirubin, Total 0.2 0.0 - 1.0 mg/dL [facility] Aspartate Amino Transferase 26 5 - 31 U/L [facility] Alanine Aminotransferase 16 0 - 31 U/L [facility] Total Protein 7.8 6.5 - 8.0 g/dL [facility] Albumin Level 4.4 3.5 - 5.0 g/dL [facility] Alkaline Phosphatase 93 39 - 117 U/L [facility] 09/01/2025 10:5 5 PM EST 09/01/2025 10:59 PM EST us Generic External Data Provider LAB BLOOD ORDERAB LES Final Result [facility] [address] [place] [phone] * (ABNORMAL) CBC auto differential (09/01/2025 10:55 PM EST) White Blood Count 7.5 4.8 - 10.8 X10*3/uL [facility] Red Blood Count 5.14 4.20 - 5.50 X10*6/uL [facility] Hemoglobin 13.8 12.0 - 16.0 g/dl [facility] Hematocrit 42.6 37.0 - 47.0 % [facility] Mean Corpuscular Volume 82.9 80.0 - 98.0 fL [facility] Mean Corpuscular Hemoglobin 26.8(L) 27.0 - 33.0 pg [facility] Mean Corpuscular HGB Conc 32.4 31.0 - 35.0 g/dl [facility] Red Cell Distribution Width 14.4 11.0 - 16.0 % [facility] Platelet Count 231 160 - 400 X10*3/uL [facility] Mean Platelet Volume 11.9 9.4 - 12.3 fL [facility] Neutrophils Percent Auto 58.3 45 - 73 % [facility] Imm Gran Pct Auto 0.1 0.0 - 0.4 % [facility] Lymphocytes Percent Auto 31.6 20 - 40 % [facility] Monocytes Percent Auto 7.7 2 - 11 % [facility] Eosinophils Percent Auto 1.9 0 - 4 % [facility] Basophils Percent Auto 0.4 0 - 2 % [facility] NRBC Pct Auto 0.0 0.0 - 0.2 /100WBC [facility] Neutrophils Absolute Auto 4.4 2.0 - 8.3 x10*3/uL [facility] Imm Gran Abs Auto 0.01 0.00 - 0.03 X10*3/uL [facility] Lymphocytes Absolute Auto 2.4 1.2 - 4.9 X10*3/uL [facility] Monocytes Absolute Auto 0.6 0.1 - 1.2 X10*3/uL [facility] Eosinophils Absolute Auto 0.1 0.0 - 0.4 X10*3/uL [facility] Basophils Absolute Auto 0.0 0.0 - 0.2 X10*3/uL [facility] NRBC Abs Auto 0.000 0.0 - 0.012 X10*3/uL [facility] 09/01/2025 10:5 5 PM EST 09/01/2025 10:59 PM EST us Generic External Data Provider LAB BLOOD ORDERAB LES Final Result [facility] [address] [place] [phone] documented in this encounter Visit Diagnoses Diagnosis Diabetes due to undrl condition w oth diabetic neuro comp (HCC)- Primary documented in this encounter Additional Health Concerns Assessment Noted Time PHQ-9 Depression Total Score: 0 05/23/20 23 9:59 AM EDT documented as of this encounter Care Teams Project Manager Relationship Specialty Start Date End Date Gisele Kulkarni MD [address] [place] [address] PCP - General Family Medicine 10/27/18 Destiney Beaulieu MD [address] [place] [address] Rheumatology 12/01/24 Natasha Ham OD [address] [place] [address] Optometry 12/01/24 Sandi English PA [address] [place] [address] Orthopaedic Surgery 12/01/24 Josemanuel Mc MD [address] [place] [address] Cardiology 12/01/24 Cora Starr 07/27/25 08/05/25 Cora Starr 08/10/25 08/31/25 Steve Menendez Crowning Hammer OperatorGroup Marketing Vp 10/12/24 documented as of this encounter
--- OUTSIDE RECORDS SUMMARY | 2025-09-04 08:38 | XMS_ITS | Encounter Summary ---
Author Organization [facility] Address [address] [facility] 7t [place] [address] Care Team Providers Care Inside Parts Sales Name Role Phone Gisele Kulkarni MD Primary Care Provider [phone] Destiney Beaulieu MD Unavailable Natasha Ham OD Unavailable Sandi English Unavailable Josemanuel Mc MD Unavailable [phone] Cora Starr Unavailable Cora Starr Unavailable Encounter Details Date Type Department Care Team (Late st Contact Info) Description 11/10/[address] [facility] MEDICINE [address] [place] [phone] Gisele Kulkarni MD [address] [place], [place] [phone] Social History Tobacco Use Types Packs/Day Years [...] 10:30 AM EST Office Visit [facility] MEDICINE [address] [place] [address] Gisele Kulkarni MD [address] [place] [address] documented as of this encounter Procedures Procedure Name Priority Date/Time Associated Diagnosis Comments HPV HIGH RISK PCR Routine 10/09/2017 12:00 AM EST PAP SMEAR Routine 10/09/2017 12:00 AM EST documented in this encounter Results * HPV High Risk PCR (10/09/2017 12:00 AM EST) Swab Cervical swab / Unknown Gisele Kulkarni MD LAB MICROBIOLOGY - GENERAL ORDERABLES Final Result Performing Organization Address [facility] Co de Phone Number [facility] [address] [place] [phone] * Pap Smear (10/09/2017 12:00 AM EST) Swab Gisele Kulkarni MD LAB CYTOLOGY ORDERABLES Fi nal Result Performing Organization Address [facility]/ZIP Co de Phone Number [facility] [address] [place] [phone] documented in this encounter Visit Diagnoses Not on filedocumented in this encounter Care Teams Inside Parts Sales Relationship Specialty Start Date End Date Gisele Kulkarni MD [address] [place] [address] PCP - General Family Medicine 10/27/18 Destiney Beaulieu MD [address] [place] [address] Rheumatology 12/01/24 Natasha Ham OD [address] [place] [address] Optometry 12/01/24 Sandi English PA [address] [place] [address] Orthopaedic Surgery 12/01/24 Josemanuel Mc MD [address] [place] [address] Cardiology 12/01/24 Cora Starr 07/27/25 08/05/25 Cora Starr 08/10/25 08/31/25 Steve Menendez [facility] Administration InternshipIntravenous Therapy Nurse 10/12/24 documented as of this encounter
--- OUTSIDE RECORDS SUMMARY | 2025-09-04 08:38 | XMS_ITS | Encounter Summary ---
Author Organization [employer] Address [address] [facility] [address] 7[address] [place] [address] Care Team Providers Care Racking Machine Operator Name Role Phone Gisele Kulkarni MD Primary Care Provider [phone] Destiney Beaulieu MD Unavailable Natasha Ham OD Unavailable Sandi English Unavailable Josemanuel Mc MD Unavailable [phone] Cora Starr Unavailable Encounter Details Date Type Department Care Team (Late st Contact Info) Description 08/31/[address] [facility] OPTOMETRY [address] [place] [address] Natasha Ham, OD [address] [place] [address] Social History Tobacco Use Types Packs/Day Years [...] [facility] MEDICINE [address] [place] [phone] Gisele Kulkarni MD [address] [place] [phone] documented as of this encounter Visit Diagnoses Not on filedocumented in this encounter Additional Health Concerns Assessment Noted Time PHQ-9 Depression Total Score: 7 02/24/20 25 5:01 PM EDT documented as of this encounter Care Teams Racking Machine Operator Relationship Specialty Start Date End Date Gisele Kulkarni MD [address] [place] [phone] PCP - General Family Medicine 10/27/18 Destiney Beaulieu MD [address] [place] [address] Rheumatology 12/01/24 Natasha Ham OD [address] [place] [address] Optometry 12/01/24 Sandi English PA [address] [place] [address] Orthopaedic Surgery 12/01/24 Josemanuel Mc MD [address] [place] [address] Cardiology 12/01/24 Cora Starr 08/10/25 08/31/25 Steve Menendez Director Regulatory ComplianceTransplant Case Manager 10/12/24 documented as of this encounter
--- OUTSIDE RECORDS SUMMARY | 2025-09-04 08:38 | XMS_ITS | Clinical Summary ---
Author Organization [facility] Address [address] [address] Phone Care Team Providers Care Hand Cementer Name Role Phone Pcp, Not Required Primary Care Provider Unavaila ble Allergies No known active allergies Social History Tobacco Use Types Packs/Day Years Used Date Smoking Tobacco: Never Alcohol Use Standard Drinks/Week Comments Never 0 (1 standard drink = 0.6 oz pur e alcohol) Education Answer Date Recorded Are you interested in more education? Not on wander e 02/21/2023 Are you concerned about learning? Not on file 02/21/2023 No 02/21/2023 No 02/21/2023 Digital Access Answer Date Recorded No 03/25/2023 No 03/25/2023 Reliable internet access at home? Not on file 03/25/2023 Device with a working camera? Not on file Comments Unknown Sex and Gender Information Value Date Recorded Sex Assigned at Not on file Legal Sex Female 2:20 AM EDT Gender Identity Not on file Sexual Orientation Not on file Last Filed Vital Signs Vital Sign Reading Time Taken Comments Blood Pressure 100/69 07/08/2020 7:15 AM EDT Pulse 85 07/08/2020 7:15 AM EDT Temperature 36.6 C (97.8 F) 07/08/2020 2:30 AM EDT Respiratory Rate 16 07/08/2020 7:15 AM EDT Oxygen Saturation 98% 07/08/2020 7:15 AM EDT Inhaled Oxygen Concentration - - Weight - - Height - - Body Mass Index - - Plan of Treatment Health Maintenance Due Date Last Done Comments DEPRESSION SCREENING 1999 HEPATITIS C SCREENING 2005 HIV ONE-TIME SCREENING (18-6 5 YEARS) 2005 PAP SMEAR 2008 SMOKING STATUS SCREENING (On ce After 26 Yrs) 2013 INFLUENZA VACCINE (#1) 2025 09/10/2019 COVID-19 VACCINE (2024-2 6 season) 2025 Adult Td,Tdap Booster 01/16/2030 01/17/2020 , 09/10/2019, 03/29/2014 HEPATITIS A VACCINES Aged Out No long er eligible based on patient's age to complete this topic HIB VACCINES Aged Out No longer eligi ble based on patient's age to complete this topic MENINGOCOCCAL VACCINES (ACWY) Aged Out No longer eligible based on patient's age to complete this topic MENINGOCOCCAL VACCINES (B) Aged Out N o longer eligible based on patient's age to complete this topic PNEUMOCOCCAL VACCINES (0-49 years) Aged Out No longer eligible b ased on patient's age to complete this topic Medical Devices Not on file Insurance C3 ACO C3 ACO C3 ACO C3 ACO C3 ACO C3 ACO C3 ACO C3 ACO [facility] C3 ACO Care Teams Hand Cementer Relationship Specialty Start Date End Date Pcp, Not Required [address] [place] [phone] PCP - General 07/08/20 Additional Source Comments The information contained in this document represents components of the legal health record. It is not the complete legal health record.[facility]
--- NOTE | 2025-09-04 09:14 | ED_ITS ---
HPI - Arrhythmia/Palpitations General Chief Complaint: Arrhythmia/Palpitations Stated Complaint: High hr, high bp, dizziness Time Seen by Provider: 09/04/25 09:11 Source: patient, family ( at bedside), RN notes reviewed, old records reviewed and hourly sign language interpreter Mode of arrival: ambulatory Limitations: language barrier (Patient speaks Kiswahili, Italian is her 1st language, hourly sign language interpreter used) History of Present Illness ED Provider: GABRIEL Chand HPI narrative: 40-year-old female with medical history of HTN, asthma, tachycardia presents to the ED due to palpitations and chest pain. Patient states she was lying in bed attempting to go to sleep when she was feeling ?weird? when trying to get her to expand on what that means for her, she states she ?just did not feel right? and is hard for her to explain. Patient states about 30 minutes after not feeling right she began to experience palpitations, chest tightness, a left-sided cramping near her ribs with diaphoresis, nausea, dizziness, and shortness of breath that feels worse when the patient is lying down or ambulating. Patient states that this time she took a dose of verapamil, and her blood pressure medication but felt worse after. Patient reports she had pneumonia approximately 3 weeks ago and finished course of antibiotics and prednisone on 08/18 and does feel like her symptoms are improving. Patient states she was following a Cardiology office, but this office as close and has not seen a time clock mechanic in the last 3-4 months. Denies abdominal pain, vomiting, diarrhea, black/tarry stool, lightheadedness Related Data Previous Rx's ?Medication ?Instructions ?Recorded ondansetron 4 mg disintegrating 4 mg PO TID PRN nausea and 12/21/21 tablet vomiting 5 days #10 tabs diltiazem HCl 240 mg capsule,24 240 mg PO DAILY #30 ca ps 05/15/22 hr,extended release (Tiadylt ER) lorazepam 1 mg tablet 1 mg PO TID PRN anxiety #10 tabs 08/20/22 ondansetron 4 mg disintegrating 4 mg PO Q6-8H PRN naus ea and 08/20/22 tablet vomiting #14 tabs ibuprofen 600 mg tablet 600 mg PO TID PRN fever or p ain 11/22/23 #20 tabs ondansetron 4 mg disintegrating 4 mg PO Q8H PRN nausea and 07/10/24 tablet vomiting #7 tabs ondansetron 4 mg disintegrating 4 mg PO Q8H PRN nausea and 07/22/24 tablet vomiting #9 tabs albuterol sulfate 90 mcg/actuation 2 puff inhalation Q 4-6H PRN 07/26/25 aerosol inhaler (Ventolin HFA) shortness of breath or wheezing #8.5 grams azithromycin 250 mg tablet See Rx Instructions PO .COM PLEX #6 07/26/25 tabs prednisone 20 mg tablet 40 mg (2 x 20 mg) PO DAILY 5 days 07/26/25 #10 tabs Allergies Allergy/AdvReac Type Severity Reaction Status Date / Time Anesthesia S/I-40 Allergy Unknown rash Uncoded 09/04/25 08:17 outside allergy/ unhouse Allergy Unknown rash Uncoded 09/04/25 08:17 aller Review of Systems 2 Review of Systems: Yes all other systems are reviewed and are negative PMFSH Past Medical History Attestation statement: The following information was validated with the patient. Source: old records reviewed, obtained from family ( at bedside corroborating history) and nursing notes reviewed Medical History HTN (hypertension) Back pain Asthma Tachycardia Surgical History Hx of removal of cyst Family History Family History Mother Diabetes Arthritis Heart disease Sister Heart disease Seizure Sister Arthritis Gastritis Brother Diabetes HTN (hypertension) Social History Social History Alcohol intake: never Patient Tobacco Use Status: Never used Tobacco Advance Directives: No Advance Directives Information Provided: No Do you have a plan to hurt others: No Plan Physical Exam 2 Vital Signs: Vital Signs: Last Vital Signs Temp 98 F 09/04/25 08:15 Pulse 114 H 09/04/25 11:12 Resp 20 09/04/25 11:12 BP 136/75 09/04/25 11:12 Pulse Ox 96 09/04/25 11:12 O2 Del Method Room Air 09/04/25 11:12 BMI result Body Mass Index 33.6 GENERAL APPEARANCE: ?AxOx4, nontoxic appearing, no acute distress. HEENT: ?NC, AT. MMM. EOMI, clear conjunctiva, oropharynx clear. NECK: ?Supple without lymphadenopathy.? No stiffness or restricted ROM. HEART:? Tachycardic rate and regular rhythm, normal S1/S2, no m/r/g LUNGS:? CTAB, moving air well. No crackles or wheezes are heard. ABDOMEN: ?Soft, nontender, nondistended BACK: No CVAT, no obvious deformity. EXTREMITIES: ?Without cyanosis, clubbing or edema. NEUROLOGICAL: ?Grossly nonfocal. Alert and oriented, moving all 4 extremities. Observed to ambulate with normal gait. Skin: ?Warm and dry without any rash. Medications Administered Discontinued Medications Generic Name Dose Route Start Last Admin Trade Name Freq PRN Reason Stop Dose Admin Sodium Chloride 1,000 mls @ 999 mls/hr 09/04/25 08:30 09/04/25 10:04 Ns IV 09/04/25 09:30 Not Given .Q1H1M AMELIE Lactated Ringer's 1,000 mls @ 999 mls/hr 09/04/25 09:40 09/04/25 11:05 Lr IV 09/04/25 10:40 Infused .Q1H1M ONE Infusion Acetaminophen 1,000 mg in 100 mls @ 400 mls/hr 09/04/25 09:40 09/04/25 10:19 Ofirmev IV 09/04/25 09:54 Infused ONCE ONE Infusion Ketorolac Tromethamine 15 mg 09/04/25 09:40 09/04/25 10:04 Ketorolac Tromethamine 15 Mg/Ml Vial IVPUSH 09/04/25 09:41 15 mg ONCE ONE Administration Lorazepam 1 mg 09/04/25 12:33 09/04/25 13:16 Lorazepam 1 Mg Tablet PO 09/04/25 12:34 1 mg ONCE ONE Administration Ondansetron HCl 4 mg 09/04/25 10:01 09/04/25 10:04 Ondansetron Hcl 4 Mg/2 Ml Vial IVPUSH 09/04/25 10:02 4 mg ONCE ONE Administration Medical Decision Making Medical Decision Making MDM Narrative: 40-year-old female with medical history of HTN, asthma, tachycardia presents to the ED due to palpitations and chest pain. Patient states she was lying in bed attempting to go to sleep when she was feeling ?weird? when trying to get her to expand on what that means for her, she states she ?just did not feel right? and is hard for her to explain. Patient states about 30 minutes after not feeling right she began to experience palpitations, chest tightness, a left-sided cramping near her ribs with diaphoresis, nausea, dizziness, and shortness of breath that feels worse when the patient is lying down or ambulating. Patient states that this time she took a dose of verapamil, and her blood pressure medication but felt worse after. Patient reports she had pneumonia approximately 3 weeks ago and finished course of antibiotics and prednisone on 08/18 and feels like her symptoms are improving. Patient states she was following a Cardiology office, but this office has closed and has not seen a time clock mechanic in the last 3-4 months. VS on initial observation-BP 176/88, pulse rate of 140, respiratory rate of 18, afebrile with oral temp of 98?, O2 saturation 98% on room air. BP and pulse rate has now improved to 138/91, with a heart rate of 112. Cardiac exam reveals mildly tachycardic rate with a regular rhythm, no murmurs/rubs/gallops. Lungs are clear to auscultation bilaterally without wheezing, rhonchi. Abdomen is soft, nondistended, nontender. Lower extremities without edema. No neurological deficits observed. EKG reveals sinus tachycardia, with RSR in lead 3, without significant ST- elevation or depression, no prolonged QT, initial troponin undetectable at <2.7, 2nd troponin elevated at 20.5. Repeat EKG with inverted T waves in leads III and aVF without significant ST-elevation or depression. Labs significant for leukocytosis of 14.3 with a left shift of 78.4, no signs of anemia however has a low MCV of 78.5, no electrolyte abnormalities, pro BNP WNL, D-dimer negative, beta hCG negative, random serum glucose of 219. CXR reveals stable interstitial and bronchial wall thickening. I reviewed this case with my attending physician Dr. Joya. Patient has been medicated with 1 L IV fluids, 4 mg IV Zofran, 15 mg Toradol, 1 g IV Tylenol, and 1 mg of p.o. Ativan with improvement of her symptoms. Patient with a leukocytosis of 14.3, this is most likely due to stress reaction from tachycardia. Patient with a diagnosis of pneumonia 3 weeks ago, did complete course of antibiotics and prednisone, and feels like her symptoms are improving. EKG without significant ST-elevation/depression, troponin is elevated at 20.5, I do not believe patient is having an IL at this time, symptoms are most likely due to a type 2 injury with increased supply/demand due to tachycardia. Patient had been originally following cardiology group that has now closed down has not seen a time clock mechanic in the last 3-[address] referral to [facility] for patient to follow up with due to her tachycardia. Patient feels well enough to go home for self-care, and is in agreement with the plan. Differential Diagnosis Differential Diagnoses: The differential diagnosis associated with the presentation includes ACS CHF Dysrhythmia Atypical chest pain Admission/Observation Consideration of admission/observation: Escalation of care including admission/observation considered Lab Data MDM Lab Attestation statement: I reviewed the patient's lab results. 09/04/25 09:56 09/04/25 09:56 Labs: Lab Results 09/04/25 09/04/25 Range/Units 09:56 11:15 WBC 14.3 H (4.8-10.8) X10*3/uL RBC 5.39 (4.20-5.50) X10*6/uL Hgb 13.2 (12.0-16.0) g/dl Hct 42.3 (37.0-47.0) % MCV 78.5 L (80.0-98.0) fL MCH 24.5 L (27.0-33.0) pg MCHC 31.2 (31.0-35.0) g/dl RDW 15.9 (11.0-16.0) % Plt Count 324 (160-400) X10*3/uL MPV 11.2 (9.4-12.3) fL Immature Gran % (Auto) 0.4 (0.0-0.4) % Neut % (Auto) 78.4 H (45-73) % Lymph % (Auto) 12.7 L (20-40) % Cocke % (Auto) 5.5 (2-11) % Eos % (Auto) 2.6 (0-4) % Baso % (Auto) 0.4 (0-2) % Lymph # (Auto) 1.8 (1.2-4.9) X10*3/uL Cocke # (Auto) 0.8 (0.1-1.2) X10*3/uL Eos # (Auto) 0.4 (0.0-0.4) X10*3/uL Baso # (Auto) 0.1 (0.0-0.2) X10*3/uL Abs Immat Gran (auto) 0.06 H (0.00-0.03) X10*3/uL Absolute Neuts (auto) 11.2 H (2.0-8.3) x10*3/uL Absolute Nucleated RBC 0.000 (0.0-0.012) X10*3/uL Nucleated RBC % (auto) 0.0 (0.0-0.2) /100WBC D-Dimer High Sensitivty < 150 NG/ML Sodium 139 (135-145) mmol/L Potassium 4.0 (3.3-5.1) mmol/L Chloride 105 (96-108) mmol/L Carbon Dioxide 24 (22-29) mmol/L Anion Gap 14 (12-20) BUN 13 (9-16) mg/dL Creatinine 0.66 (0.5-1.4) mg/dL Estim Creat Clear Calc 120.1 Estimated GFR > 60 Random Glucose 219 H (60-115) mg/dL Calcium 9.6 (8.4-10.2) mg/dL Magnesium 1.9 (1.6-2.6) mg/dL Total Bilirubin 0.2 (0.0-1.0) mg/dL AST 29 (5-31) U/L ALT 23 (0-31) U/L Alkaline Phosphatase 109 (39-117) U/L Troponin I High Sens < 2.7 20.5 H D (<3.5-17.0) ng/L NT-Pro-B Natriuret Pep < 15.8 (<300) pg/mL Total Protein 8.3 H (6.5-8.0) g/dL Albumin 4.4 (3.5-5.0) g/dL Lipase 45 (8-78) U/L TSH 0.95 (0.32-4.0) uIU/mL Beta HCG, Quant < 2 mIU/mL Influenza Type A (PCR) NEGATIVE (Negative) Influenza Type B (PCR) NEGATIVE (Negative) RSV RNA Qual (PCR) NEGATIVE (Negative) SARS-CoV-2 RNA (RT-PCR) NEGATIVE (Negative) Independent Interpretation I performed an independent interpretation of an: EKG and Plain X-Ray Interpretation: Personally interpreted the EKG which reveals sinus tachycardia, with RSR in lead 3, no ST-elevation/depression Vent. Rate : 132 BPM Atrial Rate : 132 BPM P-R Int : 148 ms QRS Dur : 70 ms QT Int : 296 ms P-R-T Axes : 17 15 -23 degrees QTcB Int : [address] & T wave abnormality, consider inferior ischemia Abnormal ECG When compared with ECG of 09-Aug-2025 15:28, T wave inversion no longer evident in Anterior leads I personally interpreted the CXR which was negative for pneumothorax, cardiomegaly, infiltrates, consolidations, I agree with the radiologist's interpretation Radiology Impression Discussion of test interpretation with radiology: I have reviewed the radiologist's reading. Radiologist Impression: CXR Findings: Normal lung volumes. Stable interstitial and bronchial wall thickening No pneumothorax or pleural effusion. Heart size normal. No passive venous congestion. No midline shift or tracheal deviation. No acute fracture. Impression: 1. Stable interstitial and bronchial wall thickening. No airspace disease. This document has been electronically signed by: Ricardo Sevilla MD on 09/04/2025 10:24:24 Dictated By: Ricardo Sevilla MD Signed By: <Electronically signed by Ricardo Sevilla MD in OV> 09/04/25 1025 Independent Historian Clinical information obtained from an independent historian. History obtained from or confirmed by: Spouse ( at bedside) External Record Review External record reviewed: Inpatient record, Office record and Outpatient record Chronic Conditions Patient?s care impacted by: Hypertension and Other (Asthma, tachycardia) Discharge Plan Discharge Clinical Impression: Sinus tachycardia Patient Disposition: Home, Self-Care Additional Instructions: You were evaluated in the ED today due to chest pain, palpitations. Your labs revealed an increased white blood cell count of 14.3, this is most likely due to a stress reaction from your palpitations. Your EKG revealed sinus tachycardia without evidence of a heart attack. Your troponin which is a protein that the heart gives off when under stress or damage was initially negative, but 2nd troponin was slightly elevated at 20.5, 2nd EKG was obtained and was negative for signs of heart attack. The elevation is most likely due to a stress response from the fast heart rate. Please continue to take your home medications to control your heart rate, and blood pressure. I have placed referral to our cardiology group. Please call their office Friday morning as they will not call you. Please return to the emergency department if you experience worsening chest pain, shortness of breath, difficulty breathing, nausea, vomiting, additional episodes of palpitations, or any new/worsening/concerning symptoms. Prescriptions: No Action lorazepam 1 mg tablet 1 mg PO TID PRN (Reason: anxiety) Qty: 10 0RF Rx Instructions: Patient may ask for partial fill ondansetron 4 mg tablet,disintegrating 4 mg PO Q6-8H PRN (Reason: nausea and vomiting) Qty: 14 0RF ondansetron 4 mg tablet,disintegrating 4 mg PO TID PRN (Reason: nausea and vomiting) 5 Days Qty: 10 0RF diltiazem HCl [Tiadylt ER] 240 mg capsule,extended release 24 hr 240 mg PO DAILY Qty: 30 0RF ondansetron 4 mg tablet,disintegrating 4 mg PO Q8H PRN (Reason: nausea and vomiting) Qty: 9 0RF prednisone 20 mg tablet 40 mg PO DAILY 5 Days Qty: 10 0RF azithromycin 250 mg tablet See Rx Instructions .ROUTE .COMPLEX Qty: 6 0RF Rx Instructions: For 250 mg dose pack: take 500 mg today (day 1), then 250 mg for 4 days (days 2-5) albuterol sulfate [Ventolin HFA] 90 mcg/actuation HFA aerosol inhaler 2 puff inhalation Q4-6H PRN (Reason: shortness of breath or wheezing) Qty: 8.5 0RF ibuprofen 600 mg tablet 600 mg PO TID PRN (Reason: fever or pain) Qty: 20 0RF ondansetron 4 mg tablet,disintegrating 4 mg PO Q8H PRN (Reason: nausea and vomiting) Qty: 7 0RF Print Language: Italian
[2025-09-04 10:03] LABS: MANUAL DIFF FLAG NO
[2025-09-04 10:04] LABS: Hematocrit 42.3 % (37.0-47.0); Hemoglobin 13.2 g/dl (12.0-16.0); Imm Gran Abs Auto 0.06 X10*3/uL (0.00-0.03); Imm Gran Pct Auto 0.4 % (0.0-0.4); Lymphocytes Absolute Auto 1.8 X10*3/uL (1.2-4.9); Mean Corpuscular HGB Conc 31.2 g/dl (31.0-35.0); Mean Corpuscular Hemoglobin 24.5 pg (27.0-33.0); Mean Corpuscular Volume 78.5 fL (80.0-98.0); NRBC Abs Auto 0.000 X10*3/uL (0.0-0.012); NRBC Pct Auto 0.0 /100WBC (0.0-0.2); Platelet Count 324 X10*3/uL (160-400); Red Blood Count 5.39 X10*6/uL (4.20-5.50); White Blood Count 14.3 X10*3/uL (4.8-10.8)
[2025-09-04] MEDS: Lactated Ringers 1,000 ML 999 ML IV (10:05)
[2025-09-04 10:19] LABS: D Dimer High Sensitivity < 150 NG/ML
[2025-09-04 10:30] LABS: Alanine Aminotransferase 23 U/L (0-31); Albumin Level 4.4 g/dL (3.5-5.0); Alkaline Phosphatase 109 U/L (39-117); Anion Gap 14 (12-20); Aspartate Amino Transferase 29 U/L (5-31); Blood Urea Nitrogen 13 mg/dL (9-16); Calcium 9.6 mg/dL (8.4-10.2); Carbon Dioxide 24 mmol/L (22-29); Chloride 105 mmol/L (96-108); Creatinine Clr Calc Pharmacy 120.1; Estimated Glomerular Filt Rate > 60; Lipase 45 U/L (8-78); Magnesium 1.9 mg/dL (1.6-2.6); Potassium 4.0 mmol/L (3.3-5.1); Sodium 139 mmol/L (135-145); Total Protein 8.3 g/dL (6.5-8.0)
[2025-09-04 10:36] LABS: Troponin-I High Sensitivity < 2.7 ng/L (<3.5-17.0)
[2025-09-04 10:59] LABS: Resp Syncy Virus RNA Qual PCR NEGATIVE (Negative); SARS COV2 PCR INHOUSE NEGATIVE (Negative)
[2025-09-04 11:12] VITALS: BP 136/75; PULSE 114; RESP 20; O2SAT 96
[2025-09-04 11:47] LABS: Troponin-I High Sensitivity 20.5 ng/L (<3.5-17.0)
--- NOTE | 2025-09-04 11:54 | ECG_ITS ---
Test Reason : ELEVATED TROPONIN Blood Pressure : */* mmHG Vent. Rate : 108 BPM Atrial Rate : 108 BPM P-R Int : 162 ms QRS Dur : 78 ms QT Int : 354 ms P-R-T Axes : 22 4 -22 degrees QTcB Int : 474 ms Sinus tachycardia T wave abnormality, consider inferior ischemia Abnormal ECG When compared with ECG of 04-Sep-2025 08:10, Nonspecific T wave abnormality now evident in Lateral leads Referred By: Barbara Chand Electronically Signed By: EL ADKINS MD
[2025-09-04 12:29] LABS: NT Pro B Type Natriuretic Pept < 15.8 pg/mL (<300)
[2025-09-04 14:25] VITALS: BP 128/72; PULSE 101; RESP 20; TEMP 36.9; O2SAT 96
== END 2025-09-04 14:25 | disposition home or self-care (01) ==
PROVIDERS: Physician Assistant Medical; Emergency Provider Emergency Medicine Emergency Medical Services; PCP Family Medicine
DX: R00.0 Tachycardia, unspecified (principal); I49.9 Cardiac arrhythmia, unspecified; R00.2 Palpitations; R10.22 Pelvic and perineal pain left side; R06.02 Shortness of breath; R11.0 Nausea; R07.89 Other chest pain; Z03.818 Encounter for observation for suspected exposure to other biological agents ruled out; Z79.899 Other long term (current) drug therapy
CPT/HCPCS: 36415; 71046; 80053; 83690; 83735; 83880; 84443; 84484; 84702; 85025; 85379; 87637; 93005; 96361; 96374; 96375; 96376; 99284; J0131; J1885; J2405; J7120

== ENCOUNTER → 2025-09-04 08:07 | Outpatient (BNV) | payer MEDICARE, MEDICAID, SELFPAY | PROVIDERS: Emergency Provider Emergency Medicine Emergency Medical Services; PCP Family Medicine; Visit Provider Internal Medicine Cardiovascular Disease | DX: R00.0 Tachycardia, unspecified (principal) | CPT/HCPCS: 93010 ==

== ENCOUNTER 2025-10-10 14:53 | Outpatient (AMB) | payer MEDICARE, MEDICAID, SELFPAY ==
[2025-10-10 14:55] VITALS: BP 140/92; PULSE 95; BMI 34.5
--- NOTE | 2025-10-10 14:55 | A.OFFVIS_ITS ---
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 Railroad Car Cleaner Required: Yes Railroad Car Cleaner Name: [id number] yolanda Allergies Anesthesia S/I-40 Allergy (Unknown, Uncoded 10/10/25 14:59) rash outside allergy/ unhouse aller Allergy (Unknown, Uncoded 10/10/25 14:59) rash Medication List - Last Reconciled 10/10/25 by SHAISTA Antunez albuterol sulfate 90 mcg/actuation (Ventolin HFA) 2 puffs inhalation Q4-6H PRN budesonide-formoterol 160-4.5 mcg/actuation 2 puffs inhalation BID cholecalciferol (vitamin D3) 50 mcg PO DAILY ibuprofen 600 mg PO TID PRN loratadine (Allergy Relief (loratadine)) 10 mg PO DAILY metformin 750 mg PO DAILY montelukast 10 mg PO QPM norethindrone (contraceptive) (Tawana) 0.35 mg PO DAILY ondansetron 4 mg PO TID PRN 5 days verapamil 40 mg PO TID HPI HPI CHILD AND 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 During her ER visit, she reported symptoms of heart palpitations, chest tightness, nausea, dizziness, and shortness of breath. Her EKGs showed sinus tachycardia with nonspecific T wave abormalities and her troponin was slightly elevated. A chest x-ray revealed stable interstitial and bronchial wall thickening. Her symptoms improved with IV fluids, Zofran, Toradol, Tylenol, and Ativan. The abnormal cardiac findings were attributed to demand from tachycardia. An echocardiogram has been done at [facility] on 10/07/2025 showing EF 55-60%, basal inferior wall is mildly hypokinetic RV normal size and function. Her past medical history includes obesity, a sleep disorder, asthma, and pneumonia three weeks prior to ED visit, which was treated with antibiotics and prednisone. She had and [place] [facility] [place]. She has never been formally diagnosed with a heart condition. Her current cardiac medication is verapamil 40 mg TID for rapid heartbeats. She reports episodes of a rapid and strong heartbeat occurring every two weeks, lasting for one to two days. Associated symptoms include chest pain and numbness of the tongue. The chest pain is described as a stabbing sensation that occurs only when her heart is beating fast and can be felt in the middle of the chest or on the side. These symptoms are not triggered by physical activity. The patient's activity is limited as she often feels unwell. She has a significant family history of heart disease, including a grandfather who from a heart attack, a mother who had a heart attack, and a sister with a heart valve condition. She denies smoking or routine alcohol use and exercises sometimes. [facility] Medical History HTN (hypertension) Back pain Asthma Tachycardia Surgical History Hx of removal of cyst Family History Mother Diabetes Arthritis Heart disease Sister Heart disease Seizure Sister Arthritis Gastritis Brother Diabetes HTN (hypertension) Social History Alcohol intake: never Patient Tobacco Use Status: Never used Tobacco Review of Systems Const All systems reviewed & are unremarkable except as noted in HPI and below ENT Denies dizziness Card Details: palpitations Reports chest pain, Reports chest pain at rest, Denies chest pain with activity, Reports rapid heart rate, Denies pedal edema, Denies edema, Denies leg edema, Denies lightheadedness, Denies palpitations, Denies dyspnea, Denies dyspnea on exertion and Denies orthopnea Resp Denies cough, Denies dyspnea and Denies dyspnea on exertion GI Denies hematochezia and Denies change in stool character Musc Denies abnormal gait, Denies limited range of motion, Denies muscle cramps, Denies muscle weakness, Denies numbness, Denies radiating pain into limb, Denies stiffness and Denies tingling Neuro Denies abnormal gait, Denies dizziness, Denies numbness and Denies tingling Endo Denies palpitations Physical Exam Vital Signs: Last Vital Signs Pulse 95 10/10/25 14:55 BP 140/92 H 12/15/25 14:55 BMI result Body Mass Index 34.5 Const General: cooperative, healthy appearing, comfortable and no acute distress Orientation/consciousness: patient oriented x3 Neck Neck: Yes normal visual inspection Resp Effort & Inspection: normal respiratory effort Auscultation: clear to auscultation bilaterally, no rales, no rhonchi and no wheezes Cardio Rate: regular rate Rhythm: regular rhythm Heart sounds: S1 normal heart sound present, S2 normal heart sound present, no gallops, no murmurs and no rubs Neuro General: patient oriented x3 Extrem General: Yes normal to inspection, No no pedal edema and No calf tenderness Psych Appearance: grossly normal Mental Status: mental status grossly normal Speech and movement: Normal speech and movement present Office Procedures EKG Details: Today, read by me, normal sinus rhythm, rate 95, QTC 439 milliseconds [id number], Complete Assessment & Plan Assessment & Plan (1) Chest discomfort: Code(s): R07.89 - Other chest pain Category: Medical Plan: Reports of chest discomfort preceded by heart palpitations, not brought on by physical activity. Overall atypical for angina. Recent ER evaluation shows EKG with borderline abnormalities and troponin rise from less than 2.5 up to 20 during evaluation. Recent echocardiogram showing normal EF and basal inferior mildly hypokinetic. Will order an exercise stress echo to evaluate for ischemia. Signs and symptoms of angina reviewed. Cardiology follow-up when results are available. Emergency care if needed for symptoms. (2) Abnormal echocardiogram findings without diagnosis: Code(s): R93.1 - Abnormal findings on diagnostic imaging of heart and coronary circulation Category: Medical Plan: As above (3) Palpitations: Code(s): R00.2 - Palpitations Category: Medical Plan: Reports of heart palpitations like her heart is beating fast. Prior cardiology note from [facility] indicates cardiac event monitor worn in 2022 showed sinus rhythm and sinus tach, no evidence of SVT, average rate was 85. At this time will order a Holter monitor to evaluate for arrhythmia. (4) Sinus tachycardia: Code(s): R00.0 - Tachycardia, unspecified Category: Medical Plan: History of sinus tachycardia and on verapamil. Checking Holter as above. Plan I discussed with the patient that her symptoms of recurrent, rapid heartbeats and associated chest discomfort require further investigation to determine the cause. I explained the plan to order an exercise stress echo, which she felt capable of performing, and a Holter monitor for a couple of days to assess her heart rhythm over time. I advised her to continue her current medication, verapamil. I informed her that centralized scheduling will contact her to arrange the tests, and we will follow up in 4-6 weeks to discuss the results. The patient verbalized understanding and had no questions. Orders: Orders ECG 3 day holter monitor Today R00.0 - Tachycardia, unspecified, R00.2 - Palpitations CA echo stress exercise Today R07.89 - Other chest pain, R93.1 - Abnormal findings on diagnostic imaging of heart and coronary circulation Patient Instructions: - Continue taking your verapamil medicine as prescribed. - We will be ordering two tests for your heart: an exercise stress echo (walking on a treadmill) and a Holter monitor (a small device you will wear for a couple of days to record your heart's activity). - Our scheduling office will call you to set up the appointments for these tests. - Please schedule a follow-up appointment in 4 to 6 weeks to go over the results of your tests. Patient was informed and verbally consented to the use of an ambient scribe for clinic note documentation during this visit. Visit time spent on chart review, interview, assessment, orders, documentation. Coding Level of Care Code New Pt Level 4 (96027) Add On Problem Visit Only Diagnoses Chest discomfort R07.89 Abnormal echocardiogram findings without diagnosis R93.1 Palpitations R00.2 Sinus tachycardia R00.0 CPT Codes EKG - CPT: 47018-[id number], Complete ([id number]) Time Spent (min) 30
== END 2025-10-10 15:30 | disposition home or self-care (01) ==
LOC: HO.HCS 14:54
PROVIDERS: PCP Family Medicine; Visit Provider Nurse Practitioner Family
DX: R07.89 Other chest pain (principal); R93.1 Abnormal findings on diagnostic imaging of heart and coronary circulation; R00.2 Palpitations; R00.0 Tachycardia, unspecified
CPT/HCPCS: 93010; 99204; G2211

== ENCOUNTER → 2025-10-10 14:53 | Outpatient (BNVA) | payer MEDICARE, MEDICAID, SELFPAY | PROVIDERS: PCP Family Medicine; Visit Provider Nurse Practitioner Family | DX: R00.2 Palpitations (principal); R93.1 Abnormal findings on diagnostic imaging of heart and coronary circulation; R07.89 Other chest pain; R00.0 Tachycardia, unspecified | CPT/HCPCS: 93005; 99202 ==

== ENCOUNTER 2025-10-25 19:00 | Emergency (ER) | payer MEDICARE, MEDICAID, SELFPAY ==
[2025-10-25] VITALS (9 sets, daily range): BP systolic 129–167; BP diastolic 83–112; PULSE 120–156; RESP 16–24; TEMP 37.9–38.1; O2SAT 94–100; BMI 35.0
--- NOTE | 2025-10-25 19:05 | ECG_ITS ---
Test Reason : CHEST PAIN Blood Pressure : */* mmHG Vent. Rate : 156 BPM Atrial Rate : 156 BPM P-R Int : 116 ms QRS Dur : 72 ms QT Int : 322 ms P-R-T Axes : 17 12 -6 degrees QTcB Int : 518 ms Sinus tachycardia Nonspecific ST and T wave abnormality Abnormal ECG When compared with ECG of 04-Sep-2025 12:00, No significant change was found Referred By: Aye Heredia Electronically Signed By: DARIAN MÉNDEZ
--- NOTE | 2025-10-25 19:13 | ED.SYNCOPE ---
HPI - Syncope General Chief Complaint: Dizziness Stated Complaint: chest pain/High Blood pressure/high sugars Time Seen by Provider: 10/25/25 19:12 History of Present Illness ED Provider: clarisse HPI narrative: 40 F with recurrent syncope including 3 today, hx of non specified tachycardia, prior suspected SVT during [facility] telemtry stay tx with x 1 verapamil. No EP study/holter. Today awoke with rapid palpitations, chest discomfort. MD complaint: loss of consciousness Related Data Home Medications ?Medication ?Instructions ?Recorded ?Confirmed budesonide-formoterol HFA 160 2 puff inhalation BID 10/10/25 10/10/25 mcg-4.5 mcg/actuation aerosol inhaler cholecalciferol (vitamin D3) 50 50 mcg PO DAILY 10/10/25 10/10/25 mcg (2,000 unit) capsule loratadine 10 mg capsule (Allergy 10 mg PO DAILY 10/10/25 10/10/25 Relief (loratadine)) metformin 750 mg tablet 750 mg PO DAILY 10/10/25 10/10/25 montelukast 10 mg tablet 10 mg PO QPM 10/10/25 10/10/25 norethindrone (contraceptive) 0.35 0.35 mg PO DAILY 10/10/25 10/10/25 mg tablet (Tawana) verapamil 40 mg tablet 40 mg PO TID 10/10/25 10/10/25 Previous Rx's ?Medication ?Instructions ?Recorded ondansetron 4 mg disintegrating 4 mg PO TID PRN nausea and 12/21/21 tablet vomiting 5 days #10 tabs ibuprofen 600 mg tablet 600 mg PO TID PRN fever or pain 11/22/23 #20 tabs albuterol sulfate 90 mcg/actuation 2 puff inhalation Q4-6H PRN 07/26/25 aerosol inhaler (Ventolin HFA) shortness of breath or wheezing #8.5 grams Allergies Allergy/AdvReac Type Severity Reaction Status Date / Time Anesthesia S/I-40 Allergy Unknown rash Uncoded 10/25/25 19:16 outside allergy/ unhouse Allergy Unknown rash Uncoded 10/25/25 19:16 aller PMFSH Past Medical History Medical History HTN (hypertension) Back pain Asthma Tachycardia Surgical History Hx of removal of cyst Family History Family History Mother Diabetes Arthritis Heart disease Sister Heart disease Seizure Sister Arthritis Gastritis Brother Diabetes HTN (hypertension) Social History Social History Alcohol intake: never Patient Tobacco Use Status: Never used Tobacco Advance Directives: No Advance Directives Information Provided: No Do you have a plan to hurt others: No Plan Physical Exam Exam: Exam: EXAM: Gen: Alert, awake, anxious appearing mild flushing of the skin Head: Atraumatic Eyes: Anicteric, Normal conjunctiva. ENT: Moist mucosa, no pallor. ? Neck: Supple. Skin: Mild flushing of the face upper arms no urticaria or induration. Otherwise?No observable rash or bruising on exposed or examined skin Respiratory: Breathing comfortably, No distress.Clear to auscultation bilaterally, symmetric chest expansion, No wheeze, rales, ronchi. Cardiovascular: Rapid regular consistently 148. No murmurs or rub. Well perfused periphery, warm extremities. No edema. ? Abdominal: No focal tenderness. Soft, no objective distension. No palpable masses or obvious organomegaly. ?No guarding, no rebound tenderness or other peritoneal findings. : No flank tenderness. Neuro: Alert. Gross movement of all extremities intact. ? Psych: Anxious MSK: No grossly visible deformity. Vital signs: See flowsheet Vital Signs: Vital Signs: Last Vital Signs Temp 98.7 F 10/26/25 01:52 Pulse 114 H 10/26/25 01:52 Resp 16 10/26/25 01:52 BP 129/88 10/26/25 01:52 Pulse Ox 98 10/26/25 01:52 O2 Del Method Room Air 10/26/25 01:52 BMI result Body Mass Index 35.0 Medications Administered Discontinued Medications Generic Name Dose Route Start Last Admin Trade Name Freq PRN Reason Stop Dose Admin Acetaminophen 975 mg 10/25/25 20:16 10/25/25 20:24 Acetaminophen 325 Mg Tablet PO 10/25/25 20:17 975 mg ONCE ONE Administration Adenosine 6 mg 10/25/25 19:57 10/25/25 20:03 Adenosine 6 Mg/2 Ml Vial IVPUSH 10/25/25 19:58 6 mg STAT STA Administration Adenosine 12 mg 10/25/25 20:10 10/25/25 20:25 Adenosine 6 Mg/2 Ml Vial IVPUSH 10/25/25 20:11 Not Given STAT STA Diltiazem HCl 10 mg 10/25/25 19:23 10/25/25 19:33 Diltiazem Hcl 50 Mg/10 Ml Vial IVPUSH 10/25/25 19:24 10 mg ONCE ONE Administration Diphenhydramine HCl 25 mg 10/25/25 20:16 10/25/25 20:24 Diphenhydramine Hcl 50 Mg/Ml Vial IVPUSH 10/25/25 20:17 25 mg ONCE ONE Administration Diphenhydramine HCl 25 mg 10/25/25 23:33 10/26/25 00:03 Diphenhydramine Hcl 50 Mg/Ml Vial IVPUSH 10/25/25 23:34 25 mg ONCE ONE Administration Lactated Ringer's 1,000 mls @ 999 mls/hr 10/25/25 19:15 10/25/25 22:38 Lr IV 10/25/25 21:15 Infused .Q1H1M AMELIE Infusion Sodium Chloride 1,000 mls @ 999 mls/hr 10/25/25 23:33 10/26/25 01:34 Ns IVCONT 10/26/25 00:33 Infused .Q1H1M ONE Infusion Ketorolac Tromethamine 15 mg 10/25/25 20:16 10/25/25 20:24 Ketorolac Tromethamine 15 Mg/Ml Vial IVPUSH 10/25/25 20:17 15 mg ONCE ONE Administration Ketorolac Tromethamine 15 mg 10/25/25 23:33 10/26/25 00:04 Ketorolac Tromethamine 15 Mg/Ml Vial IVPUSH 10/25/25 23:34 15 mg ONCE ONE Administration Metoclopramide HCl 10 mg 10/25/25 23:33 10/26/25 00:04 Metoclopramide Hcl 10 Mg/2 Ml Vial IVPUSH 10/25/25 23:34 10 mg ONCE ONE Administration Verapamil HCl 40 mg 10/25/25 23:33 10/26/25 00:32 Verapamil Hcl 40 Mg Tablet PO 12/30/25 23:34 Not Given ONCE ONE Protocol Verapamil HCl 40 mg 10/26/25 00:30 10/26/25 00:38 Verapamil Hcl 80 Mg Tablet PO 10/26/25 00:31 40 mg ONCE ONE Administration Protocol Medical Decision Making Medical Decision Making MDM Narrative: Medical Decision Makin-year-old female with previous tachyarrhythmia with no formal diagnosis no previous Holter about it or but possibly SVT diagnosis with verapamil administration at [facility] the past. She has had recurrent syncopes felt to be vasovagal per cardiology documentation at [facility]. In the ED she had a syncopal episode shortly after getting her EKG associated with a prodrome of lightheadedness presyncope. Heart rate persistently in the 148 arrival without fever but shortly after developed low-grade fever. This is probably a viral syndrome with fever additionally we felt this could be a flutter with two-to-one AV block I thought diltiazem adenosine later would possibly be diagnostic revealing an underlying flutter wave but this was not seen. Shortly after this she developed a fever and I felt it was more likely this is a inappropriate sinus tachycardia or sinus tachycardia due to fever in the setting of chronic unexplained sinus tachycardia. Probably vasovagal syncope today. Headache of flu testing there was a lot of flu going around she may very well likely simply have a flu syndrome. She has no UTI symptoms abdominal tenderness cough or other focal signs of bacterial infection on exam. She is getting hydrated antipyretics little bit of antihistamine for mild flushing of the face which is of unclear cause they are certainly no signs of anaphylaxis She will be signed out to p.m. for overnight physician to continue monitoring follow up repeat her lab work Preliminary Favored Differential Diagnosis: Viral syndrome, dehydration, orthostatic hypotension, sinus tachycardia, a flutter or SVT or reentry tachycardia or chronic unexplained sinus tachycardia among additional considered etiologies Testing Interpreted Independently: ?ECG narrow complex regular tachycardia sinus versus a flutter with two-to-one AV block or SVT Radiology or Lab testing Results Reviewed: ?See below for details Consults: ?See below for details Independent Historians/External Chart Reviews: [facility] cardiology notes reviewed from 2023 Social Determinants of Health Impacting MDM/Planning: ?See below for details I received sign-out from my colleague Dr. Fritz -after the above-mentioned medications, patient is still tachycardic in the 120s. Patient complaining of ongoing headache. Patient denies chest pain or shortness of breath or palpitations Patient tested positive for influenza A. Patient receiving more IV fluids, migraine cocktail including Toradol, Reglan, diphenhydramine Patient was also given her home dose of verapamil 40 mg p.o. Patient states that after the above-mentioned treatment, patient feels much better, no longer having headache or nausea, no tachycardia. Patient's heart rate 107. However, patient states that she feels much better and ready to go home Lab Data 10/25/25 19:28 10/25/25 19:28 Labs: Lab Results 10/25/25 10/25/25 10/25/25 Range/Units 19:27 19:28 20:25 WBC 10.5 (4.8-10.8) X10*3/uL RBC 5.19 (4.20-5.50) X10*6/uL Hgb 12.7 (12.0-16.0) g/dl Hct 39.5 (37.0-47.0) % MCV 76.1 L (80.0-98.0) fL MCH 24.5 L (27.0-33.0) pg MCHC 32.2 (31.0-35.0) g/dl RDW 15.1 (11.0-16.0) % Plt Count 285 (160-400) X10*3/uL MPV 10.8 (9.4-12.3) fL Immature Gran % (Auto) 0.3 (0.0-0.4) % Neut % (Auto) 83.4 H (45-73) % Lymph % (Auto) 9.0 L (20-40) % [place] % (Auto) 6.2 (2-11) % Eos % (Auto) 0.5 (0-4) % Baso % (Auto) 0.6 (0-2) % Lymph # (Auto) 1.0 L (1.2-4.9) X10*3/uL [place] # (Auto) 0.7 (0.1-1.2) X10*3/uL Eos # (Auto) 0.1 (0.0-0.4) X10*3/uL Baso # (Auto) 0.1 (0.0-0.2) X10*3/uL Abs Immat Gran (auto) 0.03 (0.00-0.03) X10*3/uL Absolute Neuts (auto) 8.8 H (2.0-8.3) x10*3/uL Absolute Nucleated RBC 0.000 (0.0-0.012) X10*3/uL Nucleated RBC % (auto) 0.0 (0.0-0.2) /100WBC D-Dimer High Sensitivty < 150 NG/ML Sodium 138 (135-145) mmol/L Potassium 3.9 (3.3-5.1) mmol/L Chloride 106 (96-108) mmol/L Carbon Dioxide 21 L (22-29) mmol/L Anion Gap 15 (12-20) BUN 9 (9-16) mg/dL Creatinine 0.81 (0.5-1.4) mg/dL Estim Creat Clear Calc 92.5 Estimated GFR > 60 Random Glucose 197 H (60-115) mg/dL Calcium 9.4 (8.4-10.2) mg/dL Magnesium 1.7 (1.6-2.6) mg/dL Total Bilirubin 0.3 (0.0-1.0) mg/dL AST 31 (5-31) U/L ALT 20 (0-31) U/L Alkaline Phosphatase 115 (39-117) U/L Troponin I High Sens < 2.7 D (<3.5-17.0) ng/L NT-Pro-B Natriuret Pep < 15.8 (<300) pg/mL Total Protein 8.6 H (6.5-8.0) g/dL Albumin 4.4 (3.5-5.0) g/dL TSH 0.68 (0.32-4.0) uIU/mL Beta HCG, Quant < 2 mIU/mL Influenza Type A (PCR) POSITIVE A (Negative) Influenza Type B (PCR) NEGATIVE (Negative) RSV RNA Qual (PCR) NEGATIVE (Negative) SARS-CoV-2 RNA (RT-PCR) NEGATIVE (Negative) Independent Interpretation I performed an independent interpretation of an: Rhythm Strip Interpretation: Critical Care Time Critical Care Time Critical Care Time: Yes Total Critical Care Time: 60 Attestation: I have personally provided critical care time. Time includes review of lab data, radiology results, discussion with consultants, and monitoring for potential decompensation. Intervention performed as documented. Discharge Plan Discharge Clinical Impression: Fever, Syncope, Influenza A Patient Disposition: Home, Self-Care Instructions: Fever in Adults (ED), Syncope (ED), Influenza (DC) Additional Instructions: Please follow-up with your primary care physician tomorrow. If you have any worsening or new symptoms, please return to the emergency room or call 911 Prescriptions: No Action ondansetron 4 mg tablet,disintegrating 4 mg PO TID PRN (Reason: nausea and vomiting) 5 Days Qty: 10 0RF albuterol sulfate [Ventolin HFA] 90 mcg/actuation HFA aerosol inhaler 2 puff inhalation Q4-6H PRN (Reason: shortness of breath or wheezing) Qty: 8.5 0RF ibuprofen 600 mg tablet 600 mg PO TID PRN (Reason: fever or pain) Qty: 20 0RF verapamil 40 mg tablet 40 mg PO TID montelukast 10 mg tablet 10 mg PO QPM norethindrone (contraceptive) [Tawana] 0.35 mg tablet 0.35 mg PO DAILY budesonide-formoterol 160-4.5 mcg/actuation HFA aerosol inhaler 2 puff inhalation BID cholecalciferol (vitamin D3) 50 mcg (2,000 unit) capsule 50 mcg PO DAILY Allergy Relief (loratadine) 10 mg capsule 10 mg PO DAILY metformin 750 mg tablet 750 mg PO DAILY Stand Alone Forms: Work/School Release Interventions: ED Discharge Assessment Last Done: 10/26/25 01:52 Discharge Date/Time: 10/26/25 01:53 Print Language: Citizen Of [place]
--- OUTSIDE RECORDS SUMMARY | 2025-10-25 19:22 | XMS_ITS | Encounter Summary ---
Author Organization [employer] Address [address] [place] [address] Care Team Providers Care Command And Control Specialist Name Role Phone Gisele Kulkarni MD Primary Care Provider [phone] Josemanuel Mc MD Unavailable [phone] Ant Wilkes MD Unavailable Reason for Visit * Reason Onset Date Comments Returning call 01/05/2024 Encounter Details Date Type Department Care Team ([facility] st Contact Info) Description 01/05/2024 Telephone [facility] [address] [place], [place] [phone] Gisele Kulkarni MD [address] [place], [place] [phone] Returning call Social History Tobacco Use Types [...] Programand SDOH services. CHW introducing herself from [facility] CM Department with CHW's name, department and direct contact number requesting call back. Will re-attempt to contact within 5 days. and address not confirmed. documented in this encounter Plan of Treatment Upcoming Encounters Date Type Department Care Team (Late st Contact Info) Description 12/05/2025 1:00 PM EST Office Visit [facility] [address] [place], [place] [phone] Natasha Ham, OD [address] [place] [address] documented as of this encounter Goals Goal Patient Goal Type Associated Problems Recent Progress Patient-Stated? Author Patient will adhere to medication regimen General No Corin Chaudhry Hemoglobin A1c < 7 Result Component 8.3( 5 3:02 PM EST) No Yessica Morales, PharmD documented as of this encounter Visit Diagnoses Not on filedocumented in this encounter Care Teams Command And Control Specialist Relationship Specialty Start Date End Date Gisele Kulkarni MD [address] [place] [address] PCP - General Family Medicine 06/15/13 Josemanuel Mc MD [address] [place] [address] Cardiology 12/01/24 Ant Wilkes MD [address] [place] [address] [address] [place] [address] Allergy 12/01/24 documented as of this encounter
--- OUTSIDE RECORDS SUMMARY | 2025-10-25 19:22 | XMS_ITS | Encounter Summary ---
Author Organization [employer] Address [address] [place] [address] Care Team Providers Care Slot Shift Supervisor Name Role Phone Gisele Kulkarni MD Primary Care Provider [phone] Josemanuel Mc MD Unavailable [phone] Ant Wilkes MD Unavailable Encounter Details Date Type Department Care Team (Late st Contact Info) Description 12/01/2024 Orders Only [facility] [address] [place], [place] [phone] Gisele Kulkarni MD [address] [place], [place] [phone] Social History Tobacco Use Types Packs/Day Years [...] Description 12/05/2025 1:00 PM EST Office Visit [facility] [address] [place] [address] Jitendra, Natasha, OD [address] [place] [address] documented as of this encounter Goals Goal Patient Goal Type Associated Problems Recent Progress Patient-Stated? Author Patient will adhere to medication regimen General No Corin Chaudhry Hemoglobin A1c < 7 Result Component 8.3( 5 3:02 PM EST) No Yessica Morales, UmaD documented as of this encounter Visit Diagnoses Not on filedocumented in this encounter Care Teams Slot Shift Supervisor Relationship Specialty Start Date End Date Gisele Kulkarni MD [address] [place] [address] PCP - General Family Medicine 06/15/13 Josemanuel Mc MD [address] [place] [address] Cardiology 12/01/24 Ant Wilkes MD [address] [place] [address] [address] [place] [address] Allergy 12/01/24 documented as of this encounter
--- OUTSIDE RECORDS SUMMARY | 2025-10-25 19:22 | XMS_ITS | Encounter Summary ---
Author Organization [employer] Address [address] [facility] 7t [place] [address] Care Team Providers Care Calender Inspector Name Role Phone Gisele Kulkarni MD Primary Care Provider [phone] Josemanuel Mc MD Unavailable [phone] Ant Wilkes MD Unavailable Reason for Visit * Reason Onset Date Comments Med Refill 11/10/2024 Encounter Details Date Type Department Care Team (Late st Contact Info) Description 11/10/2024 Refill [facility] [address] [place], [place] [phone] Gisele Kulkarni MD [address] [place], [place] [phone] Nausea Social History Tobacco Use Types Packs/Day [...] Description 12/05/2025 1:00 PM EST Office Visit [facility] [address] [place] [address] Natasha Ham, OD [address] [place] [address] documented as of this encounter Goals Goal Patient Goal Type Associated Problems Recent Progress Patient-Stated? Author Patient will adhere to medication regimen General Corin Melendez Hemoglobin A1c < 7 Result Component 8.3( 5 3:02 PM EST) No Yessica Morales PharmD documented as of this encounter Visit Diagnoses Diagnosis Nausea Nausea alone documented in this encounter Care Teams Calender Inspector Relationship Specialty Start Date End Date Gisele Kulkarni MD [address] [place] [address] PCP - General Family Medicine 06/15/13 Josemanuel Mc MD [address] [place] [address] Cardiology 12/01/24 Ant Wilkes MD [address] [place] [address] [address] [facility] [address] [place] [address] Allergy 12/01/24 documented as of this encounter
--- OUTSIDE RECORDS SUMMARY | 2025-10-25 19:22 | XMS_ITS | Encounter Summary ---
Author Organization [employer] Address [address] [facility] 7t [place] [address] Care Team Providers Care Application Specialist Name Role Phone Gisele Kulkarni MD Primary Care Provider [phone] Yessica Morales PharmD Unavailable Josemanuel cM MD Unavailable [phone] Ant Wilkes MD Unavailable Reason for Visit * Reason Onset Date Comments Nurse Triage 04/02/2023 Encounter Details Date Type Department Care Team (Late st Contact Info) Description 04/02/2023 Telephone [facility] [address] [place] [phone] Gisele Kulkarni MD [address] [place], [place] [phone] Nurse Triage Social History Tobacco Use Types [...] patient to contact CHW Dami Victor at [phone] * Telephone Encounter - Lucretia Kam RN - 04/02/2023 1:35 PM EDT Triage call with [employer] Account Coordinator ID [id number] Pt reports wheezing and mild asthma attack since yesterday. Pt has vomited x5 this morning due to coughing. Pt reports difficulty breathing and I feel like I'm asphyxiated . Pt is talking without sob on this call. Pt reports using [id number] yesterday, neg for fever. Pt also reports sore throat. Advised Pt to come to [facility] today to be seen and Pt [...] Description 12/05/2025 1:00 PM EST Office Visit [facility] [address] [place] [address] JitendraNatasha snow, OD [address] [place] [address] documented as of this encounter Goals Goal Patient Goal Type Associated Problems Recent Progress Patient-Stated? Author Hemoglobin A1c < 7 Result Component 8.3(09/14/2025 3:02 PM EST) No Yessica Morales, PharmD documented as of this encounter Visit Diagnoses Not on filedocumented in this encounter Care Teams Application Specialist Relationship Specialty Start Date End Date Gisele Kulkarni MD [address] [place] [address] PCP - General Family Medicine 06/15/13 Yessica Morales, PharmD [address] [place] [address] Pharmacist Internal Medicine 03/18/23 08/24/23 Josemanuel Mc MD [address] [place] [address] Cardiology 12/01/24 Ant Wilkes MD [address] [place] [address] [address] [place] [address] Allergy 12/01/24 documented as of this encounter
--- OUTSIDE RECORDS SUMMARY | 2025-10-25 19:22 | XMS_ITS | Encounter Summary ---
Author Organization [employer] Address [address] [facility] 7t [place] [address] Care Team Providers Care Voip Engineer Name Role Phone Gisele Kulkarni MD Primary Care Provider [phone] Josemanuel Mc MD Unavailable [phone] Ant Wilkes MD Unavailable Reason for Visit * Reason Onset Date Comments Reschedule 10/21/2023 Encounter Details Date Type Department Care Team (Late st Contact Info) Description 10/21/[address] [facility] MEDICINE [address] [place], [place] [phone] Gisele Kulkarni MD [address] [place], [place] [phone] Reschedule Social History Tobacco Use Types Packs/Day [...] r/s 10/21 HD[facility] appointment. Please contact at [phone] documented in this encounter Plan of Treatment Upcoming Encounters Date Type Department Care Team (Late st Contact Info) Description 12/05/2025 1:00 PM EST Office Visit [facility] OPTOMETRY [address] [place] [address] Natasha Ham, OD [address] [place] [address] documented as of this encounter Goals Goal Patient Goal Type Associated Problems Recent Progress Patient-Stated? Author Hemoglobin A1c < 7 Result Component 8.3(09/14/2025 3:02 PM EST) No Yessica Morales, PharmD documented as of this encounter Visit Diagnoses Not on filedocumented in this encounter Care Teams Voip Engineer Relationship Specialty Start Date End Date Gisele Kulkarni MD [address] [place] [address] PCP - General Family Medicine 06/15/13 Josemanuel Mc MD [address] [place] [address] Cardiology 12/01/24 Ant Wilkes MD [address] [place] [address] [address] [place] [address] Allergy 12/01/24 documented as of this encounter
--- OUTSIDE RECORDS SUMMARY | 2025-10-25 19:22 | XMS_ITS | Encounter Summary ---
Author Organization [employer] Address [address] [facility] 7t [place] [address] Care Team Providers Care Dumpster Operator Name Role Phone Gisele Kulkarni MD Primary Care Provider [phone] Yessica Morales PharmD Unavailable Josemanuel Mc MD Unavailable Ant Wilkes MD Unavailable Reason for Visit * Reason Onset Date Comments Nurse Triage 05/28/2023 Encounter Details Date Type Department Care Team (Late st Contact Info) Description 05/28/2023 Telephone [facility] MEDICINE [address] [place] [phone] Gisele Kulkarni MD [address] [place], [place] [phone] Nurse Triage Social History Tobacco Use Types [...] - 05/28/2023 4:29 PM EDT Triage call Fannin Bottomer Operator [place] [id number] Pt reports headache which hurts on the front and back of head. Pt reports vomiting 5x since last night. Pt reports dizziness for last 2 days. Pt reports chest pain in the middle of the chest which radiates to right hand. Pt was just seen by copier operator 05/02/23 for tachycardia with increase in dilitiazem [...] accepted this outcome Please contact pt at [phone] (Bots[place]an) documented in this encounter Plan of Treatment Upcoming Encounters Date Type Department Care Team ([facility] st Contact Info) Description 12/05/2025 1:00 PM EST Office Visit [facility] OPTOMETRY [address] [place] [address] Natasha Ham, OD [address] [place] [address] documented as of this encounter Goals Goal Patient Goal Type Associated Problems Recent Progress Patient-Stated? Author Hemoglobin A1c < 7 Result Component 8.3(09/14/2025 3:02 PM EST) No Yessica Morales, PharmD documented as of this encounter Visit Diagnoses Not on filedocumented in this encounter Care Teams Dumpster Operator Relationship Specialty Start Date End Date Gisele Kulkarni MD [address] [place] [address] PCP - General Family Medicine 06/15/13 Yessica Morales, UmaD [address] [place] [address] Pharmacist Internal Medicine 03/18/23 08/24/23 Josemanuel Mc MD [address] [place] [address] Cardiology 12/01/24 Ant Wilkes MD [address] [place] [address] [address] [place] [address] Allergy 12/01/24 documented as of this encounter
--- OUTSIDE RECORDS SUMMARY | 2025-10-25 19:22 | XMS_ITS | Clinical Summary ---
Author Organization [employer] Address [address] [place] [address] Care Team Providers Care Certified Professional Midwife Name Role Phone Gisele Kulkarni MD Primary Care Provider [phone] Josemanuel Mc MD Unavailable Ant Wilkes MD Unavailable Allergies No known active allergies Medications glucose blood (FREESTYLE LITE) test stripIndications: Type 2 diabetes mellitus without complication, without long-term current use of insulin (HCC) USE TO TEST BLOOD SUGAR ONCE A DAY 100 strip 1 024 Active metFORMIN XR (Glucophage-XR) 750 MG 24 hr tabletIndications :Type 2 diabetes mellitus without complication, without long-term current use of insulin (HCC) TAKE 1 TABLET BY MOUTH EVERY DAY WITH EVENING MEAL 90 tablet 3 024 Active famotidine (Pepcid) 20 MG tabletIndications :Heartburn TAKE 1 TABLET BY MOUTH TWICE A DAY 180 tablet 1 025 Active montelukast (Singulair) 10 MG tabletIndications :Well controlled intermittent asthma TAKE 1 TABLET (10 MG) BY MOUTH IN THE EVENING 90 tablet 3 025 Active Fluticasone-Salme terol (Wixela Inhub) 500-50 MCG/ACT aerosol powderIndications :Moderate persistent asthma without complication Inhale 1 puff Once per day. 1 each 11 025 Active loratadine (Claritin) 10 MG tabletIndications :Non-seasonal allergic rhinitis, unspecified trigger Take 1 tablet (10 mg) by mouth 2 times daily. 180 tablet 1 025 Active sodium chloride ([place] Nasal [place]) 0.65 % nasal sprayIndications: Non-seasonal allergic rhinitis, unspecified trigger Administer 1 spray into each nostril if needed for congestion. 30 mL 12 025 2025 Active Ketotifen Fumarate 0.035 % solutionIndicatio ns:Non-seasonal allergic rhinitis, unspecified trigger Administer 1 drop into affected eye(s) 2 times daily. 10 mL 025 Active Ventolin HFA 108 (90 Base) MCG/ACT inhalerIndication s:Mild asthma with exacerbation, unspecified whether persistent INHALE 2 PUFFS INTO THE LUNGS EVERY 4 HOURS NEEDED 18 g 2 025 Active verapamil (Calan) 40 MG tabletIndications :Supraventricular tachycardia (CMS/HCC) Take 1 tablet (40 mg) by mouth 3 times daily. 90 tablet 3 025 Active norethindrone (Micronor) 0.35 MG tabletIndications :Family planning Take 1 tablet (0.35 mg) by mouth Once per day. 28 tablet 11 025 Active cholecalciferol (Vitamin D-3) 50 MCG (2000 UT) capsuleIndication s:Vitamin D deficiency Take 1 capsule (50 mcg) by mouth Once per day. 90 capsule 3 025 Active ondansetron ODT (Zofran-ODT) 4 MG disintegrating tabletIndications :Nausea TAKE 1 TABLET BY MOUTH EVERY 6 TO 8 HOURS NEEDED FOR NAUSEA AND VOMITING 15 tablet 025 Active fluticasone-salme terol (Advair HFA) 45-21 MCG/ACT inhalerIndication s:Mild intermittent asthma without complication Inhale 2 puffs in the morning and at bedtime. 8 g 3 025 Active ondansetron ODT (Zofran-ODT) 4 MG disintegrating tabletIndications :Nausea TAKE 1 TABLET BY MOUTH EVERY 6 TO 8 HOURS NEEDED FOR NAUSEA AND VOMITING 15 tablet 025 2024 Discontinued(R eorder (will not trigger notification to Pharmacy)) budesonide-formot viki (Breyna) 80-4.5 MCG/ACT inhalerIndication s:Mild intermittent asthma without complication Inhale 2 puffs in the morning and at bedtime. 1 each 3 025 2024 Discontinued budesonide-formot viki (Breyna) 80-4.5 MCG/ACT inhalerIndication s:Mild intermittent asthma without complication Inhale 2 puffs in the morning and at bedtime. 10.2 g 025 2024 Discontinued fluticasone-salme terol (Advair HFA) 45-21 MCG/ACT inhalerIndication s:Mild intermittent asthma without complication Please specify directions, refills and quantity 12 g 3 025 2024 Discontinued fluticasone-salme terol (Advair) 45-21 MCG/ACT inhalerIndication s:Mild intermittent asthma without complication PLEASE SPECIFY DIRECTIONS, REFILLS AND QUANTITY 12 g 3 025 2024 Discontinued fluticasone-salme terol (Advair) 45-21 MCG/ACT inhalerIndication s:Mild intermittent asthma without complication Inhale 2 puffs in the morning and at bedtime. 12 g 3 025 2024 Discontinued fluticasone-salme terol (Advair HFA) 45-21 MCG/ACT inhalerIndication s:Mild intermittent asthma without complication Inhale 2 puffs in the morning and at bedtime. 12 g 3 025 2024 Discontinued Active Problems Problem Noted Date Diagnosed Date Mild intermittent asthma without complication Assessment & Plan (09/14/2025 3:50 PM EST): Not controlled. Orders: Pulmonary Function Test; Future budesonide-formoterol (Symbicort) 160-4.5 MCG/ACT inhaler; Inhale 2 puffs in the morning and at bedtime. Rinse mouth with water after use to reduce aftertaste and incidence of candidiasis. Do not swallow. Non-seasonal allergic rhinitis 08/18/2025 Incidental lung nodule, greater than or equal to 8mm 08/18/2025 Assessment & Plan (09/14/2025 3:50 PM EST): Will request original scan and arrange follow up if needed. Sinus tachycardia 08/18/2025 Assessment & Plan (09/14/2025 3:50 PM EST): Orders: TSH with Reflex to Free T4; Future Other specified health status 10/06/2023 Overview (09/14/2025): -next comprehensive annual evaluation due after 09/14/2026 -eye care facilitated by [facility] -dental home is [facility] -health care proxy filed 02/23/25 Assessment & Plan (10/06/2023 9:55 AM EST): -next physical exam due after 10/06/2024 -eye care facilitated by -dental home is Benign ovarian cyst 10/06/2023 10/06/2023 Chronic back pain 10/06/2023 10/06/2023 [...] sister that had cardiac arrest. 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 She has a twin sister with SVT and an older sister who had some type of cardiac event requiring resuscitation. -there was discussion of ablation if she is not medically controlled on verapamil 240 mg daily -In 2022 presented to the ER with multiple syncopal episodes. Hospitalized for syncope attributed to blood loss in setting of epistaxis. Cardiac evaluation recommended, She was readmitted for another syncopal episode, neurology was consulted and EEG was completed which was unremarkable. MRI of the brain did not show any acute infarct, patient was also evaluated by [facility] cardiology and recommended a stress test which was later on canceled Telemetry showed evidence of SVT that resolved with verapamil continue with verapamil 40 mg 3 times daily discussed with cardiology and also they had a discussion with EP and recommended 30 day holter monitor -on multiple visits to PCP office HR went to 150 while standing in the absence of anemia and normal TSH -it is unclear if she should be on diltiazem. She is not taking it. She had follow up with Dr. Rios 11/20/2023 Holter ordered -11/14/23 48hr holter from cards, predominant rhythm sinus, HR 87. Events correlated w/ NSR. No Afib or flutter. -seen 05/03/[address] Rios, cardiology note states on verapamil 40mg tid, follow up 3 months Seen in ER 09/04/2025 for chest pain, palpitations. white blood cell count of 14.3, HR was 140 with BP 176/88 and second troponin elevated. EKG revealed sinus tachycardia without evidence acute GA. Initial troponin was initially negative, but 2nd troponin was slightly elevated at 20.5, 2nd EKG was obtained and was negative for signs of heart attack. -her events solutions consultant left the area and she is awaiting new cardiology apt. She was referred by ER. Assessment & Plan (09/14/2025 3:50 PM EST): -choric atrial tachycardia dating back to at least 2018 with multiple hospitalizations and episodes of syncope -Holter monitor 2019 showed numerous bouts of [...] verapamil 40mg tid, follow up 3 months Orders: verapamil (Calan) 40 MG tablet; Take 1 tablet (40 mg) by mouth 3 times daily. Assessment & Plan (11/24/2023 4:16 PM EST): [...] long-term current use of insulin 10/30/2022 Overview (09/14/2025): -Diagnosed on 07/2022 with an Alc 6.5%. Diabetes is controlled. Lab Results Component Value Date HGBA1C 7.2 (H) 02/25/2025 HGBA1C 6.1 (A) 11/24/2023 HGBA1C 6.1 (A) 10/06/2023 Lab Results Component Value Date CREATININE 0.66 09/04/2025 EGFR >60 09/04/2025 MICROALBCREU 14.1 02/25/2025 MICROALBCREU 11.0 10/06/2023 LDLCHOLCAL 103 (H) 02/25/2025 -Lewis/Arb: -Statin therapy: -Diabetic eye exam: -Diabetic foot exam: -Continue lifestyle modifications -Continue current medications -Started metformin ER 500mg daily 04/2022. increased to 750mg daily 08/26/22 she has not been taking because metformin make her nausea -Referral to [facility] on 09/14/2025 Assessment & Plan (09/14/2025 3:50 PM EST): -Diagnosed on 07/2022 with an Alc 6.5%. Diabetes is controlled. Lab Results Component Value Date HGBA1C 7.2 (H) 02/25/2025 HGBA1C 6.1 (A) 11/24/2023 HGBA1C 6.1 (A) 10/06/2023 Lab Results Component Value Date CREATININE 0.66 09/04/2025 EGFR >60 09/04/2025 MICROALBCREU 14.1 02/25/2025 MICROALBCREU 11.0 10/06/2023 LDLCHOLCAL 103 (H) 02/25/2025 -Lewis/Arb: -Statin therapy: -Diabetic eye exam: -Diabetic foot exam: -Continue lifestyle modifications -Continue current medications -Started metformin ER 500mg daily 04/2022. increased to 750mg daily 08/26/22. -Referral to [facility] on 08/26/22. Orders: Albumin, Random Urine W/Creatinine; Future Hepatic Function Panel; Future Lipid Panel, Standard; Future Hemoglobin A1c; Future Basic Metabolic Panel; Future Referral to Pharmacy [facility] POCT glucose manually resulted POCT glycosylated hemoglobin (Hgb A1c) Assessment & Plan (11/24/2023 4:18 PM EST): [...] on 08/26/22. Moderate recurrent major depression (CMS/HCC) Overview (09/14/2025): Doing well with therapist Assessment & Plan (09/14/2025 3:50 PM EST): Doing well with therapist Resolved Problems Problem Noted Date Diagnosed Date Resolved Date Pharyngitis 08/18/2025 09/01/2025 Nausea 08/18/2025 09/01/2025 Intractable headache 08/18/2025 025 Gastroenteritis 08/18/2025 09/13/2025 Contusion of elbow 08/18/2025 Acute exacerbation of chronic low back pain 02/23/2025 09/01/2025 Assessment & Plan (02/23/2025 8:17 PM EDT): She will take meloxicam daily x 1 to 2 weeks + Tylenol twice daily as needed breakthrough pain Advised to apply heat to affected area and do stretching exercises for her back, information given to patient. Referred to PT Use diclofenac gel twice daily as needed Order x-rays and follow-up with PCP Heartburn 11/24/2023 09/01/2025 Assessment & Plan (11/24/2023 4:17 PM EST): Patient has being having heartburn, epigastric pain, nausea and vomiting I start famotidine 20mg BID I advise patient to avoid NSAIDs, spicy and acid food, I advise to eat at the same time every day, I advise to elevate the head of the bed and take medications as prescribe Metrorrhagia 11/24/2023 09/01/2025 Assessment & Plan (11/24/2023 4:21 PM EST): I referred patient to [facility] C/w iron supplement for anemia CBC to be recheck and f/u with PCP and [facility] Physical exam 10/06/2023 12/01/2024 Overview (10/06/2023): -Normal growth and development. -Anticipatory guidance discussed. -Preventative care / harm reduction discussed. Assessment & Plan (10/06/2023 9:57 AM EST): -Normal growth and development. -Anticipatory guidance discussed. -Preventative care / harm reduction discussed. Chest pain 10/06/2023 10/06/2023 09/01/2025 Apnea 10/30/2022 09/01/2025 Well controlled intermittent asthma 03/27/2022 09/13/2025 Mild asthma with exacerbation 02/01/2020 10/06/2023 09/01/2025 Encounters Date Type Department Care Team Description 10/25/2025 Refill [facility] [address] [place] [address] Gisele Kulkarni MD Nausea 10/24/2025 Telephone [facility] [address] [place] [address] Gisele Kulkarni MD 10/13/2025 Telephone [facility] [address] [place] [address] Gisele Kulkarni MD Appointment Request 10/13/2025 Telephone [facility] [address] [facility] [place] [address] Gisele Kulkarni MD December Recalls 10/11/2025 Refill [facility] [address] [facility] [place] [address] Gisele Kulkarni MD Mild intermittent asthma without complication 10/11/2025 Refill [facility] [address] [facility] [place] [address] Gisele Kulkarni MD Mild intermittent asthma without complication 10/10/2025 Refill [facility] [address] [place] [address] Gisele Kulkarni MD Mild intermittent asthma without complication 10/10/2025 Refill [facility] [address] [place] [address] Gisele Kulkarni MD Mild intermittent asthma without complication 10/08/2025 Refill [facility] [address] [place] [address] Gisele Kulkarni MD Mild intermittent asthma without complication 10/07/2025 Telephone [facility] [address] [place] [phone] Gisele Kulkarni MD 10/04/2025 Refill [facility] [address] [place] [address] Gisele Kulkarni MD Mild intermittent asthma without complication 09/28/2025 Refill [facility] [address] [place] [address] Gisele Kulkarni MD Nausea 09/15/2025 Refill [facility] [address] [place] [address] Gisele Kulkarni MD Mild intermittent asthma without complication 09/14/2025 2:15 PM EST Office Visit [facility] [address] [place] [id number] Gisele Kulkarni MD Supraventricular tachycardia (Primary Dx); Type 2 diabetes mellitus without complication, without long-term current use of insulin (HCC); Sinus tachycardia; Iron deficiency anemia, unspecified iron deficiency anemia type; Vitamin D deficiency; Moderate recurrent major depression (CMS/HCC) (HCC); Mild intermittent asthma without complication; Incidental lung nodule, greater than or equal to 8mm; Family planning; Encounter for immunization; Dietary counseling; Exercise counseling; Class 1 obesity due to excess calories with serious comorbidity and body mass index (BMI) of 34.0 to 34.9 in adult; Other specified health status 09/14/2025 Telephone [facility] [address] [place] [address] Gisele Kulkarni MD 09/14/2025 Refill [facility] [address] [place] [address] Gisele Kulkarni MD Mild intermittent asthma without complication 09/14/2025 Travel 09/13/2025 [facility] [address] [address] Gisele Kulkarni MD 09/13/[address] [address] Gisele Kulkarni MD chart prep 09/07/2025 Patient Outreach [address] [address] Gisele Kulkarni MD Pre-visit Planning (Pre-visit planning - LVM ) 09/06/[address] [address] Nita Maxwell, SNOWBOARD INSTRUCTOR Follow-up 09/04/2025 Orders Only GENERIC EXTERNAL DATA DEPARTMENT Provider, Generic External Data 09/01/[address] [address] Gisele Kulkarni MD Error (VOID this visit) 09/01/[address] [address] Gisele Kulkarni MD 09/01/2025 Orders Only [address] [address] Gisele Kulkarni MD Type 2 diabetes mellitus without complication, without long-term current use of insulin (HCC) (Primary Dx) 08/18/2025 2:40 PM EDT [facility] [address] [phone] Alcira Graham FNP Non-seasonal allergic rhinitis, unspecified trigger (Primary Dx); Mild asthma with exacerbation, unspecified whether persistent; Intractable headache, unspecified chronicity pattern, unspecified headache type; Nausea; Pharyngitis, unspecified etiology; Itchy eyes 08/18/2025 Travel 08/18/[address] [address] Gisele Kulkarni MD Nurse Triage 08/10/[address] [address] Gisele Kulkarni MD ED f/u 08/09/2025 Orders Only GENERIC EXTERNAL DATA DEPARTMENT Provider, Generic External Data 07/26/2025 Orders Only GENERIC EXTERNAL DATA DEPARTMENT Provider, Generic External Data from Last 3 Months Immunizations Immunization Administration [...] Covid-19 Vaccine 12+ dione-sucrose (Benitez Cap) 02/21/2022,01/16/2022 Pneumococcal Conjugate PCV 20 09/14/2025 TD (adult), 2 Lf tetanus tox oid, preservative free, adsorbed 12/17/2000 Tdap 08/09/2016 Varicella 05/30/2016,12/17/2009,07/30/2001 Social History Tobacco Use Types Packs/Day Years Used Date Smoking Tobacco: Never Passive Smoke Exposure: Never Smokeless Tobacco: Never Tobacco Cessation:Counseling Given: Not Answered Alcohol Use Standard Drinks/Week Comments Never 0 (1 standard drink = 0.6 oz pur e alcohol) Depression Answer Date Recorded Patient Health Questionnaire-9 Score 8 09/14/2025 Patient Health Questionnaire-9 Score 8 09/14/2025 Last PHQ-9: Questionnaire Data Not on file 1 11/14/2024 Housing Stability Answer Date Recorded What is your housing situation today? I have arpita sing 09/14/[address] you li ve. Do you have problems with any of the following? None of the above 09/14/2025 Food Insecurity Answer Date Recorded Within the past 12 months, y ou worried that your food would run out before you got money to buy more: Never True 09/14/2025 Within the past 12 months,th e food you bought just didn't last and you didn't have enough money to get more: Never True Transportation Answer Date Recorded In the past 12 months, has l ack of transportation kept you from medical appts, meetings, work or from getting things needed for daily living? No 09/14/2025 Utilities Answer Date Recorded In the past 12 months, has t he electric, gas, oil or water company threatened to shut off services in your home? No 09/14/2025 Depression Answer Date Recorded Patient Health Questionnaire-2 Score 2 09/14/2025 Internet Access Answer Date Recorded Internet Access Q1 No 09/14/2025 Internet Access Q2 I do not want or need it 08/27 Comments Unknown Intention Date Recorded No desire to become (finding) 1 11/14/2024 Sex and Gender Information Value Date Recorded Sex Assigned at Female 08/26/2022 10:16 AM EDT Legal Sex Female 10:16 AM EDT Gender Identity Female 08/26/2022 10:16 AM EDT Sexual Orientation Straight 08/26/2022 10 :16 AM EDT Last Filed Vital Signs Vital Sign Reading Time Taken Comments Blood Pressure 132/82 09/14/2025 2:44 PM EST Pulse 106 09/14/2025 2:44 PM EST Temperature 37.2 C (98.9 F) 09/14/2025 2:44 PM EST Respiratory Rate 20 09/14/2025 2:44 PM EST Oxygen Saturation 98% 09/14/2025 2:44 PM EST Inhaled Oxygen Concentration - - Weight 88.1 kg (194 lb 3.2 oz) 09/14/2025 2:44 P M EST Height 160 cm (5' 3 ) 09/14/2025 2:44 PM EST Body Mass Index 34.4 09/14/2025 2:44 PM EST Plan of Treatment Upcoming Encounters Date Type Department Care Team (Late st Contact Info) Description 12/05/2025 1:00 PM EST Office Visit [facility] [address] [place] [address] Natasha Ham, OD [address] [place] [address] Health Maintenance Due Date Last Done Comments Diabetes: Foot Exam 1997 Pap Smear 07/11/2025 07/11/2022, 06/27, 11/14/2015 Diabetes: Hemoglobin A1C 12/15/2025 025, 02/25/2025, 11/24/2023, Additional history exists Diabetes: Urine Protein Screening 02/25/2026 02/25/2025, 10/06/2023 Lipid Panel 02/25/2026 02/25/2025, 09/26, 03/25/2023, Additional history exists Influenza Vaccine (#1) 2026 6, 10/05/2015, 09/11/2012, Additional history exists Postponed from 06/27/2025 (Patient Refused) DTaP/Tdap/Td Vaccines (7 - Td or Tdap) 08/09/2026 08/09/2016, 12/17/2000, 11/23/1992, Additional history exists Eye Exam 08/19/2026 08/19/2024, 07/28, 08/19/2024, Additional history exists Alcohol/Substance Use Screening 09/14/2026 09/14/2025 COVID-19 Vaccine (2024- season) 2026 02/21/2022, 01/16/2022 Postponed from 06/27/2025 (Patient Refused) Depression Screening 09/14/2026 09/14/2025, 09/14/20 25 Disability Screening 09/14/2026 09/14/2025 Family Planning (PISQ) 09/14/2026 09/14/2025 SDOH Screening 09/14/2026 09/14/2025 Tobacco Screening 09/14/2026 09/14/2025 Cervical Cancer Screening 07/11/2027 HPV/Cotest 07/11/2027 07/11/2022, 07/11/2022 Zoster Vaccines (1 of 2) 2037 RSV Patients and Patients Aged 60 years or older (1 - 1-dose 75+ series) 2062 HIB Vaccines Completed 02/18/1989, 12/21/1988 IPV Vaccines Completed 11/20/1992, 05/28, 02/18/1989, Additional history exists Hepatitis B Vaccines Completed 10/15/2001, 07/13/2001, 01/27/2001, Additional history exists HPV Vaccines Discontinued 12/09/2008, 08/26/2007 HIV Screening Completed 10/06/2023 Hepatitis C Screening Completed 10/06/2023 Pneumococcal Vaccine: Pediatrics (0 to 5 Years) and At-Risk Patients (6 to 49) Years Completed 09/14/2025 Hepatitis A Vaccines Aged Out No long [...] 3:02 PM EST) No Yessica Morales, PharmD Help patients manage their type 2 diabetes Care Plan Help patients manage their type 2 diabetes No Cristal Riojas Weekly blood pressure task Care Plan Weekly blood pressure task No Cristal Riojas Help patients manage their type 2 diabetes Care Plan Help patients manage their type 2 diabetes No Cristal Riojas Patient has chronic kidney disease Care Plan Patient has chronic kidney disease No Cristal Riojas Weekly blood pressure task Care Plan Weekly blood pressure task No Cristal Riojas Patient has chronic kidney disease Care Plan Patient has chronic kidney disease No Cristal Riojas Weekly blood pressure task Care Plan Weekly blood pressure task No Laisha Zaragoza MA Weekly blood pressure task Care Plan Weekly blood pressure task No Laisha Zaragoza MA Patient has chronic kidney disease Care Plan Patient has chronic kidney disease No Laisha Zaragoza MA Patient has chronic kidney disease Care Plan Patient has chronic kidney disease No Laisha Zaragoza MA Weekly blood pressure task Care Plan Weekly blood pressure task No Laisha Zaragoza MA Weekly blood pressure task Care Plan Weekly blood pressure task No Laisha Zaragoza MA Patient has chronic kidney disease Care Plan Patient has chronic kidney disease No Laisha Zaragoza MA Patient has chronic kidney disease Care Plan Patient has chronic kidney disease No Laisha Zaragoza MA Weekly blood pressure task Care Plan Weekly blood pressure task No Gisele Kulkarni MD Weekly blood pressure task Care Plan Weekly blood pressure task No Gisele Kulkarni MD Patient has chronic kidney disease Care Plan Patient has chronic kidney disease No Gisele Kulkarni MD Patient has chronic kidney disease Care Plan Patient has chronic kidney disease No Gisele Kulkarni MD Weekly blood pressure task Care Plan Weekly blood pressure task No Gisele Kulkarni MD Weekly blood pressure task Care Plan Weekly blood pressure task No Gisele Kulkarni MD Patient has chronic kidney disease Care Plan Patient has chronic kidney disease No Gisele Kulkarni MD Patient has chronic kidney disease Care Plan Patient has chronic kidney disease No Gisele Kulkarni MD Weekly blood pressure task Care Plan Weekly blood pressure task No RexsYessica Newell, PharmD Weekly blood pressure task Care Plan Weekly blood pressure task No Piers-Dillard Radhasa, PharmD Patient has chronic kidney disease Care Plan Patient has chronic kidney disease No Piers-Dillard Yessica, PharmD Patient has chronic kidney disease Care Plan Patient has chronic kidney disease No Piers-Dillard , Yessica, PharmD Weekly blood pressure task Care Plan Weekly blood pressure task No Kristy Heck Weekly blood pressure task Care Plan Weekly blood pressure task No Kristy Heck Patient has chronic kidney disease Care Plan Patient has chronic kidney disease No Kristy Heck Patient has chronic kidney disease Care Plan Patient has chronic kidney disease No Kristy Heck Weekly blood pressure task Care Plan Weekly blood pressure task No Kristy Heck Weekly blood pressure task Care Plan Weekly blood pressure task No Umang, Kristy Patient has chronic kidney disease Care Plan Patient has chronic kidney disease No Umang, Kristy Patient has chronic kidney disease Care Plan Patient has chronic kidney disease No Umang, Kristy Weekly blood pressure task Care Plan Weekly blood pressure task No Cristal Miller MA Weekly blood pressure task Care Plan Weekly blood pressure task No Cristal Miller MA Patient has chronic kidney disease Care Plan Patient has chronic kidney disease No Cristal Miller MA Patient has chronic kidney disease Care Plan Patient has chronic kidney disease No Cristal Miller MA Weekly blood pressure task Care Plan Weekly blood pressure task No Lis Montano Weekly blood pressure task Care Plan Weekly blood pressure task No Montano, Lis Patient has chronic kidney disease Care Plan Patient has chronic kidney disease No Montano, Lis Patient has chronic kidney disease Care Plan Patient has chronic kidney disease No Montano, Lis Weekly blood pressure task Care Plan Weekly blood pressure task No Umang, Kristy Weekly blood pressure task Care Plan Weekly blood pressure task No Umang Kristy Patient has chronic kidney disease Care Plan Patient has chronic kidney disease No Umang, Kristy Patient has chronic kidney disease Care Plan Patient has chronic kidney disease No Umang, Kristy Procedures Procedure Name Priority Date/Time Associated Diagnosis Comments POCT GLYCOSYLATED HEMOGLOBIN (HGB A1C) Routine 09/14/2025 3:02 PM EST Type 2 diabetes mellitus without complication, without long-term current use of insulin (HCC) POCT GLUCOSE (CPT-59896) Routine 09/14/2025 3:02 PM EST Type 2 diabetes mellitus without complication, without long-term current use of insulin (HCC) NT-PROBNP Routine 09/04/2025 11:15 AM EST HIGH SENSITIVITY TROPONIN I Routine 09/04/2025 11:15 AM EST XR CHEST 2 VIEWS Routine 09/04/2025 10:2 4 AM EST HCG, TOTAL, QN Routine 09/04/2025 9:56 AM EST TSH W/REFLEX TO FT4 Routine 09/04/2025 9 :56 AM EST HIGH SENSITIVITY TROPONIN I Routine 09/04/2025 9:56 AM EST LIPASE Routine 09/04/2025 9:56 AM EST MAGNESIUM Routine 09/04/2025 9:56 AM EST COMPREHENSIVE METABOLIC PANEL Routine 09/04/2025 9:56 AM EST D DIMER HIGH SENSITIVITY Routine 09/04/2025 9:56 AM EST CBC WITH AUTO DIFFERENTIAL Routine 09/04/2025 9:56 AM EST SARS COV2/INFLUENZA A/B AND RSV RNA QL NAAT Routine 09/04/2025 9:56 AM EST POC BOTELLO ID NOW STREP A Routine 08/18/2025 2:53 PM EDT Intractable headache, unspecified chronicity pattern, unspecified headache type POCT INFLUENZA B (ID NOW RAPID MOLECULAR) Routine 08/18/2025 2:53 PM EDT Intractable headache, unspecified chronicity pattern, unspecified headache type POCT INFLUENZA A (ID NOW RAPID MOLECULAR) Routine 08/18/2025 2:53 PM EDT Intractable headache, unspecified chronicity pattern, unspecified headache type POCT RAPID COVID ANTIGEN Routine 08/18/2025 2:47 PM EDT Intractable headache, unspecified chronicity pattern, unspecified headache type XR CHEST 2 VIEWS Routine 08/09/2025 3:40 [...] to Health Maintenance Results * (ABNORMAL) POCT glycosylated hemoglobin (Hgb A1c) (09/14/2025 3:02 PM EST) Hemoglobin A1C 8.3(A) 4.0 - 5.7 % QC Media Lot # [id number] Lot# Expiration Date ,081,401 Blood Capillary blood specimen / Unknown 09/14/2025 3:02 PM EST Gisele Kulkarni MD POINT OF CARE TEST ENTER/E DIT ORDERABLES Final Result * (ABNORMAL) POCT glucose manually resulted (09/14/2025 3:02 PM EST) Pathologist [facility] Glucose Blood, POC 209(A) 60 - 200 mg/dL QC Media Lot # [id number] Lot# Expiration Date 003 Blood Capillary blood specimen / Unknown 09/14/2025 3:02 PM EST Gisele Kulkarni MD POINT OF CARE TEST ENTER/E DIT ORDERABLES Final Result * (ABNORMAL) High Sensitivity Troponin I (09/04/2025 11:15 AM EST) Only the most recent of5 resultswithin the time period is included. [facility] TROPONIN I HIGH SENSITIVITY 20.5(H) <3.5 - 17.0 ng/L [facility] Comment:The Botello high sens itivity Troponin-I results should beused in conjunction with other diagnostic information suchas ECG, clinical observations and information, and patientsymptoms to aid in the diagnosis of GA. 09/04/2025 11:1 5 AM EST 09/04/2025 11:17 AM EST Generic External Data Provider LAB BLOOD ORDERAB LES Final Result [facility] [address] [place] [phone] * NT-proBNP (09/04/2025 11:15 AM EST) Only the most recent of2 resultswithin the time period is included. Pathologist [facility] NT-proBNP <15.8 <300 pg/mL [facility] Comment:Reference Range:Age Group (years) NT-proBNP (pg/ml) InterpretationAll <300 Negative: HF unlikelyFor patients presenting to the ED with clinical suspicion ofnew onset or worsening HF, see below:18 to <50 >299.9 to <450.0 Grayzone: [id number] to 75 >299.9 to <900.0 other causes of>75 >299.9 to <1800.0 NT-proBNP [id number] to <50 >449.9 Positive: HF [id number] >899.9>75 >1799.9Note: Elevated NT-proBNP levels should be interpreted inthe context of other clinical information. 09/04/2025 11:1 5 AM EST 09/04/2025 11:17 AM EST us Generic External Data Provider LAB BLOOD ORDERAB LES Final Result Performing Organization Address City/State/[facility] Co de Phone Number [facility] [address] [place] [phone] * XR Chest 2 Views (09/04/2025 10:24 AM EST) Only the most recent of2 resultswithin the time period is included. Anatomical Region Laterality Modality Chest Radiographic Nurys ging 09/04/2025 10:2 4 AM EST Narrative 09/04/2025 10:26 AM EST [address] [address] XRay Report Signed Patient: Indigo Thompson MR#: [id number] : 1985 Acct:[id number] Age/Sex: 40 / F ADM Date: 09/04/25 Loc: .ED Attending Dr: Ordering Physician: Marilu Agarwal Date of Service: 09/04/25 Procedure(s): XR chest 2V Accession Number(s): [id number] cc: Gisele Kulkarni MD; Marilu Agarwal Reason for Exam: chest pain CLINICAL HISTORY: chest pain 2 view chest x-ray. Comparison: CR/SR - XR CHEST 2 VIEWS - 08/09/25 15:47 EDT Findings: Normal lung volumes. Stable interstitial and bronchial wall thickening No pneumothorax or pleural effusion. Heart size normal. No passive venous congestion. No midline shift or tracheal deviation. No acute fracture. Impression: 1. Stable interstitial and bronchial wall thickening. No airspace disease. This document has been electronically signed by: Ricardo Sevilla MD on 09/04/2025 10:24:24 Dictated By: Ricardo Sevilla MD Signed By: <Electronically signed by Ricardo Sevilla MD in OV> 09/04/25 1025 DD/ 1024 TD/TT: 09/04/25 1024 Assistant Golf Coach: Procedure Note Donotuseinterpreter, Image - 09/04/2025 [place] [address] XRay Report Signed Patient: Frederick Thompson#: [id number] : 1985Acct:[id number] Age/Sex: 40 / FADM Date: 09/04/25 Loc: .ED Attending Dr: Ordering Physician: Marilu Agarwal Date of Service: 09/04/25 Procedure(s): XR chest 2V Accession Number(s): [id number] cc: Gisele Kulkarni MD; Marilu Agarwal Reason for Exam: chest pain CLINICAL HISTORY: chest pain 2 view chest x-ray. Comparison: CR/SR - XR CHEST 2 VIEWS - 08/09/25 15:47 EDT Findings: Normal lung volumes. Stable interstitial and bronchial wall thickening No pneumothorax or pleural effusion. Heart size normal. No passive venous congestion. No midline shift or tracheal deviation. No acute fracture. Impression: 1. Stable interstitial and bronchial wall thickening. No airspace disease. This document has been electronically signed by: Ricardo Sevilla MD on 09/04/2025 10:24:24 Dictated By: Ricardo Sevilla MD Signed By: <Electronically signed by Ricardo Sevilla MD in OV> 09/04/25 1025 DD/ 1024 TD/TT: 09/04/25 1024 Assistant Golf Coach: [facility] External Provider IMG XR PROCEDURES Edited Result - Final * D Dimer High Sensitivity (09/04/2025 9:56 AM EST) Only the most recent of2 resultswithin the time period is included. D Dimer High Sensitivity <150 NG/ML [facility] Comment:D-DIMER HS REFERENCE RANGENote: Our assay reports D-Dimer Units (D- DU).The cut-off value for venous thromboembolic (VTE) disease is230 ng/mL. This value has a very high negative predictivevalue when the patient has a low to moderate clinicalprobability of VTE.The upper limit of normal is 243 ng/mL. 09/04/2025 9:56 AM EST 09/04/2025 10:01 AM EST Generic External Data Provider LAB BLOOD ORDERAB LES Final Result Performing Organization Address [facility] Co de Phone Number [facility] [address] [place] [phone] * TSH with Reflex to Free T4 (09/04/2025 9:56 AM EST) TSH reflex Free T4 0.95 0.32 - 4.0 uIU/mL [facility] 09/04/2025 9:56 AM EST 09/04/2025 10:01 AM EST [employer] External Data Provider LAB BLOOD ORDERAB LES Final Result Performing Organization Address [facility] Co de Phone Number [facility] [address] [place] [phone] * SARS-CoV-2 RNA, Influenza A/B, and RSV RNA, Ql NAAT (09/04/2025 9:56 AM EST) Influenza A PCR NEGATIVE Negative [facility] Influenza B PCR NEGATIVE Negative [facility] Resp Syncy Virus RNA Qual PCR NEGATIVE Negative [facility] SARS COV2 PCR NEGATIVE Negative [facility] Comment:All test results mus t be correlated with clinical findings.Negative results do not preclude SARS-CoV2, influenza Avirus, influenza B virus and/or RSV infectionand should not be used as the sole basis for treatment orother patient management decisions. Negative results must becombined with clinical observations, patient history, andepidemiological information.This test has not been evaluated for monitoring treatment ofinfection.This test has been authorized by the FDA under an EmergencyUse Authorization (EUA) for use by authorized laboratories.Testing performed on the [employer] GeneXpert utilizingreal-time RT-PCR.All SARS CoV2 and positive influenza A/B results arereported to [facility]. 09/04/2025 9:56 AM EST 09/04/2025 10:01 AM EST us Generic External Data Provider LAB MICROBIOLOGY - GENERAL ORDERABLES Final Result [facility] [address] [place] [phone] * (ABNORMAL) CBC auto differential (09/04/2025 9:56 AM EST) Only the most recent of3 resultswithin the time period is included. White Blood Count 14.3(H) 4.8 - 10.8 X10*3/uL [facility] Red Blood Count 5.39 4.20 - 5.50 X10*6/uL [facility] Hemoglobin 13.2 12.0 - 16.0 g/dl [facility] Hematocrit 42.3 37.0 - 47.0 % [facility] Mean Corpuscular Volume 78.5(L) 80.0 - 98.0 fL [facility] Mean Corpuscular Hemoglobin 24.5(L) 27.0 - 33.0 pg [facility] Mean Corpuscular HGB Conc 31.2 31.0 - 35.0 g/dl [facility] Red Cell Distribution Width 15.9 11.0 - 16.0 % [facility] Platelet Count 324 160 - 400 X10*3/uL [facility] Mean Platelet Volume 11.2 9.4 - 12.3 fL [facility] Neutrophils Percent Auto 78.4(H) 45 - 73 % [facility] Imm Gran Pct Auto 0.4 0.0 - 0.4 % [facility] Lymphocytes Percent Auto 12.7(L) 20 - 40 % [facility] Monocytes Percent Auto 5.5 2 - 11 % [facility] Eosinophils Percent Auto 2.6 0 - 4 % [facility] Basophils Percent Auto 0.4 0 - 2 % [facility] NRBC Pct Auto 0.0 0.0 - 0.2 /100WBC [facility] Neutrophils Absolute Auto 11.2(H) 2.0 - 8.3 x10*3/uL [facility] Imm Gran Abs Auto 0.06(H) 0.00 - 0.03 X10*3/uL [facility] Lymphocytes Absolute Auto 1.8 1.2 - 4.9 X10*3/uL [facility] Monocytes Absolute Auto 0.8 0.1 - 1.2 X10*3/uL [facility] Eosinophils Absolute Auto 0.4 0.0 - 0.4 X10*3/uL [facility] Basophils Absolute Auto 0.1 0.0 - 0.2 X10*3/uL [facility] NRBC Abs Auto 0.000 0.0 - 0.012 X10*3/uL [facility] 09/04/2025 9:56 AM EST 09/04/2025 10:01 AM EST us Generic External Data Provider LAB BLOOD ORDERAB LES Final Result [facility] [address] [place] [phone] * hCG, Total, Quantitative (09/04/2025 9:56 AM EST) Only the most recent of3 resultswithin the time period is included. HCG Quantitative <2 mIU/mL [facility] Comment:Weeks post LMP Appro ximate hCG(Last Menstrual Period) Range (mIU/ml)3 - 4 weeks 9 - 1304 - 5 weeks 75 - 2,6005 - 6 weeks 850 - 20,8006 - 7 weeks 4000 - 100,2007 - 12 weeks 11,500 - 289,26062 - 16 weeks 18,300 - 137,96227 - 29 weeks (2nd trimester) 1,400 - 53,61568 - 41 weeks (3rd trimester) 940 - 60,000The Botello B- hCG assay is used for the early detection ofpregnancy; it cannot be used to diagnose any conditionunrelated to . If a B-hCG level is not supportedby the clinical evidence, results should be confirmed by analternative method (qualitative urine hCG, for example). 09/04/2025 9:56 AM EST 09/04/2025 10:01 AM EST us Generic External Data Provider LAB BLOOD ORDERAB LES Final Result Performing Organization Address [facility] Co il Phone Number [facility] [address] [place] [phone] * Magnesium (09/04/2025 9:56 AM EST) Only the most recent of2 resultswithin the time period is included. Magnesium 1.9 1.6 - 2.6 mg/dL [facility] 09/04/2025 9:56 AM EST 09/04/2025 10:01 AM EST Generic External Data Provider LAB BLOOD ORDERAB LES Final Result Performing Organization Address [facility] Co il Phone Number [facility] [address] [place] [phone] * Lipase (09/04/2025 9:56 AM EST) Only the most recent of2 resultswithin the time period is included. Lipase 45 8 - 78 U/L [facility] 09/04/2025 9:56 AM EST 09/04/2025 10:01 AM EST us Generic External Data Provider LAB BLOOD ORDERAB LES Final Result Performing Organization Address [facility] Co de Phone Number [facility] [address] [place] [phone] * (ABNORMAL) Comprehensive Metabolic Panel (09/04/2025 9:56 AM EST) Only the most recent of3 resultswithin the time period is included. Sodium 139 135 - 145 mmol/L [facility] Potassium 4.0 3.3 - 5.1 mmol/L [facility] Chloride 105 96 - 108 mmol/L [facility] Carbon Dioxide 24 22 - 29 mmol/L [facility] Anion Gap 14 12 - 20 [facility] Urea Nitrogen (BUN) 13 9 - 16 mg/dL [facility] Creatinine, Serum 0.66 0.5 - 1.4 mg/dL [facility] Creatinine Clr Calc Pharmacy 120.1 [facility] Comment:Provided height and weight: 160.02 cm,86 kg.eGFR (calculated from the MDRD study equation) and eCrCl(calculated from the Cockcroft-Gault equation) are based ondifferent parameters and may not yield comparable results.If eCrCl result is absurd, please check patient'sheight/weight. Estimated Glomerular Filt Rate >60 [facility] Comment:Chronic Kidney Disea se: Estimated GFR < 60 mL/min/1.38v3Mztnbu Kidney Disease: Estimated GFR < 15 mL/min/1.73m2 Glucose 219(H) 60 - 115 mg/dL [facility] Calcium 9.6 8.4 - 10.2 mg/dL [facility] Bilirubin, Total 0.2 0.0 - 1.0 mg/dL [facility] Aspartate Amino Transferase 29 5 - 31 U/L [facility] Alanine Aminotransferase 23 0 - 31 U/L [facility] Total Protein 8.3(H) 6.5 - 8.0 g/dL [facility] Albumin Level 4.4 3.5 - 5.0 g/dL [facility] Alkaline Phosphatase 109 39 - 117 U/L [facility] 09/04/2025 9:56 AM EST 09/04/2025 10:01 AM EST us Generic External Data Provider LAB BLOOD ORDERAB LES Final Result Performing Organization Address [facility] Co de Phone Number [facility] [address] [place] [phone] * POCT Rapid Influenza B BOTELLO ID NOW (08/18/2025 2:53 PM EDT) Influenza B Negative Negative, Indeterminate [facility] QC Media Lot # [id number] [facility] Lot# Expiration Date [facility] Swab 08/18/2025 2:53 PM EDT us Alcira Okhipo [employer] SALES AGENT POINT OF CARE TEST ENTER/EDIT ORDERABLES Final Result Performing Organization Address [facility] Co de Phone Number [facility] [address] [place] [phone] * POCT Rapid Influenza A BOTELLO ID NOW (08/18/2025 2:53 PM EDT) [facility] Signature Influenza A Negative Negative, Indeterminate [facility] QC Media Lot # [id number] [facility] Lot# Expiration Date [facility] Swab 08/18/2025 2:53 PM EDT us Alcira Okhipo PEST CONTR[employer] SERVICE SALES AGENT POINT OF CARE TEST ENTER/EDIT ORDERABLES Final Result Performing Organization Address [facility] Co de Phone Number [facility] [address] [place] [address] [phone] * POCT Rapid Strep A BOTELLO ID NOW (08/18/2025 2:53 PM EDT) Pathologist [facility] Rapid Strep A Screen Negative Negative, None Detected QC Media Lot # [id number] Lot# Expiration Date Swab 08/18/2025 2:53 PM EDT us Alcira Okhipo [employer] SERVICE SALES AGENT POINT OF CARE TEST ENTER/EDIT ORDERABLES Final Result * POCT Rapid Covid-19 BinaxNOW (08/18/2025 2:47 PM EDT) Pathologist [facility] Rapid COVID Ag Negative QC Media Lot # [id number] Lot# Expiration Date [id number] Swab 08/18/2025 2:47 PM EDT Alcira Rafitao [employer]ST CONTROL SERVICE SALES AGENT POINT OF CARE TEST ENTER/EDIT ORDERABLES Final Result * Influenza A B2 ID NOW (Botello) (08/09/2025 3:35 PM EDT) Only the most recent of2 resultswithin the time period is included. [facility] IDNOW SERIAL# [id number] [facility] Influenza A Negative Negative [facility] Influenza B2 Negative Negative [facility] Influenza A B2 Note See Note [facility] Comment:The Botello ID NOW In [...] LAB MICROBIOLOGY - GENERAL ORDERABLES Final Result [facility] [address] [place] [address] [phone] * COVID-19 ID NOW (BOTELLO) (08/09/2025 3:35 PM EDT) Only the most recent of2 resultswithin the time period is included. IDNOW SERIAL# [id number] [facility] COVID-19 TEST Negative Negative [facility] COVID-19 NOTE See Note [facility] Comment: Results are for the identification of SARS-CoV2 RNA. TheSARS-CoV2 RNA is generally detectable in respiratory samplesduring the acute phase of infection. Positive results areindicative of the presence of SARS-CoV-2 RNA; clinicalcorrelation with patient history and other diagnosticinformation is necessary to determine patient infectionstatus. Positive results do not rule out bacterial infectionor co- infection with other viruses.Testing facilities within the [facility] and [facility] are required to report all positive results [...] use by authorized laboratories.Testing performed on the [employer] ID NOW utilizing NAAT. 08/09/2025 3:35 PM EDT 08/09/2025 3:58 PM EDT us Generic External Data Provider LAB MOLECULAR BRAYAN GNOSTICS ORDERABLES Final Result [facility] [address] [place] [phone] * Prothrombin Time-INR (08/09/2025 3:35 PM EDT) Prothrombin Time 11.1 10.9 - 12.4 SEC [facility] INTERNATIONAL NORM RATIO 1.0 0.9 - 1.1 [facility] Comment:INTERNATIONAL NORMAL IZED RATIO (INR) [...] ORDERAB LES Final Result Performing Organization Address [facility] de Phone Number [facility] [address] [place] [address] [phone] * (ABNORMAL) Lactic Acid (07/26/2025 5:33 PM EDT) Only the most recent of2 resultswithin the time period is included. Lactic Acid 2.9(HH) 0.5 - 2.0 mmol/L [facility] Comment:Critical value for t est(s):LACTA Results called to and readback by: JOSE Person calling:KUSF Date: [id number] 07/26/2025 5:33 PM EDT 07/26/2025 5:35 PM EDT Generic External Data Provider LAB BLOOD ORDERAB LES Final Result Performing Organization Address [facility] de Phone Number [facility] [address] [place] [address] [phone] * CTA Chest PE Protocal (07/26/2025 12:55 PM EDT) Anatomical Region Laterality Modality Body, Chest Computed Tomogra phy 07/26/2025 12:5 5 PM EDT Narrative 07/26/2025 1:53 PM EDT [address] [address] [address] Scan Report Signed Patient: Indigo Thompson MR#: [id number] : 1985 Acct:[id number] Age/Sex: 40 / F ADM Date: 07/26/25 Loc: HO.ED Attending Dr: Ordering Physician: Jerzy Kelley Date of Service: 07/26/25 Procedure(s): CT angio chest PE protocol Accession Number(s): [id number] cc: Jerzy Kelley; Gisele Kulkarni MD Report Number: [id number]: Total DLP = 0.00 mGy-cm Reason for [...] Andreas Dickson MD 07/26/2025 01:50 PM EDT RP Dictated By: Andreas Dickson MD Signed By: <Electronically signed by Andresa Dickson MD in OV> 07/26/25 1350 DD/ 1255 TD/TT: 07/26/25 1335 Assistant Golf Coach: Procedure Note Donotuseinterpreter, Image - 07/26/[address] [place] [address] [address] Scan Report Signed Patient: Frederick Thompson#: [id number] : 1985Acct:[id number] Age/Sex: 40 / FADM Date: 07/26/25 Loc: .ED Attending Dr: Ordering Physician: Jerzy Kelley Date of Service: 07/26/25 Procedure(s): CT angio chest PE protocol Accession Number(s): [id number] cc: Jerzy Kelley; Gisele Kulkarni MD Report Number: [id number]: Total DLP = 0.00 mGy-cm Reason for [...] 07/26/25 1350 DD/ 1255 TD/TT: 07/26/25 1335 Assistant Golf Coach: [facility] External Provider IMG CT PROCEDURES Final Result * CT Head w/o Contrast (07/26/2025 12:55 PM EDT) Anatomical Region Laterality Modality Head, Neck Computed Tomogra phy 07/26/2025 12:5 5 PM EDT Narrative 07/26/2025 1:56 PM EDT [address] [address] [address] Scan Report Signed Patient: Indigo Thompson MR#: [id number] : 1985 Acct:[id number] Age/Sex: 40 / F ADM Date: 07/26/25 Loc: HO.ED Attending Dr: Ordering Physician: Jerzy Kelley Date of Service: 07/26/25 Procedure(s): CT head/brain wo IV con Accession Number(s): [id number] cc: Jerzy Kelley; Gisele Kulkarni MD Report Number: [id number]: Total DLP = 948.00 mGy-cm Reason for [...] Luis Paul MD 07/26/2025 01:53 PM EDT RP Dictated By: Luis Oropeza MD Signed By: <Electronically signed by Luis Maxwell MD in OV> 07/26/25 1353 DD/ 1255 TD/TT: 07/26/25 1335 Assistant Golf Coach: Procedure Note Donotuseinterpreter, Image - 07/26/[address] [place] [address] [address] Scan Report Signed Patient: Frederick Thompson#: MM [id number] : 1985Acct:[id number] Age/Sex: 40 / FADM Date: 07/26/25 Loc: HO.ED Attending Dr: Ordering Physician: Jerzy Kelley Date of Service: 07/26/25 Procedure(s): CT head/brain wo IV con Accession Number(s): [id number] cc: Jerzy Kelley; Gisele Kulkarni MD Report Number: [id number]: Total DLP = 948.00 mGy-cm Reason for [...] Luis Paul MD 07/26/2025 01:53 PM EDT RP Dictated By: Luis Oropeza MD Signed By: <Electronically signed by Luis Maxwell MDin OV> 07/26/25 1353 DD/ 1255 TD/TT: 07/26/25 1335 Assistant Golf Coach: [facility] External Provider IMG CT PROCEDURES Final Result * (ABNORMAL) Lactic Acid (07/26/2025 11:41 AM EDT) Lactic Acid 2.2(HH) 0.5 - 2.0 mmol/L [facility] Comment:Critical value for t est(s): LA Results called to and readback by: FRANCESCA Person calling: IDRISH Date: 07/26/25 Time:12:08 07/26/2025 11:4 1 AM EDT 07/26/2025 11:45 AM EDT Generic External Data Provider LAB BLOOD ORDERAB LES Final Result [facility] [address] [place] [phone] * XR Chest 1 View (07/26/2025 10:50 AM EDT) Anatomical Region Laterality Modality Chest Radiographic Nurys ging 07/26/2025 10:5 0 AM EDT Narrative 07/26/2025 11:02 AM EDT [address] [place] [address] XRay Report Signed Patient: Indigo Thompson MR#: [id number] : 1985 Acct:[id number] Age/Sex: 40 / F ADM Date: 07/26/25 Loc: .ED Attending Dr: Ordering Physician: Jerzy Kelley Date of Service: 07/26/25 Procedure(s): XR chest 1V Accession Number(s): [id number] cc: Jerzy Kelley; Gisele Kulkarni MD Reason [...] 07/26/25 1059 DD/ 1050 TD/TT: 07/26/25 1054 Assistant Golf Coach: Procedure Note Donotuseinterpreter, Image - 07/26/[address] [address] XRay Report Signed Patient: Indigo ThompsonMR#: [id number] : 1985Acct:[id number] Age/Sex: 40 / FADM Date: 07/26/25 Loc: .ED Attending Dr: Ordering Physician: Jerzy Kelley Date of Service: 07/26/25 Procedure(s): XR chest 1V Accession Number(s): [id number] cc: Jerzy Kelley; Gisele Kulkarni MD Reason [...] 07/26/25 1059 DD/ 1050 TD/TT: 07/26/25 1054 Assistant Golf Coach: [facility] External Provider IMG XR PROCEDURES Edited Result - Final * Albumin, Random Urine W/Creatinine (02/25/2025 12:49 PM EDT) Creatinine, Urine 233.13 mg/dL [facility] Microalbumin Urine 33.0 mg/L [facility] Microalbum Creatinine Ratio Ur 14.1 <30 ug/mg cr [facility] Comment:Albumin/Creatinine R atio Reference Ranges: Normal: < 30 ug/mg creatinine Microalbuminuria: 30 - 300 ug/mg creatinineClinical Albuminuria: > 300 ug/mg creatinine Urine 02/25/2025 12:4 9 PM EDT 02/25/2025 3:58 PM EDT Gisele Kulkarni MD LAB URINE ORDERABLES Final Result [facility] [address] [place] [phone] * (ABNORMAL) Lipid Panel, Standard (02/25/2025 12:49 PM EDT) Triglycerides 134 <150 mg/dL [facility] Comment:Desirable Triglyceri de: less than 150 mg/dLBorderline High Triglyceride 150-199 mg/dLHigh Triglyceride: 200-499 mg/dLVery High Triglyceride: greater than or equal to 5OO mg/dL Cholesterol 173 <200 mg/dL [facility] Comment:Desirable Cholestero l: less than 200 mg/dLBorderline High Cholesterol: 200-239 mg/dLHigh Cholesterol: greater than 239 mg/dL LDL Cholesterol Calculated 103(H) <100 mg/dL [facility] Comment:Desirable LDL: less than 100 mg/dLNear Optimal/Above Optimal LDL: 110- 129 mg/dLBorderline High LDL: 130-159 mg/dLHigh LDL: 160-189 mg/dLVery High LDL: greater than or equal to 190 mg/dL HDL Cholesterol 44 >40 mg/dL [facility] Comment:Desirable HDL: great er than 40 mg/dL Note: This HDL assay may give artificially low results in patients with liver disease. Blood Venous blood specimen / Unknown 02/25/2025 12:49 PM EDT 02/25/2025 4:04 PM EDT Gisele Kulkarni MD LAB BLOOD ORDERABLES Final Result Performing Organization Address City/[facility] Co de Phone Number [facility] [address] [place] [phone] * Hepatitis C Antibody with Reflex to HCV, RNA, Quantitative, Real-Time PCR (10/06/2023 12:16 PM EST) Hepatitis C Antibody Nonreactive Nonreactive [facility] Comment:Antibodies to HCV no t detected; does not exclude early acuteHCV infection. Blood Venous blood specimen / Unknown 10/06/2023 12:16 PM EST 10/06/2023 1:01 PM EST Gisele Kulkarni MD LAB BLOOD ORDERABLES Final Result Performing Organization Address City/[facility]/ZIP Co de Phone Number [facility] [address] [place] [phone] * HIV-1/2 Antigen and Antibodies, Fourth Generation, with Reflexes (10/06/2023 12:16 PM EST) HIV AB/AG Nonreactive Nonreactive [facility] Comment:HIV-1 p24 Ag and/or HIV-1/HIV-2 Ab not detected.A test result that is nonreactive does not exclude thepossibility of exposure to or infection with HIV-1 and/orHIV-2. Nonreactive results in this assay for individualswith prior exposure to HIV-1 and/or HIV-2 may be due toantigen and antibody levels that are below the limit ofdetection of this assay.The [employer] HIV Ag/Ab Combo assay result andsupplemental assay results should be interpreted inconjunction with the patient's clinical presentation,history and other laboratory results. If the results areinconsistent with clinical evidence, additional testing issuggested to confirm the result. Blood Venous blood specimen / Unknown 10/06/2023 12:16 PM EST 10/06/2023 1:01 PM EST Gisele Kulkarni MD LAB BLOOD ORDERABLES Final Result Performing Organization Address [facility]/ZIP Co de Phone Number [facility] [address] [place] [phone] * HPV High Risk PCR (07/11/2022 12:00 AM EDT) Swab Cervical swab / Unknown Gisele Kulkarni MD LAB MICROBIOLOGY - GENERAL ORDERABLES Final Result Performing Organization Address [facility]/ZIP Co de Phone Number [facility] [address] [place] [phone] * Pap Smear (07/11/2022 12:00 AM EDT) Swab Gisele Kulkarni MD LAB CYTOLOGY ORDERABLES Fi nal Result [facility] [address] [place] [phone] from Last 3 Months or Most Recently Relevant to Health Maintenance Additional Health Concerns Active Problems Noted Date Diagnosed Date Help patients manage their type 2 diabetes 09/07 Weekly blood pressure task 09/07/2025 Help patients manage their type 2 diabetes 09/07 Patient has chronic kidney disease 09/07/2025 Weekly blood pressure task 09/07/2025 Patient has chronic kidney disease 09/07/2025 Weekly blood pressure task 09/13/2025 Weekly blood pressure task 09/13/2025 Patient has chronic kidney disease 09/13/2025 Patient has chronic kidney disease 09/13/2025 Weekly blood pressure task 09/13/2025 Weekly blood pressure task 09/13/2025 Patient has chronic kidney disease 09/13/2025 Patient has chronic kidney disease 09/13/2025 Weekly blood pressure task 09/13/2025 Weekly blood pressure task 09/13/2025 Patient has chronic kidney disease 09/13/2025 Patient has chronic kidney disease 09/13/2025 Weekly blood pressure task 09/14/2025 Weekly blood pressure task 09/14/2025 Patient has chronic kidney disease 09/14/2025 Patient has chronic kidney disease 09/14/2025 Weekly blood pressure task 10/04/2025 Weekly blood pressure task 10/04/2025 Patient has chronic kidney disease 10/04/2025 Patient has chronic kidney disease 10/04/2025 Weekly blood pressure task 10/07/2025 Weekly blood pressure task 10/07/2025 Patient has chronic kidney disease 10/07/2025 Patient has chronic kidney disease 10/07/2025 Weekly blood pressure task 10/10/2025 Weekly blood pressure task 10/10/2025 Patient has chronic kidney disease 10/10/2025 Patient has chronic kidney disease 10/10/2025 Weekly blood pressure task 10/13/2025 Weekly blood pressure task 10/13/2025 Patient has chronic kidney disease 10/13/2025 Patient has chronic kidney disease 10/13/2025 Weekly blood pressure task 10/13/2025 Weekly blood pressure task 10/13/2025 Patient has chronic kidney disease 10/13/2025 Patient has chronic kidney disease 10/13/2025 Weekly blood pressure task 10/24/2025 Weekly blood pressure task 10/24/2025 Patient has chronic kidney disease 10/24/2025 Patient has chronic kidney disease 10/24/2025 Insurance MEDICARE [facility] Advance Directives Documents on File Type Date Recorded 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
--- OUTSIDE RECORDS SUMMARY | 2025-10-25 19:22 | XMS_ITS | Encounter Summary ---
Author Organization [employer] Address [address] [facility] [address] 7[address] [place] [address] Care Team Providers Care Oracle Hyperion Consultant Name Role Phone Gisele Kulkarni MD Primary Care Provider [phone] Josemanuel Mc MD Unavailable Ant Wilkes MD Unavailable Encounter Details Date Type Department Care Team (Late st Contact Info) Description 10/24/2025 Telephone [facility] [address] [place], [place] [phone] Gisele Kulkarni MD [address] [place], [place] [phone] Social History Tobacco Use Types Packs/Day Years [...] housing situation today? I have arpita martinez 09/14/[address] you li [...] want or need it 08/27 Comments Unknown Sex and Gender Information Value Date Recorded Sex Assigned at Female 08/26/2022 10:16 AM EDT Legal Sex Female 10:16 AM EDT Gender Identity Female 08/26/2022 10:16 AM EDT Sexual Orientation Straight 08/26/2022 10 :16 AM EDT documented as of this encounter Miscellaneous Notes * Telephone Encounter - Kristy Heck - 10/24/2025 1:19 PM EST Pharmacy [facility] attempted outreach call on 10/24/25 for CDTM - Diabetes appointment; however, unable to reach patient. LVM for patient to contact Kristy Heck at [phone]. documented in this encounter Plan of Treatment Upcoming Encounters Date Type Department Care Team (Late st Contact Info) Description 12/05/2025 1:00 PM EST Office Visit [facility] OPTOMETRY [address] [place], [place] [phone] Natasha Ham, OD [address] [place] [address] documented as of this encounter Goals Goal Patient Goal Type Associated Problems Recent Progress Patient-Stated? Author Patient will adhere to medication regimen General No Corin Chaudhry Hemoglobin A1c < 7 Result Component 8.3(11/19/202 5 3:02 PM EST) No Yessica Morales, [...] Weekly blood pressure task No Laisha Zaragoza [place] Patient has chronic kidney disease Care Plan [...] Care Plan Weekly blood pressure task No PierYessica Tolentino PharmD Weekly blood pressure task Care Plan Weekly blood pressure task No Yessica Morales PharmZabrina Patient has chronic kidney disease Care Plan Patient has chronic kidney disease No Yessica Morales PharmZabrina Patient has chronic kidney disease Care Plan Patient has chronic kidney disease No Yessica Morales PharmZabrina Weekly blood pressure task Care Plan Weekly [...] Weekly blood pressure task No Lis Montano Patient has chronic kidney disease Care Plan Patient has chronic kidney disease No Lis Montano Patient has chronic kidney disease Care Plan Patient has chronic kidney disease No Lis Montano Weekly blood pressure task Care Plan Weekly blood pressure task No Kristy Heck Weekly blood pressure task Care Plan Weekly blood pressure task No Kristy Heck Patient has chronic kidney disease Care Plan Patient has chronic kidney disease No Kristy Heck Patient has chronic kidney disease Care Plan Patient has chronic kidney disease No Kristy Heck documented as of this encounter Visit Diagnoses Not on filedocumented in this encounter Additional Health Concerns Active Problems Noted Date [...] 10/24/2025 Patient has chronic kidney disease 10/24/2025 Assessment Noted Time PHQ-9 Depression Total Score: 8 09/14/20 25 3:00 PM EST documented as of this encounter Care Teams Oracle Hyperion Consultant Relationship Specialty Start Date End Date Gisele Kulkarni MD [address] [place] [address] PCP - General Family Medicine 06/15/13 Josemanuel Mc MD [address] [place] [address] Cardiology 12/01/24 Ant Wilkes MD [address] [place] [address] [address] [place] [address] Allergy 12/01/24 documented as of this encounter
--- OUTSIDE RECORDS SUMMARY | 2025-10-25 19:22 | XMS_ITS | Encounter Summary ---
Author Organization [employer] Address [address] [facility] 7t [place] [address] Care Team Providers Care Galley Boy Name Role Phone Gisele Kulkarni MD Primary Care Provider [phone]- [phone] Yessica Morales PharmD Unavailable Josemanuel Mc MD Unavailable [phone] Ant Wilkes MD Unavailable Encounter Details Date Type Department Care Team (Late st Contact Info) Description 11/10/2022 Abstract [facility] MEDICINE [address] [place] [address] Gisele Kulkarni MD [address] [place] [address] Social History Tobacco Use Types Packs/Day Years [...] Description 12/05/2025 1:00 PM EST Office Visit [facility] OPTOMETRY [address] [place] [address] Natasha Ham OD [address] [place] [address] documented as of this encounter Procedures Procedure Name Priority Date/Time Associated Diagnosis Comments HPV HIGH RISK PCR Routine 07/11/2022 12:00 AM EDT PAP SMEAR Routine 07/11/2022 12:00 AM EDT documented in this encounter Results * HPV High Risk PCR (07/11/2022 12:00 AM EDT) Swab Cervical swab / Unknown Gisele Kulkarni MD LAB MICROBIOLOGY - GENERAL ORDERABLES Final Result Performing Organization Address [facility] Co de Phone Number [facility] [address] [place] [phone] * Pap Smear (07/11/2022 12:00 AM EDT) Swab Gisele Kulkarni MD LAB CYTOLOGY ORDERABLES Fi nal Result Performing Organization Address [facility]/ZIP Co de Phone Number [facility] [address] [place] [phone] documented in this encounter Visit Diagnoses Not on filedocumented in this encounter Care Teams Galley Boy Relationship Specialty Start Date End Date Gisele Kulkarni MD [address] [place] [address] PCP - General Family Medicine 06/15/13 Yessica Morales, PharmD [address] [place] [address] Pharmacist Internal Medicine 03/18/23 08/24/23 Josemanuel Mc MD [address] [place] [address] Cardiology 12/01/24 Ant Wilkes MD [address] [place] [address] [address] [place] [address] Allergy 12/01/24 documented as of this encounter
--- OUTSIDE RECORDS SUMMARY | 2025-10-25 19:22 | XMS_ITS | Encounter Summary ---
Author Organization [employer] Address [address] [facility] 7t [place] [address] Care Team Providers Care Door Assembler Name Role Phone Gisele Kulkarni MD Primary Care Provider [phone] Josemanuel Mc MD Unavailable [phone] Ant Wilkes MD Unavailable Encounter Details Date Type Department Care Team (Late st Contact Info) Description 01/21/2025 Orders Only [facility] [address] [place], [place] [phone] Gisele Kulkarni MD [address] [place], [place] [phone] Moderate recurrent major depression (CMS/HCC) (Primary Dx); [...] Description 12/05/2025 1:00 PM EST Office Visit [facility] OPTOMETRY [address] [place] [address] Natasha Ham, OD [address] [place] [address] documented as of this encounter Goals Goal [...] complication documented in this encounter Care Teams Door Assembler Relationship Specialty Start Date End Date Gisele Kulkarni MD [address] [place] [address] PCP - General Family Medicine 06/15/13 Josemanuel Mc MD [address] [place] [address] Cardiology 12/01/24 Ant Wilkes MD [address] [place] [address] [address] [place] [address] Allergy 12/01/24 documented as of this encounter
--- OUTSIDE RECORDS SUMMARY | 2025-10-25 19:22 | XMS_ITS | Encounter Summary ---
Author Organization [employer] Address [address] [facility] 7t [place] [address] Care Team Providers Care News Copy Editor Name Role Phone Gisele Kulkarni MD Primary Care Provider [phone] Josemanuel Mc MD Unavailable [phone] Ant Wilkes MD Unavailable Encounter Details Date Type Department Care Team (Late st Contact Info) Description 09/01/2025 Orders Only [facility] MEDICINE [address] [place], [place] [phone] Gisele Kulkarni MD [address] [place], [place] [phone] Type 2 diabetes mellitus without complication, without long-term current use of insulin (HCC) (Primary Dx) Social History Tobacco Use Types [...] Description 12/05/2025 1:00 PM EST Office Visit [facility] OPTOMETRY [address] [place], [place] [phone] Jitendra, Natasha, OD [address] [place] [address] Scheduled Orders Name Type Priority Associated Diagnoses Orde r Schedule Albumin, Random Urine W/Creatinine Lab Routine Type 2 diabetes mellitus without complication, without long-term current use of insulin (HCC) Expected: 09/01/2025 (Approximate), Expires: 09/01/2026 Hepatic Function Panel Lab Routine Type 2 diabetes mellitus without complication, without long-term current use of insulin (HCC) Expected: 09/01/2025 (Approximate), Expires: 09/01/2026 Lipid Panel, Standard Lab Routine Type 2 diabetes mellitus without complication, without long-term current use of insulin (HCC) Expected: 09/01/2025 (Approximate), Expires: 09/01/2026 Hemoglobin A1c Lab Routine Type 2 diabetes mellitus without complication, without long-term current use of insulin (HCC) Expected: 09/01/2025 (Approximate), Expires: 09/01/2026 Basic Metabolic Panel Lab Routine Type 2 diabetes mellitus without complication, without long-term current use of insulin (HCC) Expected: 09/01/2025 (Approximate), Expires: 09/01/2026 documented as of this encounter Goals Goal Patient Goal Type Associated Problems Recent Progress Patient-Stated? Author Patient will adhere to medication regimen General Corin Melendez Hemoglobin A1c < 7 Result Component 8.3( 5 3:02 PM EST) Yessica Koenig, PharmD documented as of this encounter Visit Diagnoses Diagnosis Type 2 diabetes mellitus without complication, without long-term current use of insulin (HCC)- Primary documented in this encounter Care Teams News Copy Editor Relationship Specialty Start Date End Date Gisele Kulkarni MD [address] [place] [phone] PCP - General Family Medicine 06/15/13 Josemanuel Mc MD [address] [place] [address] Cardiology 12/01/24 Ant Wilkes MD [address] [place] [address] [address] [place] [address] Allergy 12/01/24 documented as of this encounter
--- OUTSIDE RECORDS SUMMARY | 2025-10-25 19:22 | XMS_ITS | Encounter Summary ---
Author Organization [employer] Address [address] [facility] 7t [place] [address] Care Team Providers Care National Sales Manager Name Role Phone Gisele Kulkarni MD Primary Care Provider [phone] Josemanuel Mc MD Unavailable [phone] Ant Wilkes MD Unavailable Reason for Visit * Reason Onset Date Comments Med Refill 10/25/2025 Encounter Details Date Type Department Care Team (Late st Contact Info) Description 10/25/2025 Refill [facility] MEDICINE [address] [place], [place] [phone] Gisele Kulkarni MD [address] [place], [place] [phone] Nausea Social History Tobacco Use Types Packs/Day [...] the past 12 months, has t he [employer] oil or [email or web address] threatened to shut off services in your [...] Description 12/05/2025 1:00 PM EST Office Visit [facility] OPTOMETRY [address] [place] [address] Jitendra, Megan, OD [address] [place] [address] documented as of this encounter Goals Goal Patient Goal Type Associated Problems Recent Progress Patient-Stated? Author Patient will adhere to medication regimen General Corin Melendez Hemoglobin A1c < 7 Result Component 8.3( 3:02 PM EST) No Yessica Morales, PharmD [...] Care Plan Weekly blood pressure task No Piers-Yessica Dillard, PharmD Patient has chronic kidney disease Care Plan Patient has chronic kidney disease No RexsYessica Newell, PharmD Patient has chronic kidney disease Care Plan Patient has chronic kidney disease No RexsYessica Newell, PharmD Weekly blood pressure task Care Plan Weekly blood pressure task No Kristy Heck Weekly blood pressure task Care Plan Weekly blood pressure task No Umang, Kristy Patient has chronic kidney disease Care Plan Patient has chronic kidney disease No Umang Kristy Patient has chronic kidney disease Care Plan Patient has chronic kidney disease No Kristy Heck Weekly blood pressure task Care Plan Weekly blood pressure task No Kristy Heck Weekly blood pressure task Care Plan Weekly blood pressure task No Umang Kristy Patient has chronic kidney disease Care Plan Patient has chronic kidney disease No Umang Kristy Patient has chronic kidney [...] Plan Patient has chronic kidney disease No Umang Kristy Patient has chronic kidney disease Care Plan Patient has chronic kidney disease No Kristy Heck documented as of this encounter Visit Diagnoses Diagnosis Nausea Nausea alone documented in this encounter Additional Health Concerns Active [...] documented as of this encounter Care Teams National Sales Manager Relationship Specialty Start Date End Date Gisele Kulkarni MD [address] [place] [address] PCP - General Family Medicine 06/15/13 Josemanuel Mc MD [address] [place] [address] Cardiology 12/01/24 Ant Wilkes MD [address] [place] [address] [address] [place] [address] Allergy 12/01/24 documented as of this encounter
--- OUTSIDE RECORDS SUMMARY | 2025-10-25 19:22 | XMS_ITS | Encounter Summary ---
Author Organization [employer] Address [address] [facility] 7t [place] [address] Care Team Providers Care Automatic Engraver Name Role Phone Gisele Kulkarni MD Primary Care Provider [phone] Josemanuel Mc MD Unavailable [phone] Ant Wilkes MD Unavailable Reason for Visit * Reason Comments Med Change Request Encounter Details Date Type Department Care Team (Late st Contact Info) Description 01/21/2025 Refill [facility] MEDICINE [address] [place], [place] [phone] Gisele Kulkarni MD [address] [place] [address] Moderate persistent asthma without complication Social History Tobacco Use Types Packs/Day Years Used Date Smoking Tobacco: Never Smokeless Tobacco: Never Alcohol Use Standard Drinks/Week Comments Never 0 (1 standard drink = 0.6 oz pur e alcohol) Housing Stability Answer Date Recorded What is your housing situation today? I have arpita sing 10/01/[address] you li [...] Description 12/05/2025 1:00 PM EST Office Visit [facility] OPTOMETRY [address] [place], [place] [phone] Natasha Ham, OD [address] [place] [address] documented as of this encounter Goals Goal Patient Goal Type Associated Problems Recent Progress Patient-Stated? Author Patient will adhere to medication regimen General No Corin Chaudhry Hemoglobin A1c < 7 Result Component 8.3( 5 3:02 PM EST) No Yessica Morales, PharmD documented as of this encounter Visit Diagnoses Diagnosis Moderate persistent asthma without complication documented in this encounter Care Teams Automatic Engraver Relationship Specialty Start Date End Date Gisele Kulkarni MD [address] [place] [address] PCP - General Family Medicine 06/15/13 Josemanuel Mc MD [address] [place] [address] Cardiology 12/01/24 Ant Wilkes MD [address] [place] [address] [address] [place] [address] Allergy 12/01/24 documented as of this encounter
--- OUTSIDE RECORDS SUMMARY | 2025-10-25 19:22 | XMS_ITS | Encounter Summary ---
Author Organization [employer] Address [address] [facility] 7t [place] [address] Care Team Providers Care Certified Anesthesiologist Assistant Name Role Phone Gisele Kulkarni MD Primary Care Provider [phone]- [phone] Josemanuel Mc MD Unavailable Ant Wilkes MD Unavailable Reason for Visit * Reason Onset Date Comments Med Refill 11/06/2024 Encounter Details Date Type Department Care Team (Late st Contact Info) Description 11/06/2024 Refill [facility] [address] [place], [place] [phone] Gisele Kulkarni MD [address] [place], [place] [phone] Nausea Social History Tobacco Use Types Packs/Day [...] Description 12/05/2025 1:00 PM EST Office Visit [facility] [address] [place], [place] [phone] Jitendra, Natasha, OD [address] [place] [address] documented as of this encounter Goals Goal Patient Goal Type Associated Problems Recent Progress Patient-Stated? Author Patient will adhere to medication regimen General Corin Melendez Hemoglobin A1c < 7 Result Component 8.3( 5 3:02 PM EST) No Yessica Morales, UmaD documented as of this encounter Visit Diagnoses Diagnosis Nausea Nausea alone documented in this encounter Care Teams Certified Anesthesiologist Assistant Relationship Specialty Start Date End Date Gisele Kulkarni MD [address] [place] [address] PCP - General Family Medicine 06/15/13 Josemanuel Mc MD [address] [place] [address] Cardiology 12/01/24 Ant Wilkes MD [address] [place] [address] [address] [place] [address] Allergy 12/01/24 documented as of this encounter
--- OUTSIDE RECORDS SUMMARY | 2025-10-25 19:22 | XMS_ITS | Encounter Summary ---
Author Organization [employer] Address [address] [facility] 7t [place] [address] Care Team Providers Care Mortar Mixer Name Role Phone Gisele Kulkarni MD Primary Care Provider [phone]- [phone] Josemanuel Mc MD Unavailable [phone] Ant Wilkes MD Unavailable Reason for Visit * Reason Onset Date Comments Med Refill 11/08/2024 Encounter Details Date Type Department Care Team (Late st Contact Info) Description 11/08/2024 Refill [facility] [address] [place], [place] [phone] Gisele Kulkarni MD [address] [place], [place] [phone] Nausea Social History Tobacco Use Types Packs/Day [...] Description 12/05/2025 1:00 PM EST Office Visit [facility] [address] [place] [address] Natasha Ham, OD [address] [place] [address] documented as of this encounter Goals Goal Patient Goal Type Associated Problems Recent Progress Patient-Stated? Author Patient will adhere to medication regimen General Corin Melendez Hemoglobin A1c < 7 Result Component 8.3( 5 3:02 PM EST) No Yessica Morales PharmD documented as of this encounter Visit Diagnoses Diagnosis Nausea Nausea alone documented in this encounter Care Teams Mortar Mixer Relationship Specialty Start Date End Date Gisele Kulkarni MD [address] [place] [address] PCP - General Family Medicine 06/15/13 Josemanuel Mc MD [address] [place] [address] Cardiology 12/01/24 Ant Wilkes MD [address] [place] [address] [address] [facility] [address] [place] [address] Allergy 12/01/24 documented as of this encounter
--- OUTSIDE RECORDS SUMMARY | 2025-10-25 19:22 | XMS_ITS | Encounter Summary ---
Author Organization [employer] Address 75 [facility] 7t [place] [address] Care Team Providers Care Timber Harvester Operator Name Role Phone Gisele Kulkarni MD Primary Care Provider [phone]- [phone] Josemanuel Mc MD Unavailable [phone] Ant Wilkes MD Unavailable Reason for Visit * Reason Comments Med Refill Encounter Details Date Type Department Care Team (Late st Contact Info) Description 02/07/2025 Refill [facility] [address] [place], [place] [phone] Gisele Kulkarni MD [address] [place] [address] Heartburn Social History Tobacco Use Types Packs/Day [...] 1:00 PM EST Office Visit [facility] [address] [place] [address] Natasha Ham, OD [address] [place] [address] documented as of this encounter Goals Goal Patient Goal Type Associated Problems Recent Progress Patient-Stated? Author Patient will adhere to medication regimen General Corin Melendez Hemoglobin A1c < 7 Result Component 8.3( 5 3:02 PM EST) Yessica Koenig, UmaD documented as of this encounter Visit Diagnoses Diagnosis Heartburn documented in this encounter Care Teams Timber Harvester Operator Relationship Specialty Start Date End Date Gisele Kulkarni MD [address] [place] [address] PCP - General Family Medicine 06/15/13 Josemanuel Mc MD [address] [place] [address] Cardiology 12/01/24 Ant Wilkes MD [address] [place] [address] [address] [facility] [address] [place] [address] Allergy 12/01/24 documented as of this encounter
--- OUTSIDE RECORDS SUMMARY | 2025-10-25 19:22 | XMS_ITS | Encounter Summary ---
Author Organization [employer] Address [address] [facility] 7t [place] [address] Care Team Providers Care Electroencephalograph Technician Name Role Phone Gisele Kulkarni MD Primary Care Provider [phone]- [phone] Josemanuel Mc MD Unavailable [phone] Ant Wilkes MD Unavailable Reason for Visit * Reason Onset Date Comments Med Refill 01/04/2025 Encounter Details Date Type Department Care Team (Late st Contact Info) Description 01/04/[address] [facility] [address] [place], [place] [phone] Gisele Kulkarni MD [address] [place], [place] [phone] Nausea Social History Tobacco Use Types Packs/Day [...] Description 12/05/2025 1:00 PM EST Office Visit [facility] [address] [place] [address] Natasha Ham, OD [address] [place] [address] documented as of this encounter Goals Goal Patient Goal Type Associated Problems Recent Progress Patient-Stated? Author Patient will adhere to medication regimen General Corin Melendez Hemoglobin A1c < 7 Result Component 8.3( 5 3:02 PM EST) No Yessica Morales PharmD documented as of this encounter Visit Diagnoses Diagnosis Nausea Nausea alone documented in this encounter Care Teams Electroencephalograph Technician Relationship Specialty Start Date End Date Gisele Kulkarni MD [address] [place] [address] PCP - General Family Medicine 06/15/13 Josemanuel Mc MD [address] [place] [address] Cardiology 12/01/24 Ant Wilkes MD [address] [place] [address] [address] [facility] [address] [place] [address] Allergy 12/01/24 documented as of this encounter
--- OUTSIDE RECORDS SUMMARY | 2025-10-25 19:22 | XMS_ITS | Encounter Summary ---
Author Organization [employer] Address [address] [facility] 7t [place] [address] Care Team Providers Care Appliquer Zigzag Name Role Phone Gisele Kulkarni MD Primary Care Provider [phone]- [phone] Josemanuel Mc MD Unavailable [phone] Ant Wilkes MD Unavailable Reason for Visit * Reason Comments Med Change Request Encounter Details Date Type Department Care Team (Late st Contact Info) Description 01/21/2025 Refill [facility] [address] [place], [place] [phone] Gisele Kulkarni MD [address] [place] [address] Moderate persistent asthma without complication Social History [...] Description 12/05/2025 1:00 PM EST Office Visit [facility] OPT[facility] [address] [place], [place] [phone] Natasha Ham, OD [address] [place] [address] documented as of this encounter Goals Goal Patient Goal Type Associated Problems Recent Progress Patient-Stated? Author Patient will adhere to medication regimen General Corin Melendez Hemoglobin A1c < 7 Result Component 8.3( 5 3:02 PM EST) No Yessica Morales, UmaD documented as of this encounter Visit Diagnoses Diagnosis Moderate persistent asthma without complication documented in this encounter Care Teams Appliquer Zigzag Relationship Specialty Start Date End Date Gisele Kulkarni MD [address] [place] [address] PCP - General Family Medicine 06/15/13 Josemanuel Mc MD [address] [place] [address] Cardiology 12/01/24 Ant Wilkes MD [address] [place] [address] [address] [place] [address] Allergy 12/01/24 documented as of this encounter
--- OUTSIDE RECORDS SUMMARY | 2025-10-25 19:22 | XMS_ITS | Encounter Summary ---
Author Organization [employer] Address [address] [facility] 7t [place] [address] Care Team Providers Care Patient Financial Advocate Name Role Phone Gisele Kulkarni MD Primary Care Provider [phone]- [phone] Josemanuel Mc MD Unavailable [phone] Ant Wilkes MD Unavailable Reason for Visit * Reason Comments Med Change Request Encounter Details Date Type Department Care Team (Late st Contact Info) Description 01/24/[address] [facility] [address] [place] [address] Gisele Kulkarni MD [address] [place] [address] Social History Tobacco Use Types Packs/Day Years [...] Description 12/05/2025 1:00 PM EST Office Visit [facility] OPTOM[facility] [address] [place] [address] Jitendra, Natasha, OD [address] [place] [address] documented as of this encounter Goals Goal Patient Goal Type Associated Problems Recent Progress Patient-Stated? Author Patient will adhere to medication regimen General No Corin Chaudhry Hemoglobin A1c < 7 Result Component 8.3( 3:02 PM EST) No Yessica Morales, UmaD documented as of this encounter Visit Diagnoses Not on filedocumented in this encounter Care Teams Patient Financial Advocate Relationship Specialty Start Date End Date Gisele Kulkarni MD [address] [place] [address] PCP - General Family Medicine 06/15/13 Josemanuel Mc MD [address] [place] [address] Cardiology 12/01/24 Ant Wilkes MD [address] [place] [address] [address] [facility] [address] [place] [address] Allergy 12/01/24 documented as of this encounter
[2025-10-25] MEDS: Lactated Ringers 1,000 ML 999 ML IV ×2 (19:31→20:25)
[2025-10-25 19:33] LABS: Hematocrit 39.5 % (37.0-47.0); Hemoglobin 12.7 g/dl (12.0-16.0); Imm Gran Abs Auto 0.03 X10*3/uL (0.00-0.03); Imm Gran Pct Auto 0.3 % (0.0-0.4); Lymphocytes Absolute Auto 1.0 X10*3/uL (1.2-4.9); MANUAL DIFF FLAG NO; Mean Corpuscular HGB Conc 32.2 g/dl (31.0-35.0); Mean Corpuscular Hemoglobin 24.5 pg (27.0-33.0); Mean Corpuscular Volume 76.1 fL (80.0-98.0); NRBC Abs Auto 0.000 X10*3/uL (0.0-0.012); NRBC Pct Auto 0.0 /100WBC (0.0-0.2); Platelet Count 285 X10*3/uL (160-400); Red Blood Count 5.19 X10*6/uL (4.20-5.50); White Blood Count 10.5 X10*3/uL (4.8-10.8)
[2025-10-25 19:54] LABS: Alanine Aminotransferase 20 U/L (0-31); Albumin Level 4.4 g/dL (3.5-5.0); Alkaline Phosphatase 115 U/L (39-117); Anion Gap 15 (12-20); Aspartate Amino Transferase 31 U/L (5-31); Blood Urea Nitrogen 9 mg/dL (9-16); Calcium 9.4 mg/dL (8.4-10.2); Carbon Dioxide 21 mmol/L (22-29); Chloride 106 mmol/L (96-108); Creatinine Clr Calc Pharmacy 92.5; Estimated Glomerular Filt Rate > 60; Magnesium 1.7 mg/dL (1.6-2.6); Potassium 3.9 mmol/L (3.3-5.1); Sodium 138 mmol/L (135-145); Total Protein 8.6 g/dL (6.5-8.0)
[2025-10-25 19:55] LABS: NT Pro B Type Natriuretic Pept < 15.8 pg/mL (<300); Troponin-I High Sensitivity < 2.7 ng/L (<3.5-17.0)
[2025-10-25 20:02] LABS: D Dimer High Sensitivity < 150 NG/ML
[2025-10-25] MEDS: Adenosine 6 MG/2 ML VIAL IVPUSH (20:03)
[2025-10-25 20:08] LABS: Thyroid Stimulating Hormone 0.68 uIU/mL (0.32-4.0)
[2025-10-25 21:15] LABS: Resp Syncy Virus RNA Qual PCR NEGATIVE (Negative); SARS COV2 PCR INHOUSE NEGATIVE (Negative)
[2025-10-26 00:13] VITALS: BP 141/99; PULSE 129; RESP 23; TEMP 37.8; O2SAT 98
[2025-10-26 00:38] VITALS: BP 137/99; PULSE 109
[2025-10-26 00:39] VITALS: PULSE 101
[2025-10-26 01:44] VITALS: BP 129/88; PULSE 114; RESP 16; TEMP 37.1; O2SAT 98
[2025-10-26 01:52] VITALS: BP 129/88; PULSE 114; RESP 16; TEMP 37.1; O2SAT 98
== END 2025-10-26 01:53 | disposition home or self-care (01) ==
PROVIDERS: Emergency Medicine; Emergency Provider Emergency Medicine; PCP Family Medicine
DX: J10.1 Influenza due to other identified influenza virus with other respiratory manifestations (principal); R55 Syncope and collapse; R50.9 Fever, unspecified; R00.2 Palpitations; R00.0 Tachycardia, unspecified; I10 Essential (primary) hypertension; J45.909 Unspecified asthma, uncomplicated; Z79.899 Other long term (current) drug therapy; Z03.818 Encounter for observation for suspected exposure to other biological agents ruled out
CPT/HCPCS: 36415; 80053; 83735; 83880; 84443; 84484; 84702; 85025; 85379; 87637; 93005; 96361; 96374; 96375; 99285; J0153; J1163; J1200; J1885; J2765; J7120

== ENCOUNTER → 2025-10-25 19:05 | Outpatient (BNV) | payer MEDICARE, MEDICAID, SELFPAY | PROVIDERS: Emergency Provider Emergency Medicine; PCP Family Medicine; Visit Provider Internal Medicine | DX: R94.31 Abnormal electrocardiogram [ECG] [EKG] (principal); R00.0 Tachycardia, unspecified | CPT/HCPCS: 93010 ==